=== PATIENT | female | born 1940 | race Caucasian/White ===

== ENCOUNTER 2020-04-25 10:38 | Inpatient (IN) | payer MEDICARE, OTHER, SELFPAY ==
[2020-04-25] VITALS (10 sets, daily range): BP systolic 104–129; BP diastolic 52–72; PULSE 74–97; RESP 16–24; TEMP 36.7–36.8; O2SAT 88–100; BMI 25.7
--- NOTE | 2020-04-25 10:51 | PC.NURSE ---
SORE NOTED TOP OF LEFT FOOT WEEPING NOTED LOWER LEFT EXTREMITY WITH REDNESS AND WARMTH TO TOUCH VERY TENDER TO TOUCH SKIN TAUNT TO TOUCH
--- NOTE | 2020-04-25 11:24 | XRR_ITS ---
PROCEDURE INFORMATION: Exam: XR Left Ankle Exam date and time: 04/25/2020 12:18 PM Age: 79 years old Clinical indication: Pain; Swelling, leg or foot; Ankle; Left; Additional info: Pain/infection TECHNIQUE: Imaging protocol: XR Left ankle. Views: 3 or more views. COMPARISON: No relevant prior studies available. FINDINGS: Bones/joints: There is diffuse demineralization. There is no acute fracture. Distal tibial intramedullary sclerosis may reflect infarct. Soft tissues: There is diffuse prominence of the soft tissues. XR/XR ankle LT min 3V* [id number] IMPRESSION: No acute abnormality.
--- NOTE | 2020-04-25 11:24 | XRR_ITS ---
PROCEDURE INFORMATION: Exam: XR Right Foot Complete Exam date and time: 04/25/2020 12:16 PM Age: 79 years old Clinical indication: Pain; Swelling, leg or foot; Bilateral; Additional info: Pain/infection TECHNIQUE: Imaging protocol: XR Right foot. Views: 3 or more views. COMPARISON: No relevant prior studies available. FINDINGS: Bones/joints: There is diffuse demineralization. There are hammertoe deformities of the 2nd through 5th rays. There is no fracture. Soft tissues: Normal. XR/XR foot RT min 3V* [id number] IMPRESSION: No fracture.
--- NOTE | 2020-04-25 11:24 | USCV_ITS ---
Charisma Holly Age: 79 Gender: F : 1940 Exam Date: 04/25/2020 12:08 Ordering Phys: Dagmar Ibarra DO Technologist: Marcelino Meeks [place] [facility] [place]ication: POOR PULSES Risk Factors: Unknown Previous Vascular Surgery: Unknown RIGHT LEFT BP: 130.0 / 67.00 BP: 130.0/ 65.00 0 0 Waveform Velocity (cm/s) Velocity (cm/s) Waveform Monophasic 174.9 Iliac Prox 178.1 Monophasic Monophasic 166.9 Iliac Mid 156.5 Monophasic Monophasic 181.9 Iliac Distal 154.7 Monophasic Monophasic 183.0 [employer]ER 126.3 Monophasic Monophasic 124.7 SFA Prox 140.3 Monophasic Monophasic 199.0 SFA Mid 152.9 Monophasic Monophasic 164.9 SFA Dist 138.5 Monophasic Monophasic 124.7 POP 174.5 Monophasic Monophasic 53.9 SLUNK SKINNER 127.7 Monophasic Monophasic 43.0 DPA 77.4 Monophasic VALERY 0.7 0.6 FINDINGS Abnormal resting ABIs bilaterally Abnormal arterial Doppler waveforms bilaterally CONCLUSIONS Abnormal resting ABIs and arterial Doppler waveforms, suggestive of moderately severe, 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 No similar previous studies are available for comparison Dr Kim Neil MD [facility] (Electronically Signed) Final Date: 26 April 2020 09:15 S
--- NOTE | 2020-04-25 11:24 | XRR_ITS ---
PROCEDURE INFORMATION: Exam: XR Left Foot Complete Exam date and time: 04/25/2020 12:18 PM Age: 79 years old Clinical indication: Pain; Swelling, leg or foot; Bilateral; Additional info: Pain/infection TECHNIQUE: Imaging protocol: XR Left foot. Views: 3 or more views. COMPARISON: No relevant prior studies available. FINDINGS: Bones/joints: There is diffuse demineralization. There is no definite fracture. There are degenerative changes about the 1st metatarsal phalangeal joint. Soft tissues: Normal. XR/XR foot LT min 3V* [id number] IMPRESSION: No definite fracture.
--- NOTE | 2020-04-25 11:24 | USCV_ITS ---
Charisma Holly Age: 79 Gender: F : 1940 Exam Date: 04/25/2020 12:00 Ordering Phys: Dagmar Ibarra DO Technologist: Marcelino Meeks [place]am Location[place] [facility] – [place] Indication: BIALT LEG EDEMA HISTORY: Lower extremity edema. PROCEDURES: The venous duplex Doppler examination of both lower extremities was performed in the standard fashion. The following venous structures were evaluated: common femoral vein, profunda vein, proximal portion of the greater saphenous vein, superficial femoral vein, and the popliteal vein. Bilaterally, the common femoral, superficial femoral, profunda femoral, popliteal, posterior tibial, greater saphenous veins, and the peroneal trunk were identified and interrogated in the standard fashion. These veins were found to be easily compressible with spontaneous blood flow. No evidence of insufficiency or thrombus noted. FINDINGS: Normal 2-D Doppler and augmentation and compressibility throughout the lower extremity venous structures. Additional imaging through the proximal calf veins also reveals no thrombus. Limited evaluation of the greater saphenous vein is patent with no thrombus.. CONCLUSIONS No evidence of DVT in the above-mentioned identifiable veins. Dr Kim Neil MD [facility] (Electronically Signed) Final Date: 26 April 2020 08:58 S
--- NOTE | 2020-04-25 11:32 | W.ED.EXTPRO ---
HPI - Extremity Problem General: Chief complaint: Extremity Problem,Nontraumatic Stated complaint: SORES ON LEFT FOOT Time Seen by Provider: 04/25/20 11:21 Source: patient Limitations: other (Patient is a poor historian) History of Present Illness: HPI Narrative: Charisma is an 79-year-old female who is believed to be brought in by EMS as no family is available with her. She is a very poor historian. She states she is here because her feet are causing her more pain. She appears to have chronic cellulitis in both feet. It appears as though her left lower extremity has quite a bit of oozing. She denies any injuries. She has any fevers or chills. Patient states her feet have been like this for quite some time she is here today solely because her pain is worse. All further history is taken from old charts. Associated symptoms: Deny chest pain or fever(s) Review of Systems Const: Denies: fever(s), chills, body aches, fatigue, malaise or diaphoresis Eyes: Denies: change in vision, blurry vision, blind spots, photophobia, eye discharge or eye redness ENMT: Denies: throat pain, odynophagia, hoarseness, swelling of lips/tongue, oral sores, ear or mastoid pain, ear discharge, change in hearing or nasal discharge Card: Denies: chest pain, palpitations, irregular heart rhythm, edema, lightheadedness, syncope, pre-syncope, dyspnea on exertion or orthopnea Resp: Denies: dyspnea, productive cough, non-productive cough, wheezing, hemoptysis or chest congestion GI: Denies: abdominal pain, nausea, vomiting, hematemesis, coffee ground emesis, heartburn, diarrhea, constipation, GI cramping, hematochezia or melena : Denies: flank pain, dysuria, urinary frequency, urinary urgency or hematuria Musc: Reports: extremity pain; Denies: neck pain, back pain, extremity swelling, joint pain, joint swelling, joint redness, joint warmth or joint stiffness Skin/Breast: Reports: other (As noted in HPI) Neuro: Denies: headache(s), numbness in extremities, weakness in extremities, sensory changes, lack of coordination, difficulty walking, dizziness, vertigo, confusion, Slurred speech present or seizure-like activity Bobby/Lymph: Denies: easy bruising, easy bleeding, petechiae, purpura or enlarged lymph nodes All/Imm: Denies: urticaria, throat swelling, tongue swelling, facial swelling or acute wheezing PFSH ED PFSH: Medical History (Updated 04/25/20 @ 15:34 by Dagmar Ibarra) Anemia CVA (cerebral vascular accident) 2013, right hemispheric Dementia Diabetes Hiatal hernia Hyperlipidemia Hypertension Peripheral vascular disease Thalassemia trait Surgical History (Updated 04/25/20 @ 13:59 by Keron Giron MD) History of back surgery Family History (Updated 04/25/20 @ 13:59 by Keron Giron MD) Other Diabetes Social History (Updated 04/25/20 @ 14:00 by Keron Giron MD) Smoking and tobacco status: never smoked Alcohol intake: never Substance/Drug Use: never Physical Exam Const: COMMON NORMALS: no acute distress, patient oriented x3, no limitations, healthy appearing and well nourished GENERAL APPEARANCE: cooperative, well kempt and well developed HENMT: COMMON NORMALS: normocephalic, atraumatic, external ears normal, EAC's normal and Normal external nose present HEAD & SCALP: normal to inspection, normocephalic and atraumatic FACE & SINUS: normal facial exam and face symmetric NOSE: Normal external nose present and Normal nares present EXTERNAL EAR: Yes external ears normal EXTERNAL AUDITORY CANAL: EAC's normal MOUTH: Normal oral and palatal mucosa present, lip normal and tongue normal Eye: COMMON NORMALS: Equal, round and reactive pupils present and conjunctivae normal GENERAL EYE: appearance normal, both eyes and all related structures ALIGNMENT: Yes alignment normal PERIORBITAL: periorbital findings normal EYELID: eyelids normal CONJUNCTIVA: Yes conjunctivae normal SCLERA: sclerae normal PUPIL: Yes Equal, round and reactive pupils present Neck/C-Spine: COMMON NORMALS: full ROM, no lymphadenopathy, supple, no meningeal signs and no JVD GENERAL: Yes normal visual inspection and Yes trachea midline Chest: COMMONS NORMALS: normal inspection of the chest and normal palpation of entire chest wall Resp: COMMON NORMALS: normal respiratory effort, No retractions and No use of accessory muscles EFFORT & INSPECTION: Yes able to speak in complete sentences and Yes symmetric chest movement AUSCULTATION: no crackles, no rales, no rhonchi and no wheezes Cardio: COMMON NORMALS: no JVD, regular rate, regular rhythm, S1 normal heart sound present and S2 normal heart sound present RATE: regular rate RHYTHM: regular rhythm HEART SOUNDS: S1 normal heart sound present, S2 normal heart sound present, no click, no gallops, no murmurs, no rubs and abnormal split S2 GI: COMMON NORMALS: Soft to palpation and No hepatosplenomegaly present PALPATION: Yes Soft to palpation, No Tenderness to palpation present (GI), No Guarding due to palpation present (GI), No Rigid due to palpation, Yes No hepatosplenomegaly present, No Hernia present, No Palpable mass present and No Pulsatile mass present : COMMON NORMALS: Yes no CVA tenderness BLADDER/KIDNEY EXAM: Yes no CVA tenderness EXTERNAL FEMALE EXAM: No Hernia present Back/Pelvis: COMMON NORMALS: no CVA tenderness, thoracic and lumbar spine normal to inspection, no thoracic nor lumbar tenderness and thoraco-lumbar ROM normal Extremity: COMMON NORMALS: normal to inspection, full ROM, capillary refill normal and no joint enlargement NARRATIVE EXTREMITY EXAM: Bilateral lower extremity calf tenderness Neuro: COMMON NORMALS: patient oriented x3, CN's II-XII intact bilaterally, moves all extremities, no focal motor deficits and no sensory deficits noted MENINGEAL SIGNS: Yes no meningeal signs SPEECH: speech normal Psych: APPEARANCE: Yes well kempt Skin: COMMON NORMALS: no jaundice, no petechiae and no mottling NARRATIVE SKIN EXAM: Bilateral feet with chronic cellulitis. Left foot worse than right with extension up to the ankle. Evidence of ulcers and weeping from the wounds present. Course Vital Signs: Vital signs: Vital Signs Temperature 98.1 F 04/25/20 15:28 Pulse Rate 92 04/25/20 17:31 Respiratory Rate 20 H 04/25/20 16:00 Blood Pressure 113/55 04/25/20 15:28 Pulse Oximetry 95 04/25/20 17:31 MDM - Extremity (Nontraumatic) MDM Narrative: Medical decision making narrative: The case was reviewed in its entirety with Dr. Giron, he agrees to come and admit the patient. Patient has anemia as well as elevated AST. She is guaiac negative here in the ER. Cause for isolated AST elevation is concerning but will need further with on the inpatient side. Your anemia can be worked up further as well. I initiated IV antibiotics for her cellulitis and she may need a vascular consult as her blood flow is monophasic with decreased ABIs. Lab Data: Attestation: I reviewed the patient's lab results. Labs: Lab Results 04/25/20 04/25/20 04/25/20 Range/Units 11:38 11:38 11:38 WBC 8.9 (4.0-10.0) 10^3/ uL RBC 3.74 L (4.1-5.3) 10^6/u L Hgb 8.2 L (11.5-15.3) g/dL Hct 26.9 L (37.0-47.0) % MCV 71.9 L (81-99) fL MCH 21.9 L (28.0-34.0) pg MCHC 30.5 (30.0-36.0) g/dL RDW 14.1 (12.1-15.1) % Plt Count 238 (130-400) 10^3/c mm MPV 10.3 (7.4-10.4) fL Neut % (Auto) 68.4 % Lymph % (Auto) 17.1 % [place] % (Auto) 12.3 % Eos % (Auto) 1.6 % Baso % (Auto) 0.4 % Neut # (Auto) 6.1 (1.8-7.7) 10^3/u L Lymph # (Auto) 1.5 (0.8-4.8) 10^3/u L [place] # (Auto) 1.1 H (0.2-0.9) 10^3/u L Eos # (Auto) 0.1 (0.0-0.8) 10^3/u L Baso # (Auto) 0.0 (0.0-0.1) 10^3/u L Nucleated RBC % (a uto) 0.2 % Nucleated RBCs # 0.0 /100WBC Sodium 140 (136-145) mmol/L Potassium 4.7 (3.5-5.1) mmol/L Chloride 104 (98-107) mmol/L Carbon Dioxide 24 (22-29) mmol/L Anion Gap 16.7 (5-19) BUN 25 H (8-23) mg/dL Creatinine 0.8 (0.5-0.9) mg/dL Glucose 212 H (65-115) mg/dL Calculated Osmolal ity 293 (285-295) mOsm/k g Lactic Acid 0.8 (0.5-2.2) mmol/L Calcium 9.5 (8.5-10.5) mg/dL Iron (37-145) ug/dL TIBC mcg/dl % Saturation (20-50) % Unsat Iron Binding (112-347) ug/dL Ferritin (15-150) ng/mL Total Bilirubin 0.6 (0.15-1.2) mg/dL AST 2575 H (0-32) U/L ALT 6 (0-33) U/L Alkaline Phosphata se 75 (35-105) IU/L Troponin T Baselin e (0-10) ng/L Troponin T 120 Min geo (0-10) ng/L Delta Troponin T (0-10) ABS# NT-Pro-B Natriuret Pep (0-450) pg/mL Total Protein 6.9 (6.6-8.7) g/dL Albumin 3.5 (3.5-5.2) g/dL Globulin 3.4 (1.3-4.6) g/dL Vitamin B12 (232-1245) pg/mL TSH (0.27-4.20) uIU/ mL Acetaminophen (10-30) ug/mL Ethyl Alcohol (0-10) mg/dL 04/25/20 04/25/20 04/25/20 Range/Units 11:38 11:38 11:38 WBC (4.0-10.0) 10^3/ uL RBC (4.1-5.3) 10^6/u L Hgb (11.5-15.3) g/dL Hct (37.0-47.0) % MCV (81-99) fL MCH (28.0-34.0) pg MCHC (30.0-36.0) g/dL RDW (12.1-15.1) % Plt Count (130-400) 10^3/c mm MPV (7.4-10.4) fL Neut % (Auto) % Lymph % (Auto) % [place] % (Auto) % Eos % (Auto) % Baso % (Auto) % Neut # (Auto) (1.8-7.7) 10^3/u L Lymph # (Auto) (0.8-4.8) 10^3/u L [place] # (Auto) (0.2-0.9) 10^3/u L Eos # (Auto) (0.0-0.8) 10^3/u L Baso # (Auto) (0.0-0.1) 10^3/u L Nucleated RBC % (a uto) % Nucleated RBCs # /100WBC Sodium (136-145) mmol/L Potassium (3.5-5.1) mmol/L Chloride (98-107) mmol/L Carbon Dioxide (22-29) mmol/L Anion Gap (5-19) BUN (8-23) mg/dL Creatinine (0.5-0.9) mg/dL Glucose (65-115) mg/dL Calculated Osmolal ity (285-295) mOsm/k g Lactic Acid (0.5-2.2) mmol/L Calcium (8.5-10.5) mg/dL Iron 30 L (37-145) ug/dL TIBC 227 mcg/dl % Saturation 13.2 L (20-50) % Unsat Iron Binding 197 (112-347) ug/dL Ferritin 308 H (15-150) ng/mL Total Bilirubin (0.15-1.2) mg/dL AST (0-32) U/L ALT (0-33) U/L Alkaline Phosphata se (35-105) IU/L Troponin T Baselin e 27 H (0-10) ng/L Troponin T 120 Min geo (0-10) ng/L Delta Troponin T (0-10) ABS# NT-Pro-B Natriuret Pep (0-450) pg/mL Total Protein (6.6-8.7) g/dL Albumin (3.5-5.2) g/dL Globulin (1.3-4.6) g/dL Vitamin B12 (232-1245) pg/mL TSH (0.27-4.20) uIU/ mL Acetaminophen < 5.0 L (10-30) ug/mL Ethyl Alcohol < 10 (0-10) mg/dL 04/25/20 04/25/20 Range/Units 12:02 13:55 WBC (4.0-10.0) 10^3/ uL RBC (4.1-5.3) 10^6/u L Hgb (11.5-15.3) g/dL Hct (37.0-47.0) % MCV (81-99) fL MCH (28.0-34.0) pg MCHC (30.0-36.0) g/dL RDW (12.1-15.1) % Plt Count (130-400) 10^3/c mm MPV (7.4-10.4) fL Neut % (Auto) % Lymph % (Auto) % [place] % (Auto) % Eos % (Auto) % Baso % (Auto) % Neut # (Auto) (1.8-7.7) 10^3/u L Lymph # (Auto) (0.8-4.8) 10^3/u L [place] # (Auto) (0.2-0.9) 10^3/u L Eos # (Auto) (0.0-0.8) 10^3/u L Baso # (Auto) (0.0-0.1) 10^3/u L Nucleated RBC % (a uto) % Nucleated RBCs # /100WBC Sodium (136-145) mmol/L Potassium (3.5-5.1) mmol/L Chloride (98-107) mmol/L Carbon Dioxide (22-29) mmol/L Anion Gap (5-19) BUN (8-23) mg/dL Creatinine (0.5-0.9) mg/dL Glucose (65-115) mg/dL Calculated Osmolal ity (285-295) mOsm/k g Lactic Acid (0.5-2.2) mmol/L Calcium (8.5-10.5) mg/dL Iron (37-145) ug/dL TIBC mcg/dl % Saturation (20-50) % Unsat Iron Binding (112-347) ug/dL Ferritin (15-150) ng/mL Total Bilirubin (0.15-1.2) mg/dL AST (0-32) U/L ALT (0-33) U/L Alkaline Phosphata se (35-105) IU/L Troponin T Baselin e (0-10) ng/L Troponin T 120 Min geo 24.71 H (0-10) ng/L Delta Troponin T -2.29 L (0-10) ABS# NT-Pro-B Natriuret Pep 1496 H (0-450) pg/mL Total Protein (6.6-8.7) g/dL Albumin (3.5-5.2) g/dL Globulin (1.3-4.6) g/dL Vitamin B12 375 (232-1245) pg/mL TSH 1.42 (0.27-4.20) uIU/ mL Acetaminophen (10-30) ug/mL Ethyl Alcohol (0-10) mg/dL Discharge Plan Discharge Patient Disposition: Admitted As Inpatient Admit Provider: Keron Giron Clinical Impression: Cellulitis Qualifiers: Site of cellulitis: extremity Site of cellulitis of extremity: lower extremity Laterality: unspecified laterality Qualified Code(s): L03.119 - Cellulitis of unspecified part of limb Anemia Qualifiers: Anemia type: unspecified type Qualified Code(s): D64.9 - Anemia, unspecified Condition: Stable Discharge Date/Time: 04/25/20 15:40 Coding Level of Care Code ED Mar[facility] Polisher Hand for Chg Fwd Exam Comprehensive
[2020-04-25 11:43] LABS: Basophils % 0.4 %; Eosinophils # 0.1 10^3/uL (0.0-0.8); Eosinophils % 1.6 %; Hematocrit 26.9 % (37.0-47.0); Hemoglobin 8.2 g/dL (11.5-15.3); Lymphocytes # 1.5 10^3/uL (0.8-4.8); Lymphocytes % 17.1 %; Mean Corpuscular HGB Conc 30.5 g/dL (30.0-36.0); Mean Corpuscular Hemoglobin 21.9 pg (28.0-34.0); Mean Corpuscular Volume 71.9 fL (81-99); Mean Platelet Volume 10.3 fL (7.4-10.4); Monocytes # 1.1 10^3/uL (0.2-0.9); Monocytes % 12.3 %; Neutrophils # 6.1 10^3/uL (1.8-7.7); Neutrophils % 68.4 %; Nucleated Red Blood Cells % 0.2 %; Platelet Count 238 10^3/cmm (130-400); Red Blood Count 3.74 10^6/uL (4.1-5.3); Red Cell Distribution Width 14.1 % (12.1-15.1); White Blood Count 8.9 10^3/uL (4.0-10.0)
[2020-04-25] MEDS: sodium chloride 0.9% 1,000 ML 100 ML IV (11:48)
[2020-04-25] MEDS: ondansetron 2 mg/ML SDV 2 mL 4 MG IVP (11:49)
[2020-04-25] MEDS: morphine 4 mg/mL SDV 1 mL IVP (11:49)
[2020-04-25] MEDS: piperacillin-tazobactam 3.375 GM in sodium chloride 0.9% (plus) 50 ML IV ×2 (11:53→17:39)
[2020-04-25 11:58] LABS: Alanine Aminotransferase 6 U/L (0-33); Albumin Level 3.5 g/dL (3.5-5.2); Alkaline Phosphatase 75 IU/L (35-105); Anion Gap 16.7 (5-19); Blood Urea Nitrogen 25 mg/dL (8-23); Calcium 9.5 mg/dL (8.5-10.5); Carbon Dioxide 24 mmol/L (22-29); Chloride 104 mmol/L (98-107); Creatinine Clr Calc Pharmacy 53.1565; Globulin 3.4 g/dL (1.3-4.6); Glucose 212 mg/dL (65-115); Osmolality Calculated 293 mOsm/kg (285-295); Potassium 4.7 mmol/L (3.5-5.1); Sodium 140 mmol/L (136-145); Total Bilirubin 0.6 mg/dL (0.15-1.2); Total Protein 6.9 g/dL (6.6-8.7)
[2020-04-25 11:59] LABS: Lactic Sepsis W/Reflex 0.8 mmol/L (0.5-2.2)
--- NOTE | 2020-04-25 12:02 | ECG_ITS ---
[facility] Test Date: 2020-04-25 Pat Name: Charisma Holly Department: Room: Gender: Female Bobbin Disker: : 1940 Requested By: Dagmar Hernandez Order Number: [id number] Lucero MD: Sara Braswell M.D. Measurements Intervals [place] Rate: 81 P: 75 TN: 132 QRS: 47 QRSD: 91 T: 100 QT: 396 QTc: 460 Interpretive Statements SINUS RHYTHM WITH OCCASIONAL SUPRAVENTRICULAR PREMATURE COMPLEXES NONSPECIFIC ST & T-WAVE ABNORMALITY Compared to ECG 06/24/2018 10:56:49 T-wave abnormality now present Sinus tachycardia no longer present ST (T wave) deviation no longer present Electronically Signed On 04-25-2020 18:26:49 CDT by Sara Braswell M.D. [email or web address]
[2020-04-25 12:12] LABS: Aspartate Amino Transferase 2575 U/L (0-32)
[2020-04-25 12:51] LABS: NT Pro B Type Natriuretic Pept 1496 pg/mL (0-450)
--- NOTE | 2020-04-25 12:52 | PC.NURSE ---
REPORT GIVEN TO JOAN Maria RN AT 1230 CARE TURNED OVER
[2020-04-25 12:57] LABS: Acetaminophen < 5.0 ug/mL (10-30); Alcohol Level < 10 mg/dL (0-10)
--- NOTE | 2020-04-25 13:16 | CTR_ITS ---
PROCEDURE INFORMATION: Exam: CT Head Without Contrast Exam date and time: 04/25/2020 1:33 PM Age: 79 years old Clinical indication: Altered mental status/memory loss; Confusion or disorientation; Additional info: AMS TECHNIQUE: Imaging protocol: Computed tomography of the head without contrast. Radiation optimization: All CT scans at this facility use at least one of these dose optimization techniques: automated exposure control; mA and/or kV adjustment per patient size (includes targeted exams where dose is matched to clinical indication); or iterative reconstruction. COMPARISON: No relevant prior studies available. RADIATION DOSE METRICS: Total DLP (mGy-cm): 1170.73 FINDINGS: Brain: One or more cerebral calcifications most consistent with previous infectious or traumatic insult. Bilateral chronic lacunar basal ganglia infarcts. Mild nonspecific bilateral basal ganglia and cerebellar calcifications. Mild to moderate cerebral atrophy and ischemic leukoencephalopathy. Chronic right frontal lobe infarct with encephalomalacia. Ventricles: Cavum septum pellucida and cavum vergae which are normal variants. Bones/joints: Unremarkable. No acute fracture. Sinuses: Visualized sinuses are unremarkable. No fluid levels. Mastoid air cells: Visualized mastoid air cells are well aerated. Vasculature: Severe calcified intracranial atherosclerotic vessel disease. Soft tissues: Unremarkable. CT/CT head wo con* [id number] IMPRESSION: No acute intracranial findings. Radiation Dose CTDIVOL = (mGy): DLP = 1170.73 (mGy-cm)
[2020-04-25 13:32] LABS: Troponin(5th) Baseline 27 ng/L (0-10)
--- NOTE | 2020-04-25 13:50 | P.HP_ITS ---
Providers/Chief Complaint Primary Care Provider: Frankie Garay MD Chief Complaint: SORES ON LEFT FOOT History of Present Illness Charisma Holly is a 79 year old female who presents to the emergency department with erythematous lower extremities left greater than right. No contacts are yet listed in her chart. From my understanding perhaps her [id number] called 911 to bring her in because she noticed erythema of her lower extremities. Duration is not known. Patient believes is been a week or so. However, she has significant underlying dementia that prevents a good history and physical. She does not report any fever. She does report her left leg hurts some when something touches her skin. She does report she is still ambulating. Review of Systems General: Reports: 10 or more systems reviewed and unremarkable except in HPI and below Const: Denies: fever(s), chills or body aches Eyes: Denies: change in vision ENMT: Denies: throat pain Card: Denies: chest pain Resp: Denies: dyspnea GI: Denies: abdominal pain or nausea : Denies: flank pain Musc: Denies: neck pain Skin/Breast: Reports: rash Neuro: Denies: headache(s) Psych: Denies: anxiety Endo: Denies: polyuria Bobby/Lymph: Denies: easy bruising All/Imm: Denies: urticaria Medications/Allergies Home Medications Medication Instructions Recorded Confirmed Last Taken Type atenolol 100 mg PO DAILY 04/25/20 04/25/20 Unknown History donepezil 5 mg PO DAILY 04/25/20 04/25/20 Unknown History metformin 500 mg PO DAILY 04/25/20 04/25/20 Unknown History pravastatin 40 mg PO DAILY 04/25/20 04/25/20 Unknown History Allergies Allergy/AdvReac Type Severity Reaction Status Date / Time No Known Allergies Allergy Verified 04/25/20 10:43 PFSH Acute PFSH: Medical History (Updated 04/25/20 @ 14:12 by Keron Giron MD) Anemia CVA (cerebral vascular accident) 2013, right hemispheric Dementia Diabetes Hiatal hernia Hyperlipidemia Hypertension Peripheral vascular disease Thalassemia trait Surgical History (Updated 04/25/20 @ 13:59 by Keron Giron MD) History of back surgery Family History (Updated 04/25/20 @ 13:59 by Keron Giron MD) Other Diabetes Social History (Updated 04/25/20 @ 14:00 by Keron Giron MD) Smoking and tobacco status: never smoked Alcohol intake: never Substance/Drug Use: never Vitals/I&O/Wt Last Vital Signs Temp 98.2 F 04/25/20 10:43 Pulse 82 04/25/20 12:53 Resp 16 04/25/20 12:53 BP 129/59 04/25/20 12:53 Pulse Ox 100 04/25/20 12:53 04/24/20 04/25/20 04/25/20 22:59 06:59 14:59 Intake Total 50 / 50 Balance 50 / 50 Weight last 48 hrs Weight 68.039 kg Physical Exam Narrative: EXAM NARRATIVE: General exam is an elderly white female, conversant but confused Neurologic: No obvious focal deficits. Confusion noted. However able to carry on a conversation. HEENT: Pupils equally round. Oropharynx clear. Mucous membranes slightly dry. Cardiovascular regular rate and rhythm without murmur, no S3 or S4 Lungs clear no wheezing or crackles Abdomen is soft, positive bowel sounds. No obvious organomegaly was deferred Extremities no cyanosis or clubbing. Difficult to feel pulses bilaterally. Left lower extremity has erythema, to her lower li with some peeling skin. Ulcer present dorsal surface of the foot. Approximately 2 cm diameter. No active drainage. Skin see findings above Data : 04/25/20 11:38 04/25/20 11:38 Other data: BNP elevated at 1496, troponin 27, AST 2575, rest of LFTs normal. Tylenol and alcohol level normal. EKG done but I do not have for review EKG demonstrates sinus rhythm, normal axis, no acute changes She was heme-negative in the emergency department. A&P Assessment and plan (1) Cellulitis: Vancomycin, Zosyn initiated Check blood culture Status: Acute (2) Peripheral vascular disease: ABIs apparently done in the ER. Await report. From my understanding approximately 0.6 on the left and 0.7 on the right Status: Acute (3) Anemia: Follow closely. Appears to be chronic. Check anemia panel. Heme- negative. Status: Acute Additional A&P Information Elevated AST. Etiology unknown. Repeat tomorrow. May be related to her thalassemia trait History of thalassemia trait Requiring 3 L of oxygen in the ER. Check chest x-ray Dementia History of type 2 diabetes Hyperlipidemia Multiple other medical problems as outlined in past medical history At this point full code, until can be clarified by family secondary to patient's underlying dementia Lovenox for DVT prophylaxis Attestations Medical Necessity Statement*: Will need greater than 2 midnight stay for treatment of cellulitis and peripheral vascular disease. Time Spent in Patient Care: Greater than 35 minutes Coding Level of Care Code Acute Information Technology Internship for [facility] Fwd Diagnoses Cellulitis L03.90 Peripheral vascular disease I73.9 Anemia D64.9
--- NOTE | 2020-04-25 14:05 | XRR_ITS ---
PROCEDURE INFORMATION: Exam: XR Chest, 1 View Exam date and time: 04/25/2020 2:18 PM Age: 79 years old Clinical indication: Other: Hypoxia TECHNIQUE: Imaging protocol: XR of the chest Views: 1 view. COMPARISON: No relevant prior studies available. FINDINGS: Lungs: Low lung volumes seen. No consolidation. Pleural space: Unremarkable. No pleural effusion. No pneumothorax. Heart/Mediastinum: Unremarkable. No cardiomegaly. Bones/joints: Unremarkable. XR/XR chest 1V portable [id number] IMPRESSION: No acute findings.
[2020-04-25 14:20] LABS: Troponin 5 2HR 24.71 ng/L (0-10)
[2020-04-25 14:27] LABS: Ferritin 308 ng/mL (15-150); Iron 30 ug/dL (37-145)
[2020-04-25 14:32] LABS: Troponin 5 2HR Delta -2.29 ABS# (0-10)
[2020-04-25 14:37] LABS: Thyroid Stimulating Hormone 1.42 uIU/mL (0.27-4.20); Vitamin B12 375 pg/mL (232-1245)
[2020-04-25 14:45] LABS: Percent Saturation 13.2 % (20-50); Total Iron Binding Capacity 227 mcg/dl; Unsaturated Iron Binding 197 ug/dL (112-347)
--- NOTE | 2020-04-25 15:03 | ECG_ITS ---
[facility] Test Date: 2020-05-04 Pat Name: Charisma Holly Department: Room: 263 Gender: Female Supervisor Taping: : 1940 Requested By: Dagmar Hernandez Order Number: [id number] Lucero MD: Jamel Contreras M.D. Measurements Intervals [place] Rate: 72 P: 66 PA: 150 QRS: 27 QRSD: 94 T: 28 QT: 415 QTc: 455 Interpretive Statements SINUS RHYTHM WITH SINUS ARRHYTHMIA NONSPECIFIC T-WAVE ABNORMALITY Compared to ECG 04/25/2020 17:26:21 T-wave abnormality now present ST (T wave) deviation no longer present Electronically Signed On 05-04-2020 17:46:57 CDT by Jamel Contreras M.D. [id number]
[2020-04-25] MEDS: enoxaparin 40 mg/0.4 mL Syringe SUBCUT (15:57)
[2020-04-25 17:27] LABS: Glucose Point of Care 140 mg/dL (70-110)
[2020-04-25 18:29] LABS: Troponin 5 6HR 26.25 ng/L (0-10)
[2020-04-25 18:35] LABS: Troponin 5 6HR Delta -0.75 ng/L (0-12)
--- NOTE | 2020-04-25 19:03 | ECG_ITS ---
[facility] Test Date: 2020-04-25 Pat Name: Charisma Holly Department: Room: 263 Gender: Female Lead Relay Tester: : 1940 Requested By: Dagmar Hernandez Order Number: [id number] Lucero MD: Sara Braswell M.D. Measurements Intervals [place] Rate: 94 P: 64 AL: 152 QRS: 37 QRSD: 84 T: 26 QT: 362 QTc: 455 Interpretive Statements SINUS RHYTHM MINIMAL ST DEPRESSION [0.025+ mV ST DEPRESSION] Compared to ECG 04/25/2020 12:47:10 ST (T wave) deviation now present T-wave abnormality no longer present Electronically Signed On 04-25-2020 18:34:04 CDT by Sara Braswell M.D. [id number]
[2020-04-25 20:46] LABS: Bilirubin Urine Neg (NEGATIVE); Blood Urine 2+ (Negative); Glucose Urine UA Norm (Normal); Ketones Urine Negative (Negative); Leukocyte Esterase Urine 2+ (Negative); Nitrate Urine Positive (Negative); Protein Urine Neg (Negative); Urine Color Yellow (Yellow); Urobilinogen Urine Neg (Negative); pH Urine 5 (5-7)
[2020-04-25 20:47] LABS: Add Urine Culture? Yes; Bacteria Urine 3+; Squamous Epithelial Cell Urine 0-4 (0-5); WBC Urine 40-55 /hpf (0-5)
[2020-04-25 21:05] LABS: Glucose Point of Care 219 mg/dL (70-110)
[2020-04-26] VITALS: BP 103/67; PULSE 107; RESP 20; TEMP 37.1; O2SAT 91
[2020-04-26] MEDS: acetaminophen 325 mg Tablet 650 MG PO ×2 (00:22→13:13)
[2020-04-26] MEDS: piperacillin-tazobactam 3.375 GM in sodium chloride 0.9% (plus) 50 ML IV ×3 (01:45→17:31)
--- NOTE | 2020-04-26 03:09 | PC.NURSE ---
Medications on bedside table. Patient gave nurse permission to lock medications up in the Pyxis along with her wallet.
[2020-04-26 04:00] VITALS: BP 99/63; PULSE 99; RESP 24; TEMP 36.3; O2SAT 91
[2020-04-26 05:13] LABS: Basophils % 0.4 %; Eosinophils # 0.1 10^3/uL (0.0-0.8); Eosinophils % 1.4 %; Hematocrit 26.5 % (37.0-47.0); Hemoglobin 7.9 g/dL (11.5-15.3); Lymphocytes # 1.7 10^3/uL (0.8-4.8); Lymphocytes % 17.5 %; Mean Corpuscular HGB Conc 29.8 g/dL (30.0-36.0); Mean Corpuscular Hemoglobin 22.3 pg (28.0-34.0); Mean Corpuscular Volume 74.6 fL (81-99); Mean Platelet Volume 10.9 fL (7.4-10.4); Monocytes # 1.1 10^3/uL (0.2-0.9); Monocytes % 11.3 %; Neutrophils # 6.8 10^3/uL (1.8-7.7); Neutrophils % 69.1 %; Nucleated Red Blood Cells % 0 %; Platelet Count 232 10^3/cmm (130-400); Red Blood Count 3.55 10^6/uL (4.1-5.3); Red Cell Distribution Width 14.6 % (12.1-15.1); White Blood Count 9.9 10^3/uL (4.0-10.0)
[2020-04-26 05:39] LABS: Alanine Aminotransferase 9 U/L (0-33); Albumin Level 3.2 g/dL (3.5-5.2); Alkaline Phosphatase 61 IU/L (35-105); Anion Gap 16.5 (5-19); Aspartate Amino Transferase 14 U/L (0-32); Blood Urea Nitrogen 23 mg/dL (8-23); Carbon Dioxide 23 mmol/L (22-29); Chloride 109 mmol/L (98-107); Creatinine Clr Calc Pharmacy 47.2502; Globulin 2.9 g/dL (1.3-4.6); Glucose 120 mg/dL (65-115); Osmolality Calculated 296 mOsm/kg (285-295); Potassium 4.5 mmol/L (3.5-5.1); Sodium 144 mmol/L (136-145); Total Bilirubin 0.7 mg/dL (0.15-1.2); Total Protein 6.1 g/dL (6.6-8.7)
[2020-04-26 06:51] LABS: Glucose Point of Care 112 mg/dL (70-110)
[2020-04-26 07:13] VITALS: BP 105/60; PULSE 100; RESP 20; TEMP 36.8; O2SAT 91
[2020-04-26] MEDS: donepezil 5 MG Tablet PO (07:30)
[2020-04-26] MEDS: atenolol 50 mg Tablet 100 MG PO (07:30)
[2020-04-26] MEDS: atorvastatin 40 mg Tablet 20 MG PO (07:30)
[2020-04-26 11:08] VITALS: BP 132/76; PULSE 76; RESP 16; TEMP 36.6; O2SAT 92
[2020-04-26 11:46] LABS: Glucose Point of Care 162 mg/dL (70-110)
--- NOTE | 2020-04-26 11:59 | PM.PN ---
Subjective Subjective: Interval history: Charisma reports she feels okay. Leg is a little less tender. Medications: Reviewed: Yes Vitals/I&O/Wt Last Vital Signs Temp 97.8 F 04/26/20 11:08 Pulse 76 04/26/20 11:08 Resp 16 04/26/20 11:08 BP 132/76 04/26/20 11:08 Pulse Ox 92 04/26/20 11:08 04/25/20 04/26/20 04/26/20 22:59 06:59 14:59 Intake Total 290 / 340 50 / 390 240 / 240 Output Total 250 / 250 Balance 290 / 340 -200 / 140 240 / 240 Weight last 48 hrs Weight 68.039 kg Physical Exam Narrative: EXAM NARRATIVE: General exam is an elderly white female, conversant but confused Cardiovascular regular rate and rhythm without murmur, no S3 or S4 Lungs clear no wheezing or crackles Abdomen is soft, positive bowel sounds. No obvious organomegaly Extremities no cyanosis or clubbing. Difficult to feel pulses bilaterally. Left lower extremity has erythema, to her lower li with some peeling skin. Ulcer present dorsal surface of the foot. Approximately 2 cm diameter. Overnight the erythema is improving. Data : 04/26/20 04:51 04/26/20 04:51 Micro: Microbiology 04/25/20 13:55 Blood Culture - Preliminary Blood SPECIMEN COLLECTED 04/25/20 11:38 Blood Culture - Preliminary Blood SPECIMEN COLLECTED A&P Assessment and plan (1) Cellulitis: Vancomycin, Zosyn initiated. Continue. Cellulitis improving. Blood culture negative to date Status: Acute (2) Peripheral vascular disease: ABIs 0.7 and 0.6. Consider outpatient evaluation. Status: Acute (3) Anemia: Follow closely. Appears to be chronic. Heme-negative. Iron deficient. Iron infusion today Status: Acute Additional A&P Information Elevated AST. Etiology unknown. Appears to be lab error as this is normal today UTI. Continue current IV antibiotics. Await culture. History of thalassemia trait Requiring 3 L of oxygen in the ER. Check chest x-ray Dementia History of type 2 diabetes, sliding scale insulin. Hyperlipidemia Multiple other medical problems as outlined in past medical history At this point full code, until can be clarified by family secondary to patient's underlying dementia Lovenox for DVT prophylaxis Attestations Medical Necessity Statement*: Needs continued hospital stay for IV antibiotics secondary to cellulitis Coding Level of Care Code Acute Manager Installation for [facility] Fwd Diagnoses Cellulitis L03.90 Peripheral vascular disease I73.9 Anemia D64.9
--- NOTE | 2020-04-26 12:19 | PC.CHAP ---
Pastoral Care Encounter/Spiritual Assessment Type of Contact [] Declined credit compliance officer visit [] Patient/Family/Request visit [] Outpatient visit [] Follow-up visit [] Physician referral [] Code/Alert [X] Routine visit [] Staff referral [] Actively dying [] Patient sleeping [] Family support [] [] Out of room [] Palliative care [] [x] Receiving care in room [] Pre-surgical visit [] Trauma [] Long length of stay [] ICU visit [] Other: Relational/Emotional Strength [x] Patient feels connected with others/family/visitors/staff [] Distress [] Loneliness/isolation [] Abandonment Spirituality of Patient [x] Person of Jyotsna [] Attends Baptism of their Jy[place]na [x] Believes in Prayer [] Reads Bible or Moravian materials [] There are Spiritual issues to be addressed Perlite Grinder Interventions [x] Prayer [x] Active listening [x] Non-anxious presence [x] Spiritual/emotional support [] Crisis/trauma care [x] Spiritual counseling [] Bereavement support [] Provided bereavement packet [] Provided Bible/devotional materials [] Provided toy/stuffed animal, coloring book to patient or family member [] Provided Communion [] Anointing/[place] [] Salvation [x] Completed spiritual assessment [] Other: Impact on Illness or Injury [] Angry [] Fearful [x] Anxious [] Often cries [] Exhaustion [] Unable to work [] Unable to attend hinduism [] Unable to walk/stand [] Unable to read [] Unable to drive [] Unable to eat/drink [] Unable to sleep [] Unable to be with family [] Patient intubated [] Other: Summary sores on left foot, heart Confused, has a good attitude, doesn't know what is wrong or what needs to done for healing Time spent with patient 10 mins
[2020-04-26] MEDS: iron sucrose 200 MG in sodium chloride 0.9% (100 ml) 100 ML 220 MG IV (13:10)
[2020-04-26] MEDS: enoxaparin 40 mg/0.4 mL Syringe SUBCUT (14:37)
[2020-04-26 15:34] VITALS: BP 92/57; PULSE 86; RESP 18; TEMP 36.6; O2SAT 90
[2020-04-26 16:46] LABS: Glucose Point of Care 114 mg/dL (70-110)
--- NOTE | 2020-04-26 18:11 | NUR.SHIFT ---
SHIFT SUMMARY PATIENT HAS DONE WELL MOST OF THE DAY. SHE BECAME ANXIOUS THIS EVENING, BUT CALMED QUICKLY. PATIENT HAS BEEN INCONTINENT TODAY, BUT HAS URINATED A GOOD AMOUNT. REDNESS IN BILATERAL LEGS HAS IMPROVED SOMEWHAT TODAY. CONTINUING IV ANTIBIOTICS. NO COMPLAINTS AT THIS TIME.
[2020-04-26 20:00] VITALS: BP 101/69; PULSE 82; RESP 20; TEMP 36.9; O2SAT 91
[2020-04-26 22:14] LABS: Glucose Point of Care 154 mg/dL (70-110)
[2020-04-27] VITALS: BP 114/71; PULSE 86; RESP 20; TEMP 36.9; O2SAT 91
[2020-04-27] MEDS: piperacillin-tazobactam 3.375 GM in sodium chloride 0.9% (plus) 50 ML IV ×2 (02:44→12:09)
[2020-04-27] MEDS: acetaminophen 325 mg Tablet 650 MG PO ×3 (02:52→21:04)
[2020-04-27 04:00] VITALS: BP 95/63; PULSE 89; RESP 20; TEMP 36.9; O2SAT 92
[2020-04-27 07:58] VITALS: BP 108/60; PULSE 86; RESP 18; TEMP 36.9; O2SAT 94
[2020-04-27] MEDS: atorvastatin 40 mg Tablet 20 MG PO (11:19)
[2020-04-27] MEDS: donepezil 5 MG Tablet PO (11:20)
[2020-04-27] MEDS: atenolol 50 mg Tablet 100 MG PO (11:20)
[2020-04-27] MEDS: aspirin 81 mg EC Tablet PO (11:20)
[2020-04-27 11:38] VITALS: BP 116/66; PULSE 90; RESP 18; TEMP 36.6; O2SAT 92
--- NOTE | 2020-04-27 11:56 | P.PN_ITS ---
Subjective Subjective: Interval history: hCarisma reports her foot seems better. Still has some tenderness. Medications: Reviewed: Yes Vitals/I&O/Wt Last Vital Signs Temp 97.8 F 04/27/20 11:38 Pulse 90 04/27/20 11:38 Resp 18 04/27/20 11:38 BP 116/66 04/27/20 11:38 Pulse Ox 92 04/27/20 11:38 04/26/20 04/27/20 04/27/20 22:59 06:59 14:59 Intake Total 150 / 680 241 / 921 240 / 240 Balance 150 / 680 241 / 921 240 / 240 Physical Exam Narrative: EXAM NARRATIVE: General exam no apparent distress Cardiovascular regular rate and rhythm without murmur, no S3 or S4 Lungs clear no wheezing or crackles Abdomen is soft, positive bowel sounds. No obvious organomegaly Extremities no cyanosis or clubbing. Difficult to feel pulses bilaterally. Left lower extremity has erythema, to her lower li with some peeling skin. Ulcer present dorsal surface of the foot. Approximately 2 cm diameter. Erythema is again improved. Foot is warm. Refill is less than 2 seconds. Data : 04/26/20 04:51 04/26/20 04:51 Micro: Microbiology 04/25/20 19:15 Urine Culture - Preliminary Urine,Clean Catch 04/25/20 13:55 Blood Culture - Preliminary Blood NEGATIVE TO DATE 04/25/20 11:38 Blood Culture - Preliminary Blood NEGATIVE TO DATE A&P Assessment and plan (1) Cellulitis: Continue vancomycin and Zosyn. She is improving significantly. Likely can be discharged tomorrow. Blood culture negative to date Status: Acute (2) Peripheral vascular disease: ABIs 0.7 and 0.6. Consider outpatient evaluation. This certainly could impair healing of her ulcer but she wants to try to avoid any surgical procedures. I have visited briefly with her contact in the chart regarding this. Status: Acute (3) Anemia: Follow closely. Appears to be chronic. Heme-negative. Iron deficient. Iron infusion was given on April 26. Awaiting laboratory for today. Status: Acute Additional A&P Information Elevated AST. Etiology unknown. Appears to be lab error as this is normal today UTI. Continue current IV antibiotics. Await culture. Preliminary small colony growth less than 5000 History of thalassemia trait Requiring 3 L of oxygen in the ER. Check chest x-ray. No obvious infiltrate. Now on room air. Dementia History of type 2 diabetes, sliding scale insulin. Hyperlipidemia Multiple other medical problems as outlined in past medical history At this point full code, until can be clarified by family secondary to patient's underlying dementia Lovenox for DVT prophylaxis Attestations Medical Necessity Statement*: Needs continued hospitalization for IV antibio tics related to cellulitis. Coding Level of Care Code Acute Button Tufting Machine Operator for [facility] Diagnoses Cellulitis L03.90 Peripheral vascular disease I73.9 Anemia D64.9
[2020-04-27 15:26] LABS: Basophils % 0.4 %; Eosinophils # 0.2 10^3/uL (0.0-0.8); Eosinophils % 2.2 %; Hematocrit 28.4 % (37.0-47.0); Hemoglobin 8.6 g/dL (11.5-15.3); Lymphocytes # 1.7 10^3/uL (0.8-4.8); Lymphocytes % 17.8 %; Mean Corpuscular HGB Conc 30.3 g/dL (30.0-36.0); Mean Corpuscular Hemoglobin 22.6 pg (28.0-34.0); Mean Corpuscular Volume 74.7 fL (81-99); Monocytes % 10.4 %; Neutrophils # 6.6 10^3/uL (1.8-7.7); Neutrophils % 68.5 %; Nucleated Red Blood Cells # 0.1 /100WBC; Nucleated Red Blood Cells % 0.7 %; Platelet Count 220 10^3/cmm (130-400); Red Cell Distribution Width 14.9 % (12.1-15.1); White Blood Count 9.6 10^3/uL (4.0-10.0)
[2020-04-27 15:33] VITALS: BP 112/58; PULSE 70; RESP 18; TEMP 36.6; O2SAT 93
[2020-04-27 15:44] LABS: Anion Gap 14.1 (5-19); Blood Urea Nitrogen 19 mg/dL (8-23); Calcium 9.2 mg/dL (8.5-10.5); Carbon Dioxide 25 mmol/L (22-29); Chloride 106 mmol/L (98-107); Creatinine Clr Calc Pharmacy 53.1565; Glucose 144 mg/dL (65-115); Osmolality Calculated 291 mOsm/kg (285-295); Potassium 4.1 mmol/L (3.5-5.1); Sodium 141 mmol/L (136-145)
[2020-04-27 17:07] LABS: Glucose Point of Care 231 mg/dL (70-110)
[2020-04-27] MEDS: enoxaparin 40 mg/0.4 mL Syringe SUBCUT (17:27)
[2020-04-27 20:16] VITALS: BP 130/66; PULSE 66; RESP 20; TEMP 36.7; O2SAT 93
[2020-04-27 21:33] LABS: Glucose Point of Care 92 mg/dL (70-110)
[2020-04-28] VITALS: BP 131/66; PULSE 84; RESP 20; TEMP 36.8; O2SAT 93
[2020-04-28] MEDS: piperacillin-tazobactam 3.375 GM in sodium chloride 0.9% (plus) 50 ML IV ×3 (00:43→17:32)
[2020-04-28 04:25] VITALS: BP 134/65; PULSE 77; RESP 20; TEMP 36.3; O2SAT 95
[2020-04-28 06:09] LABS: Glucose Point of Care 91 mg/dL (70-110)
[2020-04-28 07:23] VITALS: BP 157/71; PULSE 77; RESP 20; TEMP 36.7; O2SAT 94
[2020-04-28] MEDS: acetaminophen 325 mg Tablet 650 MG PO ×2 (09:06→17:31)
[2020-04-28] MEDS: donepezil 5 MG Tablet PO (09:13)
[2020-04-28] MEDS: atorvastatin 40 mg Tablet 20 MG PO (09:13)
[2020-04-28] MEDS: aspirin 81 mg EC Tablet PO (09:14)
[2020-04-28] MEDS: atenolol 50 mg Tablet 100 MG PO (09:14)
--- NOTE | 2020-04-28 10:19 | CTR_ITS ---
PROCEDURE INFORMATION: Exam: CTA Angiogram of the Abdominal Aorta and Bilateral Lower Extremities (Run-off) With IV Contrast Exam date and time: 04/28/2020 2:25 PM Age: 79 years old Clinical indication: Condition or disease; Peripheral vascular disease; Patient HX: Open wound/cellulitis/discoloration to bilateral feet and lower legs; Additional info: Severe peripheral vascular disease. TECHNIQUE: Imaging protocol: CT angiogram of the abdominal aorta, pelvis and bilateral lower extremities with IV iodinated contrast. 3D rendering: MIP and/or 3D reconstructed images were created by the technologist. Radiation optimization: All CT scans at this facility use at least one of these dose optimization techniques: automated exposure control; mA and/or kV adjustment per patient size (includes targeted exams where dose is matched to clinical indication); or iterative reconstruction. Contrast material: OMNIPAQUE 350; Contrast volume: 95 ml; Contrast route: INTRAVENOUS (IV); COMPARISON: CTA Chest-Pulmonary Emb [id number] 06/24/2018 5:39 PM RADIATION DOSE METRICS: Total DLP (mGy-cm): 1070.16 FINDINGS: Aorta: There is no evidence of an abdominal aortic aneurysm. Celiac trunk and mesenteric arteries: Calcified plaque causes moderate stenosis at the origin of the superior mesenteric artery. The celiac trunk is patent. The inferior mesenteric artery is patent. Renal arteries: There is moderate to severe stenosis the renal artery origins bilaterally secondary to calcified atherosclerotic plaque. Right iliac arteries: No occlusion or significant stenosis. Right femoral/popliteal arteries: There is severe stenosis of the distal right popliteal artery. 2 vessel runoff to the right ankle. Right infrapopliteal arteries: See Right femoral/popliteal arteries finding. Left iliac arteries: No occlusion or significant stenosis. Left femoral/popliteal arteries: Diffuse atherosclerotic vascular disease causing mild to moderate focal stenoses of the left SFA. Diffuse atherosclerotic vascular disease causing moderate focal stenoses of the left SFA. There is mild to moderate stenosis of the left popliteal artery. 2 vessel runoff to the left ankle. Left infrapopliteal arteries: See Left femoral/popliteal arteries finding. Lungs: Atelectasis is seen at both lung bases. Mediastinum: There is a moderate to large hiatal hernia. Liver: No mass. Gallbladder and bile ducts: Unremarkable. No calcified stones. No ductal dilation. Pancreas: Unremarkable. No mass. No ductal dilation. Spleen: Normal. No splenomegaly. Adrenals: Normal. No mass. Kidneys and ureters: Normal. No mass. Stomach and bowel: Several air-fluid levels are seen in the bowel, which are nonspecific. The ileus could be considered. The bowel gas pattern is nonobstructive. Appendix: No evidence of appendicitis. Bladder: Unremarkable. No mass. Reproductive: Unremarkable as visualized. Intraperitoneal space: Unremarkable. No free air. No significant fluid collection. Lymph nodes: No lymphadenopathy. Bones/joints: Spinal degenerative changes. Chronic severe compression deformity at T12, with significant retropulsion of the posterior vertebral body fragment and kyphotic angulation at this level, stable in appearance. Soft tissues: There is a small fat containing ventral hernia just left of midline visible on series 5, image 108. CT/CT angio abd aorta runof [id number] IMPRESSION: 1. Diffuse atherosclerotic vascular disease in both lower extremities, with 2 vessel runoff to the ankles bilaterally. 2. Moderate to severe stenosis of the renal arteries bilaterally. 3. Moderate stenosis at the SMA origin. Radiation Dose CTDIVOL = (mGy): DLP = 1070.16 (mGy-cm)
--- NOTE | 2020-04-28 10:22 | P.PN_ITS ---
Subjective Subjective: Interval history: Charisma reports her left foot is still hurting her quite a bit. She had an episode of nausea this morning.. No chest discomfort. Medications: Reviewed: Yes Vitals/I&O/Wt Last Vital Signs Temp 98.0 F 04/28/20 07:23 Pulse 77 04/28/20 07:23 Resp 20 H 04/28/20 07:23 BP 157/71 04/28/20 07:23 Pulse Ox 94 04/28/20 07:23 04/27/20 04/28/20 04/28/20 22:59 06:59 14:59 Intake Total 50 / 410 50 / 460 120 / 120 Balance 50 / 410 50 / 460 120 / 120 Physical Exam Narrative: EXAM NARRATIVE: General exam no apparent distress Cardiovascular regular rate and rhythm without murmur, no S3 or S4 Lungs clear no wheezing or crackles Abdomen is soft, positive bowel sounds. No obvious organomegaly Extremities no cyanosis or clubbing. Difficult to feel pulses bilaterally. Left lower extremity has erythema, to her lower li with some peeling skin. Er ythema is improved. Some rubor is present present. Ulcer present dorsal surface of the foot. Approximately 2 cm diameter. Foot is warm. Refill is less than 2 seconds. Data : 04/27/20 15:08 04/27/20 15:08 Micro: Microbiology 04/25/20 19:15 Urine Culture - Final Urine,Clean Catch A&P Assessment and plan (1) Cellulitis: Continue vancomycin and Zosyn. She continues to improve although the foot is still significantly painful. We will have to explore her peripheral vascular disease further. CTA aorta runoff ordered and interventional cardiology consulted. Blood culture negative to date Status: Acute (2) Peripheral vascular disease: ABIs 0.7 and 0.6. Secondary to persistent pain, interventional cardiology consultation obtained and CTA aorta runoff ordered. Status: Acute (3) Anemia: Follow closely. Appears to be chronic. Heme-negative. Iron deficient. Iron infusion was given on April 26. Awaiting laboratory for today. Status: Acute Additional A&P Information Elevated AST. Etiology unknown. Appears to be lab error as this is normal today UTI. Not present after final culture has been completed. Not significant growth. History of thalassemia trait Requiring 3 L of oxygen in the ER. Check chest x-ray. No obvious infiltrate. Now on room air. Dementia History of type 2 diabetes, sliding scale insulin. Hyperlipidemia Multiple other medical problems as outlined in past medical history At this point full code, until can be clarified by family secondary to patient's underlying dementia Lovenox for DVT prophylaxis Attestations Medical Necessity Statement*: Needs continued hospitalization for further exploration of peripheral vascular disease secondary to persistent pain left lower extremity Coding Level of Care Code Acute Wood Milling Machine Hand for [facility] Diagnoses Cellulitis L03.90 Peripheral vascular disease I73.9 Anemia D64.9
--- NOTE | 2020-04-28 10:41 | PC.SOCIAL ---
IMM Update Pg 2 of IMM given and explained to patient, who verbalized understanding. Initialed, dated, and timed and placed in chart. Copy provided to patient.
--- NOTE | 2020-04-28 11:34 | P.CONIM_ITS ---
Providers/Reason For Consult Consulting Physican/Specialty*: Cardiology Reason for Consult*: Cellulitis requiring IV antibiotics Severe peripheral vascular disease with critical limb ischemia Attending Physician: Keron Giron MD Primary Care Provider: Frankie Garay MD History of Present Illness History of Present Illness Charisma Holly is a 79 year old female past medical history significant for diabetes mellitus hypertension peripheral vascular disease was admitted with worsening of pain aches in both feet and cellulitis. She also has evidence of heel ulcers. According to the patient for the past few months she has been experiencing worsening of pain and aches in both legs, she underwent VALERY which was consistent with moderate to severe multisegmental disease CT angiogram with runoff was performed which was suggestive of moderate to severe disease in the right popliteal and SFA while moderate diffuse disease in the left SFA. Reasonable two-vessel runoff was noted. Patient is on IV antibiotic including vancomycin and Pippercillin/Tazo I been asked to assist in her care and possible revascularization for her worsening of peripheral vascular disease and critical limb ischemia. Review of Systems General: Reports: 10 or more systems reviewed and unremarkable except in HPI and below Const: Denies: fever(s), chills, body aches, fatigue, malaise or diaphoresis Eyes: Denies: change in vision, blurry vision, blind spots, photophobia, eye discharge or eye redness ENMT: Denies: throat pain, odynophagia, hoarseness, swelling of lips/tongue, oral sores, ear or mastoid pain, ear discharge, change in hearing or nasal discharge Card: Denies: chest pain, palpitations, irregular heart rhythm, edema, lightheadedness, syncope, pre-syncope, dyspnea on exertion or orthopnea Resp: Denies: dyspnea, productive cough, non-productive cough, wheezing, hemoptysis or chest congestion GI: Denies: abdominal pain, nausea, vomiting, hematemesis, coffee ground emesis, heartburn, diarrhea, constipation, GI cramping, hematochezia or melena : Denies: flank pain, dysuria, urinary frequency, urinary urgency or hematuria Musc: Reports: extremity pain; Denies: neck pain, back pain, extremity swelling, joint pain, joint swelling, joint redness, joint warmth or joint stiffness Skin/Breast: Reports: rash and other (As noted in HPI) Neuro: Denies: headache(s), numbness in extremities, weakness in extremities, sensory changes, lack of coordination, difficulty walking, dizziness, vertigo, confusion, Slurred speech present or seizure-like activity Psych: Denies: anxiety Endo: Denies: polyuria Bobby/Lymph: Denies: easy bruising, easy bleeding, petechiae, purpura or enlarged lymph nodes All/Imm: Denies: urticaria, throat swelling, tongue swelling, facial swelling or acute wheezing Meds/Allergies Home Medications and Allergies Home Medications Medication Instructions Recorded Confirmed Last Taken Type atenolol 100 mg PO DAILY 04/25/20 04/25/20 Unknown History donepezil 5 mg PO DAILY 04/25/20 04/25/20 Unknown History metformin 500 mg PO DAILY 04/25/20 04/25/20 Unknown History pravastatin 40 mg PO DAILY 04/25/20 04/25/20 Unknown History Allergies Allergy/AdvReac Type Severity Reaction Status Date / Time No Known Allergies Allergy Verified 04/25/20 10:43 Current Medications Current Medications Generic Name Dose Route Start Last Admin Trade Name Freq PRN Reason Stop Dose Admin Acetaminophen 650 mg 04/25/20 15:28 04/28/20 09:06 Tylenol PO 650 mg Q6H PRN Administration Mild/Mod Pain Or Temp >/= 101 Aspirin 81 mg 04/27/20 09:00 04/28/20 09:14 Aspirin Ec PO 81 mg DAILY TANYA Administration Atenolol 100 mg 04/26/20 09:00 04/28/20 09:14 Tenormin PO 100 mg DAILY TANYA Administration Atorvastatin Calcium 20 mg 04/26/20 09:00 04/28/20 09:13 Lipitor PO 20 mg DAILY TANYA Administration Donepezil HCl 5 mg 04/26/20 09:00 04/28/20 09:13 Aricept PO 5 mg DAILY TANYA Administration Enoxaparin Sodium 40 mg 04/25/20 15:28 04/27/20 17:27 Lovenox SUBCUT 40 mg Q24H TANYA Administration Vancomycin HCl 1,250 mg/ 250 mls @ 250 mls/hr 04/26/20 13:00 04/27/20 13:20 Sodium Chloride IV 250 mls/hr Q24H TANYA Administration Protocol Piperacillin Sod/Tazobactam 50 mls @ 12.5 mls/hr 04/25/20 18:00 04/28/20 09:14 Sod 3.375 gm/ Sodium Chloride IV 12.5 mls/hr Q8H TANYA Administration Insulin Aspart 0 unit 04/25/20 18:00 04/28/20 07:36 Novolog SUBCUT Not Given WM&BEDTIME TANYA Protocol PFSH Acute PFSH: Medical History Anemia CVA (cerebral vascular accident) 2013, right hemispheric Dementia Diabetes Hiatal hernia Hyperlipidemia Hypertension Peripheral vascular disease Thalassemia trait Surgical History History of back surgery Family History Other Diabetes Social History Smoking and tobacco status: never smoked Alcohol intake: never Substance/Drug Use: never Vitals/I&O/Wt Last Vital Signs Temp 98.0 F 04/28/20 07:23 Pulse 77 04/28/20 07:23 Resp 20 H 04/28/20 07:23 BP 157/71 04/28/20 07:23 Pulse Ox 94 04/28/20 07:23 04/27/20 04/28/20 04/28/20 22:59 06:59 14:59 Intake Total 50 / 410 50 / 460 120 / 120 Balance 50 / 410 50 / 460 120 / 120 Physical Exam Narrative: EXAM NARRATIVE: GENERAL: Patient is alert, awake and oriented x3. NECK: No jugular vein distension. HEENT: No cyanosis. No icterus. pallor. HEART: Regular S1 and S2. No murmur, rub or gallop. LUNGS: Clear to auscultate bilaterally. ABDOMEN: Soft, nontender and nondistended. Positive bowel sounds. No guarding, rebound or tenderness. CENTRAL NERVOUS SYSTEM: Grossly nonfocal. EXTREMITIES: Lower extremities without edema bilaterally. Cellulitis of both feet, ischemic appearing leg without hairs mottled appearance, appeared to be cold but not icy cold patient can move both feet and has sensation. Data Micro: Micro: Microbiology 04/25/20 19:15 Urine Culture - Fi nal Urine,Clean Catch Other Data: Other data: FINDINGS: Aorta: There is no evidence of an abdominal aortic aneurysm. Celiac trunk and mesenteric arteries: Calcified plaque causes moderate stenosis at the origin of the superior mesenteric artery. The celiac trunk is patent. The inferior mesenteric artery is patent. Renal arteries: There is moderate to severe stenosis the renal artery origins bilaterally secondary to calcified atherosclerotic plaque. Right iliac arteries: No occlusion or significant stenosis. Right femoral/popliteal arteries: There is severe stenosis of the distal right popliteal artery. 2 vessel runoff to the right ankle. Right infrapopliteal arteries: See Right femoral/popliteal arteries finding. Left iliac arteries: No occlusion or significant stenosis. Left femoral/popliteal arteries: Diffuse atherosclerotic vascular disease causing mild to moderate focal stenoses of the left SFA. Diffuse atherosclerotic vascular disease causing moderate focal stenoses of the left SFA. There is mild to moderate stenosis of the left popliteal artery. 2 vessel runoff to the left ankle. Left infrapopliteal arteries: See Left femoral/popliteal arteries finding. Lungs: Atelectasis is seen at both lung bases. Mediastinum: There is a moderate to large hiatal hernia. Liver: No mass. Gallbladder and bile ducts: Unremarkable. No calcified stones. No ductal dilation. Pancreas: Unremarkable. No mass. No ductal dilation. Spleen: Normal. No splenomegaly. Adrenals: Normal. No mass. Kidneys and ureters: Normal. No mass. Stomach and bowel: Several air-fluid levels are seen in the bowel, which are nonspecific. The ileus could be considered. The bowel gas pattern is nonobstructive. Appendix: No evidence of appendicitis. Bladder: Unremarkable. No mass. Reproductive: Unremarkable as visualized. Intraperitoneal space: Unremarkable. No free air. No significant fluid collection. Lymph nodes: No lymphadenopathy. Bones/joints: Spinal degenerative changes. Chronic severe compression deformity at T12, with significant retropulsion of the posterior vertebral body fragment and kyphotic angulation at this level, stable in appearance. Soft tissues: There is a small fat containing ventral hernia just left of midline visible on series 5, image 108. CT/CT angio abd aorta runof 44700 IMPRESSION: 1. Diffuse atherosclerotic vascular disease in both lower extremities, with 2 vessel runoff to the ankles bilaterally. 2. Moderate to severe stenosis of the renal arteries bilaterally. 3. Moderate stenosis at the SMA origin. Radiation Dose CTDIVOL = (mGy): DLP = 1070.16 (mGy-cm) A&P Assessment and plan (1) Critical lower limb ischemia: By physical examination VALERY and CT a runoff patient has severe peripheral vascular disease while appear to have developing critical limb ischemia. She has cellulitis, she is on IV antibiotic which may not be very effective due to reduced blood supply. We will therefore proceed with peripheral angiogram and revascularization of lower extremity vessels if indicated in order to prevent further ischemic event. I have detailed discussion with the patient regarding all risk benefit and alternative for the procedure including bleeding anemia and renal failure. She would like to proceed with it. Status: Acute (2) Anemia: Continue to monitor Status: Acute Qualifiers: Anemia type: unspecified type Qualified Code(s): D64.9 - Anemia, unspecified (3) Cellulitis: Continue IV antibiotics Status: Acute Qualifiers: Laterality: unspecified laterality Site of cellulitis: extremity Site of cellulitis of extremity: lower extremity Qualified Code(s): L03.119 - Cellulitis of unspecified part of limb Coding Level of Care Code New Pt Acute Phlebotomist Lab Assistant for [facility] Patient Type New History Detailed Exam Expanded Problem Focused Medical Decision Making Moderate Complexity Diagnoses Critical lower limb ischemia I99.8 Anemia D64.9 Anemia type: unspecified type Cellulitis L03.119 Laterality: unspecified laterality Site of cellulitis: extremity Site of cellulitis of extremity: lower extremity
[2020-04-28 11:37] VITALS: BP 131/78; PULSE 100; RESP 18; TEMP 36.7; O2SAT 93
[2020-04-28 11:56] LABS: Glucose Point of Care 166 mg/dL (70-110)
[2020-04-28 12:43] LABS: Vancomycin Trough 19.7 ug/mL (10-15)
[2020-04-28] MEDS: iohexol 350 mg/mL 100 mL Btl IV (14:26)
[2020-04-28] MEDS: enoxaparin 40 mg/0.4 mL Syringe SUBCUT (14:57)
[2020-04-28 15:18] VITALS: BP 110/71; PULSE 71; RESP 18; TEMP 36.4; O2SAT 92
[2020-04-28 17:07] LABS: Glucose Point of Care 147 mg/dL (70-110)
[2020-04-28 20:00] VITALS: BP 138/61; PULSE 76; RESP 20; TEMP 36.1; O2SAT 95
[2020-04-28 21:53] LABS: Glucose Point of Care 162 mg/dL (70-110)
[2020-04-29] VITALS (33 sets, daily range): BP systolic 87–153; BP diastolic 47–97; PULSE 58–78; RESP 14–26; TEMP 36.6–37.1; O2SAT 74–100
[2020-04-29] MEDS: sodium chloride 0.9% 1,000 ML 100 ML IV (00:08)
[2020-04-29] MEDS: piperacillin-tazobactam 3.375 GM in sodium chloride 0.9% (plus) 50 ML IV ×3 (02:29→17:28)
[2020-04-29 06:52] LABS: Glucose Point of Care 93 mg/dL (70-110)
[2020-04-29 08:16] LABS: Basophils # 0.1 10^3/uL (0.0-0.1); Basophils % 0.6 %; Eosinophils # 0.2 10^3/uL (0.0-0.8); Eosinophils % 1.7 %; Hemoglobin 8.4 g/dL (11.5-15.3); Lymphocytes # 1.5 10^3/uL (0.8-4.8); Mean Corpuscular Hemoglobin 22.1 pg (28.0-34.0); Mean Corpuscular Volume 73.7 fL (81-99); Mean Platelet Volume 10.5 fL (7.4-10.4); Monocytes # 0.8 10^3/uL (0.2-0.9); Monocytes % 8.7 %; Neutrophils # 6.2 10^3/uL (1.8-7.7); Neutrophils % 71.5 %; Nucleated Red Blood Cells # 0.2 /100WBC; Nucleated Red Blood Cells % 2.4 %; Platelet Count 228 10^3/cmm (130-400); Red Cell Distribution Width 15.1 % (12.1-15.1); White Blood Count 8.7 10^3/uL (4.0-10.0)
[2020-04-29] MEDS: atorvastatin 40 mg Tablet 20 MG PO (09:07)
[2020-04-29] MEDS: aspirin 81 mg EC Tablet PO (09:07)
[2020-04-29] MEDS: donepezil 5 MG Tablet PO (09:08)
[2020-04-29] MEDS: atenolol 50 mg Tablet 100 MG PO (09:08)
[2020-04-29 09:12] LABS: Blood Urea Nitrogen 17 mg/dL (8-23); Calcium 9.4 mg/dL (8.5-10.5); Carbon Dioxide 24 mmol/L (22-29); Chloride 106 mmol/L (98-107); Creatinine Clr Calc Pharmacy 47.2502; Glucose 115 mg/dL (65-115); Osmolality Calculated 291 mOsm/kg (285-295); Sodium 142 mmol/L (136-145)
[2020-04-29] MEDS: FUROsemide 10 mg/mL SDV 2mL 20 MG IVP (10:14)
[2020-04-29 11:12] LABS: Glucose Point of Care 122 mg/dL (70-110)
--- NOTE | 2020-04-29 13:30 | XACV_ITS ---
Ht: 163 cm Wt: 68 kg BSA: 1.77 m2 Any Known Allergies: No known allergies Gender: Female : 1940 Exam Type: Invasive Peripheral Vascular Procedure(s): Procedure Description: Peripheral Cath Diagnostic Procedure Procedure Description: Abdominal aortic angiography Procedure Description: Lower extremities' angiography Procedure Description: Peripheral vascular Intervention Procedure Description: PV Balloon Exam Priority: Routine Lower Extremity Interventional Findings Through right common femoral approach balloon angioplasty of the distal left tibioperoneal trunk was performed which reduced 80% eccentric stenosis to 20% good angiographic result with good one-vessel runoff was noted. Hobson 3.0 x 40 x 150 OTW balloon was used at high ELICIA of 14. . Conclusions Peripheral Procedure Description: Life style limiting claudication and non healing ulcer with cellulitis of left foot , [place] grade V :Sonya stage IV. Procedure #1 Abdominal aorta: Luminal irregularities#2 Right and left renal artery was not well-visualized due to suboptimal window selection. #3 Right common iliac artery has luminal irregularity #4 Left common iliac artery has luminal irregularity #5 Left internal artery has luminal irregularity#7 Right internal artery not visualized but appeared to be atretic#8 Left and right common femoral artery has luminal regular #9 Left and right profunda femoral artery has luminal irregularity#10 Right SFA has luminal irregularity#11 Left SFA has luminal irregularity#12 Right and left popliteal artery luminal irregularity #13 Left tibioperoneal artery has distal severe eccentric calcified stenosis, right tibioperoneal trunk has luminal irregularity. #14 Left peroneal and posterior tibial artery has chronic occlusion. Left anterior tibial artery has luminal irregularity with good one-vessel runoff #15 Rght anterior and posterior tibial artery appeared to be chronically occluded , long peroneal artery with moderate mid lesion was noted however with resonable flow it also gives collaterals to the anterior tibial artery in its distal segment. #16 right tibioperoneal trunk has chronic occlusion in its distal segment, anterior tibial vessel that reconstitute through collaterals with reasonable one-vessel runoff to the foot. Posterior tibial vessel and peroneal vessel is chronically . Access Site Site: Right Femoral artery Sheath Size: 6 Fr Hemost... Success: Unsuccessful Procedure Details Findings Procedure Consent Obtained. Pre-Procedure Time Out. Identified patient by full name and date of as verbalized by the patient/guarantor. Does the consent match the physician's order: Yes. Accurate & Complete Informed Consent: Yes. Inpatient/Outpatient History & Physical on Chart: Yes. If H&P is completed, is and addenduem needed: No; If yes, is the addendum complete: N/A. Visualize and Verify Site with Patient/Guarantor: N/A. Relevant Radiology Images available: Yes. Pre-op teaching completed and patient verbalized understanding. The risks, benefits, and alternatives of sedation and/or procedure were discussed by physician. The patient agrees to continue. Procedure started. Anesthesia arrived. Sedation will be provided by anesthesia. PERRLA. Strong, equal hand director of reimbursement bilaterally. Lungs clear x 5 lobes. IV Site on Arrival: 18 gauge in the right anticubital. IV Fluids: 0.9% NaCl at KVO. 0 mL infused prior to receiver/laborer. Pre Procedural Pulses: bilateral dorsalis pedis was Doppled. Pre Procedural Pulses: bilateral posterior tibial was Doppled. Pre Procedural Pulses: bilateral radial was 2+. Oxygen started at 2liters/min via nasal canula. bilateral groins was prepped with chloroprep then draped in the usual sterile fashion. right brachial was prepped with chloroprep then draped in the usual sterile fashion. Physician notified. Equipment: Peripheral. Cardiac Cath Pack. ACIST Manifold Kit Model BT 2000. Heparinized Saline (2 units/mL), 1000 mL bag. Physician arrived. Physician scrubbed in. Time out performed with cath team. Lidocaine 1% infiltrated to the right groin. Arterial access obtained with micropuncture set. A 5Fr UF catheter in over wire. Abdominal aortogram performed in HUNTER @ 20 mL/sec for a total of 40 mL. Left leg runoff performed at 20mL for 40mL. Catheter out. A 5Fr RIM catheter in over wire. Glidewire inserted. Catheter out. 6FR sheath exchanged for a 6FR Flexor sheath. Seeker inserted. Hand injection performed. Command wire inserted. Command wire out. Glidewire out. Runthrough wire inserted. Seeker out. Left leg runoff performed at 10mL for a total of 30mL. Inflation number : 1 A AB ARMADA 14 OTW [id number] was prepped and advanced across the Distal Anterior Tibial, Left , then inflated to 14 ELICIA for 1:01 seconds. Inflation number: 2 The AB ARMADA 14 OTW [id number] was reinflated across the Distal Anterior Tibial, Left, to 14 ELICIA for 0:16 seconds. Inflation number: 3 The AB ARMADA 14 OTW [id number] was reinflated across the Distal Anterior Tibial, Left, to 14 ELICIA for 0:35 seconds. Balloon out. Results checked. Wire out. 6FR flexor exchanged for 6 FR regular sheath. Left leg runoff performed at 10mL for a total of 20mL. Vital chart was stopped. Everything out. Sheath(s) sutured into position with 2-0 silk and sterile 4x4's and Op-site applied over the site. No oozing or signs and symptoms of hematoma noted. Arterial sheath flushed and connected to tranducer and pressure bag with heparinized saline. Post Procedure: Pulses reassessed and unchanged. PERRLA. Strong, equal hand director of reimbursement bilaterally. No VTE prophylaxis required. Contrast type used: Visipaque 320 mgI/mL, 500 mL bottle. Post-op diagnosis: PAD. Complications: None. Estimated blood loss: 5mL-10mL. Medication's Wasted: Nitro = 49.6 mg. Total IV fluids: 500 mL. Medication's Wasted: Lidocaine 1% = 8 mL. Procedure completed. Patient transferred by bed to ICU. Procedure Medications Start: 3:36 PM Stop: 3:36 PM Medication: Heparin Amount: 6000 units Route: I.V. Start: 4:00 PM Stop: 4:00 PM Medication: Nitrogylcerin Amount: 400 mcg Route: I.A. I, the attending physician, have reviewed and verified all procedure medications. Yes, all medications given per verbal order History/Risk Factors Hypertension: Yes Dyslipidemia: Yes Diabetic Therapy: Oral Peripheral Arterial Disease (PAD): Yes Myocardial Infarction (GA): No Obesity: No Renal Disease: No Tobacco Use: Never Prior Interventions PCI: No CABG: No Valve Surgery: No Report Signatures Finalized by:Luis Fernando Kohli MD on 05/08/2020 5:56:36 PM
--- NOTE | 2020-04-29 13:38 | P.PN_ITS ---
Subjective Subjective: Interval history: Charisma reports she is doing okay. She had some concerns about doing an angiogram, and ask appropriate questions but is now okay with proceeding. From my understanding she had some agitation earlier this morning Medications: Reviewed: Yes Vitals/I&O/Wt Last Vital Signs Temp 98.1 F 04/29/20 11:58 Pulse 70 04/29/20 11:58 Resp 16 04/29/20 11:58 BP 130/73 04/29/20 11:58 Pulse Ox 92 04/29/20 11:58 04/28/20 04/29/20 04/29/20 22:59 06:59 14:59 Intake Total 540 / 710 50 / 760 300 / 300 Output Total 400 / 1200 Balance 140 / -490 50 / -440 300 / 300 Physical Exam Narrative: EXAM NARRATIVE: General exam no apparent distress Cardiovascular regular rate and rhythm without murmur, no S3 or S4 Lungs clear Abdomen soft with positive bowel sounds Extremities no cyanosis or clubbing. Difficult to feel pulses bilaterally. Left lower extremity has erythema, to her lower li with some peeling skin. Erythema is improved. Some rubor is present present. Ulcer present dorsal surface of the foot. Approximately 2 cm diameter. Foot is warm. Refill is less than 2 seconds. Overall there is no significant change from yesterday. Data : 04/29/20 08:05 04/29/20 08:05 Micro: Microbiology 04/25/20 19:15 Urine Culture - Final Urine,Clean Catch A&P Assessment and plan (1) Cellulitis: Continue vancomycin and Zosyn. Pain in foot has improved slightly according to the patient. CTA with runoff demonstrated significant peripheral vascular disease as well and interventional cardiology is performing peripheral angiogram today. Blood culture negative to date Status: Acute (2) Peripheral vascular disease: ABIs 0.7 and 0.6. Secondary to persistent pain, interventional cardiology consultation obtained and CTA aorta runoff ordered. Peripheral angiogram planned today Status: Acute (3) Anemia: Follow closely. Appears to be chronic. Heme-negative. Iron deficient. Iron infusion was given on April 26. Hemoglobin has remained stable Status: Acute Additional A&P Information Elevated AST. Etiology unknown. Appears to be lab error as this is normal today UTI. Not present after final culture has been completed. Not significant growth. History of thalassemia trait Requiring 3 L of oxygen in the ER. Check chest x-ray. No obvious infiltrate. Now on room air. Dementia History of type 2 diabetes, sliding scale insulin. Hyperlipidemia Multiple other medical problems as outlined in past medical history At this point full code, until can be clarified by family secondary to patient's underlying dementia Lovenox for DVT prophylaxis Ultimate plan is to nursing facility for rehabilitation. She seems slightly fluid overloaded today on exam. IV fluids discontinued Lasix 20 mg IV x1. Attestations Medical Necessity Statement*: Needs continued hospitalization for evaluation of definitive therapies for peripheral vascular disease Coding Level of Care Code Acute Planning And Analysis Manager for [facility] Fwd Diagnoses Cellulitis L03.90 Peripheral vascular disease I73.9 Anemia D64.9
--- NOTE | 2020-04-29 14:11 | P.ANESASSM_ITS ---
Pre-Anesthetic Assessment Pre-Anesthetic Assessment: Height/Weight: Height 1.63 m Weight 68.039 kg Temp Pulse Resp BP Pulse Ox 98.1 F 70 16 130/73 92 04/29/20 11:58 04/29/20 11:58 04/29/20 11:58 04/29/20 11:58 04/29/20 11:58 Preop Diagnosis: Peripheral artery disease Proposed Procedure: Operation Date: 04/29/20 13:30 Proposed Procedures p Peripheral Diagnostic(Left) - Luis Fernando Kohli MD Familial anesthetic complications: NOne Was Beta Riddhi taken within 24 hours: Yes Last intake: NPO > 8 hrs Social: Social History: No alcohol and No tobacco Exam: Pre-Anes Outpt Exam: alert, oriented x 3, clear to auscultation bilaterally and regular rate & rhythm Airway: Cervical ROM: WNL MP: 2 CV/HEM: CV/HEM: Anemia and PVD Comments: troponin elevation GI: GI: Hiatus hernia Metabolic: Metabolic: DM and Hyperlipidemia Comments: thalassemia trait Neuropsych: Neuropsych: CVA and Dementia Anesthetic Plan: ASA status: 3 Anesthesia: MAC Risk of > 500 ml blood loss (7ml/kg in children): No Meds/Allergies Current Medications: Current Medications Generic Name Dose Route Start Last Admin Trade Name Freq PRN Reason Stop Dose Admin Acetaminophen 650 mg 04/25/20 15:28 04/28/20 17:31 Tylenol PO 650 mg Q6H PRN Administration Mild/Mod Pain Or Temp >/= 101 Aspirin 81 mg 04/27/20 09:00 04/29/20 09:07 Aspirin Ec PO 81 mg DAILY TANYA Administration Atenolol 100 mg 04/26/20 09:00 04/29/20 09:08 Tenormin PO 100 mg DAILY TANYA Administration Atorvastatin Calci um 20 mg 04/26/20 09:00 04/29/20 09:07 Lipitor PO 20 mg DAILY TANYA Administration Donepezil HCl 5 mg 04/26/20 09:00 04/29/20 09:08 Aricept PO 5 mg DAILY TANYA Administration Enoxaparin Sodium 40 mg 04/25/20 15:28 04/28/20 14:57 Lovenox SUBCUT 40 mg Q24H TANYA Administration Vancomycin HCl 1,2 50 mg/ 250 mls @ 250 mls /hr 04/26/20 13:00 04/29/20 13:27 Sodium Chloride IV Infused Q24H TANYA Infusion Protocol Piperacillin Sod/T azobactam 50 mls @ 12.5 mls /hr 04/25/20 18:00 04/29/20 12:06 Sod 3.375 gm/ So dium Chloride IV Infused Q8H TANYA Infusion Insulin Aspart 0 unit 04/25/20 18:00 04/29/20 13:25 Novolog SUBCUT Not Given WM&BEDTIME TANYA Protocol PFSH Anesthesia PFSH: Medical History Anemia CVA (cerebral vascular accident) 2013, right hemispheric Dementia Diabetes Hiatal hernia Hyperlipidemia Hypertension Peripheral vascular disease Thalassemia trait Surgical History History of back surgery Family History Other Diabetes Social History Smoking and tobacco status: never smoked Alcohol intake: never Substance/Drug Use: never Data Anesthesia CBC & Chem 7: 04/29/20 08:05 04/29/20 08:05 Other Labs: Laboratory Results - last 48 hr 04/27/20 04/27/20 04/27/20 15:08 15:08 17:01 WBC 9.6 RBC 3.80 L Hgb 8.6 L Hct 28.4 L MCV 74.7 L MCH 22.6 L MCHC 30.3 RDW 14.9 Plt Count 220 MPV 11.0 H Neut % (Auto) 68.5 Lymph % (Auto) 17.8 [place] % (Auto) 10.4 Eos % (Auto) 2.2 Baso % (Auto) 0.4 Neut # (Auto) 6.6 Lymph # (Auto) 1.7 [place] # (Auto) 1.0 H Eos # (Auto) 0.2 Baso # (Auto) 0.0 Nucleated RBC % (auto) 0.7 Nucleated RBCs # 0.1 Sodium 141 Potassium 4.1 Chloride 106 Carbon Dioxide 25 Anion Gap 14.1 BUN 19 Creatinine 0.8 Glucose 144 H POC Glucose 231 Calculated Osmolality 291 Calcium 9.2 Vancomycin Trough 04/27/20 04/28/20 04/28/20 20:53 05:52 10:37 WBC RBC Hgb Hct MCV MCH MCHC RDW Plt Count MPV Neut % (Auto) Lymph % (Auto) [place] % (Auto) Eos % (Auto) Baso % (Auto) Neut # (Auto) Lymph # (Auto) [place] # (Auto) Eos # (Auto) Baso # (Auto) Nucleated RBC % (auto) Nucleated RBCs # Sodium Potassium Chloride Carbon Dioxide Anion Gap BUN Creatinine Glucose POC Glucose 92 91 166 Calculated Osmolality Calcium Vancomycin Trough 04/28/20 04/28/20 04/28/20 12:07 16:49 21:45 WBC RBC Hgb Hct MCV MCH MCHC RDW Plt Count MPV Neut % (Auto) Lymph % (Auto) [place] % (Auto) Eos % (Auto) Baso % (Auto) Neut # (Auto) Lymph # (Auto) [place] # (Auto) Eos # (Auto) Baso # (Auto) Nucleated RBC % (auto) Nucleated RBCs # Sodium Potassium Chloride Carbon Dioxide Anion Gap BUN Creatinine Glucose POC Glucose 147 162 Calculated Osmolality Calcium Vancomycin Trough 19.7 H 04/29/20 04/29/20 04/29/20 06:45 08:05 08:05 WBC 8.7 RBC 3.80 L Hgb 8.4 L Hct 28.0 L MCV 73.7 L MCH 22.1 L MCHC 30.0 RDW 15.1 Plt Count 228 MPV 10.5 H Neut % (Auto) 71.5 Lymph % (Auto) 17.0 [place] % (Auto) 8.7 Eos % (Auto) 1.7 Baso % (Auto) 0.6 Neut # (Auto) 6.2 Lymph # (Auto) 1.5 [place] # (Auto) 0.8 Eos # (Auto) 0.2 Baso # (Auto) 0.1 Nucleated RBC % (auto) 2.4 Nucleated RBCs # 0.2 Sodium 142 Potassium 4.0 Chloride 106 Carbon Dioxide 24 Anion Gap 16.0 BUN 17 Creatinine 0.9 Glucose 115 POC Glucose 93 Calculated Osmolality 291 Calcium 9.4 Vancomycin Trough 04/29/20 11:05 WBC RBC Hgb Hct MCV MCH MCHC RDW Plt Count MPV Neut % (Auto) Lymph % (Auto) [place] % (Auto) Eos % (Auto) Baso % (Auto) Neut # (Auto) Lymph # (Auto) [place] # (Auto) Eos # (Auto) Baso # (Auto) Nucleated RBC % (auto) Nucleated RBCs # Sodium Potassium Chloride Carbon Dioxide Anion Gap BUN Creatinine Glucose POC Glucose 122 Calculated Osmolality Calcium Vancomycin Trough Cardiac Studies: No Data to Display
--- NOTE | 2020-04-29 14:34 | PC.NURSE ---
Catheter placed for procedure per physicians orders. Aseptic technique used. 16 [place] Islander angulo with 10cc of NS in balloon. 250mL of urine returned clear pale yellow in appearance/ Pt tolerated well. 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
--- NOTE | 2020-04-29 16:32 | P.PN_ITS ---
Subjective Subjective: Interval history: Patient underwent peripheral angiogram, she was found to have distal left tibioperoneal 80% calcified lesion treated with balloon angioplasty. Medications: Reviewed: Yes Vitals/I&O/Wt Last Vital Signs Temp 98.1 F 04/29/20 11:58 Pulse 70 04/29/20 11:58 Resp 16 04/29/20 11:58 BP 130/73 04/29/20 11:58 Pulse Ox 92 04/29/20 11:58 04/29/20 04/29/20 04/29/20 06:59 14:59 22:59 Intake Total 50 / 760 300 / 300 Balance 50 / -440 300 / 300 Physical Exam Narrative: EXAM NARRATIVE: GENERAL: Patient is alert, awake and oriented x3. NECK: No jugular vein distension. HEENT: No cyanosis. No icterus. pallor. HEART: Regular S1 and S2. No murmur, rub or gallop. LUNGS: Clear to auscultate bilaterally. ABDOMEN: Soft, nontender and nondistended. Positive bowel sounds. No guarding, rebound or tenderness. CENTRAL NERVOUS SYSTEM: Grossly nonfocal. EXTREMITIES: Lower extremities without edema bilaterally. Cellulitis of both feet, ischemic appearing leg without hairs mottled appearance, appeared to be cold but not icy cold patient can move both feet and has sensation. Urinary Catheter Management^: Taylor: Cath Placed During This Visit: yes Urinary Catheter Date of Insertion: 04/29/20 Urinary Catheter Time of Insertion: 14:33 Data : 04/29/20 08:05 04/29/20 08:05 A&P Assessment and plan (1) Critical lower limb ischemia: Peripheral angiogram revealed abdominal aorta with luminal irregularities both common iliac, external iliac, internal iliac, common femoral, SFA had luminal irregularity. Left and right popliteal had luminal irregularity however left tibioperoneal trunk in its distal segment had calcified 80% hazy stenosis patient has single vessel runoff to the foot with anterior tibial posterior tibial and peroneal as above chronically occluded throughout its course, posterior tibial reconstitute near the ankle through tibial. Since left leg is more symptomatic with cellulitis and patient is complaining more pain we proce eded with balloon angioplasty of the left distal tibioperoneal trunk was performed. Good angiographic result was achieved. Right leg has chronically occluded tibioperoneal trunk with try to reconstitute at the anterior and posterior tibial pulse no good runoff was visualized. We will start patient on Plavix for 1 month. As an outpatient we will follow her up in our clinic, due to extensive nature of the disease below right knee we will try to manage her medically. 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
[2020-04-29 17:27] LABS: Glucose Point of Care 117 mg/dL (70-110)
[2020-04-29] MEDS: ALPRAZolam 0.25 mg Tablet PO (20:21)
[2020-04-29] MEDS: temazepam 15 mg Capsule PO (21:29)
[2020-04-29] MEDS: acetaminophen 325 mg Tablet 650 MG PO (21:30)
[2020-04-29] MEDS: clopidogrel 300 mg Tablet PO (22:09)
--- NOTE | 2020-04-29 22:40 | PC.NURSE ---
decrease in heart rate patient monitor alarm that heart rate is 30bpm. nurse assessed patient by listening to apical pulse and palpating radial pulse. patient heart rate heard/felt at 60bpm. patient currently sleeping after PRN restoril given. will continue to monitor.
[2020-04-29 22:56] LABS: Partial Thromboplastin Time 30.6 SECONDS (23.9-36.7)
[2020-04-30] VITALS (51 sets, daily range): BP systolic 81–161; BP diastolic 47–92; PULSE 54–75; RESP 12–24; TEMP 36.4–36.8; O2SAT 90–100
[2020-04-30] MEDS: fentaNYL 50 mcg/mL INJ 2mL IVP ×2 (00:02→00:15)
[2020-04-30] MEDS: sodium chloride 0.9% 1,000 ML 50 ML IV (00:35)
--- NOTE | 2020-04-30 00:54 | PC.NURSE ---
Sheath removal right groin sheath removed at 0010. pressure held X15 minutes. small hematoma noted below insertion site. hematoma marked. gauze and clear pressure dressing applied. doppler pulses remain present. patient tolerated fair. informed patient that she will need to remain flat and not move right leg. 1:1 sitter at bedside. will continue to monitor.
[2020-04-30] MEDS: piperacillin-tazobactam 3.375 GM in sodium chloride 0.9% (plus) 50 ML IV ×3 (01:20→16:54)
[2020-04-30 05:38] LABS: Basophils % 0.4 %; Eosinophils # 0.1 10^3/uL (0.0-0.8); Hematocrit 25.5 % (37.0-47.0); Hemoglobin 7.6 g/dL (11.5-15.3); Lymphocytes # 1.2 10^3/uL (0.8-4.8); Lymphocytes % 17.4 %; Mean Corpuscular HGB Conc 29.8 g/dL (30.0-36.0); Mean Corpuscular Hemoglobin 22.3 pg (28.0-34.0); Mean Corpuscular Volume 74.8 fL (81-99); Mean Platelet Volume 11.5 fL (7.4-10.4); Monocytes # 0.7 10^3/uL (0.2-0.9); Monocytes % 10.1 %; Neutrophils # 4.9 10^3/uL (1.8-7.7); Neutrophils % 69.2 %; Nucleated Red Blood Cells # 0.4 /100WBC; Nucleated Red Blood Cells % 5.8 %; Platelet Count 201 10^3/cmm (130-400); Red Blood Count 3.41 10^6/uL (4.1-5.3); Red Cell Distribution Width 15.3 % (12.1-15.1); White Blood Count 7.1 10^3/uL (4.0-10.0)
[2020-04-30] MEDS: HYDROmorphone 1 mg/mL INJ 1 mL IVP (06:00)
[2020-04-30 06:09] LABS: Anion Gap 18.9 (5-19); Blood Urea Nitrogen 18 mg/dL (8-23); Calcium 8.4 mg/dL (8.5-10.5); Carbon Dioxide 23 mmol/L (22-29); Chloride 108 mmol/L (98-107); Creatinine Clr Calc Pharmacy 47.2502; Glucose 97 mg/dL (65-115); Osmolality Calculated 298 mOsm/kg (285-295); Potassium 3.9 mmol/L (3.5-5.1); Sodium 146 mmol/L (136-145)
[2020-04-30] MEDS: HYDROmorphone 1 mg/mL INJ 1 mL 2 MG IVP (06:09)
[2020-04-30] MEDS: atenolol 50 mg Tablet 100 MG PO (08:24)
[2020-04-30] MEDS: heparin 5,000 unit/mL INJ 1 mL 5000 UNIT SUBCUT ×2 (08:24→19:25)
[2020-04-30] MEDS: clopidogrel 75 mg Tablet PO (08:24)
[2020-04-30] MEDS: donepezil 5 MG Tablet PO (08:25)
[2020-04-30] MEDS: atorvastatin 40 mg Tablet 20 MG PO (08:25)
[2020-04-30] MEDS: FUROsemide 10 mg/mL SDV 2mL 20 MG IVP (08:27)
--- NOTE | 2020-04-30 09:57 | PC.NURSE ---
resting in bed at this time right groin site small bruising noted pulses noted feet palpable left weaker than right
[2020-04-30 11:56] LABS: Glucose Point of Care 119 mg/dL (70-110)
--- NOTE | 2020-04-30 12:39 | P.PN_ITS ---
Subjective Subjective: Interval history: Charisma is sleeping this morning but she is arousable. No specific complaints. Foot pain is less. Medications: Reviewed: Yes Vitals/I&O/Wt Last Vital Signs Temp 98.2 F 04/30/20 06:00 Pulse 56 L 04/30/20 12:00 Resp 16 04/30/20 12:00 BP 119/56 04/30/20 12:00 Pulse Ox 100 04/30/20 12:00 04/29/20 04/30/20 04/30/20 22:59 06:59 14:59 Intake Total 50 / 350 170 / 520 400 / 400 Output Total 700 / 700 125 / 825 525 / 525 Balance -650 / -350 45 / -305 -125 / -125 Physical Exam Narrative: EXAM NARRATIVE: General exam no apparent distress Cardiovascular regular rate and rhythm without murmur, no S3 or S4 Lungs clear Abdomen soft with positive bowel sounds Extremities no cyanosis or clubbing. Less erythema than yesterday in the left foot. Foot is warm. Cap refill less than 2 seconds. Angiogram site right groin without significant hematoma. Urinary Catheter Management^: Taylor: Cath Placed During This Visit: yes Reason for Continuing Indwelling Catheter: Accurate Measurement of Urinary Output in Critically Ill Patients Urinary Catheter Date of Insertion: 04/29/20 Urinary Catheter Time of Insertion: 14:33 Data : 04/30/20 04:03 04/30/20 04:03 A&P Assessment and plan (1) Cellulitis: Continue vancomycin and Zosyn. Pain in foot has improved. Blood culture negative to date Status: Acute (2) Peripheral vascular disease: ABIs 0.7 and 0.6. Secondary to persistent pain, interventional cardiology consultation obtained and CTA aorta runoff ordered. Peripheral angiogram performed and angioplasty of the left tibioperoneal occurred with good result. Status: Acute (3) Anemia: Follow closely. Appears to be chronic. Heme-negative. Iron deficient. Iron infusion was given on April 26. Hemoglobin has drifted down slightly Secondary to this, will continue Plavix started by cardiology but discontinue aspirin. Continue heparin for DVT prophylaxis Repeat hemoglobin around 1400 Status: Acute Additional A&P Information Elevated AST. Etiology unknown. Appears to be lab error as this is normal today UTI. Not present after final culture has been completed. Not significant growth. History of thalassemia trait Requiring 3 L of oxygen in the ER. Check chest x-ray. No obvious infiltrate. Now on room air. Dementia History of type 2 diabetes, sliding scale insulin. Hyperlipidemia Multiple other medical problems as outlined in past medical history At this point full code, until can be clarified by family secondary to patient's underlying dementia Heparin for DVT prophylaxis Ultimate plan is to nursing facility for rehabilitation. She seems slightly fluid overloaded today on exam. IV fluids discontinued Lasix 20 mg IV x1 again this morning. Probable transfer out of the ICU this afternoon. Attestations Medical Necessity Statement*: Needs continued hospital stay for close monitoring following peripheral angiogram, as well as IV antibiotics for cellulitis. Coding Level of Care Code Acute Deputy Probation Officer for [facility] Diagnoses Cellulitis L03.90 Peripheral vascular disease I73.9 Anemia D64.9
--- NOTE | 2020-04-30 13:39 | PC.NURSE ---
resting at this time responds to question
[2020-04-30] MEDS: HYDROcodone-acetaminophen 5-325 mg Tablet 1 TAB PO (15:36)
[2020-04-30 17:20] LABS: Glucose Point of Care 108 mg/dL (70-110)
[2020-04-30 17:21] LABS: Glucose Point of Care 141 mg/dL (70-110)
[2020-04-30 17:29] LABS: Hematocrit 24.7 % (37.0-47.0); Hemoglobin 7.5 g/dL (11.5-15.3)
--- NOTE | 2020-04-30 18:33 | PC.NURSE ---
transfer to floor alert and oriented no sitter glasses on and upper teeth in no bottom pulses checked feet when dropped off
[2020-04-30 20:19] LABS: Glucose Point of Care 128 mg/dL (70-110)
--- NOTE | 2020-04-30 22:07 | PC.NURSE ---
PT IS CONFUSED. PT STATES THAT WE KIDNAPPED PT AND PERFORMED SURGERY AGAINST THEIR WILL. PT IS SCREAMING AND CUSSING OUT AT THE NURSE STATION. PT C/O 10/10 PAIN IN FEET. APPRENTICE ELECTRICIAN GIVING PRN MORPHINE. WILL CONTINUE TO MONITOR.
[2020-04-30] MEDS: morphine 4 mg/mL SDV 1 mL 1 MG IVP (22:11)
--- NOTE | 2020-04-30 23:29 | PC.NURSE ---
PT STARTED SCREAMING AND BANGING TELE LEADS ON THE BED RAIL. PT WAS CUSSING AND SCRAEMING AT THIS NURSE. ADMINISTRATIVE OFFICE SPECIALIST TRIED TO CALM PT. PT STATED THAT BOTH NURSES WERE BEING MEAN. PT TRIED TO PUNCH CHARGE NURSE AND THIS NURSE. PT WAS PINCHING THIS NURSE. DOCTOR WAS CONTACTED FOR ADDITIONAL ORDERS. AWAITING REPLY. WILL CONTINUE TO MONITOR.
[2020-05-01] VITALS (35 sets, daily range): BP systolic 117–153; BP diastolic 53–99; PULSE 64–83; RESP 14–30; TEMP 36.6–36.8; O2SAT 90–96
[2020-05-01] MEDS: piperacillin-tazobactam 3.375 GM in sodium chloride 0.9% (plus) 50 ML IV ×3 (01:44→19:39)
--- NOTE | 2020-05-01 02:26 | PC.NURSE ---
PT PULLED OUT IV. 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 PT RIPPED MY NAME TAG OFF WELL TELE LEADS. WAS NOTIFIED.
[2020-05-01] MEDS: OLANZapine 10 mg VIAL IM (02:36)
--- NOTE | 2020-05-01 02:39 | PC.NURSE ---
DR ORDERED ZYPREXA 10MG IM. PT APPEARS TO BE CALMER. WILL CONTINUE TO MONITOR.
--- NOTE | 2020-05-01 04:01 | PC.NURSE ---
DRESSING TO RIGHT GROIN IS C/D/I AND PULSES IN THE DORSALIS PEDIS ARE +3 DOPPELED. THERE IS BRUISING AROUNG THE SIGHT. NO HEMATOMA PRESENT. WILL CONTINUE TO MONITOR.
[2020-05-01 04:55] LABS: Basophils % 0.2 %; Eosinophils % 0.1 %; Hematocrit 23.5 % (37.0-47.0); Lymphocytes # 1.2 10^3/uL (0.8-4.8); Lymphocytes % 12.2 %; Mean Corpuscular HGB Conc 29.8 g/dL (30.0-36.0); Mean Corpuscular Hemoglobin 22.1 pg (28.0-34.0); Mean Corpuscular Volume 74.1 fL (81-99); Mean Platelet Volume 11.3 fL (7.4-10.4); Monocytes # 0.7 10^3/uL (0.2-0.9); Neutrophils # 7.5 10^3/uL (1.8-7.7); Neutrophils % 78.7 %; Nucleated Red Blood Cells # 0.9 /100WBC; Nucleated Red Blood Cells % 9.3 %; Platelet Count 200 10^3/cmm (130-400); Red Blood Count 3.17 10^6/uL (4.1-5.3); Red Cell Distribution Width 15.2 % (12.1-15.1); White Blood Count 9.5 10^3/uL (4.0-10.0)
[2020-05-01 05:49] LABS: Anion Gap 18.7 (5-19); Blood Urea Nitrogen 25 mg/dL (8-23); Calcium 9.2 mg/dL (8.5-10.5); Carbon Dioxide 23 mmol/L (22-29); Chloride 108 mmol/L (98-107); Creatinine Clr Calc Pharmacy 42.5252; Glucose 122 mg/dL (65-115); Osmolality Calculated 300 mOsm/kg (285-295); Potassium 3.7 mmol/L (3.5-5.1); Sodium 146 mmol/L (136-145)
--- NOTE | 2020-05-01 06:36 | PC.NURSE ---
PT IS RESTING IN BED. PT DENIES PAIN AT THIS TIME. PT IS MORE CALM. REPORT WILL BE GIVEN TO THE ONCOMING NURSE. DRESSING TO THE RIGHT GROIN IS C/D/I.
[2020-05-01 07:40] LABS: Glucose Point of Care 132 mg/dL (70-110)
[2020-05-01] MEDS: atorvastatin 40 mg Tablet 20 MG PO (08:13)
[2020-05-01] MEDS: clopidogrel 75 mg Tablet PO (08:13)
[2020-05-01] MEDS: donepezil 5 MG Tablet PO (08:13)
[2020-05-01] MEDS: atenolol 50 mg Tablet 100 MG PO (08:14)
[2020-05-01] MEDS: heparin 5,000 unit/mL INJ 1 mL 5000 UNIT SUBCUT ×2 (08:14→19:40)
[2020-05-01] MEDS: pantoprazole DR 40 mg Tablet PO ×2 (09:18→17:35)
--- NOTE | 2020-05-01 10:26 | P.PN_ITS ---
Subjective Subjective: Interval history: Charisma reports she is doing okay. From my understanding she got a little agitated last night again and required 1 dose of Zyprexa. She is alert, conversive without agitation this morning when I visited her. She denies any pain in the foot this morning. Medications: Reviewed: Yes Vitals/I&O/Wt Last Vital Signs Temp 98.1 F 05/01/20 07:00 Pulse 65 05/01/20 10:00 Resp 14 05/01/20 08:00 BP 131/62 05/01/20 10:00 Pulse Ox 93 05/01/20 03:26 04/30/20 05/01/20 05/01/20 22:59 06:59 14:59 Intake Total 450 / 900 50 / 950 Output Total 500 / 1025 125 / 1150 Balance -50 / -125 -75 / -200 Physical Exam Narrative: EXAM NARRATIVE: General exam no apparent distress Cardiovascular regular rate and rhythm without murmur, no S3 or S4 Lungs clear Abdomen soft with positive bowel sounds Extremities no cyanosis or clubbing. Left and right lower extremity warm. Cap refill less than 2 seconds. Erythema improved left lower extremity. Skin is peeling. Angiogram site right groin with bruising, but soft and no significant concerns. Urinary Catheter Management^: Taylor: Cath Placed During This Visit: yes Reason for Continuing Indwelling Catheter: Accurate Measurement of Urinary Output in Critically Ill Patients Urinary Catheter Date of Insertion: 04/29/20 Urinary Catheter Time of Insertion: 14:33 Data : 05/01/20 04:28 05/01/20 04:28 Micro: Microbiology 04/25/20 13:55 Blood Culture - Final Blood NO GROWTH AFTER 5 DAYS 04/25/20 11:38 Blood Culture - Final Blood NO GROWTH AFTER 5 DAYS A&P Assessment and plan (1) Cellulitis: Continue vancomycin and Zosyn. Pain in foot has improved significantly with intervention by cardiology. Blood culture negative to date Status: Acute (2) Peripheral vascular disease: ABIs 0.7 and 0.6. Secondary to persistent pain, interventional cardiology consultation obtained and CTA aorta runoff ordered. Peripheral angiogram performed April 29 and angioplasty of the left tibioperoneal occurred with good result. Status: Acute (3) Anemia: Hemoglobin has drifted down, likely secondary to some blood loss from the procedure. Today we will transfuse her 1 unit, with Lasix following I will repeat her stool Hemoccult Aspirin has been discontinued Plavix has been continued secondary to her recent peripheral intervention by cardiology. Iron infusion was given on April 26. Continue heparin for DVT prophylaxis as no evidence at this point of active bleeding. Repeat hemoglobin 1 hour following transfusion Repeat CBC tomorrow Hopefully will be stable enough for discharge to custodial facility tomorrow. This is being arranged by discharge planning. Status: Acute Additional A&P Information Elevated AST. Etiology unknown. Appears to be lab error as this is normal today UTI. Not present after final culture has been completed. No significant growth. History of thalassemia trait Requiring 3 L of oxygen in the ER. Check chest x-ray. No obvious infiltrate. Now on room air. Dementia, with second significant owning requiring occasional as needed medication at night. History of type 2 diabetes, sliding scale insulin. Hyperlipidemia Multiple other medical problems as outlined in past medical history Full code Heparin for DVT prophylaxis Ultimate plan is to nursing facility for rehabilitation. Hopefully this can occur on Saturday Attestations Medical Necessity Statement*: Needs continued hospital stay, for close monitoring secondary to anemia as well as IV antibiotics secondary to cellulitis. Coding Level of Care Code Acute Ssis Ssrs Developer for [facility] Fwd Diagnoses Cellulitis L03.90 Peripheral vascular disease I73.9 Anemia D64.9
[2020-05-01] MEDS: sodium chloride 0.9% (100 ml) 100 ML 15 ML (11:17)
[2020-05-01 11:38] LABS: Glucose Point of Care 151 mg/dL (70-110)
[2020-05-01] MEDS: FUROsemide 10 mg/mL SDV 4mL 40 MG IVP (14:08)
[2020-05-01 14:59] LABS: Hematocrit 28.2 % (37.0-47.0); Hemoglobin 8.6 g/dL (11.5-15.3)
[2020-05-01 16:44] LABS: Glucose Point of Care 181 mg/dL (70-110)
[2020-05-01 17:30] LABS: Glucose Point of Care 192 mg/dL (70-110)
[2020-05-01 20:40] LABS: Glucose Point of Care 162 mg/dL (70-110)
--- NOTE | 2020-05-01 23:25 | PC.NURSE ---
LATE ENTRY - AT THE START OF THE SHIFT PT WAS CALM. THIS NURSE STARTED AN IV IN THE RIGHT AC. DR SALMERON GAVE A VERBAL ORDER TO GIVE THE LATE ZOSYN. PT HAS SINCE THEN PULLED OUT THAT IV. PT IS ANXIOUS. PT IS HOLLERING OUT AND BEING COMBATIVE WITH THE WAFER ABRADING MACHINE TENDER. PT REFUSED INSULIN. DR SALMERON NOTIFIED.
[2020-05-02] VITALS (14 sets, daily range): BP systolic 102–160; BP diastolic 44–87; PULSE 57–76; RESP 13–26; TEMP 36.4–36.8; O2SAT 90–97
--- NOTE | 2020-05-02 00:16 | PC.NURSE ---
DR STATED THAT IT WAS OKAY TO NOT RESTART IV AT THIS TIME. WILL CONTINUE TO MONITOR.
[2020-05-02 05:02] LABS: Basophils % 0.3 %; Eosinophils % 0.1 %; Hematocrit 28.3 % (37.0-47.0); Lymphocytes # 1.3 10^3/uL (0.8-4.8); Lymphocytes % 11.9 %; Mean Corpuscular HGB Conc 31.8 g/dL (30.0-36.0); Mean Corpuscular Volume 75.5 fL (81-99); Mean Platelet Volume 11.9 fL (7.4-10.4); Monocytes # 0.9 10^3/uL (0.2-0.9); Monocytes % 8.1 %; Neutrophils # 8.2 10^3/uL (1.8-7.7); Neutrophils % 77.9 %; Nucleated Red Blood Cells # 1.3 /100WBC; Nucleated Red Blood Cells % 12.8 %; Platelet Count 210 10^3/cmm (130-400); Positive C 1; Positive M 1; Red Blood Count 3.75 10^6/uL (4.1-5.3); Red Cell Distribution Width 18.1 % (12.1-15.1); White Blood Count 10.5 10^3/uL (4.0-10.0)
[2020-05-02 05:21] LABS: Anion Gap 18.4 (5-19); Blood Urea Nitrogen 26 mg/dL (8-23); Calcium 9.2 mg/dL (8.5-10.5); Carbon Dioxide 25 mmol/L (22-29); Chloride 106 mmol/L (98-107); Creatinine Clr Calc Pharmacy 47.2502; Glucose 143 mg/dL (65-115); Osmolality Calculated 301 mOsm/kg (285-295); Potassium 3.4 mmol/L (3.5-5.1); Sodium 146 mmol/L (136-145)
[2020-05-02 06:12] LABS: Slide Review Slide Review Perform
--- NOTE | 2020-05-02 06:28 | PC.NURSE ---
PT REFUSES V/S, TELE, IV, AND ANY CARE. PT DENIES PAIN AT THIS TIME. PT IS IN A UNPLEASANT MOOD. TRIED TO REDIRECT PT WITHOUT SUCCESS. WILL GIVE REPORT TO ON COMING NURSE.
[2020-05-02 07:07] LABS: Glucose Point of Care 160 mg/dL (70-110)
[2020-05-02] MEDS: heparin 5,000 unit/mL INJ 1 mL 5000 UNIT SUBCUT ×2 (07:36→21:07)
[2020-05-02] MEDS: clopidogrel 75 mg Tablet PO (08:15)
[2020-05-02] MEDS: atorvastatin 40 mg Tablet 20 MG PO (08:15)
[2020-05-02] MEDS: atenolol 50 mg Tablet 100 MG PO (08:16)
[2020-05-02] MEDS: pantoprazole DR 40 mg Tablet PO ×2 (08:16→17:04)
[2020-05-02] MEDS: donepezil 5 MG Tablet PO (08:16)
--- NOTE | 2020-05-02 09:33 | PC.SOCIAL ---
IMM Update Pg 2 of IMM update. Copy in chart updated and copy provided to patient.
[2020-05-02 11:35] LABS: Glucose Point of Care 164 mg/dL (70-110)
--- NOTE | 2020-05-02 12:07 | P.PN_ITS ---
Subjective Subjective: Interval history: no acute overnight events. Lost iv access today, pulle dout multiple lines. LE changes appear to be stable Medications: Reviewed: Yes Vitals/I&O/Wt Last Vital Signs Temp 97.9 F 05/02/20 11:00 Pulse 72 05/02/20 11:00 Resp 19 H 05/02/20 11:00 BP 123/63 05/02/20 11:00 Pulse Ox 93 05/02/20 11:00 05/01/20 05/02/20 05/02/20 22:59 06:59 14:59 Intake Total 240 / 760 50 / 810 Output Total 1450 / 1450 650 / 2100 Balance -1210 / -690 -600 / -1290 Physical Exam Narrative: EXAM NARRATIVE: GEN: Awake, alert, at baseline, isoriented CVS: S1S2 N RS: CTA B/L Abd: Soft, nt/nd , bs+ VICE PRESIDENT OF DEVELOPMENT: no focal neuro deficits Urinary Catheter Management^: Taylor: Cath Placed During This Visit: yes Reason for Continuing Indwelling Catheter: Accurate Measurement of Urinary Output in Critically Ill Patients Urinary Catheter Date of Insertion: 04/29/20 Urinary Catheter Time of Insertion: 14:33 Data : 05/02/20 04:48 05/02/20 04:48 Micro: Microbiology 05/01/20 13:40 Occult Blood (FIT) - Final Stool A&P Assessment and plan (1) Cellulitis: Lots iv access Change abx to augmentin and levofloxacin from iv zosyn and vancomycin Status: Acute (2) Peripheral vascular disease: ABIs 0.7 and 0.6. Secondary to persistent pain, interventional cardiology consultation obtained and CTA aorta runoff ordered. Peripheral angiogram performed April 29 and angioplasty of the left tibioperoneal occurred with good result. Status: Acute (3) Anemia: Hemoglobin has drifted down, likely secondary to some blood loss from the procedure. Today we will transfuse her 1 unit, with Lasix following Aspirin has been discontinued Plavix has been continued secondary to her recent peripheral intervention by cardiology. Iron infusion was given on April 26. Continue heparin for DVT prophylaxis as no evidence at this point of active bleeding. Repeat CBC tomorrow Status: Acute Additional A&P Information Elevated AST. Etiology unknown. Appears to be lab error as this is now normal UTI. Not present after final culture has been completed. No significant growth. History of thalassemia trait Requiring 3 L of oxygen in the ER. Check chest x-ray. No obvious infiltrate. Now on room air. Dementia, with second significant owning requiring occasional as needed medication at night. History of type 2 diabetes, sliding scale insulin. Hyperlipidemia Multiple other medical problems as outlined in past medical history Full code Heparin for DVT prophylaxis Ultimate plan is to nursing facility for rehabilitation, likely tomorrow Attestations Medical Necessity Statement*: changed to po abx today, upcoming discharge in the next 24 hrs if LE changes remain stable Coding Level of Care Code Acute Stenographer Print Shop for [employer] Fwd Diagnoses Cellulitis L03.90 Peripheral vascular disease I73.9 Anemia D64.9
--- NOTE | 2020-05-02 12:18 | P.PN_ITS ---
Subjective Subjective: Interval history: Denies any complaint or pain in the leg. Medications: Reviewed: Yes Vitals/I&O/Wt Last Vital Signs Temp 97.9 F 05/02/20 11:00 Pulse 72 05/02/20 11:00 Resp 19 H 05/02/20 11:00 BP 123/63 05/02/20 11:00 Pulse Ox 93 05/02/20 11:00 05/01/20 05/02/20 05/02/20 22:59 06:59 14:59 Intake Total 240 / 760 50 / 810 Output Total 1450 / 1450 650 / 2100 Balance -1210 / -690 -600 / -1290 Physical Exam Narrative: EXAM NARRATIVE: GENERAL: Patient is sleepy but arousable NECK: No jugular vein distension. HEENT: No cyanosis. No icterus. pallor. HEART: Regular S1 and S2. No murmur, rub or gallop. LUNGS: Clear to auscultate bilaterally. CENTRAL NERVOUS SYSTEM: Grossly nonfocal. EXTREMITIES: Lower extremities without edema bilaterally. Cellulitis of both feet improved, ischemic appearing leg without hairs and excoriation, appeared to be warm. Dopplerable anterior posterior tibial left foot Urinary Catheter Management^: Taylor: Cath Placed During This Visit: yes Reason for Continuing Indwelling Catheter: Accurate Measurement of Urinary Output in Critically Ill Patients Urinary Catheter Date of Insertion: 04/29/20 Urinary Catheter Time of Insertion: 14:33 Data : 05/02/20 04:48 05/02/20 04:48 Micro: Microbiology 05/01/20 13:40 Occult Blood (FIT) - Final Stool A&P Assessment and plan (1) Critical lower limb ischemia: Peripheral angiogram revealed abdominal aorta with luminal irregularities both common iliac, external iliac, internal iliac, common femoral, SFA had luminal irregularity. Left and right popliteal had luminal irregularity however left tibioperoneal trunk in its distal segment had calcified 80% hazy stenosis patient has single vessel runoff to the foot with anterior tibial posterior tibial and peroneal as above chronically occluded throughout its course, posterior tibial reconstitute near the ankle through tibial. Since left leg is more symptomatic with cellulitis and patient is complaining more pain we proc eeded with balloon angioplasty of the left distal tibioperoneal trunk was performed. Good angiographic result was achieved. Right leg has chronically occluded tibioperoneal trunk with try to reconstitute at the anterior and posterior tibial pulse no good runoff was visualized. We will start patient on Plavix for 1 month. As an outpatient we will follow her up in our clinic, due to extensive nature of the disease below right knee we will try to manage her medically. On today's visit dated 05/02/2020 patient is status post percutaneous angioplasty of left tibioperoneal trunk. Patient has good dopplerable anterior and posterior tibial pulse. Patient is awaiting care home placement Status: Acute (2) Anemia: Continue to monitor Status: Acute Qualifiers: Anemia type: unspecified type Qualified Code(s): D64.9 - Anemia, unspecified (3) Cellulitis: As per medicine. 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
[2020-05-02 16:20] LABS: Glucose Point of Care 180 mg/dL (70-110)
[2020-05-02] MEDS: amoxicillin-clav 875-125 mg Tablet 1 TAB PO (17:04)
[2020-05-02 20:30] LABS: Glucose Point of Care 173 mg/dL (70-110)
[2020-05-03] MEDS: levoFLOXacin 500 mg Tablet PO (05:44)
[2020-05-03 06:34] LABS: Glucose Point of Care 149 mg/dL (70-110)
[2020-05-03 07:43] VITALS: BP 156/98; PULSE 68; RESP 21; TEMP 36.6; O2SAT 95
[2020-05-03] MEDS: amoxicillin-clav 875-125 mg Tablet 1 TAB PO (08:47)
[2020-05-03] MEDS: pantoprazole DR 40 mg Tablet PO (08:47)
[2020-05-03] MEDS: atenolol 50 mg Tablet 100 MG PO (08:47)
[2020-05-03] MEDS: heparin 5,000 unit/mL INJ 1 mL 5000 UNIT SUBCUT (08:48)
[2020-05-03] MEDS: atorvastatin 40 mg Tablet 20 MG PO (08:48)
[2020-05-03] MEDS: clopidogrel 75 mg Tablet PO (08:48)
[2020-05-03] MEDS: donepezil 5 MG Tablet PO (08:48)
[2020-05-03] MEDS: acetaminophen 325 mg Tablet 650 MG PO (09:08)
[2020-05-03 11:00] VITALS: BP 146/68; PULSE 63; RESP 25; TEMP 36.6; O2SAT 96
[2020-05-03] MEDS: TRAMadol 50 mg Tablet PO (11:26)
[2020-05-03 11:35] LABS: Glucose Point of Care 106 mg/dL (70-110)
[2020-05-03 11:46] LABS: Hematocrit 27.7 % (37.0-47.0); Hemoglobin 8.5 g/dL (11.5-15.3); Mean Corpuscular HGB Conc 30.7 g/dL (30.0-36.0); Mean Corpuscular Hemoglobin 24.2 pg (28.0-34.0); Mean Corpuscular Volume 78.9 fL (81-99); Mean Platelet Volume 11.8 fL (7.4-10.4); Platelet Count 166 10^3/cmm (130-400); Red Blood Count 3.51 10^6/uL (4.1-5.3); White Blood Count 10.1 10^3/uL (4.0-10.0)
[2020-05-03 12:02] LABS: Alanine Aminotransferase 19 U/L (0-33); Albumin Level 3.3 g/dL (3.5-5.2); Alkaline Phosphatase 60 IU/L (35-105); Anion Gap 14.3 (5-19); Aspartate Amino Transferase 29 U/L (0-32); Blood Urea Nitrogen 23 mg/dL (8-23); Calcium 8.9 mg/dL (8.5-10.5); Carbon Dioxide 27 mmol/L (22-29); Chloride 106 mmol/L (98-107); Creatinine Clr Calc Pharmacy 53.1565; Globulin 2.4 g/dL (1.3-4.6); Glucose 103 mg/dL (65-115); Osmolality Calculated 295 mOsm/kg (285-295); Potassium 3.3 mmol/L (3.5-5.1); Sodium 144 mmol/L (136-145); Total Bilirubin 0.9 mg/dL (0.15-1.2); Total Protein 5.7 g/dL (6.6-8.7)
[2020-05-03 12:16] LABS: Absolute Segmented Neutrophil 8.1 10/cmm (1.6-7.1); Band Neutrophils Absolute 0.1 10^3/cmm (0.0-1.2); Segmented Neutrophils 80 %; Total Cells Counted 100 (0-100)
[2020-05-03 12:17] LABS: Absolute Eosinophils 0.1 10^3/cmm (0.0-0.7); Absolute Neutrophil 8.2 10^3/cmm (1.4-6.5); Corrected White Blood Count 8.8 10^3/cmm (4.8-10.8); Eosinophils 1 %; Lymphocytes 11 %; Monocytes Absolute 0.7 10^3/cmm (0.1-0.6); Platelet Estimate Normal (Normal)
--- NOTE | 2020-05-03 12:30 | PM.PN ---
Subjective Subjective: Interval history: Feeling much better. Denies any complaint. His legs look better left foot is warm with good dopplerable anterior posterior tibial pulse Medications: Reviewed: Yes Vitals/I&O/Wt Last Vital Signs Temp 97.8 F 05/03/20 11:00 Pulse 63 05/03/20 11:00 Resp 25 H 05/03/20 11:00 BP 146/68 05/03/20 11:00 Pulse Ox 96 05/03/20 11:00 05/02/20 05/03/20 05/03/20 22:59 06:59 14:59 Intake Total 240 / 480 120 / 600 120 / 120 Output Total 2 / 2 Balance 240 / 480 118 / 598 119 / 119 Physical Exam Narrative: EXAM NARRATIVE: GENERAL: Patient is sleepy but arousable NECK: No jugular vein distension. HEENT: No cyanosis. No icterus. pallor. HEART: Regular S1 and S2. No murmur, rub or gallop. LUNGS: Clear to auscultate bilaterally. CENTRAL NERVOUS SYSTEM: Grossly nonfocal. EXTREMITIES: Lower extremities without edema bilaterally. Cellulitis of both feet improved, ischemic appearing leg without hairs and excoriation, appeared to be warm. Dopplerable anterior posterior tibial left foot. Right groin bruise no swelling. No hematoma. Urinary Catheter Management^: Taylor: Cath Placed During This Visit: yes, but has since been removed by the nurse Reason for Continuing Indwelling Catheter: Decision to DC Catheter Urinary Catheter Date of Insertion: 04/29/20 Urinary Catheter Time of Insertion: 14:33 Date Urinary Catheter Removed: 05/02/20 Time Urinary Catheter Discontinued: 14:00 Data : 05/03/20 10:58 05/03/20 10:58 Micro: Microbiology 05/02/20 15:00 C.difficile Toxin B Gene (PCR) - Final Stool A&P Assessment and plan (1) Critical lower limb ischemia: Peripheral angiogram revealed abdominal aorta with luminal irregularities both common iliac, external iliac, internal iliac, common femoral, SFA had luminal irregularity. Left and right popliteal had luminal irregularity however left tibioperoneal trunk in its distal segment had calcified 80% hazy stenosis patient has single vessel runoff to the foot with anterior tibial posterior tibial and peroneal as above chronically occluded throughout its course, posterior tibial reconstitute near the ankle through tibial. Since left leg is more symptomatic with cellulitis and patient is complaining more pain we proceeded with balloon angioplasty of the left distal tibioperoneal trunk was performed. Good angiographic result was achieved. Right leg has chronically occluded tibioperoneal trunk with try to reconstitute at the anterior and posterior tibial pulse no good runoff was visualized. We will start patient on Plavix for 1 month. As an outpatient we will follow her up in our clinic, due to extensive nature of the disease below right knee we will try to manage her medically. On today's visit dated 05/02/2020 patient is status post percutaneous angioplasty of left tibioperoneal trunk. Patient has good dopplerable anterior and posterior tibial pulse. Patient is awaiting senior living placement On today's visit dated 05/0306/23/2020 patient continue fine from a vascular perspective. She has good dopplerable pulse. She is awaiting placement in the senior living. Status: Acute (2) Anemia: Stable. Continue medicine Status: Acute Qualifiers: Anemia type: unspecified type Qualified Code(s): D64.9 - Anemia, unspecified (3) Cellulitis: As per medicine. Continue antibiotics Status: Acute Qualifiers: Laterality: unspecified laterality Site of cellulitis: extremity Site of cellulitis of extremity: lower extremity Qualified Code(s): L03.119 - Cellulitis of unspecified part of limb Attestations Medical Necessity Statement*: Require continuation of hospitalization for above defined care Coding Level of Care Code Established Pt Acute Examination Proctor for g Fwd Patient Type Established History Expanded Problem Focused Exam Expanded Problem Focused Medical Decision Making Moderate Complexity Diagnoses Critical lower limb ischemia I99.8 Anemia D64.9 Anemia type: unspecified type Cellulitis L03.119 Laterality: unspecified laterality Site of cellulitis: extremity Site of cellulitis of extremity: lower extremity
--- NOTE | 2020-05-03 13:58 | PM.DCS ---
Discharge Providers Date of Admission: 04/25/20 14:21 Date of Discharge: May 03, 2020 Attending Provider at Admission: Keron Giron MD Attending Provider at Discharge: Kathy Chappell MD Primary Care Provider: Frankie Garay MD Diagnoses at Discharge Discharge Diagnosis (1) Critical lower limb ischemia: Status: Acute (2) Anemia: Status: Acute Qualifiers: Anemia type: unspecified type Qualified Code(s): D64.9 - Anemia, unspecified (3) Cellulitis: Status: Acute Qualifiers: Laterality: unspecified laterality Site of cellulitis: extremity Site of cellulitis of extremity: lower extremity Qualified Code(s): L03.119 - Cellulitis of unspecified part of limb Reason for Visit Reason for Visit: SORES ON LEFT FOOT Hospital Course Discharge Summary: Charisma Holly is a 79 year old female past medical history significant for underlying dementia, diabetes mellitus hypertension peripheral vascular disease was admitted with worsening of pain aches in both feet and cellulitis. She also has evidence of heel ulcers. 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 By physical examination VALERY and CT a runoff patient has severe peripheral vascular disease while appear to have developing critical limb ischemia. SHe underwent peripheral angiogram revealed abdominal aorta with luminal irregularities both common iliac, external iliac, internal iliac, common femoral, SFA had luminal irregularity. Left and right popliteal had luminal irregularity however left tibioperoneal trunk in its distal segment had calcified 80% hazy stenosis patient has single vessel runoff to the foot with anterior tibial posterior tibial and peroneal as above chronically occluded throughout its course, posterior tibial reconstitute near the ankle through tibial. Since left leg was more symptomatic with cellulitis and patient is complaining more pain she underwent balloon angioplasty of the left distal tibioperoneal trunk. Good angiographic result was achieved. Right leg has chronically occluded tibioperoneal trunk with try to reconstitute at the anterior and posterior tibial pulse no good runoff was visualized. She was started on Plavix for 1 month. As an outpatient she will follow her up in cardiology clinic, due to extensive nature of the disease below right knee we will try to manage her medically. She received empiric iv abx with Zosyn and vancomycin, transitioned to po augmentin and levofloxacin upon discharge for 7 days. Other notable events included slightly drifting down hemoglobin likely secondary to some blood loss from the procedure. She received one unit PRBC. This is now stable at Hb ~8.5. Fecal occult blood was negative. ASA was discontinued. She had few episodes of diarrhea yeseterday, c diff PCR was negative from stool. She has not had any further diarrhea since this morning. Physical Exam Narrative: EXAM NARRATIVE: GEN: Awake, alert, needs reorientation but otherwise grossly stable on exam CVS: S1S2 N RS: CTA B/L Abd: Soft, nt/nd , bs+ MATERIAL PLANNER: no focal neuro deficits Ext: improving cellulitis over RLE, chronic desquamation of skin+. Dopplerable pulses anterior and posterior tibial pulse. Urinary Catheter Management^: Taylor: Cath Placed During This Visit: yes, but has since been removed by the nurse Reason for Continuing Indwelling Catheter: Decision to DC Catheter Urinary Catheter Date of Insertion: 04/29/20 Urinary Catheter Time of Insertion: 14:33 Date Urinary Catheter Removed: 05/02/20 Time Urinary Catheter Discontinued: 14:00 Discharge Data Data Completed and Pending: Completed Studies During Hospitalization Category Date Time Status CT angio abd aort a runof 20306 Rout ine Cat Scan 04/28/20 10:[address] head wo con* 7 0450 Stat Cat Scan 04/25/20 13:16 Completed XR ankle LT min 3 V* [id number] Stat Exams 04/25/20 11:24 Completed XR chest 1V mere ble [id number] Routine Exams 04/25/20 14:05 Completed XR foot LT min 3V * [id number] Stat Exams 04/25/20 11:24 Completed XR foot RT min 3V * [id number] Stat Exams 04/25/20 11:24 [place] [id number] Stat Ultrasound 04/25/20 11:24 [place] [id number] Urgent Ultrasound 04/25/20 11:24 Completed Pending at discharge Category Date Time Status 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 Routin e Exams 04/29/20 13:30 Taken Labs from last 24 hours 05/03/20 05/03/20 05/03/20 11:27 10:58 10:58 WBC 10.1 H Corrected WBC 8.8 RBC 3.51 L Hgb 8.5 L Hct 27.7 L MCV 78.9 L MCH 24.2 L MCHC 30.7 RDW 19.0 H Plt Count 166 MPV 11.8 H Total Counted 100 Absolute Neutrophi ls 8.2 H Segmented Neutroph ils 80 Abs Segm Neuts (Ma n) 8.1 H Band Neutrophils 1.0 Abs Band Neuts (Ma n) 0.1 Lymphocytes (Manua l) 11 Monocytes (Manual) 7.0 Absolute Monocytes 0.7 H Eosinophils (Manua l) 1 Absolute Eosinophi ls 0.1 Nucleated RBCs 15.0 H Platelet Estimate Normal Sodium 144 Potassium 3.3 L Chloride 106 Carbon Dioxide 27 Anion Gap 14.3 BUN 23 Creatinine 0.7 Glucose 103 POC Glucose 106 Calculated Osmolal ity 295 Calcium 8.9 Total Bilirubin 0.9 AST 29 ALT 19 Alkaline Phosphata se 60 Total Protein 5.7 L Albumin 3.3 L Globulin 2.4 05/03/20 05/02/20 05/02/20 06:30 20:21 16:09 WBC Corrected WBC RBC Hgb Hct MCV MCH MCHC RDW Plt Count MPV Total Counted Absolute Neutrophi ls Segmented Neutroph ils Abs Segm Neuts (Ma n) Band Neutrophils Abs Band Neuts (Ma n) Lymphocytes (Manua l) Monocytes (Manual) Absolute Monocytes Eosinophils (Manua l) Absolute Eosinophi ls Nucleated RBCs Platelet Estimate Sodium Potassium Chloride Carbon Dioxide Anion Gap BUN Creatinine Glucose POC Glucose 149 173 180 Calculated Osmolal ity Calcium Total Bilirubin AST ALT Alkaline Phosphata se Total Protein Albumin Globulin Vitals: Last Vital Signs Temp 97.8 F 05/03/20 11:00 Pulse 63 05/03/20 11:00 Resp 25 H 05/03/20 11:00 BP 146/68 05/03/20 11:00 Pulse Ox 96 05/03/20 11:00 Discharge Plan Discharge Patient Disposition: Xfer SNF Condition: Stable Prescriptions: New tramadol 50 mg Tablet 50 mg PO Q12H PRN (Reason: Moderate Pain) 14 Days Qty: 28 RF: 0 magnesium hydroxide [Milk of Magnesia] 400 mg/5 mL Suspension 30 ml PO DAILY PRN (Reason: Constipation) 30 Days Qty: 5 RF: 0 pantoprazole 40 mg Tablet,Delayed Release (Dr/Ec) 40 mg PO BID 30 Days Qty: 60 RF: 0 levofloxacin 500 mg Tablet 500 mg PO DAILY@0600 7 Days RF: 0 acetaminophen 325 mg Tablet 650 mg PO Q6H PRN (Reason: Mild/Mod Pain Or Temp >/= 101) Qty: 0 RF: 0 clopidogrel 75 mg Tablet 75 mg PO DAILY 30 Days Qty: 30 RF: 0 amoxicillin-pot clavulanate 875-125 mg Tablet 1 tab PO BID 7 Days Qty: 14 RF: 0 Continued metformin 500 mg Tablet 500 mg PO DAILY RF: 0 donepezil 5 mg Tablet 5 mg PO DAILY RF: 0 pravastatin 40 mg Tablet 40 mg PO DAILY RF: 0 atenolol 100 mg Tablet 100 mg PO DAILY RF: 0 Discharge Orders: Discharge Order (Routine); Ordered 05/03/20 Ordered By: Kathy Chappell Referrals: [facility] [Outside] [facility] [Outside] Luis Fernando Kohli MD [Physician] - 2 weeks Frankie Garay MD [Primary Care Provider] - 7-10 days Discharge Diet: Cardiac Discharge Activity: As per PT/OT instructions Discharge Attestations Time Spent in Discharge Care*: greater than 30 min Quality Metrics Clinical Quality Measures During this hospital stay, did patient experience: None Coding Level of Care Code Acute Transporter Driver for g Fwd Diagnoses Critical lower limb ischemia I99.8 Anemia D64.9 Anemia type: unspecified type Cellulitis L03.119 Laterality: unspecified laterality Site of cellulitis: extremity Site of cellulitis of extremity: lower extremity
[2020-05-03] MEDS: potassium chloride oral liq 20 mEq/15 mL UDC 40 MEQ PO (14:21)
[2020-05-03 15:00] VITALS: BP 140/64; PULSE 71; RESP 18; TEMP 36.7; O2SAT 96
[2020-05-03 16:24] LABS: Glucose Point of Care 195 mg/dL (70-110)
[2020-05-03 16:37] VITALS: BP 140/63; PULSE 64; RESP 19; TEMP 36.6; O2SAT 95
== END 2020-05-03 16:35 | disposition skilled nursing facility (03) | DRG 253 ==
LOC: ER 12:10 → MEDSURG 14:48 → ICU 04-29 16:26 → CSU 04-30 18:32
PROVIDERS: Emergency Medicine; Internal Medicine Cardiovascular Disease; Admitting Provider Internal Medicine; Family Provider Family Medicine; PCP Family Medicine; Visit Provider Student in an Organized Health Care Education/Training Program
PROC: 047P3Z1 Dilation of Right Anterior Tibial Artery using Drug-Coated Balloon, Percutaneous Approach (ICD-10-PCS; principal; 2020-04-29 13:30)
PROC: 047P3Z1 Dilation of Right Anterior Tibial Artery using Drug-Coated Balloon, Percutaneous Approach (ICD-10-PCS; 2020-04-29 13:30)
DX: I70.202 Unspecified atherosclerosis of native arteries of extremities, left leg (principal); L03.116 Cellulitis of left lower limb; I69.351 Hemiplegia and hemiparesis following cerebral infarction affecting right dominant side; E11.51 Type 2 diabetes mellitus with diabetic peripheral angiopathy without gangrene; D64.9 Anemia, unspecified; D56.3 Thalassemia minor; I10 Essential (primary) hypertension; Z79.84 Long term (current) use of oral hypoglycemic drugs; Z79.02 Long term (current) use of antithrombotics/antiplatelets; F03.90 Unspecified dementia, unspecified severity, without behavioral disturbance, psychotic disturbance, mood disturbance, and anxiety; R19.7 Diarrhea, unspecified; E78.5 Hyperlipidemia, unspecified; K44.9 Diaphragmatic hernia without obstruction or gangrene
CPT/HCPCS: 12345; 36415; 36416; 36430; 36600; 37228; 51702; 70450; 71045; 71275; 73610; 73630; 75625; 75635; 75710; 75716; 80048; 80051; 80053; 80202; 80307; 81001; 82274; 82550; 82607; 82728; 82810; 82962; 83540; 83550; 83605; 83880; 83986; 84145; 84443; 84484; 85007; 85014; 85018; 85025; 85027; 85378; 85730; 86850; 86900; 86920; 87040; 87086; 87493; 87635; 92523; 92610; 93005; 93306; 93925; 93970; 94640; 96372; 96375; 97110; 97161; 97165; 97530; 97535; 99284; C1725; C1769; C1887; C1894; J1170; J1644; J1650; J1756; J1815; J1940; J1956; J2001; J2270; J2405; J2543; J3010; J3370; J3490; J3535; J7030; J7050; P9016; Q9967

== ENCOUNTER 2020-05-04 09:28 | Inpatient (IN) | payer MEDICARE, OTHER, SELFPAY ==
[2020-05-04] VITALS (13 sets, daily range): BP systolic 144–190; BP diastolic 65–88; PULSE 62–73; RESP 12–29; TEMP 36.4–37.2; O2SAT 91–98; BMI 23.5
--- NOTE | 2020-05-04 09:31 | ED_ITS ---
HPI - SOB/Dyspnea General: Chief Complaint: Shortness of Breath/Dyspnea Stated Complaint: SOB Time Seen by Provider: 05/04/20 09:31 History of Present Illness: HPI Narrative: 79-year-old female returns to the intermediate after an episode of severe hypoxia. It was corrected by applying oxygen she get her hemoglobin up to 92 on 6 L/min. Patient was recently admitted here for cellulitis. She is a full code. She denies any abdominal pain she does admit to the shortness of breath. She denies any specific chest pain. She not been coughing anything up. MD elicited complaint: shortness of breath and cough Onset (ago): minute(s) Context: recent illness (Recent hospitalization for cellulitis) Timing: constant Severity: severe Exacerbating factors: nothing Relieving factors: oxygen and rest Known history of: diabetes Associated symptoms: Reports chest congestion, cough and nausea; Deny abdominal pain, chest pain, fever(s) or orthopnea Treatment prior to arrival: oxygen Review of Systems Const: Denies: fever(s), chills, body aches, change in appetite, fatigue or malaise ENMT: Denies: throat pain, ear or mastoid pain, nasal discharge or nasal congestion Card: Denies: chest pain, edema, dyspnea on exertion or orthopnea Resp: Reports: chest congestion GI: Reports: nausea; Denies: abdominal pain : Denies: flank pain, difficulty voiding, dysuria, urinary frequency or urinary urgency Skin/Breast: Denies: rash or pruritus PFSH ED PFSH: Medical History Anemia CVA (cerebral vascular accident) 2013, right hemispheric Dementia Diabetes Hiatal hernia Hyperlipidemia Hypertension Peripheral vascular disease Pneumonia Thalassemia trait Surgical History History of angioplasty of peripheral vessel History of back surgery Family History Other Diabetes Social History Smoking and tobacco status: never smoked Alcohol intake: never Physical Exam Const: COMMON NORMALS: no acute distress GENERAL APPEARANCE: cooperative and comfortable Eye: COMMON NORMALS: Equal, round and reactive pupils present, EOMs intact bilaterally, conjunctivae normal and no scleral icterus CONJUNCTIVA: Yes conjunctivae normal PUPIL: Yes Equal, round and reactive pupils present Neck/C-Spine: COMMON NORMALS: full ROM, no lymphadenopathy, supple and no JVD Lymph: LYMPHATIC: no lymphadenopathy noted and no lymphedema noted Resp: AUSCULTATION: rhonchi right upper Cardio: COMMON NORMALS: no JVD, regular rate, regular rhythm and No murmurs present (Cardio) RATE: regular rate RHYTHM: regular rhythm GI: COMMON NORMALS: Soft to palpation and No hepatosplenomegaly present AUSCULTATION: Yes normoactive bowel sounds PALPATION: Yes Soft to palpation, No Tenderness to palpation present (GI), No Guarding due to palpation present (GI) and Yes No hepatosplenomegaly present Extremity: COMMON NORMALS: normal to inspection, capillary refill normal, no clubbing, cyanosis or edema, no calf tenderness and no pedal edema Skin: NARRATIVE SKIN EXAM: Patient has skin breakdown over the sacrum she also has scaling and dusky redness with zavala from previous cellulitis bilateral and lower extremities from eschared areas none that appear to be acutely infected or actively draining. Course Vital Signs: Vital signs: Vital Signs Temperature 98.3 F 05/04/20 09:29 Pulse Rate 66 05/04/20 12:27 Respiratory Rate 24 H 05/04/20 12:27 Blood Pressure 160/70 05/04/20 12:27 Pulse Oximetry 97 05/04/20 13:02 MDM - SOB/Dyspnea MDM Narrative: Medical decision making narrative: Discussed with Dr. Price will admit for right upper lobe pneumonia. Also need to address monitor her anemia. She was on levofloxacin.. We added IV vancomycin and Zosyn continued IV via levofloxacin. Dr. Price will write orders. Lab Data: Labs: Lab Results 05/04/20 05/04/20 05/04/20 Range/Units 09:52 09:52 09:52 WBC 10.9 H (4.0-10.0) 10^3/ uL RBC 3.89 L (4.1-5.3) 10^6/u L Hgb 9.3 L (11.5-15.3) g/dL Hct 30.0 L (37.0-47.0) % MCV 77.1 L (81-99) fL MCH 23.9 L (28.0-34.0) pg MCHC 31.0 (30.0-36.0) g/dL RDW 20.2 H (12.1-15.1) % Plt Count 180 (130-400) 10^3/c mm MPV 11.4 H (7.4-10.4) fL Neut % (Auto) 78.4 % Lymph % (Auto) 9.8 % Benson % (Auto) 8.9 % Eos % (Auto) 0.0 % Baso % (Auto) 0.2 % Neut # (Auto) 8.6 H (1.8-7.7) 10^3/u L Lymph # (Auto) 1.1 (0.8-4.8) 10^3/u L Benson # (Auto) 1.0 H (0.2-0.9) 10^3/u L Eos # (Auto) 0.0 (0.0-0.8) 10^3/u L Baso # (Auto) 0.0 (0.0-0.1) 10^3/u L Nucleated RBC % (a uto) 19.3 % Nucleated RBCs # 2.1 /100WBC D-Dimer (0-0.59) ug/mIFE U Specimen Type Sample Site ABG pH (7.35-7.45) ABG pCO2 (35-45) mmHg ABG pO2 (80.0-100.0) mmH g ABG HCO3 (22-26) mmol/L ABG O2 Saturation ABG Base Excess (-2.0-2.0) mmol/ L Deandre Test A-a O2 Gradient (5-10) mmHg Hematocrit (37-47) % Hgb O2 Saturation (95-100) % Carboxyhemoglobin (0.4-20.1) %THgb Methemoglobin (0.4-1.5) % Total Hemoglobin (12-16) g/dL Ionized Calcium (1.1-1.4) mmol/L O2 Delivery Device O2 Liters/Min % FiO2 % Pediatric Hospitalist ID Sodium 143 (136-145) mmol/L Potassium 3.7 (3.5-5.1) mmol/L Chloride 103 (98-107) mmol/L Carbon Dioxide 24 (22-29) mmol/L Anion Gap 19.7 H (5-19) BUN 21 (8-23) mg/dL Creatinine 0.7 (0.5-0.9) mg/dL Glucose 203 H (65-115) mg/dL Calculated Osmolal ity 298 H (285-295) mOsm/k g Lactate 2.0 (0.5-2.2) mmol/L Calcium 9.2 (8.5-10.5) mg/dL Total Bilirubin 1.6 H (0.15-1.2) mg/dL AST 42 H (0-32) U/L ALT 30 (0-33) U/L Alkaline Phosphata se 69 (35-105) IU/L Creatine Kinase 61 (26-192) U/L NT-Pro-B Natriuret Pep 32157 H (0-450) pg/mL Total Protein 6.8 (6.6-8.7) g/dL Albumin 3.4 L (3.5-5.2) g/dL Globulin 3.4 (1.3-4.6) g/dL Urine Color (Yellow) Urine Appearance (CLEAR) Urine pH (5-7) Ur Specific Gravit y (1.005-1.030) Urine Protein (Negative) Urine Glucose (UA) (Normal) Urine Ketones (Negative) Urine Blood (Negative) Urine Nitrate (Negative) Urine Bilirubin (NEGATIVE) Urine Urobilinogen (Negative) mg/dL Ur Leukocyte Tracey ase (Negative) Urine RBC (0-2) /hpf Urine WBC (0-5) /hpf Ur Squamous Epith Cells (0-5) Amorphous Sediment Urine Bacteria (NONE) Urine Mucus 05/04/20 05/04/20 05/04/20 Range/Units 09:52 09:56 11:11 WBC (4.0-10.0) 10^3/ uL RBC (4.1-5.3) 10^6/u L Hgb (11.5-15.3) g/dL Hct (37.0-47.0) % MCV (81-99) fL MCH (28.0-34.0) pg MCHC (30.0-36.0) g/dL RDW (12.1-15.1) % Plt Count (130-400) 10^3/c mm MPV (7.4-10.4) fL Neut % (Auto) % Lymph % (Auto) % Benson % (Auto) % Eos % (Auto) % Baso % (Auto) % Neut # (Auto) (1.8-7.7) 10^3/u L Lymph # (Auto) (0.8-4.8) 10^3/u L Benson # (Auto) (0.2-0.9) 10^3/u L Eos # (Auto) (0.0-0.8) 10^3/u L Baso # (Auto) (0.0-0.1) 10^3/u L Nucleated RBC % (a uto) % Nucleated RBCs # /100WBC D-Dimer 1.65 H (0-0.59) ug/mIFE U Specimen Type Arterial Sample Site Radial, right ABG pH 7.39 (7.35-7.45) ABG pCO2 42.6 (35-45) mmHg ABG pO2 83.4 (80.0-100.0) mmH g ABG HCO3 25.6 (22-26) mmol/L ABG O2 Saturation 96.0 ABG Base Excess 0.4 (-2.0-2.0) mmol/ L Deandre Test Pos A-a O2 Gradient 144.0 H (5-10) mmHg Hematocrit 29.6 L (37-47) % Hgb O2 Saturation 94.1 L (95-100) % Carboxyhemoglobin 1.3 (0.4-20.1) %THgb Methemoglobin 0.7 (0.4-1.5) % Total Hemoglobin 9.6 L (12-16) g/dL Ionized Calcium 1.2 (1.1-1.4) mmol/L O2 Delivery Device Nc O2 Liters/Min 5.0 % FiO2 40.0 % Pediatric Hospitalist ID ed Sodium 147.0 H (136-145) mmol/L Potassium 3.5 (3.5-5.1) mmol/L Chloride (98-107) mmol/L Carbon Dioxide (22-29) mmol/L Anion Gap (5-19) BUN (8-23) mg/dL Creatinine (0.5-0.9) mg/dL Glucose 192.0 H (65-115) mg/dL Calculated Osmolal ity (285-295) mOsm/k g Lactate (0.5-2.2) mmol/L Calcium (8.5-10.5) mg/dL Total Bilirubin (0.15-1.2) mg/dL AST (0-32) U/L ALT (0-33) U/L Alkaline Phosphata se (35-105) IU/L Creatine Kinase (26-192) U/L NT-Pro-B Natriuret Pep (0-450) pg/mL Total Protein (6.6-8.7) g/dL Albumin (3.5-5.2) g/dL Globulin (1.3-4.6) g/dL Urine Color Yellow (Yellow) Urine Appearance Clear (CLEAR) Urine pH 5.0 (5-7) Ur Specific Gravit y 1.025 (1.005-1.030) Urine Protein 1+ H (Negative) Urine Glucose (UA) Norm (Normal) Urine Ketones 1+ H (Negative) Urine Blood 2+ H (Negative) Urine Nitrate Negative (Negative) Urine Bilirubin Neg (NEGATIVE) Urine Urobilinogen Norm (Negative) mg/dL Ur Leukocyte Tracey ase Negative (Negative) Urine RBC 0-4 H (0-2) /hpf Urine WBC None (0-5) /hpf Ur Squamous Epith Cells 0-4 H (0-5) Amorphous Sediment Not Reportable Urine Bacteria 1+ H (NONE) Urine Mucus 2+ Discharge Plan Discharge Patient Disposition: Admitted As Inpatient Clinical Impression: Pneumonia, Anemia Condition: Stable Referrals: Frankie Garay MD [Primary Care Provider] - Coding Level of Care Code ED Contact Lens Inspector for g Fwd Exam Comprehensive
--- NOTE | 2020-05-04 09:45 | XRR_ITS ---
PROCEDURE INFORMATION: Exam: XR Chest, 1 View Exam date and time: 05/04/2020 10:09 AM Age: 79 years old Clinical indication: Cough and dyspnea. TECHNIQUE: Imaging protocol: XR of the chest Views: 1 view. COMPARISON: CR XR chest 1V portable [id number] 04/25/2020 2:25 PM FINDINGS: Lungs: Poor inspiration. Decreased lung volumes. Interval development of right perihilar airspace disease compatible with pneumonia. Pleural space: No pleural effusion or pneumothorax. Heart/Mediastinum: The cardiac silhouette is not enlarged. Vasculature: The thoracic aorta is tortuous and atherosclerotic. Bones/joints: Multiple old left rib fractures. XR/XR chest 1V portable [id number] IMPRESSION: Right perihilar pneumonia.
[2020-05-04 10:06] LABS: Basophils % 0.2 %; Hemoglobin 9.3 g/dL (11.5-15.3); Lymphocytes # 1.1 10^3/uL (0.8-4.8); Lymphocytes % 9.8 %; Mean Corpuscular Hemoglobin 23.9 pg (28.0-34.0); Mean Corpuscular Volume 77.1 fL (81-99); Mean Platelet Volume 11.4 fL (7.4-10.4); Monocytes % 8.9 %; Neutrophils # 8.6 10^3/uL (1.8-7.7); Neutrophils % 78.4 %; Nucleated Red Blood Cells # 2.1 /100WBC; Nucleated Red Blood Cells % 19.3 %; Platelet Count 180 10^3/cmm (130-400); Red Blood Count 3.89 10^6/uL (4.1-5.3); Red Cell Distribution Width 20.2 % (12.1-15.1); White Blood Count 10.9 10^3/uL (4.0-10.0)
[2020-05-04 10:07] LABS: ABG PCO2 42.6 mmHg (35-45); ABG PH Result 7.39 (7.35-7.45); Arterial Blood Gas Hematocrit 29.6 % (37-47); Base Excess ABG 0.4 mmol/L (-2.0-2.0); Blood Gas Allen Test Pos; Blood Gas Sample Site Radial, right; Blood Gas Sample Type Arterial; Carboxyhemoglobin 1.3 %THgb (0.4-20.1); HCO3 ABG 25.6 mmol/L (22-26); HGB O2 Sat 94.1 % (95-100); Ionized Calcium Level - ABG 1.2 mmol/L (1.1-1.4); Methemoglobin 0.7 % (0.4-1.5); Oxygen Device NC; PO2 ABG 83.4 mmHg (80.0-100.0); Potassium Level - ABG 3.5 mmol/L (3.5-5.0); Total Hemoglobin 9.6 g/dL (12-16)
[2020-05-04 10:31] LABS: Alanine Aminotransferase 30 U/L (0-33); Albumin Level 3.4 g/dL (3.5-5.2); Alkaline Phosphatase 69 IU/L (35-105); Anion Gap 19.7 (5-19); Aspartate Amino Transferase 42 U/L (0-32); Blood Urea Nitrogen 21 mg/dL (8-23); Calcium 9.2 mg/dL (8.5-10.5); Carbon Dioxide 24 mmol/L (22-29); Chloride 103 mmol/L (98-107); Creatine Phosphokinase 61 U/L (26-192); Globulin 3.4 g/dL (1.3-4.6); Glucose 203 mg/dL (65-115); NT Pro B Type Natriuretic Pept 12864 pg/mL (0-450); Osmolality Calculated 298 mOsm/kg (285-295); Potassium 3.7 mmol/L (3.5-5.1); Sodium 143 mmol/L (136-145); Total Bilirubin 1.6 mg/dL (0.15-1.2); Total Protein 6.8 g/dL (6.6-8.7)
[2020-05-04 10:50] LABS: Slide Review Slide Review Perform
[2020-05-04] MEDS: levofloxacin-dextrose 5 % 750 MG/150 ML PREMIX 100 MG IV (10:56)
[2020-05-04] MEDS: piperacillin-tazobactam 3.375 GM in sodium chloride 0.9% (plus) 50 ML IV ×2 (10:56→18:30)
--- NOTE | 2020-05-04 11:16 | PC.NURSE ---
pt tested for COVID 19 [place] virus. pt on droplet precautions
[2020-05-04 12:18] LABS: Protein Urine 1+ (Negative); Specific Gravity, Urine 1.025 (1.005-1.030); Urine Appearance Clear (CLEAR); Urine Color Yellow (Yellow)
[2020-05-04 12:19] LABS: Add Urine Culture? No; Add Urine Microscopic? YES; Bacteria Urine 1+; Bilirubin Urine Neg (NEGATIVE); Blood Urine 2+ (Negative); Glucose Urine UA Norm (Normal); Ketones Urine 1+ (Negative); Leukocyte Esterase Urine Negative (Negative); Mucus Urine 2+; Nitrate Urine Negative (Negative); RBC Urine 0-4 /hpf (0-2); Squamous Epithelial Cell Urine 0-4 (0-5); Urobilinogen Urine Norm (Negative)
[2020-05-04] MEDS: vancomycin 1,000 MG in sodium chloride 0.9% 250 ML 250 MG IV (12:24)
--- NOTE | 2020-05-04 12:59 | P.HP_ITS ---
Providers/Chief Complaint Admitting Physician: Yeimi Price DO Primary Care Provider: Frankie Garay MD Chief Complaint: SOB History of Present Illness Charisma Holly is a 79 year old female with a past medical history of Alzheimer's dementia, peripheral vascular disease and hypertension that presented to the emergency department due to concern for worsening dyspnea, cough and hypoxia. Patient was recently discharged from the hospital she was admitted on 04/25/2020 and discharged on . 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 Patient did well in the postoperative setting due to concern for cellulitis [facility] and Levaquin for an additional 7 days. She was noted to have hypoxia and tachypnea in the shelter facility and sent to the ED for further evaluation. Patient was noted to have fluid overload as well as concern for developing pneumonia at time of exam in the emergency department. Unable to obtain HPI from patient due to underlying dementia. Review of Systems General: Reports: ROS unobtainable due to mental status and Other (Unable to obtain review of systems due to patient's underlying dementia. She denies any chest pain or belly pain but does report nausea. This is the only information that can be obtained.) Medications/Allergies Home Medications Medication Instructions Recorded Confirmed Last Taken Type atenolol 100 mg PO DAILY 04/25/20 05/04/20 05/04/20 History donepezil 5 mg PO DAILY 04/25/20 05/04/20 05/03/20 History metformin 500 mg PO DAILY 04/25/20 05/04/20 05/04/20 History pravastatin 40 mg PO DAILY 04/25/20 05/04/20 05/03/20 History acetaminophen 650 mg PO Q6H PRN #0 tab 05/03/20 05/04/20 Unknown Rx amoxicillin-pot clavulanate 1 tab PO BID 7 Days #14 tab 05/03/20 05/04/20 05/04/20 Rx clopidogrel 75 mg PO DAILY 30 Days #30 tab 05/03/20 05/04/20 05/04/20 Rx levofloxacin 500 mg PO DAILY@0600 7 Days tab 05/03/20 05/04/20 05/04/20 Rx magnesium hydroxide [Milk of 30 ml PO DAILY PRN 30 Days #5 ml 05/03/20 05/04/20 Unknown Rx Magnesia] pantoprazole 40 mg PO BID 30 Days #60 tab 05/03/20 05/04/20 05/04/20 Rx tramadol 50 mg PO Q12H PRN 14 Days #28 tab 05/03/20 05/04/20 Unknown Rx tuberculin PPD [Aplisol] See Rx Instructions .ROUTE .COMPLEX 05/04/20 05/04/20 05/04/20 History Allergies Allergy/AdvReac Type Severity Reaction Status Date / Time No Known Allergies Allergy Verified 05/04/20 09:35 PFSH Acute PFSH: Medical History Anemia CVA (cerebral vascular accident) 2013, right hemispheric Dementia Diabetes Hiatal hernia Hyperlipidemia Hypertension Peripheral vascular disease Pneumonia Thalassemia trait Surgical History History of angioplasty of peripheral vessel History of back surgery Family History Other Diabetes Social History Smoking and tobacco status: never smoked Alcohol intake: never Supplemental PFSH Information: Information obtained from chart review, unable to obtain from patient due to underlying dementia Vitals/I&O/Wt Last Vital Signs Temp 98.3 F 05/04/20 09:29 Pulse 66 05/04/20 12:27 Resp 24 H 05/04/20 12:27 BP 160/70 05/04/20 12:27 Pulse Ox 98 05/04/20 12:27 05/03/20 05/04/20 05/04/20 22:59 06:59 14:59 Intake Total 200 / 200 Balance 200 / 200 Weight last 48 hrs Weight 62.142 kg Physical Exam Const: COMMON NORMALS: alert GENERAL APPEARANCE: cooperative ORIENTATION/CONSCIOUSNESS: Yes awake and Yes oriented to person; not oriented to place and not oriented to time HENMT: COMMON NORMALS: normocephalic and atraumatic HEAD & SCALP: normocephalic and atraumatic Eye: COMMON NORMALS: Equal, round and reactive pupils present PUPIL: Yes Equal, round and reactive pupils present Neck/C-Spine: COMMON NORMALS: supple GENERAL: Yes normal visual inspection Resp: OTHER: Mild accessory muscle use, tachypnea, oxygen by nasal cannula in place, expiratory wheezing worse on the right with crackles bilaterally Cardio: COMMON NORMALS: regular rate and regular rhythm RATE: regular rate RHYTHM: regular rhythm OTHER: Systolic murmur present GI: COMMON NORMALS: Soft to palpation and non-tender INSPECTION: No abdominal distension AUSCULTATION: Yes normoactive bowel sounds PALPATION: Yes Soft to palpation : COMMON NORMALS: Yes no CVA tenderness BLADDER/KIDNEY EXAM: Yes no CVA tenderness Back/Pelvis: COMMON NORMALS: no CVA tenderness Extremity: NARRATIVE EXTREMITY EXAM: No calf tenderness, patient does have bilateral dry skin with erythema worse on the left, no peripheral edema Neuro: COMMON NORMALS: CN's II-XII intact bilaterally, moves all extremities and no focal motor deficits SENSORIUM/ORIENTATION: Yes alert, Yes oriented to person, No oriented to place and No oriented to time Psych: COMMON NORMALS: cooperative OTHER: Confused with underlying dementia Skin: COMMON NORMALS: no rashes or lesions noted GENERAL SKIN EXAM: no rashes or lesions noted Data : 05/04/20 09:52 05/04/20 09:52 Micro: Microbiology 05/04/20 09:52 Blood Culture - Preliminary Blood SPECIMEN COLLECTED 05/04/20 09:55 Blood Culture - Preliminary Blood SPECIMEN COLLECTED CXR: I personally reviewed and interpreted this imaging study as follows: Radiologist's impression: FINDINGS: Lungs: Poor inspiration. Decreased lung volumes. Interval development of right perihilar airspace disease compatible with pneumonia. Pleural space: No pleural effusion or pneumothorax. Heart/Mediastinum: The cardiac silhouette is not enlarged. Vasculature: The thoracic aorta is tortuous and atherosclerotic. Bones/joints: Multiple old left rib fractures. XR/XR chest 1V portable [id number] IMPRESSION: Right perihilar pneumonia. A&P Assessment and plan (1) Pneumonia: Patient with new consolidation in the right lung, recently hospitalized therefore will start on broad-spectrum antibiotics with vancomycin and Zosyn. Blood culture and sputum culture ordered and pending. Aspiration precautions, consider repeat speech therapy evaluation if indicated Due to recent hospitalization and hypoxia patient has been tested for COVID-19, will remain on droplet and contact precautions until return of testing Due to sudden onset dyspnea will check d-dimer and consider CTA of the chest. Patient also appears to be fluid overloaded therefore will give IV Lasix x1 and further evaluate echocardiogram Status: Acute (2) Peripheral vascular disease: Peripheral vascular disease with recent peripheral angiogram Continue on Plavix and statin Status: Acute (3) Cellulitis: Lower extremities appear to be improving, discharged with Levaquin and Augmentin, broad-spectrum antibiotics as noted above. Status: Acute Qualifiers: Laterality: unspecified laterality Site of cellulitis: extremity Site of cellulitis of extremity: lower extremity Qualified Code(s): L03.119 - Cellulitis of unspecified part of limb (4) Anemia: Anemia, microcytic No evidence of any active bleeding, hemoglobin remained stable from prior admission Status: Acute Qualifiers: Anemia type: unspecified type Qualified Code(s): D64.9 - Anemia, unspecified (5) Congestive heart failure: Unspecified Appears to be acute with acute fluid overload following recent hospitalization IV Lasix x1 with strict intake and output intervals daily weights Echocardiogram ordered and pending Status: Acute Additional A&P Information Diabetes mellitus type 2: Placed on low-dose sliding scale insulin, holding metformin Dementia: Baseline mentation at this time, based on chart review Disposition planning: Return to shelter facility DVT prophylaxis: Lovenox Diet: N.p.o. for further testing CODE STATUS: Full code on chart, will discuss further with family for clarification Attestations Medical Necessity Statement*: Patient requires hospitalization due to hypoxia believed to be secondary to developing right-sided pneumonia and congestive heart failure exacerbation. Expected stay greater than 2 midnights. 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
[2020-05-04 13:14] LABS: D Dimer 1.65 ug/mIFEU (0-0.59)
--- NOTE | 2020-05-04 13:17 | CTR_ITS ---
PROCEDURE INFORMATION: Exam: CT Angiography Chest With Contrast Exam date and time: 05/04/2020 1:30 PM Age: 79 years old Clinical indication: Abnormal findings; Abnormal diagnostic tests; Elevated d-dimer; Shortness of breath; Additional info: Dyspnea, hypoxia, recent hospitalization, elevated d-dimer TECHNIQUE: Imaging protocol: Computed tomographic angiography of the chest with intravenous contrast. 3D rendering: MIP and/or 3D reconstructed images were created by the technologist. Radiation optimization: All CT scans at this facility use at least one of these dose optimization techniques: automated exposure control; mA and/or kV adjustment per patient size (includes targeted exams where dose is matched to clinical indication); or iterative reconstruction. Contrast material: OMNI 350; Contrast volume: 95 ml; Contrast route: INTRAVENOUS (IV); COMPARISON: CTA Chest-Pulmonary Emb [id number] 06/24/2018 5:39 PM RADIATION DOSE METRICS: Total DLP (mGy-cm): 580.62 FINDINGS: Pulmonary arteries: The main right and left pulmonary arteries are mildly enlarged. There is minimal nonocclusive thrombus in a medial segmental right middle lobe pulmonary artery visible on axial series 2, image 227. There is minimal subsegmental occlusive thrombus in the right upper lobe visible on axial series 2 image 114 through 125. There is minimal nonocclusive thrombus in the posterior and lateral basal segmental arteries in the right lower lobe. Aorta: There is severe aortic atherosclerotic disease. Lungs: There is central and upper lung predominant ill-defined bilateral ground-glass opacity. There is multifocal irregular consolidation in the lower lobes bilaterally. There is a benign calcified granuloma in the right upper lobe. Pleural space: There is no pleural effusion or pneumothorax. Heart: No sign of right ventricular strain. RV/LV ratio is less than 1. There is moderate enlargement of the left atrium and marked calcification of the mitral valve. There is no pericardial effusion. Mediastinal space: There is a moderate size sliding-type hiatal hernia. Lymph nodes: There is no mediastinal or hilar lymphadenopathy. There are calcified lymph nodes in the right hilum. Bones/joints: Severe chronic T12 compression fracture. Bones are otherwise unremarkable. Soft tissues: The extrathoracic soft tissues are unremarkable. CT/CT angio chest PE protcl [id number] IMPRESSION: 1. Multifocal minimal nonocclusive pulmonary embolism in the right lung. Chronicity is uncertain. 2. Bilateral pulmonary opacities suggest infection. Radiation Dose CTDIVOL = (mGy): DLP = 580.62 (mGy-cm)
[2020-05-04] MEDS: enoxaparin 40 mg/0.4 mL Syringe SUBCUT (18:30)
[2020-05-04] MEDS: pantoprazole DR 40 mg Tablet PO (18:30)
[2020-05-04] MEDS: FUROsemide 10 mg/mL SDV 4mL 40 MG IVP (18:31)
[2020-05-04 18:43] LABS: Glucose Point of Care 232 mg/dL (70-110)
[2020-05-04 19:04] LABS: Lactic Sepsis W/Reflex 3.4 mmol/L (0.5-2.2)
[2020-05-04 19:27] LABS: Procalcitonin 0.21 ng/mL (0-0.5)
[2020-05-04 19:32] LABS: Thyroid Stimulating Hormone 1.41 uIU/mL (0.27-4.20)
[2020-05-04 20:22] LABS: Glucose Point of Care 193 mg/dL (70-110)
[2020-05-04 20:32] LABS: Reflex Lactate Order REFLEX LACTIC ORDERD
[2020-05-04 21:28] LABS: Lactic Acid level (Lactate) 1.7 mmol/L (0.5-2.2)
[2020-05-04] MEDS: iohexol 350 mg/mL 100 mL Btl IV (22:17)
[2020-05-04] MEDS: enoxaparin 30 mg/0.3 mL Syringe 20 MG SUBCUT (23:51)
[2020-05-05] VITALS (11 sets, daily range): BP systolic 118–139; BP diastolic 63–77; PULSE 57–72; RESP 17–22; TEMP 36.7–36.9; O2SAT 94–99
--- NOTE | 2020-05-05 00:02 | PM.EVENT ---
Event Note Event Note: I was called by the [facility] regarding CT results Acute PE without right heart strain I went in the room to update the patient, she understood what pulmonary embolism is and treatment options, she was awake oriented to place and person No active respiratory Saturating well on 3 to nasal cannula One-to-one supervision Plan Lovenox 60 mg every 12, echo pending, high BNP, will get troponin and lower extremity Doppler
[2020-05-05] MEDS: piperacillin-tazobactam 3.375 GM in sodium chloride 0.9% (plus) 50 ML IV (01:55)
[2020-05-05 04:22] LABS: Basophils % 0.1 %; Hematocrit 30.3 % (37.0-47.0); Hemoglobin 9.5 g/dL (11.5-15.3); Lymphocytes # 0.6 10^3/uL (0.8-4.8); Lymphocytes % 6.6 %; Mean Corpuscular HGB Conc 31.4 g/dL (30.0-36.0); Mean Corpuscular Hemoglobin 23.8 pg (28.0-34.0); Mean Corpuscular Volume 75.8 fL (81-99); Mean Platelet Volume 12.4 fL (7.4-10.4); Monocytes # 0.5 10^3/uL (0.2-0.9); Monocytes % 5.4 %; Neutrophils # 7.8 10^3/uL (1.8-7.7); Neutrophils % 86.3 %; Nucleated Red Blood Cells # 0.8 /100WBC; Nucleated Red Blood Cells % 9.1 %; Platelet Count 158 10^3/cmm (130-400); Red Cell Distribution Width 20.7 % (12.1-15.1)
[2020-05-05 04:50] LABS: Albumin Level 3.3 g/dL (3.5-5.2); Alkaline Phosphatase 60 IU/L (35-105); Blood Urea Nitrogen 26 mg/dL (8-23); Calcium 9.1 mg/dL (8.5-10.5); Carbon Dioxide 25 mmol/L (22-29); Chloride 101 mmol/L (98-107); Globulin 2.7 g/dL (1.3-4.6); Glucose 175 mg/dL (65-115); Osmolality Calculated 297 mOsm/kg (285-295); Sodium 143 mmol/L (136-145); Total Bilirubin 1.3 mg/dL (0.15-1.2)
[2020-05-05 05:28] LABS: Alanine Aminotransferase 29 U/L (0-33); Anion Gap 21.1 (5-19); Aspartate Amino Transferase 39 U/L (0-32); Potassium 4.1 mmol/L (3.5-5.1)
[2020-05-05] MEDS: vancomycin 1,000 MG in sodium chloride 0.9% 250 ML 250 MG IV (06:24)
[2020-05-05 07:08] LABS: Glucose Point of Care 194 mg/dL (70-110)
[2020-05-05] MEDS: donepezil 5 MG Tablet PO (09:01)
[2020-05-05] MEDS: atorvastatin 40 mg Tablet 20 MG PO (09:01)
[2020-05-05] MEDS: clopidogrel 75 mg Tablet PO (09:01)
[2020-05-05] MEDS: pantoprazole DR 40 mg Tablet PO ×2 (09:01→17:23)
[2020-05-05] MEDS: atenolol 50 mg Tablet 100 MG PO (09:01)
[2020-05-05 10:46] LABS: Glucose Point of Care 169 mg/dL (70-110)
--- NOTE | 2020-05-05 11:15 | P.PN_ITS ---
Vitals/I&O/Wt Last Vital Signs Temp 98.2 F 05/05/20 07:46 Pulse 63 05/05/20 07:46 Resp 20 H 05/05/20 07:46 BP 139/77 05/05/20 07:46 Pulse Ox 99 05/05/20 07:46 05/04/20 05/05/20 05/05/20 22:59 06:59 14:59 Intake Total 100 / 550 250 / 250 Output Total 1999 900 / 2900 250 / 250 Balance -2000 / -1550 -800 / -2350 0 / 0 Weight last 48 hrs Weight 63.503 kg Weight 62.142 kg Physical Exam Const: COMMON NORMALS: alert GENERAL APPEARANCE: cooperative ORIENTATION/CONSCIOUSNESS: Yes awake and Yes oriented to person; not oriented to place and not oriented to time HENMT: COMMON NORMALS: normocephalic and atraumatic HEAD & SCALP: normocephalic and atraumatic Eye: COMMON NORMALS: Equal, round and reactive pupils present PUPIL: Yes Equal, round and reactive pupils present Neck/C-Spine: COMMON NORMALS: supple GENERAL: Yes normal visual inspection Resp: OTHER: Mild accessory muscle use, tachypnea, oxygen by nasal cannula in place, expiratory wheezing worse on the right with crackles bilaterally Cardio: COMMON NORMALS: regular rate and regular rhythm RATE: regular rate RHYTHM: regular rhythm OTHER: Systolic murmur present GI: COMMON NORMALS: Soft to palpation and non-tender INSPECTION: No abdominal distension AUSCULTATION: Yes normoactive bowel sounds PALPATION: Yes Soft to palpation : COMMON NORMALS: Yes no CVA tenderness BLADDER/KIDNEY EXAM: Yes no CVA tenderness Back/Pelvis: COMMON NORMALS: no CVA tenderness Extremity: NARRATIVE EXTREMITY EXAM: No calf tenderness, patient does have bi lateral dry skin with erythema worse on the left, no peripheral edema Neuro: COMMON NORMALS: CN's II-XII intact bilaterally, moves all extremities and no focal motor deficits SENSORIUM/ORIENTATION: Yes alert, Yes oriented to person, No oriented to place and No oriented to time Psych: COMMON NORMALS: cooperative OTHER: Confused with underlying dementia Skin: COMMON NORMALS: no rashes or lesions noted GENERAL SKIN EXAM: no rash es or lesions noted Urinary Catheter Management^: Taylor: Cath Placed During This Visit: yes Reason for Continuing Indwelling Catheter: Other Urinary Catheter Date of Insertion: 05/04/20 Urinary Catheter Time of Insertion: 13:40 Data : 05/05/20 04:15 05/05/20 04:15 Micro: Microbiology 05/04/20 09:55 Blood Culture - Preliminary Blood NEGATIVE TO DATE 05/04/20 09:52 Blood Culture - Preliminary Blood NEGATIVE TO DATE A&P Assessment and plan (1) Pneumonia: Patient with bilateral lateral changes on CT of the chest with concern for pneumonia, however patient remains afebrile and believe that her hypoxia is related to pulmonary emboli. Will transition to oral antibiotics and monitor response to therapy closely. Also procalcitonin negative Oxygen therapy per per protocol, decreased from 3 L down to 1-1/2 today by nasal cannula we will continue to monitor closely and continue to wean to room air as tolerated COVID-19 testing ordered and pending Status: Acute (2) Peripheral vascular disease: Peripheral vascular disease with recent peripheral angiogram Continue on Plavix and statin Status: Acute (3) Cellulitis: Lower extremities appear to be improving, discharged with Levaquin and Augmentin, increased dose of Levaquin and will restart augmentin Status: Acute Qualifiers: Laterality: unspecified laterality Site of cellulitis: extremity Site of cellulitis of extremity: lower extremity Qualified Code(s): L03.119 - Cellulitis of unspecified part of limb (4) Anemia: Anemia, microcytic No evidence of any active bleeding, hemoglobin remained stable from prior admi ssion History of thalassemia trait Status: Acute (5) Congestive heart failure: Unspecified Appeared fluid overloaded at time of exam in the emergency department, this is improved. Given IV Lasix x1 on admission Echocardiogram ordered and pending Status: Acute Additional A&P Information Pulmonary emboli: Continue on treatment dose Lovenox, will likely transition to Eliquis at time of discharge, continue to wean oxygen as tolerated. Wean from 3 L to 1-1/2 by nasal cannula today. Diabetes mellitus type 2: Placed on low-dose sliding scale insulin, holding metformin due to CTA Dementia: Baseline mentation at this time, based on chart review Disposition planning: Return to residential facility DVT prophylaxis: Lovenox treatment dose Diet: Mechanical soft, carbohydrate consistent CODE STATUS: Full code on chart, will discuss further with family for clarification Attestations Medical Necessity Statement*: Patient requires further hospitalization due to pneumonia with concern for pulmonary emboli. Coding Level of Care Code Acute Events Traffic Controller for g Fwd Diagnoses Pneumonia J18.9 Peripheral vascular disease I73.9 Cellulitis L03.119 Laterality: unspecified laterality Site of cellulitis: extremity Site of cellulitis of extremity: lower extremity Anemia D64.9 Congestive heart failure I50.9
--- NOTE | 2020-05-05 11:20 | USCV_ITS ---
Charisma Holly Age: 79 Gender: F : 1940 Exam Date: 05/05/2020 15:12 Ordering Phys: Yeimi Price DO Technologist: Deirdre Faith Exam Location: [facility] [place] Indication: PE CHF BP: / HR: 60 Rhythm: Atrial fibrillation Technical Quality: Adequate MEASUREMENTS (Male / Female) Normal Values 2D ECHO LV Diastolic Diameter PLAX 2.7 cm 4.2 - 5.9 / 3.9 - 5.3 cm LV Systolic Diameter PLAX 2.2 cm LV Chamber Size 2.9 cm IVS Diastolic Thickness 1.4 cm 0.6 - 1.0 / 0.6 - 0.9 cm IVS Systolic Thickness 1.6 cm LVPW Diastolic Thickness 1.3 cm 0.6 - 1.0 / 0.6 - 0.9 cm LVPW Systolic Thickness 1.6 cm RV Chamber Size 3.8 cm LVOT Diameter 2.0 cm LV Ejection Fraction 2D Teich 41.5 % LV Ejection Fraction MOD 2C 34.3 % LV Ejection Fraction 2C AL 31.1 % LA Diameter 5.0 cm LA Width 4.2 cm LA Height 3.9 cm RA Width 4.6 cm RA Height 4.4 cm Aorta at Sinotubular Diameter 3.4 cm M-MODE LV Diastolic Diameter MM 6.0 cm 4.2 - 5.9 / 3.9 - 5.3 cm LV Systolic Diameter MM 3.3 cm LV Ejection Fraction MM Teich 75.8 % IVS Diastolic Thickness MM 1.2 cm 0.6 - 1.0 / 0.6 - 0.9 cm IVS Systolic Thickness MM 1.5 cm LVPW Diastolic Thickness MM 1.7 cm 0.6 - 1.0 / 0.6 - 0.9 cm LVPW Systolic Thickness MM 1.8 cm RV Diastolic Diameter MM 1.8 cm Aortic Annulus Diameter 3.8 cm LA Ao Ratio MM 1.4 MV E Point Septal Separation 0.5 cm DOPPLER AV Peak Velocity 141.0 cm/s LVOT Peak Velocity 104.0 cm/s AV Area Cont Eq vti 2.3 cm squared AV Area Cont Eq pk 2.4 cm squared MV Area PHT 2.5 cm squared MV E' Velocity 9.0 cm/s Mitral E to MV E' Ratio 17.7 Mitral E to LV E' Lateral Ratio 18.5 Mitral E to LV E' Septal Ratio 16.9 TR Peak Velocity 437.6 cm/s TR Peak Gradient 76.6 mmHg TR Mean Velocity 338.6 cm/s TR Mean Gradient 50.3 mmHg TR Velocity Time Integral 155.2 cm TV Peak E Velocity 63.0 cm/s PV Peak Velocity 71.0 cm/s RV Acceleration Time 0.1 s RV Ejection Time 0.4 s RV AcT/ET 0.4 FINDINGS Left Ventricle Normal left ventricular cavity size. Mild left ventricular hypertrophy. Normal left ventricular systolic function. No regional wall motion abnormalities. Grade I/IV diastolic dysfunction (abnormal relaxation filling pattern), normal to mildly elevated filling pressures. Left ventricular ejection fraction is estimated at 65 %. Right Ventricle Normal right ventricular size and systolic function. Right Atrium Mildly increased right atrial size. Left Atrium Moderately increased left atrial size. Mitral Valve Structurally normal mitral valve. Moderate mitral valve regurgitation. Severe mitral annular calcification. Aortic Valve Structurally normal trileaflet aortic valve. Mild aortic valve calcification. Aortic valve sclerosis without stenosis or regurgitation. Tricuspid Valve Structurally normal tricuspid valve. Moderate tricuspid valve regurgitation. Pulmonic Valve Pulmonic valve not well visualized. Pericardium Normal pericardium without effusion. Aorta Normal ascending aorta dimension. CONCLUSIONS Normal left ventricular cavity size. Mild left ventricular hypertrophy. Normal left ventricular systolic function. No regional wall motion abnormalities. Grade I/IV diastolic dysfunction (abnormal relaxation filling pattern), normal to mildly elevated filling pressures. Left ventricular ejection fraction is estimated at 65 %. Mildly increased right atrial size. Moderately increased left atrial size. Structurally normal mitral valve. Moderate mitral valve regurgitation. Severe mitral annular calcification. Previous echo dictated 09/13/2014 is similar. There has been no change. Dr. Jamel Contreras MD (Electronically Signed) Final Date: 05 May 2020 16:29 S
[2020-05-05] MEDS: enoxaparin 60 mg/0.6 mL Syringe SUBCUT ×2 (11:40→22:04)
[2020-05-05] MEDS: levoFLOXacin 750 mg Tablet PO (11:50)
[2020-05-05 12:44] LABS: Coronavirus Lab Test PTC Negative
[2020-05-05 13:26] LABS: Iron 67 ug/dL (37-145); Total Iron Binding Capacity 209 mcg/dl; Unsaturated Iron Binding 142 ug/dL (112-347)
[2020-05-05 16:51] LABS: Glucose Point of Care 199 mg/dL (70-110)
[2020-05-05] MEDS: amoxicillin-clav 875-125 mg Tablet 1 TAB PO (17:23)
[2020-05-05 21:03] LABS: Glucose Point of Care 187 mg/dL (70-110)
[2020-05-05] MEDS: acetaminophen 325 mg Tablet 650 MG PO (22:07)
[2020-05-06] VITALS (11 sets, daily range): BP systolic 122–151; BP diastolic 54–72; PULSE 53–58; RESP 18–24; TEMP 36.3–36.9; O2SAT 88–100
[2020-05-06] MEDS: TRAMadol 50 mg Tablet PO ×2 (00:49→11:05)
[2020-05-06 05:41] LABS: Basophils % 0.1 %; Hematocrit 30.4 % (37.0-47.0); Hemoglobin 9.2 g/dL (11.5-15.3); Lymphocytes # 0.8 10^3/uL (0.8-4.8); Lymphocytes % 7.4 %; Mean Corpuscular HGB Conc 30.3 g/dL (30.0-36.0); Mean Corpuscular Hemoglobin 23.8 pg (28.0-34.0); Mean Corpuscular Volume 78.8 fL (81-99); Monocytes # 0.9 10^3/uL (0.2-0.9); Monocytes % 7.7 %; Neutrophils # 9.4 10^3/uL (1.8-7.7); Neutrophils % 83.8 %; Nucleated Red Blood Cells # 0.9 /100WBC; Nucleated Red Blood Cells % 7.9 %; Platelet Count 172 10^3/cmm (130-400); Red Blood Count 3.86 10^6/uL (4.1-5.3); Red Cell Distribution Width 21.3 % (12.1-15.1); White Blood Count 11.2 10^3/uL (4.0-10.0)
[2020-05-06 06:04] LABS: Anion Gap 16.1 (5-19); Blood Urea Nitrogen 25 mg/dL (8-23); Calcium 8.9 mg/dL (8.5-10.5); Carbon Dioxide 30 mmol/L (22-29); Chloride 101 mmol/L (98-107); Glucose 164 mg/dL (65-115); Osmolality Calculated 298 mOsm/kg (285-295); Potassium 3.1 mmol/L (3.5-5.1); Sodium 144 mmol/L (136-145)
[2020-05-06] MEDS: levoFLOXacin 750 mg Tablet PO (06:15)
[2020-05-06 07:07] LABS: Glucose Point of Care 187 mg/dL (70-110)
--- NOTE | 2020-05-06 07:57 | PC.RESP ---
scanner not functioning, entered manually.
[2020-05-06] MEDS: amoxicillin-clav 875-125 mg Tablet 1 TAB PO ×2 (08:46→17:24)
[2020-05-06] MEDS: atenolol 50 mg Tablet 100 MG PO (08:47)
[2020-05-06] MEDS: atorvastatin 40 mg Tablet 20 MG PO (08:47)
[2020-05-06] MEDS: donepezil 5 MG Tablet PO (08:47)
[2020-05-06] MEDS: pantoprazole DR 40 mg Tablet PO ×2 (08:47→17:24)
[2020-05-06] MEDS: clopidogrel 75 mg Tablet PO (08:48)
[2020-05-06 10:51] LABS: Glucose Point of Care 144 mg/dL (70-110)
[2020-05-06] MEDS: enoxaparin 60 mg/0.6 mL Syringe SUBCUT (11:04)
[2020-05-06] MEDS: acetaminophen 325 mg Tablet 650 MG PO (14:09)
--- NOTE | 2020-05-06 14:59 | PM.DCS ---
Discharge Providers Date of Admission: 05/04/20 12:59 Date of Discharge: May 06, 2020 Attending Provider at Admission: Yeimi Price DO Attending Provider at Discharge: Kathy Chappell MD Primary Care Provider: Frankie Garay MD Diagnoses at Discharge Discharge Diagnosis (1) Pneumonia: Status: Acute Qualifiers: Pneumonia type: due to unspecified organism Laterality: bilateral Lung location: unspecified part of lung Qualified Code(s): J18.9 - Pneumonia, unspecified organism (2) Peripheral vascular disease: Status: Acute (3) Cellulitis: Status: Acute Qualifiers: Laterality: unspecified laterality Site of cellulitis: extremity Site of cellulitis of extremity: lower extremity Qualified Code(s): L03.119 - Cellulitis of unspecified part of limb (4) Anemia: Status: Acute Qualifiers: Anemia type: unspecified type Qualified Code(s): D64.9 - Anemia, unspecified (5) Congestive heart failure: Status: Acute Qualifiers: Heart failure type: diastolic Heart failure chronicity: acute on chronic Qualified Code(s): I50.33 - Acute on chronic diastolic (congestive) heart failure Reason for Visit Reason for Visit: SOB Hospital Course Discharge Summary: 79-year-old female, long-term [facility] resident that presented for sudden onset of shortness of breath and tachypnea. Noted to be in the mid 80s on room air at time of EMS arrival at the [facility] and brought to the ER for further evaluation and treatment. Had recently been discharged for concern for lower extremity cellulitis with severe peripheral vascular disease requiring intervention. Was discharged on Levaquin and Augmentin. COVID 19 testing ordered and negative. Patient initially on 6 L, now titrated to 1.5 L nasal cannula, CTA shows pulmonary emboli and started on treatment dose Lovenox, which is being transitioned to eliquis upon discharge. Also had component of fluid overload at admission for which she recoeved lasix x1 with improvement. Echocardiogram showed Grade I/IV diastolic dysfunction.Left ventricular ejection fraction is estimated at 65 %. At time of discharge she is requiring 1.5lpm supplemetal 02, which needs to be titrated to keep saturation >92%. She is also discharged on Lasix to be taken over the next 5 days and may be titrated based on urine output. 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: no focal neuro deficits Urinary Catheter Management^: Taylor: Cath Placed During This Visit: yes Reason for Continuing Indwelling Catheter: Acute Urinary Retention or Obstruction Urinary Catheter Date of Insertion: 05/04/20 Urinary Catheter Time of Insertion: 13:40 Discharge Data Data Completed and Pending: Completed Studies During Hospitalization Category Date Time Status CT angio chest PE protcl [id number] Urge nt Cat Scan 05/04/20 13:17 Completed XR chest 1V mere ble [id number] Stat Exams 05/04/20 09:45 Completed CV echo complete* [id number] Routine Ultrasound 05/05/20 11:20 Completed Pending at discharge Category Date Time Status Basic Metabolic P buddy AM LABS Lab 05/07/20 04:00 Ordered Blood Culture Sta t Lab 05/04/20 09:52 Results Complete Blood Co unt w/Auto AM LABS Lab 05/07/20 04:00 Ordered Sputum Culture an d Gram Stain [facility] ne Lab 05/05/20 10:55 Ordered Labs from last 24 hours 05/06/20 05/06/20 05/06/20 10:44 06:56 04:15 WBC RBC Hgb Hct MCV MCH MCHC RDW Plt Count MPV Neut % (Auto) Lymph % (Auto) [place] % (Auto) Eos % (Auto) Baso % (Auto) Neut # (Auto) Lymph # (Auto) [place] # (Auto) Eos # (Auto) Baso # (Auto) Nucleated RBC % (a uto) Nucleated RBCs # Sodium 144 Potassium 3.1 L Chloride 101 Carbon Dioxide 30 H Anion Gap 16.1 BUN 25 H Creatinine 0.7 Glucose 164 H POC Glucose 144 187 Calculated Osmolal ity 298 H Calcium 8.9 05/06/20 05/05/20 05/05/20 04:15 20:55 16:40 WBC 11.2 H RBC 3.86 L Hgb 9.2 L Hct 30.4 L MCV 78.8 L MCH 23.8 L MCHC 30.3 RDW 21.3 H Plt Count 172 MPV 12.0 H Neut % (Auto) 83.8 Lymph % (Auto) 7.4 [place] % (Auto) 7.7 Eos % (Auto) 0.0 Baso % (Auto) 0.1 Neut # (Auto) 9.4 H Lymph # (Auto) 0.8 [place] # (Auto) 0.9 Eos # (Auto) 0.0 Baso # (Auto) 0.0 Nucleated RBC % (a uto) 7.9 Nucleated RBCs # 0.9 Sodium Potassium Chloride Carbon Dioxide Anion Gap BUN Creatinine Glucose POC Glucose 187 199 Calculated Osmolal ity Calcium Vitals: Last Vital Signs Temp 98.4 F 05/06/20 11:26 Pulse 58 L 05/06/20 11:27 Resp 20 H 05/06/20 11:26 BP 124/69 05/06/20 11:26 Pulse Ox 99 05/06/20 11:26 Discharge Plan Discharge Patient Disposition: Xfer SNF Condition: Stable Prescriptions: New Eliquis 2.5 mg tablet 2.5 mg PO BID Qty: 30 RF: 1 Continued Aplisol 5 tub. unit /0.1 mL Solution See Rx Instructions .ROUTE .COMPLEX RF: 0 metformin 500 mg Tablet 500 mg PO DAILY RF: 0 donepezil 5 mg Tablet 5 mg PO DAILY RF: 0 pravastatin 40 mg Tablet 40 mg PO DAILY RF: 0 atenolol 100 mg Tablet 100 mg PO DAILY RF: 0 acetaminophen 325 mg Tablet 650 mg PO Q6H PRN (Reason: Mild/Mod Pain Or Temp >/= 101) Qty: 0 RF: 0 clopidogrel 75 mg Tablet 75 mg PO DAILY 30 Days Qty: 30 RF: 0 tramadol 50 mg Tablet 50 mg PO Q12H PRN (Reason: Moderate Pain) 14 Days Qty: 28 RF: 0 magnesium hydroxide [Milk of Magnesia] 400 mg/5 mL Suspension 30 ml PO DAILY PRN (Reason: Constipation) 30 Days Qty: 5 RF: 0 pantoprazole 40 mg Tablet,Delayed Release (Dr/Ec) 40 mg PO BID 30 Days Qty: 60 RF: 0 levofloxacin 500 mg Tablet 500 mg PO DAILY@0600 7 Days RF: 0 amoxicillin-pot clavulanate 875-125 mg Tablet 1 tab PO BID 7 Days Qty: 14 RF: 0 Discharge Orders: Discharge Order (Routine); Ordered 05/06/20 Ordered By: Kathy Chappell Referrals: [facility] [Outside] Frankie Garay MD [Primary Care Provider] - Discharge Diet: Usual diet Discharge Activity: Resume usual activity Activity Restrictions/Additional Instructions: monitor patient weight. Currently dose of eliquis is at 2.5mg BID as age >80 and weight 60kg. This may need to be readjusted if patient's weight changes Discharge Attestations Time Spent in Discharge Care*: less than 30 min Quality Metrics Clinical Quality Measures During this hospital stay, did patient experience: VTE Contraindication to Overlap Therapy: Overlap therapy prescribed VTE Discharge Education: Education about anticoagulant therapy/Care Notes given Deep Vein Thrombosis/Pulmonary Embolism Present on Admission: Yes Coding Level of Care Code Acute Soil Checker for [facility] Fwd Diagnoses Pneumonia J18.9 Pneumonia type: due to unspecified organism Laterality: bilateral Lung location: unspecified part of lung Peripheral vascular disease I73.9 Cellulitis L03.119 Laterality: unspecified laterality Site of cellulitis: extremity Site of cellulitis of extremity: lower extremity Anemia D64.9 Anemia type: unspecified type Congestive heart failure I50.33 Heart failure type: diastolic Heart failure chronicity: acute on chronic
[2020-05-06 15:51] LABS: Glucose Point of Care 140 mg/dL (70-110)
== END 2020-05-06 18:00 | disposition skilled nursing facility (03) | DRG 193 ==
LOC: ER 13:30 → MEDSURG 15:00
PROVIDERS: Family Medicine; Admitting Provider Family Medicine; Family Provider Family Medicine; PCP Family Medicine; Visit Provider Student in an Organized Health Care Education/Training Program
DX: J18.9 Pneumonia, unspecified organism (principal); I50.33 Acute on chronic diastolic (congestive) heart failure; L03.119 Cellulitis of unspecified part of limb; I69.351 Hemiplegia and hemiparesis following cerebral infarction affecting right dominant side; Z79.84 Long term (current) use of oral hypoglycemic drugs; Z79.02 Long term (current) use of antithrombotics/antiplatelets; D50.9 Iron deficiency anemia, unspecified; G30.9 Alzheimer's disease, unspecified; F02.80 Dementia in other diseases classified elsewhere, unspecified severity, without behavioral disturbance, psychotic disturbance, mood disturbance, and anxiety; E11.51 Type 2 diabetes mellitus with diabetic peripheral angiopathy without gangrene; E11.22 Type 2 diabetes mellitus with diabetic chronic kidney disease; E78.5 Hyperlipidemia, unspecified
CPT/HCPCS: 12345; 36415; 36416; 36600; 51702; 71045; 71275; 80048; 80051; 80053; 81001; 82550; 82810; 82962; 83540; 83550; 83605; 83880; 83986; 84145; 84443; 85025; 85378; 87040; 87635; 92523; 92610; 93306; 94640; 96372; 96375; 97161; 97165; 97530; 97535; 99284; J1650; J1815; J1940; J1956; J2543; J3370; J3535; J7050; Q9967

== ENCOUNTER 2020-06-21 02:33 | Inpatient (IN) | payer MEDICARE, OTHER, SELFPAY ==
[2020-06-21] VITALS (22 sets, daily range): BP systolic 90–180; BP diastolic 42–76; PULSE 60–86; RESP 16–24; TEMP 36.5–37.1; O2SAT 89–100; BMI 25.7
--- NOTE | 2020-06-21 02:34 | XR_ITS ---
WS: [id number] EXAM: AP CHEST: PORTABLE UPRIGHT DATE OF EXAM: 06/21/2020, 0301 hours COMPARISON: Chest x-rays from 05/04/2020 and 04/25/2020 HISTORY: Patient is 80 years old with cough. Increasing weakness.. FINDINGS: The cardiac silhouette is stable. Considered within normal limits The mediastinal contours are sim ilar. I suspect vascular engorgement versus adenopathy within both hilar regions.. The pulmonary va scularity is congested. No definite pulmonary edema chronic lung changes seen. Slight fibrosis of th e present. Infiltrate within the right lung on the prior imaging has regressed somewhat. There is josef e minimal infiltrate in the left lung base. Mitral valve annular calcifications. There is no effusio n or pneumothorax. Overall bone density is decreased. Old left rib trauma demonstrated. XR/XR chest 1V portable [id number] IMPRESSION: Chronic lung changes. Suspected vascular congestion versus adenopathy within th e hilar regions. Regressed infiltrate within the lungs. Some minimal infiltrate /atelectasis or scarring left lung base. Old left rib deformity changes again noted.
--- NOTE | 2020-06-21 02:35 | ECG_ITS ---
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 Measurements Intervals [place] Rate: 74 P: 81 TN: 144 QRS: 47 QRSD: 82 T: 29 QT: 378 QTc: 420 Interpretive Statements SINUS RHYTHM NONSPECIFIC ST & T-WAVE ABNORMALITY Compared to ECG 05/04/2020 09:50:51 Sinus arrhythmia no longer present T-wave abnormality still present Electronically Signed On 06-21-2020 13:30:38 CDT by Benja Reina M.D. [id number]
--- NOTE | 2020-06-21 02:36 | ED_ITS ---
HPI - SOB/Dyspnea General: Chief Complaint: General Medical Stated Complaint: WEAKNESS Time Seen by Provider: 06/21/20 02:35 Source: patient and EMS Mode of arrival: EMS Limitations: no limitations History of Present Illness: HPI Narrative: 80-year-old female with history dementia. Family called EMS tonight she has been having increased weakness has had swelling in her extremities. EMS arrived her pulse ox was in the 80s and they put her on 2 L. Patient denies any shortness of breath currently. She denies any fever. Patient is able to tell me her name but is confused otherwise likely due to her dementia. Associated symptoms: Deny abdominal pain, chest pain, fever(s), nausea or vomiting Review of Systems Const: Denies: fever(s), chills, body aches or change in appetite Eyes: Denies: blurry vision or eye discomfort ENMT: Denies: throat pain or dental pain Card: Denies: chest pain Resp: Reports: dyspnea GI: Denies: abdominal pain, nausea, vomiting or diarrhea : Denies: dysuria Musc: Denies: neck pain or back pain Skin/Breast: Denies: rash Neuro: Denies: headache(s) Psych: Denies: depression Bobby/Lymph: Denies: easy bruising All/Imm: Denies: urticaria PFSH ED PFSH: Medical History (Updated 06/21/20 @ 04:19 by Lynn Lee MD) Anemia CVA (cerebral vascular accident) 2013, right hemispheric Dementia Diabetes Hiatal hernia Hyperlipidemia Hypertension Peripheral vascular disease Pneumonia Thalassemia trait Surgical History History of angioplasty of peripheral vessel History of back surgery Family History Other Diabetes Social History Smoking and tobacco status: never smoked Alcohol intake: never Physical Exam Const: COMMON NORMALS: no acute distress, healthy appearing and alert; negative for patient oriented x3 ORIENTATION/CONSCIOUSNESS: Yes oriented to person; not oriented to place and not oriented to time HENMT: COMMON NORMALS: normocephalic and atraumatic HEAD & SCALP: normocephalic and atraumatic Eye: COMMON NORMALS: Equal, round and reactive pupils present and EOMs intact bilaterally PUPIL: Yes Equal, round and reactive pupils present Neck/C-Spine: COMMON NORMALS: full ROM and supple Chest: COMMONS NORMALS: normal inspection of the chest and normal palpation of entire chest wall Resp: COMMON NORMALS: normal respiratory effort, No retractions, No use of accessory muscles and clear to auscultation bilaterally AUSCULTATION: clear to auscultation bilaterally Cardio: COMMON NORMALS: regular rate, regular rhythm and No murmurs present (Cardio) RATE: regular rate RHYTHM: regular rhythm GI: COMMON NORMALS: Normal to inspection, nondistended, normoactive bowel sounds present, Soft to palpation, non-tender and no masses PALPATION: Yes Soft to palpation Extremity: COMMON NORMALS: full ROM NARRATIVE EXTREMITY EXAM: 2+ lower extremity edema Neuro: COMMON NORMALS: moves all extremities and no focal motor deficits; negative for patient oriented x3 SENSORIUM/ORIENTATION: Yes alert, Yes oriented to person, No oriented to place and No oriented to time Psych: COMMON NORMALS: mental status grossly normal, Normal thought process present and cooperative THOUGHT PROCESS: Normal thought process present Skin: COMMON NORMALS: no rashes or lesions noted and no wounds GENERAL SKIN EXAM: no rashes or lesions noted Course Vital Signs: Vital signs: Vital Signs Temperature 98.4 F 06/21/20 05:42 Pulse Rate 79 06/21/20 05:42 Respiratory Rate 16 06/21/20 05:42 Blood Pressure 125/62 06/21/20 05:42 Pulse Oximetry 94 06/21/20 05:42 MDM - SOB/Dyspnea MDM Narrative: Medical decision making narrative: Charisma presents with generalized weakness along with CHF exacerbation. Patient is requiring 2 L of oxygen. Patient is otherwise well-appearing here. Spoke to hospitalist and will admit for observation for diuresis. Patient has no signs of pulmonary embolism. Patient is no signs of pneumonia. Lab Data: Labs: Lab Results 06/21/20 06/21/20 06/21/20 Range/Units 02:52 02:52 02:52 WBC 10.5 H (4.0-10.0) 10^3/ uL RBC 3.23 L (4.1-5.3) 10^6/u L Hgb 7.4 L (11.5-15.3) g/dL Hct 24.6 L (37.0-47.0) % MCV 76.2 L (81-99) fL MCH 22.9 L (28.0-34.0) pg MCHC 30.1 (30.0-36.0) g/dL RDW 17.3 H (12.1-15.1) % Plt Count 159 (130-400) 10^3/c mm MPV 11.0 H (7.4-10.4) fL Neut % (Auto) 74.0 % Lymph % (Auto) 15.4 % [place] % (Auto) 9.9 % Eos % (Auto) 0.2 % Baso % (Auto) 0.2 % Neut # (Auto) 7.74 H (1.8-7.7) 10^3/u L Lymph # (Auto) 1.6 (0.8-4.8) 10^3/u L [place] # (Auto) 1.0 H (0.2-0.9) 10^3/u L Eos # (Auto) 0.0 (0.0-0.8) 10^3/u L Baso # (Auto) 0.0 (0.0-0.1) 10^3/u L Nucleated RBC % (a uto) 0.3 % Nucleated RBCs # 0.0 /100WBC PT 18.40 H (12.1-14.9) SECO NDS INR 1.48 H (0.8-1.2) Sodium 139 (136-145) mmol/L Potassium 4.2 (3.5-5.1) mmol/L Chloride 105 (98-107) mmol/L Carbon Dioxide 26 (22-29) mmol/L Anion Gap 12.2 (5-19) BUN 16 (8-23) mg/dL Creatinine 0.8 (0.5-0.9) mg/dL GFR Calculation Not Reportable Glucose 180 H (65-115) mg/dL Calculated Osmolal ity 289 (285-295) mOsm/k g Calcium 9.0 (8.5-10.5) mg/dL Total Bilirubin 1.1 (0.15-1.2) mg/dL AST 18 (0-32) U/L ALT 6 (0-33) U/L Alkaline Phosphata se 52 (35-105) IU/L NT-Pro-B Natriuret Pep 5273 H (0-450) pg/mL Total Protein 6.3 L (6.6-8.7) g/dL Albumin 3.5 (3.5-5.2) g/dL Globulin 2.8 (1.3-4.6) g/dL Urine Color (Yellow) Urine Appearance (CLEAR) Urine pH (5-7) Ur Specific Gravit y (1.005-1.030) Urine Protein (Negative) Urine Glucose (UA) (Normal) Urine Ketones (Negative) Urine Blood (Negative) Urine Nitrate (Negative) Urine Bilirubin (NEGATIVE) Urine Urobilinogen (Negative) mg/dL Ur Leukocyte Tracey ase (Negative) Urine RBC (0-2) /hpf Urine WBC (0-5) /hpf Ur Squamous Epith Cells (0-5) Amorphous Sediment Urine Bacteria (NONE) Urine Yeast 06/21/20 Range/Units 03:02 WBC (4.0-10.0) 10^3/ uL RBC (4.1-5.3) 10^6/u L Hgb (11.5-15.3) g/dL Hct (37.0-47.0) % MCV (81-99) fL MCH (28.0-34.0) pg MCHC (30.0-36.0) g/dL RDW (12.1-15.1) % Plt Count (130-400) 10^3/c mm MPV (7.4-10.4) fL Neut % (Auto) % Lymph % (Auto) % [place] % (Auto) % Eos % (Auto) % Baso % (Auto) % Neut # (Auto) (1.8-7.7) 10^3/u L Lymph # (Auto) (0.8-4.8) 10^3/u L [place] # (Auto) (0.2-0.9) 10^3/u L Eos # (Auto) (0.0-0.8) 10^3/u L Baso # (Auto) (0.0-0.1) 10^3/u L Nucleated RBC % (a uto) % Nucleated RBCs # /100WBC PT (12.1-14.9) SECO NDS INR (0.8-1.2) Sodium (136-145) mmol/L Potassium (3.5-5.1) mmol/L Chloride (98-107) mmol/L Carbon Dioxide (22-29) mmol/L Anion Gap (5-19) BUN (8-23) mg/dL Creatinine (0.5-0.9) mg/dL GFR Calculation Glucose (65-115) mg/dL Calculated Osmolal ity (285-295) mOsm/k g Calcium (8.5-10.5) mg/dL Total Bilirubin (0.15-1.2) mg/dL AST (0-32) U/L ALT (0-33) U/L Alkaline Phosphata se (35-105) IU/L NT-Pro-B Natriuret Pep (0-450) pg/mL Total Protein (6.6-8.7) g/dL Albumin (3.5-5.2) g/dL Globulin (1.3-4.6) g/dL Urine Color Yellow (Yellow) Urine Appearance Cloudy (CLEAR) Urine pH 5 (5-7) Ur Specific Gravit y 1.020 (1.005-1.030) Urine Protein Neg (Negative) Urine Glucose (UA) Norm (Normal) Urine Ketones Negative (Negative) Urine Blood Neg (Negative) Urine Nitrate Negative (Negative) Urine Bilirubin Neg (NEGATIVE) Urine Urobilinogen Norm (Negative) mg/dL Ur Leukocyte Tracey ase Negative (Negative) Urine RBC 0-4 H (0-2) /hpf Urine WBC 0-4 H (0-5) /hpf Ur Squamous Epith Cells 0-4 H (0-5) Amorphous Sediment Not Reportable Urine Bacteria 4+ H (NONE) Urine Yeast 2+ H Imaging Data^: CXR: Attestation: I personally reviewed and interpreted this imaging study as follows: My impression: no acute abnormality EKG Data^: EKG 1: Attestation: I personally reviewed and interpreted this EKG as follows: EKG Interpretation Date: 06/21/20 EKG interpretation time: 02:46 Interpretation: nsr hr [address] or t wave abnormalities qrs 82 qtc 405 Discharge Plan Discharge Patient Disposition: Admitted As Inpatient Admit Provider: Luis Fernando Matos Clinical Impression: Weakness Congestive heart failure Qualifiers: Heart failure type: unspecified Heart failure chronicity: acute on chronic Qualified Code(s): I50.9 - Heart failure, unspecified Condition: Stable Referrals: Frankie Garay MD [Primary Care Provider] - Discharge Date/Time: 06/21/20 05:19 Coding Level of Care Code ED Warehouse Handler for [facility] Fwd Exam Comprehensive
[2020-06-21 03:08] LABS: Basophils % 0.2 %; Eosinophils % 0.2 %; Hematocrit 24.6 % (37.0-47.0); Hemoglobin 7.4 g/dL (11.5-15.3); Lymphocytes # 1.6 10^3/uL (0.8-4.8); Lymphocytes % 15.4 %; Mean Corpuscular HGB Conc 30.1 g/dL (30.0-36.0); Mean Corpuscular Hemoglobin 22.9 pg (28.0-34.0); Mean Corpuscular Volume 76.2 fL (81-99); Monocytes % 9.9 %; Neutrophils # 7.74 10^3/uL (1.8-7.7); Nucleated Red Blood Cells % 0.3 %; Platelet Count 159 10^3/cmm (130-400); Red Blood Count 3.23 10^6/uL (4.1-5.3); Red Cell Distribution Width 17.3 % (12.1-15.1); White Blood Count 10.5 10^3/uL (4.0-10.0)
[2020-06-21 03:59] LABS: Alanine Aminotransferase 6 U/L (0-33); Albumin Level 3.5 g/dL (3.5-5.2); Alkaline Phosphatase 52 IU/L (35-105); Anion Gap 12.2 (5-19); Aspartate Amino Transferase 18 U/L (0-32); Blood Urea Nitrogen 16 mg/dL (8-23); Carbon Dioxide 26 mmol/L (22-29); Chloride 105 mmol/L (98-107); Creatinine Clr Calc Pharmacy 52.2706; Globulin 2.8 g/dL (1.3-4.6); Glucose 180 mg/dL (65-115); NT Pro B Type Natriuretic Pept 5273 pg/mL (0-450); Osmolality Calculated 289 mOsm/kg (285-295); Potassium 4.2 mmol/L (3.5-5.1); Sodium 139 mmol/L (136-145); Total Bilirubin 1.1 mg/dL (0.15-1.2); Total Protein 6.3 g/dL (6.6-8.7)
[2020-06-21 04:08] LABS: Add Urine Microscopic? YES; Bilirubin Urine Neg (NEGATIVE); Blood Urine Neg (Negative); Glucose Urine UA Norm (Normal); Ketones Urine Negative (Negative); Leukocyte Esterase Urine Negative (Negative); Nitrate Urine Negative (Negative); Protein Urine Neg (Negative); Urine Appearance Cloudy (CLEAR); Urine Color Yellow (Yellow); Urobilinogen Urine Norm (Negative); pH Urine 5 (5-7)
[2020-06-21 04:09] LABS: Add Urine Culture? Yes; Bacteria Urine 4+; RBC Urine 0-4 /hpf (0-2); Squamous Epithelial Cell Urine 0-4 (0-5); WBC Urine 0-4 /hpf (0-5)
[2020-06-21] MEDS: FUROsemide 10 mg/mL SDV 4mL 40 MG IVP (04:35)
[2020-06-21 04:44] LABS: INR 1.48 (0.8-1.2)
--- NOTE | 2020-06-21 05:01 | CTR_ITS ---
PROCEDURE INFORMATION: Exam: CT Chest Without Contrast Exam date and time: 06/21/2020 5:06 AM Age: 80 years old Clinical indication: Dyspnea; Additional info: Right sided pneumonia TECHNIQUE: Imaging protocol: Computed tomography of the chest without contrast. Radiation optimization: All CT scans at this facility use at least one of these dose optimization techniques: automated exposure control; mA and/or kV adjustment per patient size (includes targeted exams where dose is matched to clinical indication); or iterative reconstruction. COMPARISON: CT angio chest PE protcl [id number] 05/04/2020 10:07 PM RADIATION DOSE METRICS: Total DLP (mGy-cm): 519.84 FINDINGS: Lungs: Previously noted pulmonary infiltrates have decreased. Residual ground-glass perihilar opacities can represent residual infectious/inflammatory change or edema. Mild thickening of interstitium relating to edema or congestion suggested. Calcified pulmonary granulomatous change. Pleural space: Unremarkable. No pneumothorax. No pleural effusion. Heart: Mitral annular calcifications. Coronary calcifications are noted. Mediastinal space: Moderate-sized hiatal hernia. Aorta: Aortic calcifications are noted. No findings of aneurysm or mediastinal hemorrhage. Lymph nodes: Calcified granulomatous changes are noted in mediastinal and hilar lymph nodes. Bones/joints: Healing fractures of anterior right ribs are new in the interval. Marked compression of T12 again noted with suspicion for marked spinal canal narrowing. Soft tissues: Unremarkable. Other findings: Motion degradation. CT/CT chest [facility] [id number] IMPRESSION: Decrease in previously noted pulmonary infiltrates. Perihilar ground-glass opacities may represent residual infectious/inflammatory change or edema and mild interstitial thickening relating to edema or congestion suggested. Radiation Dose CTDIVOL = (mGy): DLP = 519.84 (mGy-cm)
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
[2020-06-21 06:57] LABS: Glucose Point of Care 204 mg/dL (70-110)
[2020-06-21] MEDS: acetaminophen 325 mg Tablet 650 MG PO ×2 (07:35→17:14)
[2020-06-21] MEDS: doxycycline 100 mg Tablet PO (08:57)
[2020-06-21] MEDS: bumetanide 1 mg Tablet PO (08:58)
[2020-06-21] MEDS: atenolol 50 mg Tablet 100 MG PO (08:58)
[2020-06-21] MEDS: atorvastatin 40 mg Tablet 20 MG PO (08:59)
[2020-06-21 09:00] LABS: Hematocrit 23.9 % (37.0-47.0); Hemoglobin 7.3 g/dL (11.5-15.3)
[2020-06-21] MEDS: donepezil 5 MG Tablet PO (09:00)
[2020-06-21 10:56] LABS: Glucose Point of Care 102 mg/dL (70-110)
[2020-06-21] MEDS: sodium chloride 0.9% (100 ml) 100 ML 50 ML (11:15)
--- NOTE | 2020-06-21 12:39 | PM.PN ---
Subjective Subjective: Interval history: History and physical reviewed. Patient cannot really give any additional information secondary to confusion. Medications: Reviewed: Yes Vitals/I&O/Wt Last Vital Signs Temp 97.9 F 06/21/20 11:07 Pulse 60 06/21/20 11:07 Resp 20 H 06/21/20 11:47 BP 90/44 06/21/20 11:07 Pulse Ox 99 06/21/20 11:00 06/20/20 06/21/20 06/21/20 22:59 06:59 14:59 Intake Total 120 / 120 Balance 120 / 120 Weight last 48 hrs Weight 68.039 kg Physical Exam Narrative: EXAM NARRATIVE: General exam is a confused white female in no apparent distress Cardiovascular regular rate and rhythm, no murmur Lungs clear Abdomen is soft with positive bowel sounds Extremities no cyanosis or clubbing. Left lower extremity with some skin breakdown, dorsal surface of the foot. Right with some weeping fluid, erythema. Data : 06/21/20 08:50 06/21/20 02:52 Micro: Microbiology 06/21/20 02:53 Blood Culture - Preliminary Blood SPECIMEN COLLECTED 06/21/20 02:52 Blood Culture - Preliminary Blood SPECIMEN COLLECTED A&P Assessment and plan (1) Cellulitis of right leg: Discontinue doxycycline Change IV antibiotic to vancomycin Status: Acute (2) Weakness: Physical therapy consultation. May need skilled placement again. Status: Acute (3) Congestive heart failure: Continue Bumex started by dive superintendent Status: Acute Qualifiers: Heart failure type: unspecified Heart failure chronicity: acute on chronic Qualified Code(s): I50.9 - Heart failure, unspecified (4) Thalassemia trait: Status: Acute (5) Acute on chronic anemia: Transfuse 1 unit packed red blood cells, Lasix following transfusion. Check stool Hemoccult If no active bleeding will consider continuing Eliquis for her fairly recent history of pulmonary embolism. Continue close follow-up with hemoglobin Status: Acute Additional A&P Information Lower extremity wounds. Continue wound care, Hydrofera Blue. Keep all weight off ulcerations. Peripheral vascular disease Type 2 diabetes. Sliding scale insulin Hyperlipidemia. Continue statin Hypertension. Reduce dose of atenolol as blood pressure is somewhat low as well as heart rate. Dementia Currently full code but will need to visit with family regarding this SCDs contraindicated secondary to vascular lesions. Holding anticoagulation currently secondary to severe anemia. Likely needs skilled placement Changed to regular admission. Attestations Medical Necessity Statement*: Needs continued hospital stay for IV antibiotics secondary to cellulitis. Coding Level of Care Code Acute Field Consultant for Chris Serra Diagnoses Cellulitis of right leg L03.115 Weakness R53.1 Congestive heart failure I50.9 Heart failure type: unspecified Heart failure chronicity: acute on chronic Thalassemia trait D56.3 Acute on chronic anemia D64.9
[2020-06-21] MEDS: FUROsemide 10 mg/mL SDV 2mL 20 MG IVP (16:18)
[2020-06-21 16:20] LABS: Glucose Point of Care 107 mg/dL (70-110)
[2020-06-21] MEDS: vancomycin 1,000 MG in sodium chloride 0.9% 250 ML 250 MG IV (16:21)
--- NOTE | 2020-06-21 18:41 | PC.NURSE ---
End of shift report. Patient received 1 unit of PRBC's today and tolerated well. Patient is alert to self. Patients lower legs were wrapped with Telfa and Kerlix. Patient's bilateral feet have Hydrofera Blue to stasis ulcers on top of her feet and wrapped with Kerlix. Patient's family Denise Chari who goes by Alejandra to the patient called and checked on patient today. Patient has noted redness to her bottom which Aloe [place] was applied.
[2020-06-21 22:58] LABS: Glucose Point of Care 170 mg/dL (70-110)
[2020-06-22] VITALS: BP 102/70; PULSE 60; RESP 24; TEMP 36.6; O2SAT 98
[2020-06-22 05:02] LABS: Basophils % 0.2 %; Eosinophils % 0.3 %; Hematocrit 26.1 % (37.0-47.0); Hemoglobin 8.4 g/dL (11.5-15.3); Lymphocytes # 1.3 10^3/uL (0.8-4.8); Lymphocytes % 13.3 %; Mean Corpuscular HGB Conc 32.2 g/dL (30.0-36.0); Mean Corpuscular Hemoglobin 25.2 pg (28.0-34.0); Mean Corpuscular Volume 78.4 fL (81-99); Mean Platelet Volume 12.2 fL (7.4-10.4); Monocytes % 9.8 %; Neutrophils # 7.41 10^3/uL (1.8-7.7); Neutrophils % 76.1 %; Nucleated Red Blood Cells % 0.2 %; Platelet Count 169 10^3/cmm (130-400); Red Blood Count 3.33 10^6/uL (4.1-5.3); Red Cell Distribution Width 18.3 % (12.1-15.1); White Blood Count 9.7 10^3/uL (4.0-10.0)
[2020-06-22 05:20] LABS: Anion Gap 13.4 (5-19); Blood Urea Nitrogen 18 mg/dL (8-23); Calcium 8.3 mg/dL (8.5-10.5); Carbon Dioxide 30 mmol/L (22-29); Chloride 101 mmol/L (98-107); Creatinine Clr Calc Pharmacy 52.2706; Glucose 86 mg/dL (65-115); Osmolality Calculated 288 mOsm/kg (285-295); Potassium 3.4 mmol/L (3.5-5.1); Sodium 141 mmol/L (136-145)
[2020-06-22 06:41] LABS: Glucose Point of Care 95 mg/dL (70-110)
[2020-06-22 07:19] VITALS: BP 125/58; PULSE 62; RESP 18; TEMP 36.4; O2SAT 95
[2020-06-22] MEDS: donepezil 5 MG Tablet PO (08:12)
[2020-06-22] MEDS: atorvastatin 40 mg Tablet 20 MG PO (08:12)
[2020-06-22] MEDS: bumetanide 1 mg Tablet PO (08:12)
[2020-06-22] MEDS: atenolol 50 mg Tablet PO (08:13)
[2020-06-22] MEDS: potassium chloride ER 10 mEq Tablet 40 MEQ PO (09:27)
[2020-06-22] MEDS: vancomycin 1,000 MG in sodium chloride 0.9% 250 ML 250 MG IV (09:54)
[2020-06-22] MEDS: acetaminophen 325 mg Tablet 650 MG PO (09:55)
[2020-06-22 10:53] VITALS: BP 106/61; PULSE 63; RESP 22; TEMP 36.6; O2SAT 98
--- NOTE | 2020-06-22 10:55 | PC.NURSE ---
Yung rounding Per Dr. Giron, patient will need SNF placement. SS is aware and is currently working on this. No needs from nursing noted at this time.
[2020-06-22 11:06] LABS: Glucose Point of Care 204 mg/dL (70-110)
--- NOTE | 2020-06-22 12:21 | P.PN_ITS ---
Subjective Subjective: Interval history: Charisma reports her legs hurt. Medications: Reviewed: Yes Vitals/I&O/Wt Last Vital Signs Temp 97.8 F 06/22/20 10:53 Pulse 63 06/22/20 10:53 Resp 22 H 06/22/20 10:53 BP 106/61 06/22/20 10:53 Pulse Ox 98 06/22/20 10:53 06/21/20 06/22/20 06/22/20 22:59 06:59 14:59 Intake Total 370 / 900 610 / 610 Balance 370 / 900 610 / 610 Weight last 48 hrs Weight 68.039 kg Physical Exam Narrative: EXAM NARRATIVE: General exam is a confused white female in no apparent distress Cardiovascular regular rate and rhythm, no murmur Lungs clear Abdomen is soft with positive bowel sounds Extremities no cyanosis or clubbing. Left lower extremity with some skin breakdown, dorsal surface of the foot. Right with some weeping fluid, erythema. Data : 06/22/20 04:20 06/22/20 04:20 Micro: Microbiology 06/21/20 03:02 Urine Culture - Preliminary Urine,Clean Catch Gram Negative Rods 06/21/20 02:53 Blood Culture - Preliminary Blood NEGATIVE TO DATE 06/21/20 02:52 Blood Culture - Preliminary Blood NEGATIVE TO DATE A&P Assessment and plan (1) Cellulitis of right leg: Continue IV vancomycin Status: Acute (2) Weakness: Physical therapy evaluating. May need skilled placement. Status: Acute (3) Congestive heart failure: Continue Bumex. She appears to becoming euvolemic. Status: Acute Qualifiers: Heart failure type: unspecified Heart failure chronicity: acute on chronic Qualified Code(s): I50.9 - Heart failure, unspecified (4) Thalassemia trait: Status: Acute (5) Acute on chronic anemia: She was transfused 1 unit of blood, June 22 with improvement in hemoglobin as expected. Stool Hemoccult is pending If no active bleeding will consider continuing Eliquis for her fairly recent history of pulmonary embolism. Continue close follow-up with hemoglobin Status: Acute Additional A&P Information Possible UTI. Add Rocephin. Lower extremity wounds. Continue wound care, Hydrofera Blue. Keep all weight off ulcerations. Mild hypokalemia, supplement Peripheral vascular disease Type 2 diabetes. Sliding scale insulin Hyperlipidemia. Continue statin Hypertension. Reduce dose of atenolol as blood pressure is somewhat low as well as heart rate. Dementia Full code SCDs contraindicated secondary to vascular lesions. Holding anticoagulation currently secondary to severe anemia. Likely needs skilled placement Attestations Medical Necessity Statement*: Needs continued hospitalization for IV antibiotics secondary to cellulitis. Coding Level of Care Code Acute Drafter Refrigeration for g Fwd Diagnoses Cellulitis of right leg L03.115 Weakness R53.1 Congestive heart failure I50.9 Heart failure type: unspecified Heart failure chronicity: acute on chronic Thalassemia trait D56.3 Acute on chronic anemia D64.9
[2020-06-22] MEDS: cefTRIAXone 1,000 MG in sodium chloride 0.9% (plus) 50 ML 100 MG IV (13:13)
--- NOTE | 2020-06-22 13:50 | PC.CHAP ---
Pastoral Care Encounter/Spiritual Assessment Type of Contact [] Declined tandem operator visit [] Patient/Family/Request visit [] Outpatient visit [] Follow-up visit [] Physician referral [] Code/Alert [X] Routine visit [] Staff referral [] Actively dying [] Patient sleeping [] Family support [] [] Out of room [] Palliative care [] [] Receiving care in room [] Pre-surgical visit [] Trauma [] Long length of stay [] ICU visit [] Other: Relational/Emotional Strength [] Patient feels connected with others/family/visitors/staff [] Distress [] Loneliness/isolation [] Abandonment Spirituality of Patient [] Person of Jyotsna [] Attends Rastafarian of their Jyotsna [] Believes in Prayer [] Reads Bible or Tenriism materials [] There are Spiritual issues to be addressed Mental Health Practitioner Interventions [] Prayer [] Active listening [] Non-anxious presence [] Spiritual/emotional support [] Crisis/trauma care [] Spiritual counseling [] Bereavement support [] Provided bereavement packet [] Provided Bible/devotional materials [] Provided toy/stuffed animal, coloring book to patient or family member [] Provided Communion [] Anointing/Bouse [] Salvation [] Completed spiritual assessment [] Other: Impact on Illness or Injury [] Angry [] Fearful [] Anxious [] Often cries [] Exhaustion [] Unable to work [] Unable to attend taoist [] Unable to walk/stand [] Unable to read [] Unable to drive [] Unable to eat/drink [] Unable to sleep [] Unable to be with family [] Patient intubated [] Other: Summary Time spent with patient
--- NOTE | 2020-06-22 13:50 | PC.CHAP ---
Pastoral Care Encounter/Spiritual Assessment Type of Contact [] Declined bologna lacer visit [] Patient/Family/Request visit [] Outpatient visit [] Follow-up visit [] Physician referral [] Code/Alert [X] Routine visit [] Staff referral [] Actively dying [] Patient sleeping [] Family support [] [] Out of room [] Palliative care [] [] Receiving care in room [] Pre-surgical visit [] Trauma [] Long length of stay [] ICU visit [] Other: Relational/Emotional Strength [] Patient feels connected with others/family/visitors/staff [] Distress [] Loneliness/isolation [] Abandonment Spirituality of Patient [] Person of Jyotsna [] Attends Anglican of their Jyotsna [] Believes in Prayer [] Reads Bible or Moravian materials [] There are Spiritual issues to be addressed Soda Flaker Interventions [] Prayer [] Active listening [] Non-anxious presence [] Spiritual/emotional support [] Crisis/trauma care [] Spiritual counseling [] Bereavement support [] Provided bereavement packet [] Provided Bible/devotional materials [] Provided toy/stuffed animal, coloring book to patient or family member [] Provided Communion [] Anointing/[place] [] Salvation [] Completed spiritual assessment [] Other: Impact on Illness or Injury [] Angry [] Fearful [] Anxious [] Often cries [] Exhaustion [] Unable to work [] Unable to attend baptist [] Unable to walk/stand [] Unable to read [] Unable to drive [] Unable to eat/drink [] Unable to sleep [] Unable to be with family [] Patient intubated [] Other: Summary Time spent with patient
[2020-06-22 15:00] VITALS: BP 110/62; PULSE 52; RESP 17; TEMP 36.4; O2SAT 92
[2020-06-22 16:48] LABS: Glucose Point of Care 80 mg/dL (70-110)
[2020-06-22 19:00] VITALS: BP 110/60; PULSE 63; RESP 18; TEMP 36.6; O2SAT 98
[2020-06-22 20:24] VITALS: RESP 63; O2SAT 95
[2020-06-22 21:57] LABS: Glucose Point of Care 155 mg/dL (70-110)
[2020-06-23] VITALS (11 sets, daily range): BP systolic 112–154; BP diastolic 54–70; PULSE 62–80; RESP 16–22; TEMP 36.3–37.2; O2SAT 84–98
[2020-06-23] MEDS: vancomycin 1,000 MG in sodium chloride 0.9% 250 ML 250 MG IV (05:02)
[2020-06-23 05:41] LABS: Basophils % 0.2 %; Eosinophils # 0.1 10^3/uL (0.0-0.8); Eosinophils % 0.8 %; Hematocrit 27.8 % (37.0-47.0); Hemoglobin 8.6 g/dL (11.5-15.3); Lymphocytes # 1.9 10^3/uL (0.8-4.8); Mean Corpuscular HGB Conc 30.9 g/dL (30.0-36.0); Mean Corpuscular Hemoglobin 24.4 pg (28.0-34.0); Mean Corpuscular Volume 78.8 fL (81-99); Mean Platelet Volume 11.8 fL (7.4-10.4); Monocytes # 1.1 10^3/uL (0.2-0.9); Monocytes % 11.6 %; Neutrophils # 6.21 10^3/uL (1.8-7.7); Nucleated Red Blood Cells % 0.2 %; Platelet Count 187 10^3/cmm (130-400); Red Blood Count 3.53 10^6/uL (4.1-5.3); Red Cell Distribution Width 18.9 % (12.1-15.1); White Blood Count 9.3 10^3/uL (4.0-10.0)
[2020-06-23 06:18] LABS: Anion Gap 11.5 (5-19); Blood Urea Nitrogen 17 mg/dL (8-23); Calcium 8.4 mg/dL (8.5-10.5); Carbon Dioxide 31 mmol/L (22-29); Chloride 105 mmol/L (98-107); Creatinine Clr Calc Pharmacy 52.2706; Glucose 93 mg/dL (65-115); Osmolality Calculated 294 mOsm/kg (285-295); Potassium 3.5 mmol/L (3.5-5.1); Sodium 144 mmol/L (136-145)
[2020-06-23 06:22] LABS: Vancomycin Random 14.7 ug/mL (20.0-40.0)
[2020-06-23 07:24] LABS: Glucose Point of Care 95 mg/dL (70-110)
[2020-06-23] MEDS: bumetanide 1 mg Tablet PO ×2 (09:07→22:03)
[2020-06-23] MEDS: donepezil 5 MG Tablet PO (09:07)
[2020-06-23] MEDS: atorvastatin 40 mg Tablet 20 MG PO (09:07)
[2020-06-23] MEDS: atenolol 50 mg Tablet PO (09:07)
[2020-06-23] MEDS: ipratropium-albuterol 3 mL Neb INHALATION (09:20)
[2020-06-23 11:33] LABS: Glucose Point of Care 158 mg/dL (70-110)
[2020-06-23] MEDS: cefTRIAXone 1,000 MG in sodium chloride 0.9% (plus) 50 ML 12.5 MG IV (13:53)
--- NOTE | 2020-06-23 14:01 | PM.PN ---
Subjective Subjective: Interval history: Charisma awakens easily and has no specific complaints. States her legs hurt a little bit today. Medications: Reviewed: Yes Vitals/I&O/Wt Last Vital Signs Temp 98.3 F 06/23/20 11:22 Pulse 72 06/23/20 11:22 Resp 16 06/23/20 11:22 BP 154/70 06/23/20 11:22 Pulse Ox 96 06/23/20 11:22 06/22/20 06/23/20 06/23/20 22:59 06:59 14:59 Intake Total 480 / 1380 240 / 1620 240 / 240 Balance 480 / 1380 240 / 1620 240 / 240 Physical Exam Narrative: EXAM NARRATIVE: General exam no distress today and conversant. Cardiovascular regular rate and rhythm, no murmur Lungs a few sparse crackles right lung. Abdomen is soft with positive bowel sounds Extremities no cyanosis or clubbing. Left lower extremity with some skin breakdown, dorsal surface of the foot. Right with some weeping fluid, erythema. Data : 06/23/20 04:55 06/23/20 04:55 Micro: Microbiology 06/21/20 03:02 Urine Culture - Preliminary Urine,Clean Catch Escherichia coli esbl Gram Negative Rods A&P Assessment and plan (1) Cellulitis of right leg: Improved. As I am putting her on Bactrim for her potential UTI will discontinue vancomycin at this time as this should also be effective treatment for her cellulitis. Status: Acute (2) Weakness: Physical therapy evaluating. May need skilled placement. Status: Acute (3) Congestive heart failure: Continue Bumex. Still slightly fluid overloaded. Increase to twice daily. Hopefully we can wean oxygen once this has taken its effect. Status: Acute Qualifiers: Heart failure type: unspecified Heart failure chronicity: acute on chronic Qualified Code(s): I50.9 - Heart failure, unspecified (4) Thalassemia trait: Status: Acute (5) Acute on chronic anemia: She was transfused 1 unit of blood, June 22 with improvement in hemoglobin as expected. Stool Hemoccult is still pending. If no active bleeding will consider continuing Eliquis for her fairly recent history of pulmonary embolism. Continue close follow-up with hemoglobin Status: Acute Additional A&P Information UTI. ESBL noted. It is hard to tell how symptomatic this was, and there are 2 types of organisms which may suggest contamination and lower colony count. As she is sensitive to Bactrim we will give her 5 days of treatment with this. Ceftriaxone discontinued Lower extremity wounds. Continue wound care, Hydrofera Blue. Keep all weight off ulcerations. Mild hypokalemia, supplement Peripheral vascular disease Type 2 diabetes. Sliding scale insulin Hyperlipidemia. Continue statin Hypertension. Reduce dose of atenolol as blood pressure is somewhat low as well as heart rate on admission Dementia Full code SCDs contraindicated secondary to vascular lesions. Holding anticoagulation currently secondary to severe anemia. Likely needs skilled placement Attestations Medical Necessity Statement*: Needs continued hospitalization for further adjustment of medications for congestive heart failure pending placement. Coding Level of Care Code Acute Business Process Consultant for Chris Serra Diagnoses Cellulitis of right leg L03.115 Weakness R53.1 Congestive heart failure I50.9 Heart failure type: unspecified Heart failure chronicity: acute on chronic Thalassemia trait D56.3 Acute on chronic anemia D64.9
[2020-06-23 16:24] LABS: Glucose Point of Care 127 mg/dL (70-110)
--- NOTE | 2020-06-23 17:10 | PC.NURSE ---
DR. TORO NOTIFIED THAT PATIENT REMOVED HER OWN PIID AND HE ORDERED TO NOT REPLACE THE PIID.
[2020-06-23] MEDS: sulfamethoxazole-trimeth DS 160-800 mg Tablet 1 TAB PO (17:36)
[2020-06-23 22:29] LABS: Vancomycin Trough 18.9 ug/mL (10-15)
[2020-06-23 22:32] LABS: Glucose Point of Care 127 mg/dL (70-110)
[2020-06-24] VITALS (8 sets, daily range): BP systolic 107–136; BP diastolic 50–70; PULSE 64–97; RESP 16–21; TEMP 36.4–36.8; O2SAT 96–100
[2020-06-24 04:28] LABS: Basophils % 0.1 %; Eosinophils # 0.1 10^3/uL (0.0-0.8); Eosinophils % 0.7 %; Hematocrit 26.7 % (37.0-47.0); Hemoglobin 8.4 g/dL (11.5-15.3); Lymphocytes # 1.7 10^3/uL (0.8-4.8); Lymphocytes % 19.8 %; Mean Corpuscular HGB Conc 31.5 g/dL (30.0-36.0); Mean Corpuscular Volume 79.5 fL (81-99); Monocytes % 11.9 %; Neutrophils # 5.79 10^3/uL (1.8-7.7); Nucleated Red Blood Cells % 0.2 %; Platelet Count 200 10^3/cmm (130-400); Red Blood Count 3.36 10^6/uL (4.1-5.3); White Blood Count 8.6 10^3/uL (4.0-10.0)
[2020-06-24 04:54] LABS: Anion Gap 9.2 (5-19); Blood Urea Nitrogen 11 mg/dL (8-23); Calcium 8.2 mg/dL (8.5-10.5); Carbon Dioxide 38 mmol/L (22-29); Chloride 99 mmol/L (98-107); Creatinine Clr Calc Pharmacy 52.2706; Glucose 119 mg/dL (65-115); Osmolality Calculated 293 mOsm/kg (285-295); Potassium 3.2 mmol/L (3.5-5.1); Sodium 143 mmol/L (136-145)
[2020-06-24 06:46] LABS: Glucose Point of Care 120 mg/dL (70-110)
[2020-06-24] MEDS: apixaban 5 mg Tablet 2.5 MG PO ×2 (09:21→17:29)
[2020-06-24] MEDS: atenolol 50 mg Tablet PO (09:23)
[2020-06-24] MEDS: atorvastatin 40 mg Tablet 20 MG PO (09:24)
[2020-06-24] MEDS: donepezil 5 MG Tablet PO (09:26)
[2020-06-24] MEDS: bumetanide 1 mg Tablet PO ×2 (09:26→22:07)
[2020-06-24] MEDS: sulfamethoxazole-trimeth DS 160-800 mg Tablet 1 TAB PO ×2 (09:27→17:30)
[2020-06-24] MEDS: potassium chloride ER 10 mEq Tablet 40 MEQ PO (09:27)
--- NOTE | 2020-06-24 10:26 | DCPLANNER ---
Pg 2 of IM updated and reviewed with pt. No questions. Copy provided.
[2020-06-24 11:36] LABS: Glucose Point of Care 214 mg/dL (70-110)
--- NOTE | 2020-06-24 15:26 | PM.PN ---
Subjective Subjective: Interval history: Charisma reports she is doing okay. No new complaints. Medications: Reviewed: Yes Vitals/I&O/Wt Last Vital Signs Temp 97.8 F 06/24/20 11:00 Pulse 67 06/24/20 11:00 Resp 18 06/24/20 11:00 BP 107/50 06/24/20 11:00 Pulse Ox 99 06/24/20 11:00 06/24/20 06/24/20 06/24/20 06:59 14:59 22:59 Intake Total 60 / 480 60 / 60 Balance 60 / 480 60 / 60 Physical Exam Narrative: EXAM NARRATIVE: General exam no distress today and conversant. Cardiovascular regular rate and rhythm, no murmur Lungs a few sparse crackles right lung. Abdomen is soft with positive bowel sounds Extremities no cyanosis or clubbing. Left lower extremity with some skin breakdown, dorsal surface of the foot. Right with some weeping fluid, erythema. Overall this is improved. Data : 06/24/20 04:08 06/24/20 04:08 Micro: Microbiology 06/21/20 03:02 Urine Culture - Final Urine,Clean Catch Escherichia coli esbl Klebsiella pneumoniae 06/23/20 14:50 Occult Blood (FIT) - Final Stool Routine Collection A&P Assessment and plan (1) Cellulitis of right leg: Improved. Vancomycin has been discontinued She has been transitioned to Bactrim Status: Acute (2) Weakness: Physical therapy evaluating. May need skilled placement. Status: Acute (3) Congestive heart failure: Continue Bumex twice daily. She is diuresing nicely. Likely will be ready for discharge tomorrow. Status: Acute Qualifiers: Heart failure type: unspecified Heart failure chronicity: acute on chronic Qualified Code(s): I50.9 - Heart failure, unspecified (4) Thalassemia trait: Status: Acute (5) Acute on chronic anemia: She was transfused 1 unit of blood, June 22 with improvement in hemoglobin as expected. Stool Hemoccult is negative. Restart anticoagulant low-dose secondary to history of pulmonary embolism Will need continued follow-up with hemoglobin as an outpatient. Check CBC tomorrow. Status: Acute Additional A&P Information UTI. ESBL noted. It is hard to tell how symptomatic this was, and there are 2 types of organisms which may suggest contamination and lower colony count. As she is sensitive to Bactrim we will give her 5 days of treatment with this. Ceftriaxone discontinued Lower extremity wounds. Continue wound care, Hydrofera Blue. Keep all weight off ulcerations. Hypokalemia, supplement Peripheral vascular disease Type 2 diabetes. Sliding scale insulin Hyperlipidemia. Continue statin Hypertension. Reduce dose of atenolol as blood pressure is somewhat low as well as heart rate on admission Dementia Full code SCDs contraindicated secondary to vascular lesions. Holding anticoagulation currently secondary to severe anemia. Family reports [facility] not be possible. Plan for discharge home tomorrow. Home health with possible. Attestations Medical Necessity Statement*: Needs continued hospitalization for further diuresis secondary to CHF Coding Level of Care Code Acute Operations Logistics Analyst for g Fwd Diagnoses Cellulitis of right leg L03.115 Weakness R53.1 Congestive heart failure I50.9 Heart failure type: unspecified Heart failure chronicity: acute on chronic Thalassemia trait D56.3 Acute on chronic anemia D64.9
[2020-06-24 16:14] LABS: Glucose Point of Care 189 mg/dL (70-110)
[2020-06-24 21:17] LABS: Glucose Point of Care 142 mg/dL (70-110)
[2020-06-25] VITALS (9 sets, daily range): BP systolic 128–138; BP diastolic 60–74; PULSE 68–89; RESP 16–22; TEMP 36.3–36.9; O2SAT 85–97
[2020-06-25 04:28] LABS: Basophils % 0.3 %; Eosinophils # 0.1 10^3/uL (0.0-0.8); Eosinophils % 1.2 %; Hematocrit 28.7 % (37.0-47.0); Hemoglobin 8.8 g/dL (11.5-15.3); Lymphocytes # 2.2 10^3/uL (0.8-4.8); Lymphocytes % 29.5 %; Mean Corpuscular HGB Conc 30.7 g/dL (30.0-36.0); Mean Corpuscular Hemoglobin 24.2 pg (28.0-34.0); Mean Corpuscular Volume 79.1 fL (81-99); Mean Platelet Volume 11.5 fL (7.4-10.4); Monocytes # 0.8 10^3/uL (0.2-0.9); Monocytes % 11.5 %; Neutrophils # 4.13 10^3/uL (1.8-7.7); Neutrophils % 56.8 %; Nucleated Red Blood Cells % 0.3 %; Platelet Count 203 10^3/cmm (130-400); Red Blood Count 3.63 10^6/uL (4.1-5.3); Red Cell Distribution Width 19.4 % (12.1-15.1); White Blood Count 7.3 10^3/uL (4.0-10.0)
[2020-06-25 04:55] LABS: Blood Urea Nitrogen 13 mg/dL (8-23); Calcium 9.1 mg/dL (8.5-10.5); Chloride 96 mmol/L (98-107); Creatinine Clr Calc Pharmacy 52.2706; Glucose 107 mg/dL (65-115); Osmolality Calculated 293 mOsm/kg (285-295); Sodium 143 mmol/L (136-145)
[2020-06-25 05:18] LABS: Carbon Dioxide 41 mmol/L (22-29)
[2020-06-25 06:34] LABS: Glucose Point of Care 102 mg/dL (70-110)
[2020-06-25] MEDS: bumetanide 1 mg Tablet PO (08:43)
[2020-06-25] MEDS: atenolol 50 mg Tablet PO (08:43)
[2020-06-25] MEDS: donepezil 5 MG Tablet PO (08:43)
[2020-06-25] MEDS: atorvastatin 40 mg Tablet 20 MG PO (08:43)
[2020-06-25] MEDS: apixaban 5 mg Tablet 2.5 MG PO (08:43)
[2020-06-25] MEDS: sulfamethoxazole-trimeth DS 160-800 mg Tablet 1 TAB PO (08:44)
[2020-06-25 10:52] LABS: Glucose Point of Care 197 mg/dL (70-110)
--- NOTE | 2020-06-25 11:17 | PM.DCS ---
Discharge Providers Date of Admission: 06/21/20 12:37 Date of Discharge: June 25, 2020 Attending Provider at Admission: Luis Fernando Matos MD Attending Provider at Discharge: Keron Giron MD Primary Care Provider: Frankie Garay MD Diagnoses at Discharge Discharge Diagnosis (1) Cellulitis of right leg: Status: Acute Problem details: Improved/resolved (2) Weakness: Status: Acute (3) Congestive heart failure: Status: Acute Problem details: Compensated Qualifiers: Heart failure type: unspecified Heart failure chronicity: acute on chronic Qualified Code(s): I50.9 - Heart failure, unspecified (4) Thalassemia trait: Status: Acute (5) Acute on chronic anemia: Status: Acute Reason for Visit Reason for Visit: WEAKNESS Hospital Course Hospital Course: Cahrisma is an 80-year-old white female who presented to the hospital with swollen weeping legs. It was evident from her clinical exam that she had acute diastolic heart failure as well as cellulitis of her right lower extremity. She was also noted to be anemic. She was placed on Bumex, and IV antibiotics. She did not have any urinary symptoms upon presentation. Throughout her hospital course she did well and continued to improve. Significant anemia was noted during her hospital stay requiring transfusion of 1 unit packed red blood cell. Apixaban was stopped during work-up of this. Stool Hemoccult was negative so apixaban restarted at end of hospital stay. Urine culture was also obtained on admission although patient was relatively asymptomatic. This demonstrated ESBL, sensitive to trimethoprim. Secondary to this when her IV antibiotic was no longer needed for her cellulitis, she was transitioned to Bactrim for 5 days. There was attempts to try to place her at skilled care but this was not feasible secondary to multiple issues as documented in discharge planning services documents. She will be discharged with home health. Home oxygen evaluation prior to discharge. Physical Exam Narrative: EXAM NARRATIVE: General exam no apparent distress Cardiovascular regular rate and rhythm Lungs clear Abdomen is soft nontender Extremities without edema, much improved cellulitis right lower extremity Discharge Data Data Completed and Pending: Completed Studies During Hospitalization Category Date Time Status CT chest wo con 7 1250 Stat Cat Scan 06/21/20 05:01 Completed XR chest 1V mere ble [id number] Urgent Exams 06/21/20 02:34 Completed Pending at discharge Category Date Time Status Blood Culture Sta t Lab 06/21/20 02:53 Results Labs from last 24 hours 06/25/20 06/25/20 06/25/20 10:47 06:30 04:04 WBC RBC Hgb Hct MCV MCH MCHC RDW Plt Count MPV Neut % (Auto) Lymph % (Auto) [place] % (Auto) Eos % (Auto) Baso % (Auto) Neut # (Auto) Lymph # (Auto) [place] # (Auto) Eos # (Auto) Baso # (Auto) Nucleated RBC % (a uto) Nucleated RBCs # Sodium 143 Potassium 4.0 Chloride 96 L Carbon Dioxide 41 H Anion Gap 10.0 BUN 13 Creatinine 0.8 GFR Calculation Not Reportable Glucose 107 POC Glucose 197 102 Calculated Osmolal ity 293 Calcium 9.1 Crossmatch 06/25/20 06/24/20 06/24/20 04:04 21:14 16:06 WBC 7.3 RBC 3.63 L Hgb 8.8 L Hct 28.7 L MCV 79.1 L MCH 24.2 L MCHC 30.7 RDW 19.4 H Plt Count 203 MPV 11.5 H Neut % (Auto) 56.8 Lymph % (Auto) 29.5 [place] % (Auto) 11.5 Eos % (Auto) 1.2 Baso % (Auto) 0.3 Neut # (Auto) 4.13 Lymph # (Auto) 2.2 [place] # (Auto) 0.8 Eos # (Auto) 0.1 Baso # (Auto) 0.0 Nucleated RBC % (a uto) 0.3 Nucleated RBCs # 0.0 Sodium Potassium Chloride Carbon Dioxide Anion Gap BUN Creatinine GFR Calculation Glucose POC Glucose 142 189 Calculated Osmolal ity Calcium Crossmatch 06/24/20 06/21/20 11:32 08:50 WBC RBC Hgb Hct MCV MCH MCHC RDW Plt Count MPV Neut % (Auto) Lymph % (Auto) [place] % (Auto) Eos % (Auto) Baso % (Auto) Neut # (Auto) Lymph # (Auto) [place] # (Auto) Eos # (Auto) Baso # (Auto) Nucleated RBC % (a uto) Nucleated RBCs # Sodium Potassium Chloride Carbon Dioxide Anion Gap BUN Creatinine GFR Calculation Glucose POC Glucose 214 Calculated Osmolal ity Calcium Crossmatch See Detail Vitals: Last Vital Signs Temp 98.4 F 06/25/20 07:32 Pulse 89 06/25/20 08:16 Resp 16 06/25/20 08:16 BP 132/70 06/25/20 07:32 Pulse Ox 94 06/25/20 08:16 Discharge Plan Discharge Patient Disposition: Home Health Service Condition: Stable Prescriptions: New atenolol 50 mg Tablet 50 mg PO DAILY Qty: 30 RF: 0 bumetanide 1 mg Tablet 1 mg PO Q12H Qty: 60 RF: 0 sulfamethoxazole-trimethoprim 800-160 mg Tablet 1 tab PO BID Qty: 6 RF: 0 Continued Eliquis 2.5 mg tablet 2.5 mg PO BID Qty: 30 RF: 1 metformin 500 mg Tablet 500 mg PO DAILY RF: 0 donepezil 5 mg Tablet 5 mg PO DAILY RF: 0 pravastatin 40 mg Tablet 40 mg PO DAILY RF: 0 acetaminophen 325 mg Tablet 650 mg PO Q6H PRN (Reason: Mild/Mod Pain Or Temp >/= 101) Qty: 0 RF: 0 Discontinued furosemide [Lasix] 40 mg tablet 40 mg PO DAILY Qty: 5 RF: 0 atenolol 100 mg Tablet 100 mg PO DAILY RF: 0 Discharge Orders: Discharge Order (Routine); Ordered 06/25/20 Ordered By: Keron Giron Referrals: [facility] [Outside] [facility]) [Outside] Frankie Garay MD [Primary Care Provider] - 4-7 days Discharge Diet: Usual diet Discharge Activity: Increase activity as tolerated Activity Restrictions/Additional Instructions: Take all medicine as prescribed Keep follow-up. Home health on discharge. BMP, CBC on follow-up Discharge Attestations Time Spent in Discharge Care*: greater than 30 min Quality Metrics Clinical Quality Measures During this hospital stay, did patient experience: None Coding Level of Care Code Acute Delivery Tech for Chg Fwd Diagnoses Cellulitis of right leg L03.115 Weakness R53.1 Congestive heart failure I50.9 Heart failure type: unspecified Heart failure chronicity: acute on chronic Thalassemia trait D56.3 Acute on chronic anemia D64.9
== END 2020-06-25 17:00 | disposition home health service (06) | DRG 602 ==
LOC: ER 04:19 → MEDSURG 05:10
PROVIDERS: Emergency Medicine; Admitting Provider Internal Medicine; PCP Family Medicine; Visit Provider Internal Medicine
DX: L03.115 Cellulitis of right lower limb (principal); I50.31 Acute diastolic (congestive) heart failure; N39.0 Urinary tract infection, site not specified; D56.3 Thalassemia minor; E11.51 Type 2 diabetes mellitus with diabetic peripheral angiopathy without gangrene; I11.0 Hypertensive heart disease with heart failure; D50.9 Iron deficiency anemia, unspecified; Z86.711 Personal history of pulmonary embolism; Z79.01 Long term (current) use of anticoagulants; F03.90 Unspecified dementia, unspecified severity, without behavioral disturbance, psychotic disturbance, mood disturbance, and anxiety; Z99.81 Dependence on supplemental oxygen; R09.02 Hypoxemia; Z87.01 Personal history of pneumonia (recurrent); K44.9 Diaphragmatic hernia without obstruction or gangrene; E78.5 Hyperlipidemia, unspecified; Z98.62 Peripheral vascular angioplasty status; E87.6 Hypokalemia; B96.20 Unspecified Escherichia coli [E. coli] as the cause of diseases classified elsewhere; Z79.84 Long term (current) use of oral hypoglycemic drugs
CPT/HCPCS: 12345; 36415; 36416; 36430; 71045; 71250; 80048; 80053; 80202; 81001; 82274; 82962; 83880; 85014; 85018; 85025; 85610; 86850; 86900; 86920; 87040; 87077; 87086; 87186; 93005; 94640; 96372; 97110; 97162; 97530; 99283; G0378; J0696; J1815; J1940; J3370; J7050; P9016

== ENCOUNTER 2020-07-25 14:49 | Emergency (ER) | payer MEDICARE, OTHER, SELFPAY ==
[2020-07-25 14:51] VITALS: BP 143/66; PULSE 71; RESP 19; TEMP 36.7; O2SAT 100; BMI 33.6
--- NOTE | 2020-07-25 15:05 | XRR_ITS ---
PROCEDURE INFORMATION: Exam: XR Chest, 1 View Exam date and time: 07/25/2020 3:20 PM Age: 80 years old Clinical indication: Cough and dyspnea; Additional info: Dyspnea/cough TECHNIQUE: Imaging protocol: XR of the chest Views: 1 view. COMPARISON: CT chest [facility] [id number] 06/21/2020 5:21 AM FINDINGS: Lungs: Unremarkable. No consolidation. Pleural space: Unremarkable. No pleural effusion. No pneumothorax. Heart/Mediastinum: Unremarkable. No cardiomegaly. Bones/joints: There is a thoracolumbar spine scoliosis. XR/XR chest 1V portable [id number] IMPRESSION: There are no acute concerning abnormalities.
--- NOTE | 2020-07-25 15:36 | ED_ITS ---
HPI - Wound/Laceration General: Chief Complaint: Wound/Laceration Stated Complaint: LEFT SORE WITH INFECTION Time Seen by Provider: 07/25/20 14:59 History of Present Illness: HPI narrative: 80-year-old female comes into the emergency room from home. Home health was worried about her she had previously been at the [place] [facility] she has some wounds on her leg which are being cared for through wound care. She had previously been at the [place] [facility] now she is home again with her daughter's main caregiver. She is confused and disoriented which is her general baseline. Onset (ago): hour(s) Extremity Location: Bilateral: lower leg and foot Place: home Associated symptoms: Denies chills, fever(s), foreign body sensation, inability to move, nausea, numbness, pain, syncope or vomiting Treatments prior to arrival: bandage Review of Systems Const: Denies: fever(s) or chills ENMT: Denies: throat pain, ear or mastoid pain, nasal discharge or nasal congestion Card: Denies: syncope Resp: Denies: dyspnea, productive cough or non-productive cough GI: Denies: nausea or vomiting : Denies: flank pain, difficulty voiding, dysuria, urinary frequency or urinary urgency Skin/Breast: Denies: rash or pruritus PFSH ED PFSH: Medical History Anemia CVA (cerebral vascular accident) 2013, right hemispheric Dementia Diabetes Hiatal hernia Hyperlipidemia Hypertension Peripheral vascular disease Pneumonia Thalassemia trait Surgical History History of angioplasty of peripheral vessel History of back surgery Family History Other Diabetes Social History Smoking and tobacco status: never smoked Alcohol intake: never Housing: Senior Living Physical Exam Const: COMMON NORMALS: no acute distress GENERAL APPEARANCE: cooperative and comfortable ORIENTATION/CONSCIOUSNESS: Yes awake HENMT: COMMON NORMALS: normocephalic, atraumatic and hearing grossly normal bilaterally HEAD & SCALP: normocephalic and atraumatic Eye: COMMON NORMALS: Equal, round and reactive pupils present, EOMs intact bilaterally, conjunctivae normal and no scleral icterus CONJUNCTIVA: Yes conjunctivae normal PUPIL: Yes Equal, round and reactive pupils present Neck/C-Spine: COMMON NORMALS: full ROM, no lymphadenopathy, supple and no JVD Lymph: LYMPHATIC: no lymphadenopathy noted and no lymphedema noted Resp: COMMON NORMALS: normal respiratory effort, No retractions, No use of accessory muscles and clear to auscultation bilaterally AUSCULTATION: clear to auscultation bilaterally Cardio: COMMON NORMALS: no JVD, regular rate, regular rhythm and No murmurs present (Cardio) RATE: regular rate RHYTHM: regular rhythm GI: COMMON NORMALS: Soft to palpation and No hepatosplenomegaly present AUSCULTATION: Yes normoactive bowel sounds PALPATION: Yes Soft to palpation, No Tenderness to palpation present (GI), No Guarding due to palpation present (GI) and Yes No hepatosplenomegaly present Extremity: NARRATIVE EXTREMITY EXAM: Venous stasis changes lower extremities from the mid calf legs with foam distally there is a few areas on bandages from wound care that are full covering areas that are full-thickness. There is no active drainage there is no evidence of any insect infestation there is no significant erythema no evidence of abscess. Course Vital Signs: Vital signs: Vital Signs Temperature 98.5 F 07/25/20 17:09 Pulse Rate 75 07/25/20 17:09 Respiratory Rate 20 H 07/25/20 17:09 Blood Pressure 98/66 07/25/20 17:09 Pulse Oximetry 95 07/25/20 17:09 MDM - Wound/Laceration MDM Narrative: Medical decision making narrative: Wounds actually look very good at this point. They are clean at their bases there is no evidence of any insect infestation. I recommend that she continue to follow-up with the wound clinic. I do believe she would be better off at the [place] [facility] however given the recent pandemic and current conditions we will not be able to place her from the emergency room to a [place] [facility]. There is no diagnosis that requires admission at this point. Her hemoglobin is low however it is relatively stable she should have that followed up with a repeat hemoglobin later this week follow-up with her primary care doctor she has worsening or changes symptoms she can return to the emergency room. Lab Data: Labs: Lab Results 07/25/20 07/25/20 07/25/20 Range/Units 15:22 15:22 16:06 WBC 9.2 (4.0-10.0) 10^3/ uL RBC 3.29 L (4.1-5.3) 10^6/u L Hgb 7.9 L (11.5-15.3) g/dL Hct 26.5 L (37.0-47.0) % MCV 80.5 L (81-99) fL MCH 24.0 L (28.0-34.0) pg MCHC 29.8 L (30.0-36.0) g/dL RDW 19.0 H (12.1-15.1) % Plt Count 211 (130-400) 10^3/c mm MPV 11.1 H (7.4-10.4) fL Neut % (Auto) 57.4 % Lymph % (Auto) 23.9 % [place] % (Auto) 14.4 % Eos % (Auto) 3.5 % Baso % (Auto) 0.3 % Neut # (Auto) 5.27 (1.8-7.7) 10^3/u L Lymph # (Auto) 2.2 (0.8-4.8) 10^3/u L [place] # (Auto) 1.3 H (0.2-0.9) 10^3/u L Eos # (Auto) 0.3 (0.0-0.8) 10^3/u L Baso # (Auto) 0.0 (0.0-0.1) 10^3/u L Nucleated RBC % (a uto) 0.5 % Nucleated RBCs # 0.1 /100WBC Sodium 137 (136-145) mmol/L Potassium 4.3 (3.5-5.1) mmol/L Chloride 104 (98-107) mmol/L Carbon Dioxide 24 (22-29) mmol/L Anion Gap 13.3 (5-19) BUN 14 (8-23) mg/dL Creatinine 0.7 (0.5-0.9) mg/dL GFR Calculation Not Reportable Glucose 184 H (65-115) mg/dL Calculated Osmolal ity 289 (285-295) mOsm/k g Calcium 9.4 (8.5-10.5) mg/dL Total Bilirubin 0.6 (0.15-1.2) mg/dL AST 16 (0-32) U/L ALT 8 (0-33) U/L Alkaline Phosphata se 71 (35-105) IU/L Total Protein 7.1 (6.6-8.7) g/dL Albumin 3.5 (3.5-5.2) g/dL Globulin 3.6 (1.3-4.6) g/dL Urine Color Straw (Yellow) Urine Appearance Sl hazy (CLEAR) Urine pH 6 (5-7) Ur Specific Gravit y 1.000 L (1.005-1.030) Urine Protein Neg (Negative) Urine Glucose (UA) Norm (Normal) Urine Ketones Negative (Negative) Urine Blood Neg (Negative) Urine Nitrate Negative (Negative) Urine Bilirubin Neg (Negative) Urine Urobilinogen Norm (Negative) mg/dL Ur Leukocyte Tracey ase Negative (Negative) Urine RBC None (0-2) /hpf Urine WBC 0-4 H (0-5) /hpf Ur Squamous Epith Cells 0-4 H (0-5) /hpf Amorphous Sediment Not Reportable Urine Bacteria 4+ H (NONE) /hpf Urine Yeast 3+ H /hpf Discharge Plan Discharge Patient Disposition: Home Clinical Impression: Venous stasis ulcer of right lower leg with edema of right lower leg, Venous stasis ulcer of left lower leg with edema of left lower leg Condition: Stable Prescriptions: No Action Eliquis 2.5 mg tablet 2.5 mg PO BID Qty: 30 RF: 1 metformin 500 mg Tablet 500 mg PO DAILY RF: 0 donepezil 5 mg Tablet 5 mg PO DAILY RF: 0 pravastatin 40 mg Tablet 40 mg PO DAILY RF: 0 acetaminophen 325 mg Tablet 650 mg PO Q6H PRN (Reason: Mild/Mod Pain Or Temp >/= 101) Qty: 0 RF: 0 bumetanide 1 mg Tablet 1 mg PO Q12H Qty: 60 RF: 0 atenolol 50 mg Tablet 50 mg PO DAILY Qty: 30 RF: 0 Discharge Orders: Discharge Order (Routine); Ordered 07/25/20 Ordered By: Nnamdi Gan Referrals: Frankie Garay MD [Primary Care Provider] - Discharge Diet: Usual diet Discharge Activity: Resume usual activity Activity Restrictions/Additional Instructions: Continue to follow with the wound care clinic. Discharge Date/Time: 07/25/20 18:33 Coding Level of Care Code ED Scrap Drop Crane Operator for Chg Fwd Exam Comprehensive
[2020-07-25 15:40] LABS: Basophils % 0.3 %; Eosinophils # 0.3 10^3/uL (0.0-0.8); Eosinophils % 3.5 %; Hematocrit 26.5 % (37.0-47.0); Hemoglobin 7.9 g/dL (11.5-15.3); Lymphocytes # 2.2 10^3/uL (0.8-4.8); Lymphocytes % 23.9 %; Mean Corpuscular HGB Conc 29.8 g/dL (30.0-36.0); Mean Corpuscular Volume 80.5 fL (81-99); Mean Platelet Volume 11.1 fL (7.4-10.4); Monocytes # 1.3 10^3/uL (0.2-0.9); Monocytes % 14.4 %; Neutrophils # 5.27 10^3/uL (1.8-7.7); Neutrophils % 57.4 %; Nucleated Red Blood Cells # 0.1 /100WBC; Nucleated Red Blood Cells % 0.5 %; Platelet Count 211 10^3/cmm (130-400); Red Blood Count 3.29 10^6/uL (4.1-5.3); White Blood Count 9.2 10^3/uL (4.0-10.0)
[2020-07-25 16:05] LABS: Alanine Aminotransferase 8 U/L (0-33); Albumin Level 3.5 g/dL (3.5-5.2); Alkaline Phosphatase 71 IU/L (35-105); Anion Gap 13.3 (5-19); Aspartate Amino Transferase 16 U/L (0-32); Blood Urea Nitrogen 14 mg/dL (8-23); Calcium 9.4 mg/dL (8.5-10.5); Carbon Dioxide 24 mmol/L (22-29); Chloride 104 mmol/L (98-107); Globulin 3.6 g/dL (1.3-4.6); Glucose 184 mg/dL (65-115); Osmolality Calculated 289 mOsm/kg (285-295); Potassium 4.3 mmol/L (3.5-5.1); Sodium 137 mmol/L (136-145); Total Bilirubin 0.6 mg/dL (0.15-1.2); Total Protein 7.1 g/dL (6.6-8.7)
[2020-07-25 16:28] LABS: Bilirubin Urine Neg (Negative); Blood Urine Neg (Negative); Glucose Urine UA Norm (Normal); Ketones Urine Negative (Negative); Nitrate Urine Negative (Negative); Protein Urine Neg (Negative); Urine Appearance SL Hazy (CLEAR); Urine Color Straw (Yellow); Urobilinogen Urine Norm (Negative); pH Urine 6 (5-7)
[2020-07-25 16:29] LABS: Add Urine Microscopic? YES; Leukocyte Esterase Urine Negative (Negative); Squamous Epithelial Cell Urine 0-4 /hpf (0-5); WBC Urine 0-4 /hpf (0-5)
[2020-07-25 16:30] LABS: Add Urine Culture? No; Bacteria Urine 4+ /hpf
[2020-07-25 17:09] VITALS: BP 98/66; PULSE 75; RESP 20; TEMP 36.9; O2SAT 95
--- NOTE | 2020-07-25 18:28 | PC.NURSE ---
legs rewrapped with abd and kerlilx patient tolerated well
== END 2020-07-25 18:33 | disposition home or self-care (01) ==
PROVIDERS: Emergency Provider Family Medicine; PCP Family Medicine
DX: I83.018 Varicose veins of right lower extremity with ulcer other part of lower leg (principal); I83.028 Varicose veins of left lower extremity with ulcer other part of lower leg; L97.819 Non-pressure chronic ulcer of other part of right lower leg with unspecified severity; L97.829 Non-pressure chronic ulcer of other part of left lower leg with unspecified severity; Z79.01 Long term (current) use of anticoagulants; Z86.73 Personal history of transient ischemic attack (TIA), and cerebral infarction without residual deficits; F03.90 Unspecified dementia, unspecified severity, without behavioral disturbance, psychotic disturbance, mood disturbance, and anxiety; E11.9 Type 2 diabetes mellitus without complications; E78.5 Hyperlipidemia, unspecified; I10 Essential (primary) hypertension
CPT/HCPCS: 12345; 36415; 71045; 80053; 81001; 85025; 87040; 99282; 99283

== ENCOUNTER 2020-08-09 15:08 | Emergency (ER) | payer MEDICARE, OTHER, SELFPAY ==
[2020-08-09 15:15] VITALS: BP 122/69; PULSE 69; RESP 16; TEMP 36.9; O2SAT 95; BMI 26.5
[2020-08-09 17:20] VITALS: RESP 18
[2020-08-09 17:45] VITALS: RESP 18
--- NOTE | 2020-08-09 17:55 | ED_ITS ---
HPI - Extremity Problem General: Chief complaint: Extremity Problem,Nontraumatic Stated complaint: CHRONIC FEET PAIN/WOUNDS Time Seen by Provider: 08/09/20 17:18 History of Present Illness: HPI Narrative: Patient was seen here by home health care nurse because her feet hurt when she changes the dressings. Patient complained about pain just been going on for quite a long time Tylenol is not helping as it used to. Denies any signs or symptoms of infection MD Complaint: extremity pain Onset (ago): month(s) Pain Consistency: constant Location: left, right and lower extremity Quality: aching Radiation: none Relieving factors: immobilization Exacerbating factors: range of motion and weight bearing Associated symptoms: Reports no associated symptoms; Deny chest pain, fever(s) or rash Review of Systems Const: Denies: fever(s), chills or body aches Eyes: Denies: change in vision or blurry vision ENMT: Denies: throat pain or nasal congestion Card: Denies: chest pain or dyspnea on exertion Resp: Denies: dyspnea, productive cough or non-productive cough GI: Denies: abdominal pain, nausea or vomiting Musc: Reports: extremity pain (Patient complains about chronic pain in her feet desiring medication to help with discomfort has history of CHF and gets her feet wrapped) Skin/Breast: Denies: rash Neuro: Denies: headache(s) Psych: Denies: anxiety or depression Bobby/Lymph: Denies: easy bruising [facility] ED PFSH: Medical History (Updated 08/09/20 @ 17:30 by EDWIN Rivera) Anemia CVA (cerebral vascular accident) 2013, right hemispheric Dementia Diabetes Hiatal hernia Hyperlipidemia Hypertension Peripheral vascular disease Pneumonia Thalassemia trait Surgical History (System 08/01/20 @ 15:32 by Robyn Henley) History of angioplasty of peripheral vessel History of back surgery Family History (System 08/01/20 @ 15:32 by Robyn Henley) Other Diabetes Social History (System 08/01/20 @ 15:32 by Robyn Henley) Smoking and tobacco status: never smoked Alcohol intake: never Housing: [facility] Physical Exam Const: COMMON NORMALS: no acute distress, average body habitus and patient oriented x3 HENMT: COMMON NORMALS: normocephalic HEAD & SCALP: normal to inspection and normocephalic FACE & SINUS: normal facial exam Eye: COMMON NORMALS: conjunctivae normal GENERAL EYE: appearance normal, both eyes and all related structures CONJUNCTIVA: Yes conjunctivae normal Neck/C-Spine: COMMON NORMALS: no JVD Chest: COMMONS NORMALS: normal inspection of the chest Resp: COMMON NORMALS: normal respiratory effort and clear to auscultation bilaterally AUSCULTATION: clear to auscultation bilaterally Cardio: COMMON NORMALS: no JVD, regular rate and regular rhythm RATE: regular rate RHYTHM: regular rhythm GI: COMMON NORMALS: Normal to inspection, nondistended, normoactive bowel sounds present Extremity: NARRATIVE EXTREMITY EXAM: Patient has dressings in place has obvious edema to her lower extremitys no signs of infection no redness erythema noted does have edema up to mid li and has stockings in place dressings appear intact without much drainage patient has good range of motion of her lower extremities Neuro: COMMON NORMALS: patient oriented x3 Course Vital Signs: Vital signs: Vital Signs Temperature 98.4 F 08/09/20 15:15 Pulse Rate 69 08/09/20 15:15 Respiratory Rate 18 08/09/20 17:45 Blood Pressure 122/69 08/09/20 15:15 Pulse Oximetry 95 08/09/20 15:15 Discharge Plan Discharge Patient Disposition: Home Clinical Impression: Edema Qualifiers: Edema type: localized Qualified Code(s): R60.0 - Localized edema Condition: Stable Prescriptions: New tramadol 50 mg tablet 25 mg PO QID PRN (Reason: pain) Qty: 14 RF: 0 No Action Eliquis 2.5 mg tablet 2.5 mg PO BID Qty: 30 RF: 1 metformin 500 mg Tablet 500 mg PO DAILY RF: 0 donepezil 5 mg Tablet 5 mg PO DAILY RF: 0 pravastatin 40 mg Tablet 40 mg PO DAILY RF: 0 acetaminophen 325 mg Tablet 650 mg PO Q6H PRN (Reason: Mild/Mod Pain Or Temp >/= 101) Qty: 0 RF: 0 bumetanide 1 mg Tablet 1 mg PO Q12H Qty: 60 RF: 0 atenolol 50 mg Tablet 50 mg PO DAILY Qty: 30 RF: 0 Discharge Orders: Discharge Order (Routine); Ordered 08/09/20 Ordered By: Agusto Barroso Referrals: Frankie Garay MD [Primary Care Provider] - Discharge Diet: Usual diet Discharge Activity: Increase activity as tolerated Patient Instructions: Leg Edema (ED) Activity Restrictions/Additional Instructions: Follow-up with medical provider as directed. Take medications as prescribed. Return to the ER or your medical provider if condition worsens. Please read and understand discharge instructions. If any questions ask please. Follow-up Dr. Garay and discuss pain treatment for your chronic swollen lower extremities continue with home health care and continue wrapping and dressing the wound 0 for signs of infection try to elevate lower extremities much as possible Discharge Date/Time: 08/09/20 17:46 Coding Level of Care Code ED Gas Station Service Attendant for Olyg Fwd Exam Comprehensive
--- NOTE | 2020-08-10 11:19 | DCPLANNER ---
accounts receivable manager was asked to speak with patients family about her visit to the ED. accounts receivable manager called patients granddaughter and left a voicemail for the granddaughter to return senior case manager phone call. Patients grand daughter returned senior case manager phone call. After speaking with granddaughter case supervisor offered to make a referral to Wound Care for patient. accounts receivable manager called Wound Care, spoke with Jess, a follow up appointment was scheduled for August at 1:00 with Olinda. accounts receivable manager called patients granddaughter and gave her the appointment information. accounts receivable manager explained that there were no nursing homes that were taking patients at this time due to COVID. Patients granddaughter stated that she understood. accounts receivable manager asked if there was anything else that case supervisor could help patients daughter with, and she stated not at this time.
== END 2020-08-09 17:46 | disposition home or self-care (01) ==
PROVIDERS: Emergency Provider Nurse Practitioner Family; PCP Family Medicine
DX: R60.0 Localized edema (principal); Z79.01 Long term (current) use of anticoagulants; Z79.84 Long term (current) use of oral hypoglycemic drugs; Z86.73 Personal history of transient ischemic attack (TIA), and cerebral infarction without residual deficits; F03.90 Unspecified dementia, unspecified severity, without behavioral disturbance, psychotic disturbance, mood disturbance, and anxiety; E11.9 Type 2 diabetes mellitus without complications; E78.5 Hyperlipidemia, unspecified; I10 Essential (primary) hypertension; I73.9 Peripheral vascular disease, unspecified
CPT/HCPCS: 12345; 99281

== ENCOUNTER 2020-08-13 14:12 | Emergency (ER) | payer MEDICARE, OTHER, SELFPAY ==
[2020-08-13 14:13] VITALS: BP 119/72; PULSE 68; RESP 16; TEMP 36.8; O2SAT 94; BMI 24.7
--- NOTE | 2020-08-13 14:38 | W.ED.SKABFB ---
HPI - Skin/Abscess/Foreign Bdy General: Chief complaint: Skin/Abscess/Foreign Body Stated complaint: LEG WOUNDS Time Seen by Provider: 08/13/20 14:18 History of Present Illness: HPI narrative: 80-year-old female presents emergency room with complaints of problems with her legs. She took some dressings off and there is some denuding of eczematous skin is not reddened or inflamed she denies any fever she denies any significant pain. As her she had been to the wound clinic she was unable to confirm. She is currently at home she gets some help from family members. complaint: rash Onset (ago): day(s) Tetanus up to date: unsure Location: LLE, RLE, L foot and R foot Severity: mild Relieving factors: none Exacerbating factors: none Context: recent antibiotic (right hip painCurrently on antibiotic) Associated symptoms: Deny arthralgias, chills, cough, fever(s), itching, myalgias, nausea, rigidity, short of breath or vomiting Treatments prior to arrival: bandages Review of Systems Const: Denies: fever(s) or chills ENMT: Denies: throat pain, ear or mastoid pain, nasal discharge or nasal congestion Card: Denies: chest pain, edema, dyspnea on exertion or orthopnea Resp: Denies: dyspnea, productive cough or non-productive cough GI: Denies: nausea or vomiting : Denies: flank pain, difficulty voiding, dysuria, urinary frequency or urinary urgency Skin/Breast: Denies: rash or pruritus PFS ED PFSH: Medical History Anemia CVA (cerebral vascular accident) 2013, right hemispheric Dementia Diabetes Hiatal hernia Hyperlipidemia Hypertension Peripheral vascular disease Pneumonia Thalassemia trait Surgical History History of angioplasty of peripheral vessel History of back surgery Family History Other Diabetes Social History Smoking and tobacco status: never smoked Alcohol intake: never Housing: [facility] Physical Exam Const: COMMON NORMALS: no acute distress GENERAL APPEARANCE: cooperative and comfortable HENMT: COMMON NORMALS: normocephalic, atraumatic and hearing grossly normal bilaterally HEAD & SCALP: normocephalic and atraumatic Eye: COMMON NORMALS: Equal, round and reactive pupils present, EOMs intact bilaterally, conjunctivae normal and no scleral icterus CONJUNCTIVA: Yes conjunctivae normal PUPIL: Yes Equal, round and reactive pupils present Neck/C-Spine: COMMON NORMALS: full ROM, no lymphadenopathy, supple and no JVD Lymph: LYMPHATIC: no lymphadenopathy noted and no lymphedema noted Resp: COMMON NORMALS: normal respiratory effort, No retractions, No use of accessory muscles and clear to auscultation bilaterally AUSCULTATION: clear to auscultation bilaterally Cardio: COMMON NORMALS: no JVD, regular rate, regular rhythm and No murmurs present (Cardio) RATE: regular rate RHYTHM: regular rhythm GI: COMMON NORMALS: Soft to palpation and No hepatosplenomegaly present AUSCULTATION: Yes normoactive bowel sounds PALPATION: Yes Soft to palpation, No Tenderness to palpation present (GI), No Guarding due to palpation present (GI) and Yes No hepatosplenomegaly present RECTAL EXAM: visual inspection normal and heme negative stool OTHER: Light redness over the coccyx but no ulceration at this time. Extremity: NARRATIVE EXTREMITY EXAM: Bilateral lower extremities eczematous skin has come off there is some slight exudate it is pink appearing it is not hot to the touch. There is no purulent drainage it is minimally tender. Slight lower extremity edema. Skin: COMMON NORMALS: no rashes or lesions noted GENERAL SKIN EXAM: no rashes or lesions noted Course Vital Signs: Vital signs: Vital Signs Temperature 98.2 F 08/13/20 14:13 Pulse Rate 68 08/13/20 14:13 Respiratory Rate 16 08/13/20 14:13 Blood Pressure 119/72 08/13/20 14:13 Pulse Oximetry 94 08/13/20 14:13 MDM - Skin/Abscess/Foreign Bdy MDM Narrative: Medical decision making narrative: Wound care instructions given change dressings once daily apply the mupirocin her hemoglobin is drifting down she has had problems that in the past she has a thalassemia trait as well she will need to have this rechecked in the next 2 days they can do that through home health. Especially given the fact she is on Eliquis needs to be monitored closely stool on rectal exam was dark but was Hemoccult negative if has any bright red blood return to the emergency room. Lab Data: Labs: Lab Results 08/13/20 08/13/20 Range/Units 14:42 14:42 WBC 9.4 (4.0-10.0) 10^3/ uL RBC 3.06 L (4.1-5.3) 10^6/u L Hgb 7.3 L (11.5-15.3) g/dL Hct 24.0 L (37.0-47.0) % MCV 78.4 L (81-99) fL MCH 23.9 L (28.0-34.0) pg MCHC 30.4 (30.0-36.0) g/dL RDW 17.2 H (12.1-15.1) % Plt Count 224 (130-400) 10^3/c mm MPV 10.0 (7.4-10.4) fL Neut % (Auto) 65.0 % Lymph % (Auto) 18.0 % Tompkins % (Auto) 14.1 % Eos % (Auto) 2.0 % Baso % (Auto) 0.3 % Neut # (Auto) 6.11 (1.8-7.7) 10^3/u L Lymph # (Auto) 1.7 (0.8-4.8) 10^3/u L Tompkins # (Auto) 1.3 H (0.2-0.9) 10^3/u L Eos # (Auto) 0.2 (0.0-0.8) 10^3/u L Baso # (Auto) 0.0 (0.0-0.1) 10^3/u L Nucleated RBC % (a uto) 0.3 % Nucleated RBCs # 0.0 /100WBC Sodium 139 (136-145) mmol/L Potassium 4.9 (3.5-5.1) mmol/L Chloride 105 (98-107) mmol/L Carbon Dioxide 26 (22-29) mmol/L Anion Gap 12.9 (5-19) BUN 25 H (8-23) mg/dL Creatinine 0.8 (0.5-0.9) mg/dL GFR Calculation Not Reportable Glucose 150 H (65-115) mg/dL Calculated Osmolal ity 295 (285-295) mOsm/k g Calcium 9.6 (8.5-10.5) mg/dL Total Bilirubin 0.4 (0.15-1.2) mg/dL AST 15 (0-32) U/L ALT 10 (0-33) U/L Alkaline Phosphata se 72 (35-105) IU/L Total Protein 6.9 (6.6-8.7) g/dL Albumin 3.5 (3.5-5.2) g/dL Globulin 3.4 (1.3-4.6) g/dL Discharge Plan Discharge Patient Disposition: Home Clinical Impression: Chronic venous stasis dermatitis, Weakness, Acute on chronic anemia Condition: Stable Prescriptions: New mupirocin 2 % ointment 1 applic TOPICAL DAILY Qty: 22 RF: 2 No Action Eliquis 2.5 mg tablet 2.5 mg PO BID Qty: 30 RF: 1 tramadol 50 mg tablet 25 mg PO QID PRN (Reason: pain) Qty: 14 RF: 0 metformin 500 mg Tablet 500 mg PO DAILY RF: 0 donepezil 5 mg Tablet 5 mg PO DAILY RF: 0 pravastatin 40 mg Tablet 40 mg PO DAILY RF: 0 acetaminophen 325 mg Tablet 650 mg PO Q6H PRN (Reason: Mild/Mod Pain Or Temp >/= 101) Qty: 0 RF: 0 bumetanide 1 mg Tablet 1 mg PO Q12H Qty: 60 RF: 0 atenolol 50 mg Tablet 50 mg PO DAILY Qty: 30 RF: 0 Discharge Orders: Discharge Order (Routine); Ordered 08/13/20 Ordered By: Nnamdi Gan Referrals: Frankie Garay MD [Primary Care Provider] - Discharge Diet: Usual diet Discharge Activity: Limit activity as instructed Activity Restrictions/Additional Instructions: Apply topical medicine and change dressings once daily. Recheck hemoglobin in the next 2 days. If you notice jag blood with bowel movements return to the emergency room. 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
[2020-08-13 14:47] LABS: Basophils % 0.3 %; Eosinophils # 0.2 10^3/uL (0.0-0.8); Hemoglobin 7.3 g/dL (11.5-15.3); Lymphocytes # 1.7 10^3/uL (0.8-4.8); Mean Corpuscular HGB Conc 30.4 g/dL (30.0-36.0); Mean Corpuscular Hemoglobin 23.9 pg (28.0-34.0); Mean Corpuscular Volume 78.4 fL (81-99); Monocytes # 1.3 10^3/uL (0.2-0.9); Monocytes % 14.1 %; Neutrophils # 6.11 10^3/uL (1.8-7.7); Nucleated Red Blood Cells % 0.3 %; Platelet Count 224 10^3/cmm (130-400); Red Blood Count 3.06 10^6/uL (4.1-5.3); Red Cell Distribution Width 17.2 % (12.1-15.1); White Blood Count 9.4 10^3/uL (4.0-10.0)
[2020-08-13 15:05] LABS: Alanine Aminotransferase 10 U/L (0-33); Albumin Level 3.5 g/dL (3.5-5.2); Alkaline Phosphatase 72 IU/L (35-105); Anion Gap 12.9 (5-19); Aspartate Amino Transferase 15 U/L (0-32); Blood Urea Nitrogen 25 mg/dL (8-23); Calcium 9.6 mg/dL (8.5-10.5); Carbon Dioxide 26 mmol/L (22-29); Chloride 105 mmol/L (98-107); Globulin 3.4 g/dL (1.3-4.6); Glucose 150 mg/dL (65-115); Osmolality Calculated 295 mOsm/kg (285-295); Potassium 4.9 mmol/L (3.5-5.1); Sodium 139 mmol/L (136-145); Total Bilirubin 0.4 mg/dL (0.15-1.2); Total Protein 6.9 g/dL (6.6-8.7)
--- NOTE | 2020-08-13 15:25 | PC.NURSE ---
Pt placed on continuous patient monitor. Pt c/o pain in her legs, Dr. Gan notified.
[2020-08-13] MEDS: acetaminophen 500 mg Tablet 1000 MG PO (15:33)
--- NOTE | 2020-08-13 16:55 | PC.NURSE ---
Mupirocin applied BLE, non-adherent pads applied and secured with kerlix gauze and tape. Hospital socks placed on patient, pt assisted to wheelchair and to waiting room at discharge.
[2020-08-13 16:56] VITALS: BP 118/67; PULSE 72; RESP 18; O2SAT 98
[2020-08-13] MEDS: mupirocin oint 22 gm 1 APPLIC TOPICAL (16:56)
--- NOTE | 2020-08-31 13:55 | DCPLANNER ---
Patient had a follow up appointment scheduled for 08.11.20 with Wound Care - appointment was rescheduled to a later date.
== END 2020-08-13 16:57 | disposition home or self-care (01) ==
PROVIDERS: Emergency Provider Family Medicine; PCP Family Medicine
DX: I87.2 Venous insufficiency (chronic) (peripheral) (principal); R53.1 Weakness; D64.89 Other specified anemias; Z79.01 Long term (current) use of anticoagulants; Z86.73 Personal history of transient ischemic attack (TIA), and cerebral infarction without residual deficits; F03.90 Unspecified dementia, unspecified severity, without behavioral disturbance, psychotic disturbance, mood disturbance, and anxiety; E11.9 Type 2 diabetes mellitus without complications; E78.5 Hyperlipidemia, unspecified; I10 Essential (primary) hypertension
CPT/HCPCS: 12345; 80053; 85025; 99282; 99283

== ENCOUNTER 2020-08-15 15:45 | Outpatient (CLI) | payer MEDICARE, OTHER, SELFPAY ==
[2020-08-15 16:26] LABS: Hematocrit 24.3 % (37.0-47.0); Hemoglobin 7.4 g/dL (11.5-15.3)
== END 2020-08-15 15:46 | disposition home or self-care (01) ==
LOC: LAB 15:48
PROVIDERS: PCP Family Medicine; Visit Provider Family Medicine
DX: E11.51 Type 2 diabetes mellitus with diabetic peripheral angiopathy without gangrene (principal)
CPT/HCPCS: 85014; 85018

== ENCOUNTER 2020-08-16 11:36 | Inpatient (IN) | payer MEDICARE, SELFPAY ==
[2020-08-16 11:39] VITALS: BMI 29.5
--- NOTE | 2020-08-16 11:45 | CT_ITS ---
WS: [id number] CT HEAD NONCONTRAST HISTORY: fall, hit head TECHNIQUE: Contiguous axial imaging performed through the brain in 2.5 mm imaging. Bone and soft tiss ue windows. Sagittal and coronal reformats reviewed. All CT scans at [facility] use at ast one of these dose optimization techniques: automated exposure control; mA and/or kV adjustment pe r patient size (includes targeted exams where dose is matched to clinical indication); or iterative r econstruction. DLP: 2064.8 mGy.cm COMPARISON: 04/25/2020 No acute intracranial hemorrhage, midline shift or mass effect. Moderate atrophy and chronic ischemic disease. Prior infarct in the RIGHT frontal lobe. Ventricles: Ventricles and extra-axial spaces are dilated on the basis of atrophy. Scattered calcifi cations in the cerebellum and basal ganglia. Paranasal sinuses: As visualized are clear. Mastoid air cells: Well pneumatized. Calvarium and scalp: Skull is intact with no soft tissue edema or swelling. CT/CT head wo con* [id number] IMPRESSION: 1. No acute intracranial hemorrhage or edema. 2. Atrophy and marked chronic microvascular ischemic disease and prior infarct s. No interval change or progression since 04/25/2020.
--- NOTE | 2020-08-16 11:45 | XRR_ITS ---
PROCEDURE INFORMATION: Exam: XR Right Tibia and Fibula Exam date and time: 08/16/2020 1:14 PM Age: 80 years old Clinical indication: Pain and injury or trauma; Fall; Blunt trauma; Lower leg; Right; Additional info: Fall, pain TECHNIQUE: Imaging protocol: XR Right tibia and fibula. Views: 2 views. COMPARISON: MRI Knee w/o RIGHT* [id number] 02/08/2016 5:34 PM FINDINGS: Bones/joints: Negative for acute bony abnormality Soft tissues: There is soft tissue effusion in the medial and lateral aspect of the ankle. There is superficial soft tissue of laceration involving the lateral aspect of the lower leg XR/XR tibia fibula RT 2V [id number] IMPRESSION: 1. Negative for acute bony abnormality. 2. Soft tissue edema medial and lateral ankle 3. Superficial soft tissue laceration lateral leg
--- NOTE | 2020-08-16 11:46 | ECG_ITS ---
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 Measurements Intervals [place] Rate: 80 P: 57 MA: 147 QRS: 26 QRSD: 86 T: 22 QT: 365 QTc: 422 Interpretive Statements SINUS RHYTHM Compared to ECG 06/21/2020 02:46:47 T-wave abnormality no longer present Electronically Signed On 08-16-2020 13:18:05 CDT by Benja Reina M.D. [id number]
[2020-08-16 11:50] VITALS: BP 146/63; PULSE 79; RESP 16; TEMP 37.1; O2SAT 100
--- NOTE | 2020-08-16 11:50 | W.ED.FALL ---
Documented by User: Chelsey Pichardo MD 08/21/20 07:00 HPI - Fall General: Chief Complaint: Fall Stated Complaint: FALL CUT LEG, HIT HEAD Time Seen by Provider: 08/16/20 11:36 History of Present Illness: HPI Narrative: This patient is an 80-year-old female who lives at home with her son and his girlfriend. She comes in today after falling and hitting her head. She also has a small cut on her right lower extremity. She complains of severe pain in that leg. She said she was trying to get up out of a chair to take her breakfast dishes into the kitchen when she lost her balance and fell. She hit her head on a nightstand. She does not know if she lost consciousness or not. She does not know how long she laid on the floor. She has nonhealing wounds on her lower legs and was seen here a few days ago for that. She was referred to the wound care clinic and was post to see them today for the first time. EMS said that they noted maggots in the wounds but I have not yet undressed the wounds to examine them. complaint: fall Onset (ago): unknown (Within the last few hours) Fall from: standing Fall witnessed: no Place fall occurred: home Loss of consciousness: Unsure Prolonged down time: unclear Symptoms prior to fall: none Context: other (Lost balance) Location of injury: head Location of injury - extremities: Right: lower leg Review of Systems General: Reports: ROS unobtainable due to mental status (Patient is confused and answers most questions with I do not know) [facility] PFSH: Medical History (Updated 08/20/20 @ 00:00 by ) Anemia Critical lower limb ischemia CVA (cerebral vascular accident) 2013, right hemispheric Dementia Diabetes Hiatal hernia Hyperlipidemia Hypertension Peripheral vascular disease Pneumonia Pneumonia Thalassemia trait Surgical History History of angioplasty of peripheral vessel History of back surgery Family History Other Diabetes Social History Smoking and tobacco status: never smoked Alcohol intake: never Housing: Skilled Nursing Physical Exam Const: COMMON NORMALS: no acute distress, patient oriented x3, no limitations and alert GENERAL APPEARANCE: cooperative and comfortable HENMT: HEAD & SCALP: normal to inspection FACE & SINUS: normal facial exam Eye: GENERAL EYE: appearance normal, both eyes and all related structures Neck/C-Spine: COMMON NORMALS: supple, no meningeal signs and no JVD Chest: COMMONS NORMALS: normal inspection of the chest Resp: COMMON NORMALS: normal respiratory effort, No use of accessory muscles and clear to auscultation bilaterally AUSCULTATION: clear to auscultation bilaterally Cardio: COMMON NORMALS: no JVD, regular rate, regular rhythm and No murmurs present (Cardio) RATE: regular rate RHYTHM: regular rhythm GI: COMMON NORMALS: Normal to inspection, nondistended, normoactive bowel sounds present, Soft to palpation and non-tender INSPECTION: Yes normal to inspection AUSCULTATION: Yes normoactive bowel sounds PALPATION: Yes Soft to palpation Back/Pelvis: COMMON NORMALS: thoracic and lumbar spine normal to inspection Extremity: NARRATIVE EXTREMITY EXAM: Bilateral lower legs with red, weeping, circumferential sores. There is also a small laceration on the lateral right lower leg. Neuro: COMMON NORMALS: patient oriented x3, moves all extremities, no focal motor deficits and no sensory deficits noted SENSORIUM/ORIENTATION: Yes alert MENINGEAL SIGNS: Yes no meningeal signs Psych: COMMON NORMALS: mental status grossly normal, cooperative and normal affect Skin: COMMON NORMALS: no rashes or lesions noted and turgor normal GENERAL SKIN EXAM: no rashes or lesions noted and turgor normal Course ED course: This patient is cared for at home by family. She has been on treatment for the wounds on her legs and was post have a wound care visit today. She was not able to get there due to her fall and excessive weakness. Her granddaughter came in and provided history. 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 Other than the laceration on her leg there is no other injury from her fall today. Not sure if these are actively infected legs or not but she will be admitted to the hospital due to her weakness and will have a surgery consult for wound debridement if required. Vital Signs: Vital signs: Vital Signs Temperature 97.4 F L 08/19/20 17:47 Pulse Rate 102 H 08/19/20 17:47 Respiratory Rate 15 08/19/20 17:47 Blood Pressure 132/65 08/19/20 17:47 Pulse Oximetry 97 08/19/20 17:47 MDM - Fall Lab Data: Labs: Lab Results 08/16/20 08/16/20 08/16/20 Range/Units 12:05 12:05 12:05 WBC 9.2 (4.0-10.0) 10^3/ uL RBC 3.18 L (4.1-5.3) 10^6/u L Hgb 7.5 L (11.5-15.3) g/dL Hct 24.8 L (37.0-47.0) % MCV 78.0 L (81-99) fL MCH 23.6 L (28.0-34.0) pg MCHC 30.2 (30.0-36.0) g/dL RDW 16.8 H (12.1-15.1) % Plt Count 236 (130-400) 10^3/c mm MPV 11.2 H (7.4-10.4) fL Neut % (Auto) 61.3 % Lymph % (Auto) 19.2 % Ripley % (Auto) 16.1 % Eos % (Auto) 2.4 % Baso % (Auto) 0.5 % Neut # (Auto) 5.60 (1.8-7.7) 10^3/u L Lymph # (Auto) 1.8 (0.8-4.8) 10^3/u L Ripley # (Auto) 1.5 H (0.2-0.9) 10^3/u L Eos # (Auto) 0.2 (0.0-0.8) 10^3/u L Baso # (Auto) 0.1 (0.0-0.1) 10^3/u L Nucleated RBC % (a uto) 0.4 % Nucleated RBCs # 0.0 /100WBC D-Dimer (0-0.59) ug/mIFE U Sodium 138 (136-145) mmol/L Potassium 4.5 (3.5-5.1) mmol/L Chloride 101 (98-107) mmol/L Carbon Dioxide 26 (22-29) mmol/L Anion Gap 15.5 (5-19) BUN 18 (8-23) mg/dL Creatinine 0.8 (0.5-0.9) mg/dL GFR Calculation Not Reportable Glucose 194 H (65-115) mg/dL Calculated Osmolal ity 293 (285-295) mOsm/k g Calcium 9.7 (8.5-10.5) mg/dL Phosphorus (2.5-4.5) mg/dL Magnesium (1.7-2.3) mg/dL Iron 31 L (37-145) ug/dL TIBC 197 mcg/dl % Saturation 15.7 L (20-50) % Unsat Iron Binding 166 (112-347) ug/dL Total Bilirubin 0.5 (0.15-1.2) mg/dL AST 18 (0-32) U/L ALT 11 (0-33) U/L Alkaline Phosphata se 73 (35-105) IU/L C-Reactive Protein 48.4 H (0.0-4.9) mg/L NT-Pro-B Natriuret Pep 2085 H (0-450) pg/mL Total Protein 7.0 (6.6-8.7) g/dL Albumin 3.3 L (3.5-5.2) g/dL Globulin 3.7 (1.3-4.6) g/dL Vitamin B12 (232-1245) pg/mL Folate (4.8-37.3) ng/mL Procalcitonin 0.06 (0-0.5) ng/mL TSH (0.27-4.20) uIU/ mL 08/16/20 08/16/20 08/16/20 Range/Units 12:05 12:05 12:05 WBC (4.0-10.0) 10^3/ uL RBC (4.1-5.3) 10^6/u L Hgb (11.5-15.3) g/dL Hct (37.0-47.0) % MCV (81-99) fL MCH (28.0-34.0) pg MCHC (30.0-36.0) g/dL RDW (12.1-15.1) % Plt Count (130-400) 10^3/c mm MPV (7.4-10.4) fL Neut % (Auto) % Lymph % (Auto) % Ripley % (Auto) % Eos % (Auto) % Baso % (Auto) % Neut # (Auto) (1.8-7.7) 10^3/u L Lymph # (Auto) (0.8-4.8) 10^3/u L Ripley # (Auto) (0.2-0.9) 10^3/u L Eos # (Auto) (0.0-0.8) 10^3/u L Baso # (Auto) (0.0-0.1) 10^3/u L Nucleated RBC % (a uto) % Nucleated RBCs # /100WBC D-Dimer 1.12 H (0-0.59) ug/mIFE U Sodium (136-145) mmol/L Potassium (3.5-5.1) mmol/L Chloride (98-107) mmol/L Carbon Dioxide (22-29) mmol/L Anion Gap (5-19) BUN (8-23) mg/dL Creatinine (0.5-0.9) mg/dL GFR Calculation Glucose (65-115) mg/dL Calculated Osmolal ity (285-295) mOsm/k g Calcium (8.5-10.5) mg/dL Phosphorus 2.8 (2.5-4.5) mg/dL Magnesium 1.9 (1.7-2.3) mg/dL Iron (37-145) ug/dL TIBC mcg/dl % Saturation (20-50) % Unsat Iron Binding (112-347) ug/dL Total Bilirubin (0.15-1.2) mg/dL AST (0-32) U/L ALT (0-33) U/L Alkaline Phosphata se (35-105) IU/L C-Reactive Protein (0.0-4.9) mg/L NT-Pro-B Natriuret Pep (0-450) pg/mL Total Protein (6.6-8.7) g/dL Albumin (3.5-5.2) g/dL Globulin (1.3-4.6) g/dL Vitamin B12 (232-1245) pg/mL Folate (4.8-37.3) ng/mL Procalcitonin (0-0.5) ng/mL TSH 1.97 (0.27-4.20) uIU/ mL 08/16/20 08/16/20 Range/Units 12:05 12:05 WBC (4.0-10.0) 10^3/ uL RBC (4.1-5.3) 10^6/u L Hgb (11.5-15.3) g/dL Hct (37.0-47.0) % MCV (81-99) fL MCH (28.0-34.0) pg MCHC (30.0-36.0) g/dL RDW (12.1-15.1) % Plt Count (130-400) 10^3/c mm MPV (7.4-10.4) fL Neut % (Auto) % Lymph % (Auto) % Ripley % (Auto) % Eos % (Auto) % Baso % (Auto) % Neut # (Auto) (1.8-7.7) 10^3/u L Lymph # (Auto) (0.8-4.8) 10^3/u L Ripley # (Auto) (0.2-0.9) 10^3/u L Eos # (Auto) (0.0-0.8) 10^3/u L Baso # (Auto) (0.0-0.1) 10^3/u L Nucleated RBC % (a uto) % Nucleated RBCs # /100WBC D-Dimer (0-0.59) ug/mIFE U Sodium (136-145) mmol/L Potassium (3.5-5.1) mmol/L Chloride (98-107) mmol/L Carbon Dioxide (22-29) mmol/L Anion Gap (5-19) BUN (8-23) mg/dL Creatinine (0.5-0.9) mg/dL GFR Calculation Glucose (65-115) mg/dL Calculated Osmolal ity (285-295) mOsm/k g Calcium (8.5-10.5) mg/dL Phosphorus (2.5-4.5) mg/dL Magnesium (1.7-2.3) mg/dL Iron (37-145) ug/dL TIBC mcg/dl % Saturation (20-50) % Unsat Iron Binding (112-347) ug/dL Total Bilirubin (0.15-1.2) mg/dL AST (0-32) U/L ALT (0-33) U/L Alkaline Phosphata se (35-105) IU/L C-Reactive Protein (0.0-4.9) mg/L NT-Pro-B Natriuret Pep (0-450) pg/mL Total Protein (6.6-8.7) g/dL Albumin (3.5-5.2) g/dL Globulin (1.3-4.6) g/dL Vitamin B12 224 L (232-1245) pg/mL Folate 11.9 (4.8-37.3) ng/mL Procalcitonin (0-0.5) ng/mL TSH (0.27-4.20) uIU/ mL Discharge Plan Discharge Patient Disposition: Admitted As Inpatient Admit Provider: Karlo Daigle Clinical Impression: Chronic venous stasis dermatitis, Weakness, Acute on chronic anemia Condition: Stable Referrals: Luis Fernando Kohli MD [Physician] - 2 weeks Frankie Garay MD [Primary Care Provider] - 7-10 days [facility], [Staff Physician] - 2 weeks Discharge Diet: Cardiac and Diabetic Discharge Activity: Resume usual activity and Increase activity as tolerated Patient Instructions: Peripheral Vascular Disorders (DC), Chronic Wound Care (DC) Additional Instructions: Cover the dry skin areas with some triple antibiotic ointment just for moisturization purposes and to keep any small superficial wounds covered. We will avoid any application to her soles for now as she does spend time up ambulating. Discharge Date/Time: 08/16/20 16:15 Coding Level of Care Code ED Milling General Superintendent for Chg Fwd Exam Comprehensive Documented by User: KEVIN Leavitt 08/18/20 22:23 HPI - Fall General: Chief Complaint: Fall Stated Complaint: FALL CUT LEG, HIT HEAD Time Seen by Provider: 08/16/20 11:36 [facility] PFSH: Medical History (Updated 08/20/20 @ 00:00 by ) Anemia Critical lower limb ischemia CVA (cerebral vascular accident) 2013, right hemispheric Dementia Diabetes Hiatal hernia Hyperlipidemia Hypertension Peripheral vascular disease Pneumonia Pneumonia Thalassemia trait Surgical History History of angioplasty of peripheral vessel History of back surgery Family History Other Diabetes Social History Smoking and tobacco status: never smoked Alcohol intake: never Housing: Skilled Nursing Procedures Laceration Laceration 1: Site: lower extremity Side (If applicable): right Size (cm): 4.5 Description: flap, irregular, contaminated and other (contused) Depth: simple, single layer Local Anesthetic: lidocaine 1% and with epi Amount of anesthesia used (mL): 7 Pre-repair: wound explored, irrigated extensively, deep structures intact and extensive debridement Skin layer closed with: nylon Size (cm): 4-0 Number of sutures: 4 Course Vital Signs: Vital signs: Vital Signs Temperature 97.4 F L 08/19/20 17:47 Pulse Rate 102 H 08/19/20 17:47 Respiratory Rate 15 08/19/20 17:47 Blood Pressure 132/65 08/19/20 17:47 Pulse Oximetry 97 08/19/20 17:47 MDM - Fall Lab Data: Labs: Lab Results 08/16/20 08/16/20 08/16/20 Range/Units 12:05 12:05 12:05 WBC 9.2 (4.0-10.0) 10^3/ uL RBC 3.18 L (4.1-5.3) 10^6/u L Hgb 7.5 L (11.5-15.3) g/dL Hct 24.8 L (37.0-47.0) % MCV 78.0 L (81-99) fL MCH 23.6 L (28.0-34.0) pg MCHC 30.2 (30.0-36.0) g/dL RDW 16.8 H (12.1-15.1) % Plt Count 236 (130-400) 10^3/c mm MPV 11.2 H (7.4-10.4) fL Neut % (Auto) 61.3 % Lymph % (Auto) 19.2 % Ripley % (Auto) 16.1 % Eos % (Auto) 2.4 % Baso % (Auto) 0.5 % Neut # (Auto) 5.60 (1.8-7.7) 10^3/u L Lymph # (Auto) 1.8 (0.8-4.8) 10^3/u L Ripley # (Auto) 1.5 H (0.2-0.9) 10^3/u L Eos # (Auto) 0.2 (0.0-0.8) 10^3/u L Baso # (Auto) 0.1 (0.0-0.1) 10^3/u L Nucleated RBC % (a uto) 0.4 % Nucleated RBCs # 0.0 /100WBC D-Dimer (0-0.59) ug/mIFE U Sodium 138 (136-145) mmol/L Potassium 4.5 (3.5-5.1) mmol/L Chloride 101 (98-107) mmol/L Carbon Dioxide 26 (22-29) mmol/L Anion Gap 15.5 (5-19) BUN 18 (8-23) mg/dL Creatinine 0.8 (0.5-0.9) mg/dL GFR Calculation Not Reportable Glucose 194 H (65-115) mg/dL Calculated Osmolal ity 293 (285-295) mOsm/k g Calcium 9.7 (8.5-10.5) mg/dL Phosphorus (2.5-4.5) mg/dL Magnesium (1.7-2.3) mg/dL Iron 31 L (37-145) ug/dL TIBC 197 mcg/dl % Saturation 15.7 L (20-50) % Unsat Iron Binding 166 (112-347) ug/dL Total Bilirubin 0.5 (0.15-1.2) mg/dL AST 18 (0-32) U/L ALT 11 (0-33) U/L Alkaline Phosphata se 73 (35-105) IU/L C-Reactive Protein 48.4 H (0.0-4.9) mg/L NT-Pro-B Natriuret Pep 2085 H (0-450) pg/mL Total Protein 7.0 (6.6-8.7) g/dL Albumin 3.3 L (3.5-5.2) g/dL Globulin 3.7 (1.3-4.6) g/dL Vitamin B12 (232-1245) pg/mL Folate (4.8-37.3) ng/mL Procalcitonin 0.06 (0-0.5) ng/mL TSH (0.27-4.20) uIU/ mL 08/16/20 08/16/20 08/16/20 Range/Units 12:05 12:05 12:05 WBC (4.0-10.0) 10^3/ uL RBC (4.1-5.3) 10^6/u L Hgb (11.5-15.3) g/dL Hct (37.0-47.0) % MCV (81-99) fL MCH (28.0-34.0) pg MCHC (30.0-36.0) g/dL RDW (12.1-15.1) % Plt Count (130-400) 10^3/c mm MPV (7.4-10.4) fL Neut % (Auto) % Lymph % (Auto) % Ripley % (Auto) % Eos % (Auto) % Baso % (Auto) % Neut # (Auto) (1.8-7.7) 10^3/u L Lymph # (Auto) (0.8-4.8) 10^3/u L Ripley # (Auto) (0.2-0.9) 10^3/u L Eos # (Auto) (0.0-0.8) 10^3/u L Baso # (Auto) (0.0-0.1) 10^3/u L Nucleated RBC % (a uto) % Nucleated RBCs # /100WBC D-Dimer 1.12 H (0-0.59) ug/mIFE U Sodium (136-145) mmol/L Potassium (3.5-5.1) mmol/L Chloride (98-107) mmol/L Carbon Dioxide (22-29) mmol/L Anion Gap (5-19) BUN (8-23) mg/dL Creatinine (0.5-0.9) mg/dL GFR Calculation Glucose (65-115) mg/dL Calculated Osmolal ity (285-295) mOsm/k g Calcium (8.5-10.5) mg/dL Phosphorus 2.8 (2.5-4.5) mg/dL Magnesium 1.9 (1.7-2.3) mg/dL Iron (37-145) ug/dL TIBC mcg/dl % Saturation (20-50) % Unsat Iron Binding (112-347) ug/dL Total Bilirubin (0.15-1.2) mg/dL AST (0-32) U/L ALT (0-33) U/L Alkaline Phosphata se (35-105) IU/L C-Reactive Protein (0.0-4.9) mg/L NT-Pro-B Natriuret Pep (0-450) pg/mL Total Protein (6.6-8.7) g/dL Albumin (3.5-5.2) g/dL Globulin (1.3-4.6) g/dL Vitamin B12 (232-1245) pg/mL Folate (4.8-37.3) ng/mL Procalcitonin (0-0.5) ng/mL TSH 1.97 (0.27-4.20) uIU/ mL 08/16/20 08/16/20 Range/Units 12:05 12:05 WBC (4.0-10.0) 10^3/ uL RBC (4.1-5.3) 10^6/u L Hgb (11.5-15.3) g/dL Hct (37.0-47.0) % MCV (81-99) fL MCH (28.0-34.0) pg MCHC (30.0-36.0) g/dL RDW (12.1-15.1) % Plt Count (130-400) 10^3/c mm MPV (7.4-10.4) fL Neut % (Auto) % Lymph % (Auto) % Ripley % (Auto) % Eos % (Auto) % Baso % (Auto) % Neut # (Auto) (1.8-7.7) 10^3/u L Lymph # (Auto) (0.8-4.8) 10^3/u L Ripley # (Auto) (0.2-0.9) 10^3/u L Eos # (Auto) (0.0-0.8) 10^3/u L Baso # (Auto) (0.0-0.1) 10^3/u L Nucleated RBC % (a uto) % Nucleated RBCs # /100WBC D-Dimer (0-0.59) ug/mIFE U Sodium (136-145) mmol/L Potassium (3.5-5.1) mmol/L Chloride (98-107) mmol/L Carbon Dioxide (22-29) mmol/L Anion Gap (5-19) BUN (8-23) mg/dL Creatinine (0.5-0.9) mg/dL GFR Calculation Glucose (65-115) mg/dL Calculated Osmolal ity (285-295) mOsm/k g Calcium (8.5-10.5) mg/dL Phosphorus (2.5-4.5) mg/dL Magnesium (1.7-2.3) mg/dL Iron (37-145) ug/dL TIBC mcg/dl % Saturation (20-50) % Unsat Iron Binding (112-347) ug/dL Total Bilirubin (0.15-1.2) mg/dL AST (0-32) U/L ALT (0-33) U/L Alkaline Phosphata se (35-105) IU/L C-Reactive Protein (0.0-4.9) mg/L NT-Pro-B Natriuret Pep (0-450) pg/mL Total Protein (6.6-8.7) g/dL Albumin (3.5-5.2) g/dL Globulin (1.3-4.6) g/dL Vitamin B12 224 L (232-1245) pg/mL Folate 11.9 (4.8-37.3) ng/mL Procalcitonin (0-0.5) ng/mL TSH (0.27-4.20) uIU/ mL Discharge Plan Discharge Patient Disposition: Admitted As Inpatient Admit Provider: Karlo Daigle Clinical Impression: Chronic venous stasis dermatitis, Weakness, Acute on chronic anemia Condition: Stable Referrals: Luis Fernando Kohli MD [Physician] - 2 weeks Frankie Garay MD [Primary Care Provider] - 7-10 days [facility], [Staff Physician] - 2 weeks Discharge Diet: Cardiac and Diabetic Discharge Activity: Resume usual activity and Increase activity as tolerated Patient Instructions: Peripheral Vascular Disorders (DC), Chronic Wound Care (DC) Additional Instructions: Cover the dry skin areas with some triple antibiotic ointment just for moisturization purposes and to keep any small superficial wounds covered. We will avoid any application to her soles for now as she does spend time up ambulating. Discharge Date/Time: 08/16/20 16:15 Coding Level of Care Code ED M[facility] General Superintendent for Chris Serra Exam Comprehensive
[2020-08-16 12:26] LABS: Basophils # 0.1 10^3/uL (0.0-0.1); Basophils % 0.5 %; Eosinophils # 0.2 10^3/uL (0.0-0.8); Eosinophils % 2.4 %; Hematocrit 24.8 % (37.0-47.0); Hemoglobin 7.5 g/dL (11.5-15.3); Lymphocytes # 1.8 10^3/uL (0.8-4.8); Lymphocytes % 19.2 %; Mean Corpuscular HGB Conc 30.2 g/dL (30.0-36.0); Mean Corpuscular Hemoglobin 23.6 pg (28.0-34.0); Mean Platelet Volume 11.2 fL (7.4-10.4); Monocytes # 1.5 10^3/uL (0.2-0.9); Monocytes % 16.1 %; Neutrophils % 61.3 %; Nucleated Red Blood Cells % 0.4 %; Platelet Count 236 10^3/cmm (130-400); Red Blood Count 3.18 10^6/uL (4.1-5.3); Red Cell Distribution Width 16.8 % (12.1-15.1); White Blood Count 9.2 10^3/uL (4.0-10.0)
[2020-08-16 12:37] LABS: Alanine Aminotransferase 11 U/L (0-33); Albumin Level 3.3 g/dL (3.5-5.2); Alkaline Phosphatase 73 IU/L (35-105); Anion Gap 15.5 (5-19); Aspartate Amino Transferase 18 U/L (0-32); Blood Urea Nitrogen 18 mg/dL (8-23); Calcium 9.7 mg/dL (8.5-10.5); Carbon Dioxide 26 mmol/L (22-29); Chloride 101 mmol/L (98-107); Creatinine Clr Calc Pharmacy 53.7545; Globulin 3.7 g/dL (1.3-4.6); Glucose 194 mg/dL (65-115); Osmolality Calculated 293 mOsm/kg (285-295); Potassium 4.5 mmol/L (3.5-5.1); Sodium 138 mmol/L (136-145); Total Bilirubin 0.5 mg/dL (0.15-1.2)
[2020-08-16 12:56] LABS: C Reactive Protein 48.4 mg/L (0.0-4.9)
[2020-08-16 13:03] VITALS: BP 174/65; PULSE 80; RESP 16; O2SAT 100
[2020-08-16] MEDS: TRAMadol 50 mg Tablet PO (13:56)
[2020-08-16 15:10] VITALS: PULSE 80; RESP 16; O2SAT 98
--- NOTE | 2020-08-16 16:06 | PC.NURSE ---
pt report called to Adilia DOWLING in SBAR format.
[2020-08-16 16:30] VITALS: BP 164/72; PULSE 85; RESP 18; TEMP 36.6; O2SAT 99
--- NOTE | 2020-08-16 17:14 | P.HP_ITS ---
Providers/Chief Complaint Admitting Physician: Karlo Daigle MD Primary Care Provider: Frankie Garay MD Chief Complaint: FALL CUT LEG, HIT HEAD History of Present Illness Charisma Holly is a 80 year old female carries diagnosis of thalassemia trait, type 2 diabetes, hypertension, microcytic anemia, grade 1 diastolic dysfunction EF 65%, pulmonary embolism, she is on modified dose of Eliquis, carries history of dementia, severe peripheral vascular disease status post intervention with balloon angioplasty of the distal left tibial peroneal trunk in April 2020, chronic hypoxia requiring 1.5 L of oxygen coming in today for generalized weakness. Most of the history taken through patient's daughter via phone. Apparently patient was in an accident in April earlier this year and was discharged home. At that time patient was also investigated by Adult Protective Services as patient was found to have maggots on her wounds. Patient was brought into the ER today by the daughter because of worsening leg wounds as per the daughter. She states for last 1 month the wounds have become more weeping and has required multiple dressing changes with home health nurse f inding maggots at least twice in last 1 week with most recently yesterday. She denies of having any purulent discharge, fever, pain, bloody discharge. She is also complaining of patient apparently having some hallucinations on and off for last 1 month with most recently a week ago when she thought she did not have any legs. Patient's daughter denied of patient having any nausea, vomiting, diarrhea, dysuria, changes in appetite, headache, dizziness, exposure to COVID-19. On examination patient is sitting comfortably in bed having her food. She denies of having any nausea, vomiting patient is AO x3. She states at baseline she is able to walk around at home slowly with a walker. She states her legs are hurting. She denies of having any dysuria and does complain of occasional diarrhea when she drinks coffee. Lab work in the ER showed white count of 9.2, hemoglobin of 7.5, platelet count of 236, d-dimer of 1.12, sodium of 138, creatinine of 0.8, AST/ALT of 18/11, CRP of 48.4, albumin of 3.3 with foot x-ray neck negative for any bony involvement with soft tissue edema at medial and lateral ankle of the right side. Review of Systems General: Reports: 10 or more systems reviewed and unremarkable except in HPI and below Const: Denies: fever(s), chills, body aches, change in appetite, change in weight, malaise, night sweats, diaphoresis, change in sleep pattern, daytime sleepiness or snoring Eyes: Denies: change in vision, blurry vision, photophobia, eye discomfort or eye discharge ENMT: Denies: throat pain, enlarged tonsils, hoarseness, mouth pain, oral sores, dry mouth, tinnitus, nasal congestion or post nasal drip Card: Denies: chest pain, palpitations, irregular heart rhythm, edema, swelling of feet/ankles, lightheadedness, syncope, pre-syncope, dyspnea on exertion, orthopnea, leg pain with exertion or acrocyanosis Resp: Denies: dyspnea, productive cough, non-productive cough, wheezing, st ridor, pain on inspiration, change in phlegm color, hemoptysis or chest congestion GI: Denies: abdominal pain, nausea, vomiting, hematemesis, coffee ground emesis, dysphagia, heartburn, diarrhea, constipation, bloating, GI cramping, change in bowel habits, pain on defecation, hematochezia or melena : Denies: flank pain, dysuria, urinary frequency, urinary urgency, urinary hesitancy, nocturia or hematuria Musc: Denies: neck pain, back pain, extremity pain, joint pain, joint swelling, joint redness, joint stiffness or limited range of motion Neuro: Denies: headache(s), numbness in extremities, weakness in extremities, sensory changes, lack of coordination, difficulty walking, frequent falls, dizziness, vertigo, confusion, Slurred speech present, difficulty communicating thoughts or seizure-like activity Psych: Denies: anxiety, depression, mood swings, panic attacks, hopelessness or irritability Endo: Denies: polyuria, polydipsia, tired all the time, cold intolerance, excessive sweating, flushing or heat intolerance Bobby/Lymph: Denies: easy bruising or easy bleeding All/Imm: Denies: tongue swelling, facial swelling or acute wheezing Medications/Allergies Home Medications Medication Instructions Recorded Confirmed Last Taken Type donepezil 5 mg PO DAILY 04/25/20 08/16/20 05/03/20 History metformin 500 mg PO DAILY 04/25/20 08/16/20 05/04/20 History pravastatin 40 mg PO DAILY 04/25/20 08/16/20 05/03/20 History acetaminophen 650 mg PO Q6H PRN #0 tab 05/03/20 08/16/20 Unknown Rx Eliquis 2.5 mg PO BID #30 tab 05/06/20 08/16/20 Unknown Rx atenolol 50 mg PO DAILY #30 tab 06/25/20 08/16/20 Unknown Rx bumetanide 1 mg PO Q12H #60 tab 06/25/20 08/16/20 Unknown Rx tramadol 25 mg PO QID PRN #14 tab 08/09/20 08/16/20 Unknown Rx mupirocin 1 applic TOPICAL DAILY #22 gm 08/13/20 08/16/20 Unknown Rx cephalexin 500 mg PO TID 08/16/20 08/16/20 Unknown History citalopram [Celexa] 10 mg PO DAILY 08/16/20 08/16/20 Unknown History ferrous sulfate 324 mg PO BID 08/16/20 08/16/20 Unknown History pantoprazole 40 mg PO BID 08/16/20 08/16/20 Unknown History Allergies Allergy/AdvReac Type Severity Reaction Status Date / Time NKDA Allergy Unknown Uncoded 08/01/20 15:32 PFSH Acute PFSH: Medical History Anemia CVA (cerebral vascular accident) 2013, right hemispheric Dementia Diabetes Hiatal hernia Hyperlipidemia Hypertension Peripheral vascular disease Pneumonia Thalassemia trait Surgical History History of angioplasty of peripheral vessel History of back surgery Family History Other Diabetes Social History Smoking and tobacco status: never smoked Alcohol intake: never Housing: Intermediate Vitals/I&O/Wt Last Vital Signs Temp 97.8 F 08/16/20 16:30 Pulse 85 08/16/20 16:30 Resp 18 08/16/20 16:30 BP 164/72 08/16/20 16:30 Pulse Ox 99 08/16/20 16:30 Weight last 48 hrs Weight 75.75 kg Physical Exam Narrative: EXAM NARRATIVE: General: No acute distress, AO x3, pleasant, frail HEENT: PERRLA, pupils bilaterally equal and reactive Chest: Normal vesicular breath sounds, no added sounds, equal good air entry bilaterally CVS: S1-S2 regular, no murmurs, no tachycardia, no gallops, no rubs Abdomen: Soft, nontender, no organomegaly, bowel sounds present Neuro: No focal deficits, no facial deformity, AO x3, power 5/5 in all limbs Extremities: Bilateral venous dermatitis present in her legs going up to midcalf with few areas of raw skin without any signs of cellulitis including erythema or localized areas of temperature without any foul-smelling discharge Data : 08/16/20 12:05 08/16/20 12:05 A&P Assessment and plan (1) Chronic venous stasis dermatitis: Status: Acute (2) Peripheral vascular disease: Status: Acute (3) Congestive heart failure: Status: Acute Qualifiers: Heart failure type: unspecified Heart failure chronicity: acute on chronic Qualified Code(s): I50.9 - Heart failure, unspecified (4) Acute on chronic anemia: Status: Acute (5) Pulmonary embolism: Status: Acute (6) Diabetes: Status: Acute (7) Hyperlipidemia: Status: Acute (8) Hypertension: Status: Acute Additional A&P Information 80-year-old female with past medical history of chronic venous status dermatitis, peripheral vascular disease post ST presented to the ER today with worsening wounds which have been nonhealing for almost a month with occasional presence of maggots as per the family and home health nurse. Chronic venous static dermatitis: Doubt any signs of cellulitis at present. For now start patient on vancomycin and imipenem. Patient has history of ESBL E. coli and Klebsiella in the past. Which was susceptible to imipenem. Blood culture, MRSA swab, urinalysis, urine culture, procalcitonin, urinalysis. Will de-escalate antibiotics as per the culture results or if patient remains afebrile for next 48 hours can discontinue the antibiotics. We will consult surgery for wound care. X-ray in the ER negative for any bony involvement. Peripheral vascular disease: Last angioplasty done in April. Continue with statin and Eliquis. We will repeat VALERY. Congestive heart failure: Last echocardiogram done in May 2020 shows an EF of 60-65% with grade 1 diastolic dysfunction with mildly to moderately increased size and LA and RA, moderate MR, mild AV aortic sclerosis, moderate TR At home patient is on Bumex 1 mg p.o. every 12 hourly. As per the family urine output has been decreasing. Check proBNP. Start patient on IV Lasix 80 mg twice daily. Strict input output charting. Daily weights. Anemia: Check iron panel, vitamin B12, folate levels. Hemoglobin seems to be stable around 7.7. This seems to her baseline with hemoglobin fluctuating between 7.5-9 in last 1 year Lab stool for occult blood done in June negative. We will recheck. History of pulmonary embolism: Continue with home dose of Eliquis 2.5 mg twice daily. Hypertension: Goal blood pressure less than 140/90 emergency. We will continue to monitor. Continue home dose of atenolol. Type diabetes mellitus: Start patient on insulin sliding scale. Carb consistent diet. Continue other chronic medications like Celexa, donepezil. Goals of care: Discussed in detail with patient's daughter who is also DPOAE. For now she states patient would want to be full code but would not want to live on life support for long. Discharge planning: Patient daughter states at present because wounds are weeping more it is difficult for her to take care of her at home because she requires more frequent bandage changes. She has agreed for possible placement to SNF if required for short-term. She states most likely she will be okay with patient going to [facility]. PT/OT evaluation. Care coordination consult for discharge planning. Full code. Eliquis will also help with DVT prophylaxis. 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
[2020-08-16 17:22] LABS: D Dimer 1.12 ug/mIFEU (0-0.59)
[2020-08-16 17:37] LABS: NT Pro B Type Natriuretic Pept 2085 pg/mL (0-450)
[2020-08-16 17:38] LABS: Thyroid Stimulating Hormone 1.97 uIU/mL (0.27-4.20)
[2020-08-16 18:14] LABS: Magnesium 1.9 mg/dL (1.7-2.3); Phosphorus 2.8 mg/dL (2.5-4.5)
[2020-08-16 18:16] LABS: Procalcitonin 0.06 ng/mL (0-0.5)
[2020-08-16] MEDS: ferrous sulfate EC 325 mg Tablet PO (18:25)
[2020-08-16] MEDS: apixaban 5 mg Tablet 2.5 MG PO (18:26)
[2020-08-16 18:27] LABS: Iron 31 ug/dL (37-145); Percent Saturation 15.7 % (20-50); Total Iron Binding Capacity 197 mcg/dl; Unsaturated Iron Binding 166 ug/dL (112-347)
[2020-08-16] MEDS: famotidine 20 mg/2 mL INJ IVP (18:28)
[2020-08-16 18:29] LABS: Glucose Point of Care 198 mg/dL (70-110)
[2020-08-16 18:30] LABS: Folate Level 11.9 ng/mL (4.8-37.3)
[2020-08-16 18:31] LABS: Vitamin B12 224 pg/mL (232-1245)
[2020-08-16] MEDS: FUROsemide 10 mg/mL SDV 10mL 80 MG IVP (18:34)
[2020-08-16] MEDS: vancomycin 1,000 MG in sodium chloride 0.9% 250 ML 250 MG IV (18:45)
[2020-08-16 19:52] VITALS: BP 127/84; PULSE 87; RESP 18; TEMP 36.7; O2SAT 94
[2020-08-16] MEDS: TRAMadol 50 mg Tablet 25 MG PO (19:52)
[2020-08-16 21:53] LABS: Glucose Point of Care 99 mg/dL (70-110)
[2020-08-17] VITALS (7 sets, daily range): BP systolic 105–118; BP diastolic 52–66; PULSE 68–110; RESP 18–22; TEMP 36.7–37.1; O2SAT 90–100
[2020-08-17 04:20] LABS: Glucose Point of Care 156 mg/dL (70-110)
[2020-08-17] MEDS: FUROsemide 10 mg/mL SDV 10mL 80 MG IVP (04:58)
[2020-08-17] MEDS: famotidine 20 mg/2 mL INJ IVP (04:58)
[2020-08-17 05:31] LABS: Basophils % 0.2 %; Eosinophils # 0.1 10^3/uL (0.0-0.8); Eosinophils % 1.1 %; Hematocrit 23.6 % (37.0-47.0); Hemoglobin 7.2 g/dL (11.5-15.3); Lymphocytes # 1.6 10^3/uL (0.8-4.8); Lymphocytes % 12.1 %; Mean Corpuscular HGB Conc 30.5 g/dL (30.0-36.0); Mean Corpuscular Hemoglobin 23.4 pg (28.0-34.0); Mean Corpuscular Volume 76.6 fL (81-99); Mean Platelet Volume 11.6 fL (7.4-10.4); Monocytes # 1.7 10^3/uL (0.2-0.9); Monocytes % 13.2 %; Neutrophils # 9.36 10^3/uL (1.8-7.7); Neutrophils % 72.9 %; Nucleated Red Blood Cells % 0 %; Platelet Count 251 10^3/cmm (130-400); Red Blood Count 3.08 10^6/uL (4.1-5.3); Red Cell Distribution Width 16.5 % (12.1-15.1); White Blood Count 12.8 10^3/uL (4.0-10.0)
[2020-08-17 05:46] LABS: INR 1.25 (0.8-1.2)
[2020-08-17 06:05] LABS: Alanine Aminotransferase 9 U/L (0-33); Albumin Level 3.4 g/dL (3.5-5.2); Alkaline Phosphatase 74 IU/L (35-105); Aspartate Amino Transferase 21 U/L (0-32); Blood Urea Nitrogen 15 mg/dL (8-23); Calcium 8.9 mg/dL (8.5-10.5); Carbon Dioxide 28 mmol/L (22-29); Chloride 99 mmol/L (98-107); Creatinine Clr Calc Pharmacy 53.7545; Globulin 3.4 g/dL (1.3-4.6); Glucose 173 mg/dL (65-115); Osmolality Calculated 291 mOsm/kg (285-295); Sodium 138 mmol/L (136-145); Total Bilirubin 0.7 mg/dL (0.15-1.2); Total Protein 6.8 g/dL (6.6-8.7)
[2020-08-17 06:24] LABS: Magnesium 1.6 mg/dL (1.7-2.3); Phosphorus 3.2 mg/dL (2.5-4.5)
[2020-08-17 06:30] LABS: Estmated Average Glucose 131; Hemoglobin A1C 6.2 % (4.0-6.0)
[2020-08-17] MEDS: haloperidol inj 5 mg/mL INJ 1 mL IM (06:54)
--- NOTE | 2020-08-17 08:51 | PM.CONSULT ---
Providers/Reason For Consult Consulting Physican/Specialty*: General Surgery Gerry Enrique MD Reason for Consult*: Bilateral lower extremity venous stasis dermatitis. Attending Physician: Karlo Daigle MD Primary Care Provider: Frankie Garay MD History of Present Illness History of Present Illness Charisma Holly is a 80 year old female with a history of some bilateral lower extremity venous stasis dermatitis complicated by some peripheral vascular disease. She apparently has had some increasing weeping of some very superficial wounds on her lower extremities recently. I have been asked to provide wound care recommendations for her while she is awaiting placement. Review of Systems General: Reports: 10 or more systems reviewed and unremarkable except in HPI and below Const: Denies: fever(s) Skin/Breast: Reports: skin pain (With some occasional serous drainage from wounds on the lower legs bilaterally) Meds/Allergies Home Medications and Allergies Home Medications Medication Instructions Recorded Confirmed Last Taken Type donepezil 5 mg PO DAILY 04/25/20 08/16/20 05/03/20 History metformin 500 mg PO DAILY 04/25/20 08/16/20 05/04/20 History pravastatin 40 mg PO DAILY 04/25/20 08/16/20 05/03/20 History acetaminophen 650 mg PO Q6H PRN #0 tab 05/03/20 08/16/20 Unknown Rx Eliquis 2.5 mg PO BID #30 tab 05/06/20 08/16/20 Unknown Rx atenolol 50 mg PO DAILY #30 tab 06/25/20 08/16/20 Unknown Rx bumetanide 1 mg PO Q12H #60 tab 06/25/20 08/16/20 Unknown Rx tramadol 25 mg PO QID PRN #14 tab 08/09/20 08/16/20 Unknown Rx mupirocin 1 applic TOPICAL DAILY #22 gm 08/13/20 08/16/20 Unknown Rx cephalexin 500 mg PO TID 08/16/20 08/16/20 Unknown History citalopram [Celexa] 10 mg PO DAILY 08/16/20 08/16/20 Unknown History ferrous sulfate 324 mg PO BID 08/16/20 08/16/20 Unknown History pantoprazole 40 mg PO BID 08/16/20 08/16/20 Unknown History Allergies Allergy/AdvReac Type Severity Reaction Status Date / Time NKDA Allergy Unknown Uncoded 08/01/20 15:32 Current Medications Current Medications Generic Name Dose Route Start Last Admin Trade Name Freq PRN Reason Stop Dose Admin Apixaban 2.5 mg 08/16/20 18:00 08/16/20 18:26 Eliquis PO 2.5 mg BID TANYA Administration Famotidine 20 mg 08/16/20 17:15 08/17/20 04:58 Pepcid Inj IVP 20 mg Q12H TANYA Administration Ferrous Sulfate 325 mg 08/16/20 18:00 08/16/20 18:25 Ferrous Sulfate PO 325 mg BID TANYA Administration Furosemide 80 mg 08/16/20 17:15 08/17/20 04:58 Lasix IVP 80 mg Q12H TANYA Administration Vancomycin HCl 1,000 mg/ 250 mls @ 250 mls/hr 08/16/20 18:00 08/16/20 18:45 Sodium Chloride IV 250 mls/hr Q18H TANYA Administration Protocol Imipenem/Cilastatin Sodium 500 100 mls @ 200 mls/hr 08/16/20 17:15 08/17/20 02:08 mg/ Sodium Chloride IV 200 mls/hr Q6H TANYA Administration Protocol Insulin Aspart 0 unit 08/16/20 18:00 08/16/20 22:01 Novolog SUBCUT Not Given WM&BEDTIME TANYA Protocol Tramadol HCl 25 mg 08/16/20 17:09 08/16/20 19:52 Ultram PO 25 mg QID PRN Administration pain PFSH Acute PFSH: Medical History (Updated 08/17/20 @ 00:01 by ) Anemia CVA (cerebral vascular accident) 2013, right hemispheric Dementia Diabetes Hiatal hernia Hyperlipidemia Hypertension Peripheral vascular disease Pneumonia Thalassemia trait Surgical History History of angioplasty of peripheral vessel History of back surgery Family History Other Diabetes Social History Smoking and tobacco status: never smoked Alcohol intake: never Housing: Half-Way Vitals/I&O/Wt Last Vital Signs Temp 98.1 F 08/17/20 04:00 Pulse 68 08/17/20 08:00 Resp 22 H 08/17/20 08:00 BP 112/57 08/17/20 04:00 Pulse Ox 96 08/17/20 08:00 08/16/20 08/17/20 08/17/20 22:59 06:59 14:59 Intake Total 340 / 440 100 / 440 Balance 340 / 440 100 / 440 Weight last 48 hrs Weight 167 lb Physical Exam Narrative: EXAM NARRATIVE: The patient was encountered in her hospital room. She is in no distress. She has some Kerlix wrapped around her right ankle but her lower extremities otherwise undressed. She has dry and somewhat flaky skin involving the distal lower extremities bilaterally from mid lower leg inferiorly. She does have some pigmentation typical of chronic venous stasis bilaterally. She does not have any obvious open wounds that are weeping. Even upon partially removing the Curlex wrap on the right ankle she may does have a few cracks in the skin but no significant drainage on the dressing. Data Micro: Micro: Microbiology 08/16/20 18:08 Blood Culture - Pr eliminary Blood SPECIMEN [facility] 08/16/20 18:08 Blood Culture - Pr eliminary Blood SPECIMEN [facility] A&P Assessment and plan (1) Chronic venous stasis dermatitis: It would appear that the patient's primary issue is venous stasis dermatitis/dry skin. Right now she does not have any obvious significant open wounds that need any specific treatment, but her skin is in need some moisturization. I have instructed nursing to cover the dry skin areas with some triple antibiotic ointment just for moisturization purposes and to keep any small superficial wounds covered. We will avoid any application to her soles for now as she does spend time up ambulating. Status: Acute (2) Peripheral vascular disease: Status: Acute Consult Attestations Medical Necessity Statement: See admitting service's notation. Coding Level of Care Code Acute Manager Material for Chris Serra Diagnoses Chronic venous stasis dermatitis I87.2 Peripheral vascular disease I73.9
[2020-08-17] MEDS: apixaban 5 mg Tablet 2.5 MG PO ×2 (08:55→18:01)
[2020-08-17] MEDS: donepezil 5 MG Tablet PO (08:55)
[2020-08-17] MEDS: ferrous sulfate EC 325 mg Tablet PO ×2 (08:55→18:00)
[2020-08-17] MEDS: atorvastatin 40 mg Tablet 20 MG PO (08:56)
[2020-08-17] MEDS: ascorbic acid 500 mg Tablet PO (08:56)
[2020-08-17] MEDS: zinc gluconate 50 mg Tablet PO (08:56)
[2020-08-17] MEDS: atenolol 50 mg Tablet PO (08:57)
[2020-08-17 10:43] LABS: Glucose Point of Care 193 mg/dL (70-110)
--- NOTE | 2020-08-17 12:21 | P.PN_ITS ---
Subjective Subjective: Interval history: Patient continues to remain stable. Hemodynamically stable, afebrile. Overnight patient required 1 dose of Haldol for confusion. During confusion patient was picking on her dressing and trying to remove her. On my examination patient sitting in chair having her lunch. She is recognizing who I am and is alert and oriented at present. Vitals/I&O/Wt Last Vital Signs Temp 98.1 F 08/17/20 11:57 Pulse 110 H 08/17/20 11:57 Resp 18 08/17/20 11:57 BP 110/52 08/17/20 11:57 Pulse Ox 91 08/17/20 11:57 08/16/20 08/17/20 08/17/20 22:59 06:59 14:59 Intake Total 340 / 340 100 / 440 240 / 240 Balance 340 / 340 100 / 440 240 / 240 Weight last 48 hrs Weight 75.75 kg Physical Exam Narrative: EXAM NARRATIVE: General: No acute distress, AO x2-3, pleasant, frail HEENT: PERRLA, pupils bilaterally equal and reactive Chest: Normal vesicular breath sounds, no added sounds, equal good air entry bilaterally CVS: S1-S2 regular, no murmurs, no tachycardia, no gallops, no rubs Abdomen: Soft, nontender, no organomegaly, bowel sounds present Neuro: No focal deficits, no facial deformity, AO x3, power 5/5 in all limbs Extremities: Bilateral venous dermatitis present in her legs going up to midcalf with few areas of raw skin without any signs of cellulitis including erythema or localized areas of temperature without any foul-smelling discharge Data : 08/17/20 04:27 08/17/20 04:27 Micro: Microbiology 08/16/20 18:08 Blood Culture - Preliminary Blood SPECIMEN COLLECTED 08/16/20 18:08 Blood Culture - Preliminary Blood SPECIMEN COLLECTED A&P Assessment and plan (1) Chronic venous stasis dermatitis: Status: Acute (2) Peripheral vascular disease: Status: Acute (3) Congestive heart failure: Status: Acute Qualifiers: Heart failure chronicity: acute on chronic Heart failure type: unspecified Qualified Code(s): I50.9 - Heart failure, unspecified (4) Acute on chronic anemia: Status: Acute (5) Pulmonary embolism: Status: Acute (6) Diabetes: Status: Acute (7) Hyperlipidemia: Status: Acute (8) Hypertension: Status: Acute Additional A&P Information 80-year-old female with past medical history of chronic venous status dermatitis, peripheral vascular disease post ST presented to the ER today with worsening wounds which have been nonhealing for almost a month with occasional presence of maggots as per the family and home health nurse. Chronic venous static dermatitis: Doubt any signs of cellulitis at present. For now start patient on vancomycin and imipenem. Patient has history of ESBL E. coli and Klebsiella in the past. Which was susceptible to imipenem. Blood culture, MRSA swab, urinalysis, urine culture, procalcitonin, still pending. Will de-escalate antibiotics as per the culture results or if patient remains afebrile for next 48 hours can discontinue the antibiotics. Wound care consult appreciated. Will address accordingly. X-ray in the ER negative for any bony involvement. Peripheral vascular disease: Last angioplasty done in April. Continue with statin and Eliquis. We will repeat VALERY. Congestive heart failure: Last echocardiogram done in May 2020 shows an EF of 60-65% with grade 1 diastolic dysfunction with mildly to moderately increased size and LA and RA, moderate MR, mild AV aortic sclerosis, moderate TR proBNP elevated. No urine output charted in the system. Patient is looking euvolemic. For now continue with IV Lasix 80 mg twice daily. Strict input output charting. Daily weights. Anemia: Iron panel consistent with iron deficiency anemia, low vitamin B12 levels. Start on iron supplementation, will replete vitamin B12 with IM once. Hemoglobin has remained stable. This seems to her baseline with hemoglobin fluctuating between 7.5-9 in last 1 year Lab stool for occult blood done in June negative. Stool for occult blood results awaited. History of pulmonary embolism: Continue with home dose of Eliquis 2.5 mg twice daily. Hypertension: Goal blood pressure less than 140/90 emergency. We will continue to monitor. Continue home dose of atenolol. Type diabetes mellitus: Start patient on insulin sliding scale. Carb consistent diet. Continue other chronic medications like Celexa, donepezil. Goals of care: Discussed in detail with patient's daughter who is also DPOAE. For now she states patient would want to be full code but would not want to live on life support for long. Discharge planning: Patient daughter states at present because wounds are weeping more it is difficult for her to take care of her at home because she requires more frequent bandage changes. She has agreed for possible placement to SNF if required for short-term. She states most likely she will be okay with patient going to [facility]. PT/OT evaluation. Care coordination consult for discharge planning. Full code. Angie will also help with DVT prophylaxis. Famotidine for PUD prophylaxis Attestations Medical Necessity Statement*: Peripheral vascular disease, chronic venous stasis, possible cellulitis, anemia, awaiting safe discharge Time Spent in Patient Care: Greater than 35 minutes (>than 50% of time spent in counselling and/or direct pt care on unit) . Coding Level of Care Code Acute Steaming Machine Operator for g Fwd Diagnoses Chronic venous stasis dermatitis I87.2 Peripheral vascular disease I73.9 Congestive heart failure I50.9 Heart failure chronicity: acute on chronic Heart failure type: unspecified Acute on chronic anemia D64.9 Pulmonary embolism I26.99 Diabetes E11.9 Hyperlipidemia E78.5 Hypertension I10
--- NOTE | 2020-08-17 12:26 | USCV_ITS ---
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 Could not bare to have cuff on injury. The Rt 1st toe did not demo flow. CONCLUSIONS Could not do VALERY on the right side because of the injury. No Doppler flow signals were noted in the first digit on the right side. Abnormal resting VALERY and TBI on the left side suggestive of moderately to severe peripheral arterial disease, possibly involving the distal vessels Dr Kim Neil MD [facility] (Electronically Signed) Final Date: 19 August 2020 19:43 S
--- NOTE | 2020-08-17 13:55 | PC.OT ---
OT evaluation completed and per OTR pt is at her prior level of function for ADL tasks. Co sign: Anai Lloyd, MOTR/L
[2020-08-17] MEDS: cyanocobalamin 1,000 mcg/mL SDV 1000 MCG IM (14:13)
[2020-08-17 16:40] LABS: Glucose Point of Care 198 mg/dL (70-110)
[2020-08-17] MEDS: famotidine 20 mg Tablet PO (18:00)
[2020-08-17 21:35] LABS: Glucose Point of Care 190 mg/dL (70-110)
[2020-08-17] MEDS: TRAMadol 50 mg Tablet 25 MG PO (22:45)
[2020-08-18] VITALS (7 sets, daily range): BP systolic 79–120; BP diastolic 45–69; PULSE 56–113; RESP 16–19; TEMP 36.4–37.2; O2SAT 90–100
--- NOTE | 2020-08-18 00:43 | PC.NURSE ---
IV medications not given. Day-shift nurse reported that doctor is aware of no IV access and would be changing medications to PO.
[2020-08-18 05:51] LABS: Vancomycin Trough 8.2 ug/mL (10-15)
[2020-08-18 06:41] LABS: Glucose Point of Care 160 mg/dL (70-110)
[2020-08-18] MEDS: atenolol 50 mg Tablet PO (08:26)
[2020-08-18] MEDS: apixaban 5 mg Tablet 2.5 MG PO ×2 (08:28→17:39)
[2020-08-18] MEDS: ascorbic acid 500 mg Tablet PO (08:31)
[2020-08-18] MEDS: atorvastatin 40 mg Tablet 20 MG PO (08:32)
[2020-08-18] MEDS: donepezil 5 MG Tablet PO (08:33)
[2020-08-18] MEDS: ferrous sulfate EC 325 mg Tablet PO ×2 (08:35→17:38)
[2020-08-18] MEDS: zinc gluconate 50 mg Tablet PO (08:36)
[2020-08-18] MEDS: famotidine 20 mg Tablet PO ×2 (08:37→17:38)
[2020-08-18] MEDS: FUROsemide 10 mg/mL SDV 4mL 40 MG IVP ×2 (10:47→22:12)
[2020-08-18 10:56] LABS: Bilirubin Urine Neg (Negative); Blood Urine Neg (Negative); Glucose Urine UA Norm (Normal); Ketones Urine 1+ (Negative); Leukocyte Esterase Urine Negative (Negative); Nitrate Urine Negative (Negative); Protein Urine Neg (Negative); Urine Appearance SL Hazy (CLEAR); Urine Color Yellow (Yellow); Urobilinogen Urine 1 mg/dL (Negative); pH Urine 5 (5-7)
[2020-08-18 10:57] LABS: Basophils % 0.1 %; Eosinophils % 0.4 %; Hemoglobin 7.7 g/dL (11.5-15.3); Lymphocytes # 1.4 10^3/uL (0.8-4.8); Lymphocytes % 13.8 %; Mean Corpuscular HGB Conc 30.8 g/dL (30.0-36.0); Mean Corpuscular Hemoglobin 23.3 pg (28.0-34.0); Mean Corpuscular Volume 75.5 fL (81-99); Mean Platelet Volume 11.1 fL (7.4-10.4); Monocytes # 0.9 10^3/uL (0.2-0.9); Monocytes % 9.1 %; Neutrophils # 7.48 10^3/uL (1.8-7.7); Neutrophils % 76.1 %; Nucleated Red Blood Cells % 0.3 %; Platelet Count 256 10^3/cmm (130-400); Red Blood Count 3.31 10^6/uL (4.1-5.3); Red Cell Distribution Width 16.3 % (12.1-15.1); White Blood Count 9.8 10^3/uL (4.0-10.0)
[2020-08-18 10:58] LABS: Potassium, Radom Urine 59 mmol/L; Urine Random Chloride 21 mmol/L; Urine Random Sodium 25 mmol/L; WBC Urine 0-4 /hpf (0-5)
[2020-08-18 10:59] LABS: Add Urine Culture? No; Bacteria Urine 1+ /hpf; Squamous Epithelial Cell Urine 15-25 /hpf (0-5)
[2020-08-18 11:05] LABS: Anion Gap 16.1 (5-19); Blood Urea Nitrogen 28 mg/dL (8-23); Calcium 9.5 mg/dL (8.5-10.5); Carbon Dioxide 29 mmol/L (22-29); Chloride 98 mmol/L (98-107); Glucose 198 mg/dL (65-115); Osmolality Calculated 299 mOsm/kg (285-295); Potassium 4.1 mmol/L (3.5-5.1); Sodium 139 mmol/L (136-145)
[2020-08-18 11:30] LABS: Glucose Point of Care 190 mg/dL (70-110)
[2020-08-18] MEDS: fluconazole 100 mg Tablet PO (11:51)
[2020-08-18] MEDS: acetaminophen 325 mg Tablet 650 MG PO (11:52)
--- NOTE | 2020-08-18 13:13 | P.PN_ITS ---
Subjective Subjective: Interval history: No acute events overnight. Patient has remained a lot more calm. Denies having any nausea, vomiting, headache. Looks very dehydrated on examination. Discussed in detail for patient to make sure that she maintains her hydration. She is having her breakfast during my examination. Is at her baseline with mentation. Overnight patient has not received any antibiotics as she lost her IV and new IV access could not be placed in last 18 hours. Still awaiting samples for urine analysis and stool studies. Vitals/I&O/Wt Last Vital Signs Temp 97.7 F 08/18/20 12:00 Pulse 113 H 08/18/20 12:00 Resp 18 08/18/20 12:00 BP 95/56 08/18/20 12:00 Pulse Ox 100 08/18/20 12:00 08/17/20 08/18/20 08/18/20 22:59 06:59 14:59 Intake Total 240 / 840 280 / 280 Output Total 150 / 150 50 / 50 Balance 240 / 840 -150 / 690 230 / 230 Weight last 48 hrs Weight 57.47 kg Physical Exam Narrative: EXAM NARRATIVE: General: No acute distress, AO x2-3, pleasant, frail HEENT: PERRLA, pupils bilaterally equal and reactive Chest: Normal vesicular breath sounds, no added sounds, equal good air entry bilaterally CVS: S1-S2 regular, no murmurs, no tachycardia, no gallops, no rubs Abdomen: Soft, nontender, no organomegaly, bowel sounds present Neuro: No focal deficits, no facial deformity, AO x3, power 5/5 in all limbs Extremities: Bilateral venous dermatitis present in her legs going up to midcalf with few areas of raw skin without any signs of cellulitis including erythema or localized areas of temperature without any foul-smelling discharge Data : 08/18/20 10:30 08/18/20 10:30 Micro: Microbiology 08/16/20 18:08 Blood Culture - Preliminary Blood NEGATIVE TO DATE 08/16/20 18:08 Blood Culture - Preliminary Blood NEGATIVE TO DATE A&P Assessment and plan (1) Chronic venous stasis dermatitis: Status: Acute (2) Peripheral vascular disease: Status: Acute (3) Congestive heart failure: Status: Acute Qualifiers: Heart failure type: unspecified Heart failure chronicity: acute on c hronic Qualified Code(s): I50.9 - Heart failure, unspecified (4) Acute on chronic anemia: Status: Acute (5) Pulmonary embolism: Status: Acute (6) Diabetes: Status: Acute (7) Hyperlipidemia: Status: Acute (8) Hypertension: Status: Acute Additional A&P Information 80-year-old female with past medical history of chronic venous status dermatitis, peripheral vascular disease post ST presented to the ER today with worsening wounds which have been nonhealing for almost a month with occasional presence of maggots as per the family and home health nurse. Chronic venous static dermatitis: Doubt any signs of cellulitis at present. For now start patient on vancomycin and imipenem. Patient has history of ESBL E. coli and Klebsiella in the past. Which was susceptible to imipenem. Blood culture, MRSA swab, urinalysis, urine culture,. Procalcitonin negative. Chances of cellulitis are low at this time. We will stop antibiotics. Wound care consult appreciated. Will address accordingly. X-ray in the ER negative for any bony involvement. Peripheral vascular disease: Last angioplasty done in April. Continue with statin and Eliquis. VALERY results still not available in the system. Atrial fibrillation: Telemetry. Rate controlled at present. Continue with home dose of atenolol. Continue with Eliquis for anticoagulation. Congestive heart failure: Last echocardiogram done in May 2020 shows an EF of 60-65% with grade 1 diastolic dysfunction with mildly to moderately increased size and LA and RA, moderate MR, mild AV aortic sclerosis, moderate TR proBNP elevated. No urine output charted in the system. Patient is looking euvolemic. Patient looking mildly dehydrated. Decrease Lasix to 40 IV mg twice daily. Will convert to oral tablets from tomorrow. Strict input output charting. Daily weights. Anemia: Iron panel consistent with iron deficiency anemia, low vitamin B12 levels. Vitamin B12 repleted. Continue with oral iron supplementation. Hemoglobin has remained stable. This seems to her baseline with hemoglobin fluctuating between 7.5-9 in last 1 year Lab stool for occult blood done in June negative. Stool for occult blood results awaited. History of pulmonary embolism: Continue with home dose of Eliquis 2.5 mg twice daily. Hypertension: Goal blood pressure less than 140/90 emergency. We will continue to monitor. Continue home dose of atenolol. Type diabetes mellitus: Start patient on insulin sliding scale. Carb consistent diet. Continue other chronic medications like Celexa, donepezil. Goals of care: Discussed in detail with patient's daughter who is also DPOAE. For now she states patient would want to be full code but would not want to live on life support for long. Discharge planning: Patient daughter states at present because wounds are weeping more it is difficult for her to take care of her at home because she requires more frequent bandage changes. She has agreed for possible placement to SNF if required for short-term. She states most likely she will be okay with patient going to [facility]. PT evaluation appreciated. Care coordination working on discharge to SNF. Full code. Angie will also help with DVT prophylaxis. Famotidine for PUD prophylaxis Lab holiday tomorrow. Attestations Medical Necessity Statement*: Needs further hospitalization for peripheral vascular disease, chronic venous status dermatitis while safe discharge to SNF arranged. Time Spent in Patient Care: Greater than 35 minutes Coding Level of Care Code Acute Carry Out Clerk for [facility] Fwd Diagnoses Chronic venous stasis dermatitis I87.2 Peripheral vascular disease I73.9 Congestive heart failure I50.9 Heart failure type: unspecified Heart failure chronicity: acute on chronic Acute on chronic anemia D64.9 Pulmonary embolism I26.99 Diabetes E11.9 Hyperlipidemia E78.5 Hypertension I10
[2020-08-18] MEDS: TRAMadol 50 mg Tablet 25 MG PO (13:58)
[2020-08-18 17:32] LABS: Glucose Point of Care 86 mg/dL (70-110)
[2020-08-18 22:29] LABS: Glucose Point of Care 184 mg/dL (70-110)
[2020-08-19] MEDS: neomycin-poly-bacitracin oint 28 gm 1 APPLIC TOPICAL ×2 (00:07→13:48)
[2020-08-19 00:33] VITALS: BP 108/64; PULSE 89; RESP 18; TEMP 36.5; O2SAT 98
[2020-08-19] MEDS: TRAMadol 50 mg Tablet 25 MG PO (03:03)
[2020-08-19 04:00] VITALS: BP 102/58; PULSE 108; RESP 16; TEMP 36.4; O2SAT 97
[2020-08-19 06:31] LABS: Glucose Point of Care 110 mg/dL (70-110)
[2020-08-19 07:32] VITALS: BP 92/48; PULSE 107; RESP 16; TEMP 36.5; O2SAT 91
[2020-08-19] MEDS: ferrous sulfate EC 325 mg Tablet PO ×2 (08:48→17:29)
[2020-08-19] MEDS: ascorbic acid 500 mg Tablet PO (08:48)
[2020-08-19] MEDS: famotidine 20 mg Tablet PO ×2 (08:48→17:31)
[2020-08-19] MEDS: atorvastatin 40 mg Tablet 20 MG PO (08:48)
[2020-08-19] MEDS: zinc gluconate 50 mg Tablet PO (08:48)
[2020-08-19] MEDS: atenolol 50 mg Tablet PO (08:48)
[2020-08-19] MEDS: donepezil 5 MG Tablet PO (08:48)
[2020-08-19] MEDS: apixaban 5 mg Tablet 2.5 MG PO ×2 (08:48→17:30)
[2020-08-19] MEDS: fluconazole 100 mg Tablet PO (08:48)
--- NOTE | 2020-08-19 09:44 | PM.DCS ---
Discharge Providers Date of Admission: 08/16/20 17:32 Date of Discharge: August 19, 2020 Attending Provider at Admission: Karlo Daigle MD Attending Provider at Discharge: Karlo Daigle MD Consults: Surgery: Dr. Enrique Primary Care Provider: Frankie Garay MD Diagnoses at Discharge Discharge Diagnosis (1) Chronic venous stasis dermatitis: Status: Acute (2) Peripheral vascular disease: Status: Acute (3) Congestive heart failure: Status: Acute Problem details: Compensated Qualifiers: Heart failure chronicity: acute on chronic Heart failure type: unspecified Qualified Code(s): I50.9 - Heart failure, unspecified (4) Acute on chronic anemia: Status: Acute (5) Pulmonary embolism: Status: Acute (6) Diabetes: Status: Acute (7) Hyperlipidemia: Status: Acute (8) Hypertension: Status: Acute (9) Chronic diastolic heart failure: Status: Acute Reason for Visit Reason for Visit: FALL CUT LEG, HIT HEAD Hospital Course Discharge Summary: Charisma Holly is a 80 year old female carries diagnosis of thalassemia trait, type 2 diabetes, hypertension, microcytic anemia, grade 1 diastolic dysfunction EF 65%, pulmonary embolism, she is on modified dose of Eliquis, carries history of dementia, severe peripheral vascular disease status post intervention with balloon angioplasty of the distal left tibial peroneal trunk in April 2020, chronic hypoxia requiring 1.5 L of oxygen coming in today for generalized weakness. Most of the history taken through patient's daughter via phone. Apparently patient was [facility] [place] [facility] [place] earlier this year and was discharged home. At that time patient was also investigated by Adult Protective Services as patient was found to have maggots on her wounds. Patient was brought into the ER today by the daughter because of worsening leg wounds as per the daughter. She states for last 1 month the wounds have become more weeping and has required multiple dressing changes with home health nurse finding maggots at least twice in last 1 week with most recently yesterday. She denies of having any purulent discharge, fever, pain, bloody discharge. She is also complaining of patient apparently having some hallucinations on and off for last 1 month with most recently a week ago when she thought she did not have any legs. Patient's daughter denied of patient having any nausea, vomiting, diarrhea, dysuria, changes in appetite, headache, dizziness, exposure to COVID-19. On examination patient is sitting comfortably in bed having her food. She denies of having any nausea, vomiting patient is AO x3. She states at baseline she is able to walk around at home slowly with a walker. She states her legs are hurting. She denies of having any dysuria and does complain of occasional diarrhea when she drinks coffee. Lab work in the ER showed white count of 9.2, hemoglobin of 7.5, platelet count of 236, d-dimer of 1.12, sodium of 138, creatinine of 0.8, AST/ALT of 18/11, CRP of 48.4, albumin of 3.3 with foot x-ray neck negative for any bony involvement with soft tissue edema at medial and lateral ankle of the right side. She was admitted to the hospital for evaluation and treatment of chronic venous stasis, possible cellulitis. She was started on broad-spectrum antibiotics and surgery was consulted for wound care. As patient remained afebrile and asymptomatic for next 48 hours antibiotics were stopped and she was monitored for 24 more hours post procedure. Patient was also found to have anemia but her hemoglobin was at baseline. Blood work were consistent with iron deficiency anemia and low vitamin B12 which are both repleted. Stool for occult blood was negative in June. Currently patient has not had any melena. There was some concern of congestive heart failure. Her home dose of Bumex was changed to IV Lasix. Last echocardiogram done in May 2020 shows an EF of 60-65% with grade 1 diastolic dysfunction with mildly to moderately increased size and LA and RA, moderate MR, mild AV aortic sclerosis, moderate TR. She responded well to the treatment and now her diuretics have been changed to Lasix 60 mg twice daily. Urine studies were done and were consistent with 3+ yeast for which she has been started on 5-day course of fluconazole. During hospitalization patient remained at her baseline mentation of being confused but calm. She worked appropriately with physical therapy and requires for further rehabitation to get back to her baseline. For safe discharge planning possible discharge to SNF of discussed with patient's daughter who is also the DPOA and she agreed. Patient has been accepted at [facility] and is being discharged accordingly. Rapid Covid antigen has been sent prior to discharge. Physical Exam Narrative: EXAM NARRATIVE: General: No acute distress, AO x2-3, pleasant, frail HEENT: PERRLA, pupils bilaterally equal and reactive Chest: Normal vesicular breath sounds, no added sounds, equal good air entry bilaterally CVS: S1-S2 regular, no murmurs, no tachycardia, no gallops, no rubs Abdomen: Soft, nontender, no organomegaly, bowel sounds present Neuro: No focal deficits, no facial deformity, AO x3, power 5/5 in all limbs Extremities: Bilateral venous dermatitis present in her legs going up to midcalf with few areas of raw skin without any signs of cellulitis including erythema or localized areas of temperature without any foul-smelling discharge Discharge Data Data Completed and Pending: Completed Studies During Hospitalization Category Date Time Status CT head wo con* 7 0450 Stat Cat Scan 08/16/20 11:45 Completed XR tibia fibula R T 2V [id number] Stat Exams 08/16/20 11:45 Completed Pending at discharge Category Date Time Status Blood Culture Sta t Lab 08/16/20 18:08 Results Clostridioides Di fficile PCR Routin e Lab 08/16/20 17:33 Ordered Enteric Bacterial Panel by PCR Rout ine Lab 08/16/20 17:33 Ordered Enteric Parasite Panel by PCR Routi ne Lab 08/16/20 17:33 Ordered Immunochemical Fe pavan OCB Routine Lab 08/16/20 17:33 Ordered Lactoferrin Routi ne Lab 08/16/20 17:33 Ordered SARS Covid-2 Anti gen Routine Lab 08/19/20 09:43 Ordered Urine Culture Sta t Lab 08/18/20 10:00 Received CV ankle brachial index [id number] Routi ne Ultrasound 08/17/20 12:26 Taken Labs from last 24 hours 08/19/20 08/18/20 08/18/20 06:28 22:11 17:10 WBC RBC Hgb Hct MCV MCH MCHC RDW Plt Count MPV Neut % (Auto) Lymph % (Auto) Foard % (Auto) Eos % (Auto) Baso % (Auto) Neut # (Auto) Lymph # (Auto) Foard # (Auto) Eos # (Auto) Baso # (Auto) Nucleated RBC % (a uto) Nucleated RBCs # Sodium Potassium Chloride Carbon Dioxide Anion Gap BUN Creatinine GFR Calculation Glucose POC Glucose 110 184 86 Calculated Osmolal ity Calcium Urine Color Urine Appearance Urine pH Ur Specific Gravit y Urine Protein Urine Glucose (UA) Urine Ketones Urine Blood Urine Nitrate Urine Bilirubin Urine Urobilinogen Ur Leukocyte Tracey ase Urine RBC Urine WBC Ur Squamous Epith Cells Amorphous Sediment Urine Bacteria Urine Yeast Ur Random Sodium Ur Random Potassiu m Ur Random Chloride 08/18/20 08/18/20 08/18/20 11:18 10:30 10:30 WBC 9.8 RBC 3.31 L Hgb 7.7 L Hct 25.0 L MCV 75.5 L MCH 23.3 L MCHC 30.8 RDW 16.3 H Plt Count 256 MPV 11.1 H Neut % (Auto) 76.1 Lymph % (Auto) 13.8 Foard % (Auto) 9.1 Eos % (Auto) 0.4 Baso % (Auto) 0.1 Neut # (Auto) 7.48 Lymph # (Auto) 1.4 Foard # (Auto) 0.9 Eos # (Auto) 0.0 Baso # (Auto) 0.0 Nucleated RBC % (a uto) 0.3 Nucleated RBCs # 0.0 Sodium 139 Potassium 4.1 Chloride 98 Carbon Dioxide 29 Anion Gap 16.1 BUN 28 H Creatinine 0.9 GFR Calculation Not Reportable Glucose 198 H POC Glucose 190 Calculated Osmolal ity 299 H Calcium 9.5 Urine Color Urine Appearance Urine pH Ur Specific Gravit y Urine Protein Urine Glucose (UA) Urine Ketones Urine Blood Urine Nitrate Urine Bilirubin Urine Urobilinogen Ur Leukocyte Tracey ase Urine RBC Urine WBC Ur Squamous Epith Cells Amorphous Sediment Urine Bacteria Urine Yeast Ur Random Sodium Ur Random Potassiu m Ur Random Chloride 08/18/20 08/18/20 10:00 10:00 WBC RBC Hgb Hct MCV MCH MCHC RDW Plt Count MPV Neut % (Auto) Lymph % (Auto) Foard % (Auto) Eos % (Auto) Baso % (Auto) Neut # (Auto) Lymph # (Auto) Foard # (Auto) Eos # (Auto) Baso # (Auto) Nucleated RBC % (a uto) Nucleated RBCs # Sodium Potassium Chloride Carbon Dioxide Anion Gap BUN Creatinine GFR Calculation Glucose POC Glucose Calculated Osmolal ity Calcium Urine Color Yellow Urine Appearance Sl hazy Urine pH 5 Ur Specific Gravit y 1.020 Urine Protein Neg Urine Glucose (UA) Norm Urine Ketones 1+ H Urine Blood Neg Urine Nitrate Negative Urine Bilirubin Neg Urine Urobilinogen 1 H Ur Leukocyte Tracey ase Negative Urine RBC None Urine WBC 0-4 H Ur Squamous Epith Cells 15-25 H Amorphous Sediment Not Reportable Urine Bacteria 1+ H Urine Yeast 3+ H Ur Random Sodium 25 Ur Random Potassiu m 59 Ur Random Chloride 21 Vitals: Last Vital Signs Temp 97.7 F 08/19/20 07:32 Pulse 107 H 08/19/20 07:32 Resp 16 08/19/20 07:32 BP 92/48 08/19/20 07:32 Pulse Ox 91 08/19/20 07:32 Discharge Plan Discharge Patient Disposition: Xfer [facility] Condition: Stable Prescriptions: New fluconazole 100 mg Tablet 100 mg PO DAILY Qty: 3 RF: 0 Triple Antibiotic 3.5mg-400 unit- 5,000 unit/gram Ointment 1 applic topical BID Qty: 10 RF: 0 Vitamin C 500 mg Tablet 500 mg PO DAILY Qty: 30 RF: 0 Lasix 40 mg tablet 60 mg PO BID Qty: 30 RF: 0 Continued Eliquis 2.5 mg tablet 2.5 mg PO BID Qty: 30 RF: 1 tramadol 50 mg tablet 25 mg PO QID PRN (Reason: pain) Qty: 14 RF: 0 mupirocin 2 % ointment 1 applic TOPICAL DAILY Qty: 22 RF: 2 Celexa 10 mg Tablet 10 mg PO DAILY RF: 0 pantoprazole 40 mg Tablet,Delayed Release (Dr/Ec) 40 mg PO BID RF: 0 ferrous sulfate 324 mg (65 mg iron) Tablet,Delayed Release (Dr/Ec) 324 mg PO BID RF: 0 metformin 500 mg Tablet 500 mg PO DAILY RF: 0 donepezil 5 mg Tablet 5 mg PO DAILY RF: 0 pravastatin 40 mg Tablet 40 mg PO DAILY RF: 0 acetaminophen 325 mg Tablet 650 mg PO Q6H PRN (Reason: Mild/Mod Pain Or Temp >/= 101) Qty: 0 RF: 0 atenolol 50 mg Tablet 50 mg PO DAILY Qty: 30 RF: 0 Discontinued cephalexin 500 mg Tablet 500 mg PO TID RF: 0 bumetanide 1 mg Tablet 1 mg PO Q12H Qty: 60 RF: 0 Discharge Orders: Discharge Order (Routine); Ordered 08/19/20 Ordered By: Karlo Daigle Referrals: Luis Fernando Kohli MD [Physician] - 2 weeks Frankie Garay MD [Primary Care Provider] - 7-10 days [facility], [Staff Physician] - 2 weeks Discharge Diet: Cardiac and Diabetic Discharge Activity: Resume usual activity and Increase activity as tolerated Patient Instructions: Peripheral Vascular Disorders (DC), Chronic Wound Care (DC) Activity Restrictions/Additional Instructions: Cover the dry skin areas with some triple antibiotic ointment just for moisturization purposes and to keep any small superficial wounds covered. We will avoid any application to her soles for now as she does spend time up ambulating. Discharge Attestations Time Spent in Discharge Care*: greater than 30 min Specific Discharge Activities: Specific discharge activities: educating and/or supporting family/caregiver, discussing with pcp/other providers, discussing with case liner/social workers/dc planners, documenting/other paperwork and evaluating patient/reviewing data Status at Discharge: Cognitive status at discharge: moderately impaired cognition, Behavioral status at discharge: cooperative, Functional status at discharge: uses cane/walker Overall status at discharge: patient is back to baseline Quality Metrics Clinical Quality Measures During this hospital stay, did patient experience: None Coding Level of Care Code Acute 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
[2020-08-19 10:48] LABS: SARS Covid-2 Antigen Negative (Negative)
[2020-08-19 10:57] LABS: Glucose Point of Care 166 mg/dL (70-110)
[2020-08-19 11:40] VITALS: BP 128/69; PULSE 110; RESP 16; TEMP 36.4; O2SAT 98
[2020-08-19] MEDS: FUROsemide 10 mg/mL SDV 4mL 40 MG IVP (14:00)
[2020-08-19 15:11] VITALS: BP 132/65; PULSE 102; RESP 15; TEMP 36.3; O2SAT 97
[2020-08-19 17:05] LABS: Glucose Point of Care 165 mg/dL (70-110)
[2020-08-19 17:47] VITALS: BP 132/65; PULSE 102; RESP 15; TEMP 36.3; O2SAT 97
== END 2020-08-19 17:52 | disposition skilled nursing facility (03) | DRG 299 ==
LOC: ER 16:07 → MEDSURG 16:12
PROVIDERS: Emergency Medicine; Admitting Provider Student in an Organized Health Care Education/Training Program; PCP Family Medicine; Visit Provider Student in an Organized Health Care Education/Training Program
DX: E11.51 Type 2 diabetes mellitus with diabetic peripheral angiopathy without gangrene (principal); I26.99 Other pulmonary embolism without acute cor pulmonale; I50.33 Acute on chronic diastolic (congestive) heart failure; E11.620 Type 2 diabetes mellitus with diabetic dermatitis; I11.0 Hypertensive heart disease with heart failure; E78.5 Hyperlipidemia, unspecified; D50.9 Iron deficiency anemia, unspecified; Z79.01 Long term (current) use of anticoagulants; Z79.84 Long term (current) use of oral hypoglycemic drugs; F03.90 Unspecified dementia, unspecified severity, without behavioral disturbance, psychotic disturbance, mood disturbance, and anxiety; R09.02 Hypoxemia; Z86.73 Personal history of transient ischemic attack (TIA), and cerebral infarction without residual deficits; I87.2 Venous insufficiency (chronic) (peripheral); L85.3 Xerosis cutis
CPT/HCPCS: 12002; 12345; 36415; 36416; 51702; 70450; 73590; 80048; 80053; 80202; 81001; 82436; 82607; 82746; 82962; 83036; 83540; 83550; 83735; 83880; 84100; 84133; 84145; 84300; 84443; 85014; 85018; 85025; 85378; 85610; 86140; 87040; 87086; 87106; 87426; 87641; 93005; 93922; 94664; 96372; 96375; 97162; 97530; 99282; 99283; G0378; J0743; J1630; J1815; J1940; J3370; J3420; J3490; J7050

== ENCOUNTER 2020-11-09 10:41 | Outpatient (CLI) | payer MEDICARE, OTHER, SELFPAY ==
--- NOTE | 2020-11-09 10:56 | USCV_ITS ---
Charisma Holly Age: 80 Gender: F : 1940 Exam Date: 11/09/2020 11:01 Ordering Phys: Olinda Cardona Technologist: Marcelino Meeks [place] [facility] [place]: HISTORY: NON HEALING ULCER PROCEDURES: Bilateral duplex Venous Insufficiency study of the Deep and Superficial systems was carried out according to normal protocol with the patient in supine positon for deep system and dependent position for the superficial system. FINDINGS: There is no evidence of bilateral deep vein thrombosis. No evidence of superficial thrombosis in the bilateral saphenous system. No evidence of reflux was noted in the bilateral deep venous system. No venous reflux noted in the bilateral greater saphenous vein. Bilateral small saphenous veins not visulized due to edema within the extremity. Multiple echolucent areas were noted in the below-knee subcutaneous tissue. CONCLUSIONS No evidence of DVT in the above-mentioned identifiable veins, bilaterally. No significant venous reflux were noted on either side Features of fluid retention/edema bilaterally, especially in the below- knee area The small saphenous veins where not visualized well on either side Dr Kim Neil MD [facility] (Electronically Signed) Final Date: 11 November 2020 13:58 S
== END 2020-11-09 10:42 | disposition home or self-care (01) ==
LOC: RAD 10:44
PROVIDERS: PCP Internal Medicine; Visit Provider Nurse Practitioner Family
DX: L97.929 Non-pressure chronic ulcer of unspecified part of left lower leg with unspecified severity (principal); L97.919 Non-pressure chronic ulcer of unspecified part of right lower leg with unspecified severity
CPT/HCPCS: 93970

== ENCOUNTER 2020-11-14 08:29 | Outpatient (CLI) | payer MEDICARE, OTHER, SELFPAY | END 2020-11-14 08:30 | disposition home or self-care (01) | LOC: WOUND 08:30 | PROVIDERS: PCP Internal Medicine; Visit Provider Nurse Practitioner Family | DX: E11.622 Type 2 diabetes mellitus with other skin ulcer (principal); L97.812 Non-pressure chronic ulcer of other part of right lower leg with fat layer exposed | CPT/HCPCS: 11042; G0463 ==

== ENCOUNTER 2020-11-23 12:49 | Outpatient (CLI) | payer MEDICARE, OTHER, SELFPAY ==
--- NOTE | 2020-11-23 12:59 | USCV_ITS ---
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 Present deviation of 165 on the right side PVR waveforms showing relatively low amplitude and delayed peaking waveforms on the right side and normal amplitude waveforms to the loss of dicrotic notch on the left side CONCLUSIONS Features of moderate peripheral artery disease on the left side Features of mild peripheral artery disease on the right side, based on the TBI. However the PVR waveforms may suggest moderately severe disease in the infrapopliteal region. Clinical correlation is recommended Consider CTA, if clinically indicated Dr Kim Neil MD [facility] (Electronically Signed) Final Date: 24 November 2020 16:54 S
== END 2020-11-23 12:50 | disposition home or self-care (01) ==
LOC: US 12:50
PROVIDERS: PCP Internal Medicine; Visit Provider Nurse Practitioner Family
DX: L97.929 Non-pressure chronic ulcer of unspecified part of left lower leg with unspecified severity (principal); L97.919 Non-pressure chronic ulcer of unspecified part of right lower leg with unspecified severity
CPT/HCPCS: 93923

== ENCOUNTER 2021-02-22 00:37 | Emergency (ER) | payer MEDICARE, OTHER, SELFPAY ==
[2021-02-22] VITALS (8 sets, daily range): BP systolic 122–159; BP diastolic 55–62; PULSE 83–95; RESP 18–26; TEMP 36.7; O2SAT 91–100; BMI 23.0
--- NOTE | 2021-02-22 00:45 | XR_ITS ---
WS: [id number] Left shoulder, 2 views portable, 02/22/2021 Clinical Data: left shoulder injury Comparison: None. Findings: There is an oblique fracture of the proximal left humerus. The humeral head is intact. The AC joint, left clavicle, left scapula and left ribs are nonremarkable. There is mitral valve calcification and calcification of the aortic arch and descending thoracic aor ta. XR/XR shoulder LT min 2V* [id number] Impression: Oblique fracture of proximal left humerus.
--- NOTE | 2021-02-22 00:49 | XR_ITS ---
WS: [id number] Chest with left rib detail, 02/22/2021 Clinical Data: fall; lateral rib pain Comparison: Portable chest, 07/25/2020. Findings: The lungs show no nodules or masses. The heart is normal. No pneumonia or pneumothorax is seen. There is a patchy opacity in the left costophrenic angle. This could represent a small effusion and/o r atelectasis. The aortic arch and descending aorta show calcification. There is a mitral valve calci fication. There is a left anterior lateral sixth rib fracture. No subcutaneous emphysema is present. There is an oblique fracture of the proximal left humerus. XR/XR ribs LT mn 3V w [id number] Impression: 1. Undisplaced fracture of left anterior lateral sixth rib. 2. Oblique fracture of left humerus. 3. Atherosclerosis with mitral valve calcification. 4. Minimal left pleural effusion and/or atelectasis.
--- NOTE | 2021-02-22 00:50 | ED_ITS ---
HPI - Fall General: Chief Complaint: Fall Stated Complaint: FALL PAIN Time Seen by Provider: 02/22/21 00:39 Source: patient and EMS Mode of arrival: EMS Limitations: no limitations History of Present Illness: HPI Narrative: Patient is a nice 80-year-old female who [facility] for [facility] following a [facility]. Patient tells me she was trying to get out of bed when she accidentally rolled off the bed and landed on her left shoulder. She tells me she did strike her head but there was no LOC. She does not complain of a headache. She is on Eliquis. EMS reported right knee pain however patient denies this to me. She does not complain of neck or back pain. She is alert and oriented and converses well. MD complaint: fall Onset (ago): hour(s) Fall from: out of bed Fall witnessed: no Place fall occurred: [facility] Loss of consciousness: None Prolonged down time: no Symptoms prior to fall: none Context: tripped/slipped Location of injury: head Location of injury - extremities: Left: shoulder Associated symptoms-after fall: Reports no associated symptoms; Denies abdominal pain, chest pain, confusion, headache(s), lightheadedness or neck pain Review of Systems Const: Denies: fever(s) Eyes: Denies: change in vision or blurry vision Card: Denies: chest pain, palpitations, irregular heart rhythm, edema, lightheadedness, syncope or pre-syncope Resp: Reports: dyspnea (chronic; on 2L O2; at baseline per patient); Denies: wheezing, stridor or hemoptysis GI: Denies: abdominal pain Musc: Reports: joint pain (L shoulder); Denies: neck pain, back pain, extremity pain or extremity swelling Neuro: Denies: headache(s), sensory changes, frequent falls, dizziness or confusion PFSH ED PFSH: Medical History Anemia Critical lower limb ischemia CVA (cerebral vascular accident) 2013, right hemispheric Dementia Diabetes Hiatal hernia Hyperlipidemia Hypertension Peripheral vascular disease Pneumonia Pneumonia Thalassemia trait Surgical History History of angioplasty of peripheral vessel History of back surgery Family History Other Diabetes Social History Smoking and tobacco status: never smoked Alcohol intake: never Housing: Care Home Physical Exam Const: COMMON NORMALS: no acute distress, patient oriented x3, no limitations and alert GENERAL APPEARANCE: cooperative and frail appearing ORIENTATION/CONSCIOUSNESS: Yes awake, Yes oriented to person, Yes oriented to place and Yes oriented to time HENMT: COMMON NORMALS: normocephalic and atraumatic HEAD & SCALP: normal to inspection, normocephalic and atraumatic Eye: GENERAL EYE: appearance normal, both eyes and all related structures Neck/C-Spine: COMMON NORMALS: full ROM CERVICAL SPINE: Yes cervical ROM normal, No pain with cervical ROM, No Cervical spine tenderness and No Paracervi pavan muscle tenderness Chest: COMMONS NORMALS: normal inspection of the chest OTHER: TTP L lateral ribs Resp: COMMON NORMALS: clear to auscultation bilaterally EFFORT & INSPECTION: Yes able to speak in complete sentences, No grunting, No stridor, Yes retractions supraclavicular and Yes uses accessory muscles AUSCULTATION: clear to auscultation bilaterally OTHER: spoke with [facility] who assured me that breathing patterns are normal for patient; she is on her normal 2L O2 and satting well Cardio: COMMON NORMALS: regular rate and regular rhythm RATE: regular rate RHYTHM: regular rhythm GI: COMMON NORMALS: Normal to inspection, nondistended, normoactive bowel sounds present, Soft to palpation, non-tender, No hepatosplenomegaly present and no masses PALPATION: Yes Soft to palpation and Yes No hepatosplenomegaly present Extremity: GENERAL: Yes normal exam except as noted OTHER: chronic dressed wounds to bilateral LEs; deformity noted to L shoulder consistent with fracture- ROM not performed secondary to pain-NV Intact Neuro: RACHELE COMA SCALE: document GCS findings [place]le coma scale eye opening: Spontaneous [place] coma scale verbal response: Orientated [place] coma scale motor response: Obey commands [place] coma scale total score: 15 COMMON NORMALS: patient oriented x3 SENSORIUM/ORIENTATION: Yes alert, Yes oriented to person, Yes oriented to place and Yes oriented to time Skin: COMMON NORMALS: no rashes or lesions noted GENERAL SKIN EXAM: no rashes or lesions noted TRAUMA: no lacerations or abrasions Course ED course: Could not get patient in a shoulder immobilizer secondary to body habitus. Will place her in a sling. Vital Signs: Vital signs: Vital Signs Temperature 98.0 F 02/22/21 00:38 Pulse Rate 88 02/22/21 04:33 Respiratory Rate 18 02/22/21 04:33 Blood Pressure 139/62 02/22/21 04:33 Pulse Oximetry 93 02/22/21 04:33 MDM - Fall MDM Narrative: Medical decision making narrative: Head CT negative. I don't visualize any acute rib fxs. She has a proximal humeral fracture. She was placed in a sling and will need followup with orthopedics. Will give her a script for pain medication. Imaging Data^: CT Head: Radiologist's impression: [facility] [address] [address] Scan Report Signed Patient: Charisma Holly #: [id number] : 9Acct#:[id number] Age/Sex: 80 / FADM Date: 02/22/21 Loc: ERRoom/Bed: Attending Dr: Ordering Provider/Ordering MD: Carrie Gomez Date of Service: 02/22/21 Procedure(s): CT head wo con* [id number] Accession Number(s): [id number] Report Number: [id number] PROCEDURE INFORMATION: Exam: CT Head Without Contrast Exam date and time: 02/22/2021 1:01 AM Age: 80 years old Clinical indication: Injury or trauma; Blunt trauma (contusions or hematomas); Patient HX: [facility]. On anticoagulants. ; Additional info: Fall; On blood thinners TECHNIQUE: Imaging protocol: Computed tomography of the head without contrast. Radiation optimization: All CT scans at this facility use at least one of these dose optimization techniques: automated exposure control; mA and/or kV adjustment per patient size (includes targeted exams where dose is matched to clinical indication); or iterative reconstruction. COMPARISON: CT head wo con* [id number] 08/16/2020 12:36 PM RADIATION DOSE METRICS: Total DLP (mGy-cm): 923.03 FINDINGS: Brain: No acute intracranial hemorrhage or mass effect. There is decreased attenuation in the periventricular white matter, likely from microvascular disease. Old predominantly white matter infarct again seen in the high right frontal/parietal region, not changed. No definite acute infarct by CT. Cerebral ventricles: Ventricle size is normal for age. Bones/joints: No definite acute skull fracture. Paranasal sinuses: Included paranasal sinuses are essentially clear. Mastoid air cells: No significant acute finding. Vasculature: Vascular calcifications in the internal carotid arteries. CT/CT head wo con* [id number] IMPRESSION: 1. No acute intracranial hemorrhage or mass effect. 2. Changes of microvascular disease, and old right-sided infarct. 3. Other findings discussed above. Radiation Dose CTDIVOL = (mGy): DLP = 923.03 (mGy-cm) Dictated By:Philip Osman MD Signed By:Philip Osman MDSigned Date/Time:02/22/21202 DD/ 1 CXR: My impression: several old/healed L rib fxs; no acute rib fxs noted; no pneumothorax; NAD XR L shoulder: My impression: mildly displaced oblique proximal humeral shaft fx Discharge Plan Discharge Patient Disposition: Home Clinical Impression: Accidental fall from bed Qualifiers: Encounter type: initial encounter Qualified Code(s): W06.XXXA - Fall from bed, initial encounter Closed left humeral fracture Qualifiers: Encounter type: initial encounter Humerus Location: proximal Fracture morphology: other fracture Fracture alignment: displaced Qualified Code(s): S42.292A - Other displaced fracture of upper end of left humerus, initial encounter for closed fracture Condition: Stable Prescriptions: New hydrocodone-acetaminophen 5-325 mg tablet 1 tab PO Q4H PRN (Reason: pain) Qty: 20 RF: 0 No Action Lasix 40 mg tablet 40 mg PO BID RF: 0 citalopram [Celexa] 40 mg tablet 40 mg PO DAILY Qty: 90 RF: 3 metformin 500 mg tablet 1,000 mg PO BID RF: 0 escitalopram oxalate [Lexapro] 20 mg tablet 20 mg PO DAILY Qty: 90 RF: 3 Eliquis 2.5 mg tablet 2.5 mg PO BID Qty: 30 RF: 1 tramadol 50 mg tablet 25 mg PO QID PRN (Reason: pain) Qty: 14 RF: 0 pantoprazole 40 mg Tablet,Delayed Release (Dr/Ec) 40 mg PO BID RF: 0 ferrous sulfate 324 mg (65 mg iron) Tablet,Delayed Release (Dr/Ec) 324 mg PO BID RF: 0 Vitamin C 500 mg Tablet 500 mg PO DAILY Qty: 30 RF: 0 donepezil 5 mg Tablet 5 mg PO DAILY RF: 0 pravastatin 40 mg Tablet 40 mg PO DAILY RF: 0 acetaminophen 325 mg Tablet 650 mg PO Q6H PRN (Reason: Mild/Mod Pain Or Temp >/= 101) Qty: 0 RF: 0 atenolol 50 mg Tablet 50 mg PO DAILY Qty: 30 RF: 0 Discharge Orders: Discharge ED (Routine); Ordered 02/22/21 Ordered By: Carrie Gomez Referrals: Umesh Becerra MD [Primary Care Provider] - Patient Instructions: Fractures - Humerus, Opioid Safety Activity Restrictions/Additional Instructions: [facility] is committed to fighting the nationwide opiate epidemic. We are providing ALL patients with information regarding opiate safety. If you received opiate pain medication during your stay or if you received a prescription for opiate pain medication-please review this handout. If not, you may disregard. Thank you. Patient will need follow-up with orthopedics. Case management should contact the [facility]iary in the next few days to give you patient's appointment date and time. I have provided patient with pain medication. She may take this instead of her usual tramadol if needed for severe pain. She needs to remain in the sling at all times apart from showering and bathing. Coding Level of Care Code ED Games Manager for Chris Serra Exam Comprehensive
[2021-02-22] MEDS: ondansetron 2 mg/ML SDV 2 mL 4 MG IVP (00:54)
[2021-02-22] MEDS: morphine 4 mg/mL SDV 1 mL IVP (00:58)
--- NOTE | 2021-02-22 09:15 | DCPLANNER ---
Addendum entered by Johanna Maier 03/07/21 11:03: Patient had been admitted to hospital, spoke with Iris and was told that according to the hospital notes, they are aware that patient has a fracture and will treat accordingly upon discharge. Original Note: trade manager had message to schedule a follow up appointment for patient with ortho. trade manager called the ortho clinic, spoke with Iris, gave clinic patients information. trade manager was told that patients information would be printed and reviewed. Clinic will call patient with appointment information.
--- NOTE | 2021-04-08 08:45 | P.PCN_ITS ---
Procedure Note: Date of procedure: 02/23/21 Pre-procedure diagnosis: Complete heart block Procedure: Temporary pacemaker placement 80 year old female who was noted to be in complete heart block with heart rate into 30s unresponsive intubated and externally paced. No labs work was done at that time. Patient was started on dopamine and given atropine in the ER. While transferring to Procurement Consultant table we noted to have resumption of sinus rhythm external pacemaker was turned off heart rate was around 70s to 80s. Since patient has intermittent complete heart block I proceeded with temporary pacemaker through right common femoral vein approach During this emergent condition under stabilized condition since patient was full code and with the consent of the family over the phone we proceeded with right femoral vein approach for temporary pacemaker which was placed in the right ventricle. Good capture was confirmed patient was placed with backup rate of 70 bpm. Sensitivity and output was around 2. Backup rate was 70. Coding Level of Care Code Acute Diagnostic Radiologic Technologist for Chris Serra
== END 2021-02-22 04:35 | disposition home or self-care (01) ==
PROVIDERS: Emergency Provider Physician Assistant; PCP Internal Medicine
DX: S42.292A Other displaced fracture of upper end of left humerus, initial encounter for closed fracture (principal); Z79.84 Long term (current) use of oral hypoglycemic drugs; Z79.01 Long term (current) use of anticoagulants; Z86.73 Personal history of transient ischemic attack (TIA), and cerebral infarction without residual deficits; F03.90 Unspecified dementia, unspecified severity, without behavioral disturbance, psychotic disturbance, mood disturbance, and anxiety; E11.9 Type 2 diabetes mellitus without complications; E78.5 Hyperlipidemia, unspecified; I10 Essential (primary) hypertension; W06.XXXA Fall from bed, initial encounter
CPT/HCPCS: 70450; 71101; 73030; 96374; 96375; 99283; J2270; J2405

== ENCOUNTER 2021-02-23 12:58 | Inpatient (IN) | payer MEDICARE, OTHER, SELFPAY ==
[2021-02-23] VITALS (67 sets, daily range): BP systolic 70–138; BP diastolic 36–66; PULSE 32–94; RESP 14–26; TEMP 33.9–36.5; O2SAT 65–100; BMI 24.7
[2021-02-23] MEDS: atropine 0.1 mg/mL Syr 10 mL 1 MG IVP ×2 (13:15→13:23)
[2021-02-23] MEDS: succinylcholine 20 mg/mL SDV 10mL 100 MG IVP (13:28)
--- NOTE | 2021-02-23 13:29 | XR_ITS ---
WS: [id number] Portable AP upright chest, 02/23/2021 Clinical Data: tube placement Comparison: Portable chest, 02/22/2021 Findings: The endotracheal tube enters the right mainstem bronchus and needs to be retreated 6 cm. He art and lungs show no change from yesterday. There is a fracture of the left humeral neck. Monitor le ads are on the chest wall. XR/XR chest 1V portable [id number] Impression: Endotracheal tube needs to be retreated 6 cm.
--- NOTE | 2021-02-23 13:30 | ECG_ITS ---
[facility] Test Date: 2021-02-23 Pat Name: Charisma Holly Department: Room: Gender: Female Technology Applications Teacher: : 1940 Requested By: Nnamdi Noland Order Number: [id number] Lucero MD: Kim Neil M.D. Measurements Intervals [place] Rate: 56 P: 94 NM: 123 QRS: 100 QRSD: 101 T: -3 QT: 453 QTc: 439 Interpretive Statements SINUS BRADYCARDIA BORDERLINE RIGHT AXIS DEVIATION [QRS AXIS > 90] INCOMPLETE RIGHT BUNDLE BRANCH BLOCK [90+ ms QRS DURATION, TERMINAL R IN V1/V2, 40+ ms S IN I/aVL/V4/V5/V6] MINIMAL ST DEPRESSION [0.025+ mV ST DEPRESSION] ABNORMAL QRS-T ANGLE [QRS-T AXIS DIFFERENCE > 60] INTERPRETATION BASED ON A DEFAULT AGE OF 40 YEARS Compared to ECG 08/16/2020 11:55:43 Incomplete right bundle-branch block now present ST (T wave) deviation now present Sinus rhythm no longer present Electronically Signed On 02-23-2021 21:45:47 CDT by Kim Neil M.D. [id number]
[2021-02-23] MEDS: DOPamine drip 400 MG/250 ML PREMIX 11.9 MG IV (13:32)
--- NOTE | 2021-02-23 13:45 | W.ED.GENADLT ---
HPI - General Adult General: Chief complaint: General Medical Stated complaint: UNRESPONSIVE/ FALL YESTERDAY Time Seen by Provider: 02/23/21 12:59 History of Present Illness: HPI narrative: 80-year-old female presents via EMS from [facility]. Was seen yesterday has a left humeral fracture. Today found down nonresponsive and bradycardic on arrival here she appears to be in complete heart block. She can mumble a few words at best. She is hypotensive hypoxic and in critical condition. See notes below no further history was obtained from the patient because of her condition. Onset (ago): minute(s) Relieving factors: none Exacerbating factors: none Associated symptoms: Deny chest pain, confusion, cough, diaphoresis, decreased appetite, dyspnea, fevers/chills, headache(s), malaise, nausea, rash, palpitations, seizures, short of breath, syncope, vomiting or weakness Treatments prior to arrival: none Review of Systems Const: Denies: malaise or diaphoresis ENMT: Denies: throat pain, ear or mastoid pain, nasal discharge or nasal congestion Card: Denies: chest pain, palpitations or syncope Resp: Denies: dyspnea GI: Denies: nausea or vomiting : Denies: flank pain, difficulty voiding, dysuria, urinary frequency or urinary urgency Skin/Breast: Denies: rash or pruritus Neuro: Denies: headache(s) or confusion PFSH ED PFSH: Medical History Anemia Critical lower limb ischemia CVA (cerebral vascular accident) 2013, right hemispheric Dementia Diabetes Hiatal hernia Hyperlipidemia Hypertension Peripheral vascular disease Pneumonia Pneumonia Thalassemia trait Surgical History History of angioplasty of peripheral vessel History of back surgery Family History Other Diabetes Social History Smoking and tobacco status: never smoked Alcohol intake: never Housing: [facility] Physical Exam Const: COMMON NORMALS: no acute distress GENERAL APPEARANCE: cooperative and comfortable HENMT: COMMON NORMALS: normocephalic and atraumatic HEAD & SCALP: normocephalic and atraumatic Eye: COMMON NORMALS: Equal, round and reactive pupils present, conjunctivae normal and no scleral icterus CONJUNCTIVA: Yes conjunctivae normal PUPIL: Yes Equal, round and reactive pupils present Neck/C-Spine: COMMON NORMALS: supple Lymph: LYMPHATIC: no lymphadenopathy noted and no lymphedema noted Resp: EFFORT & INSPECTION: Yes decreased respiratory effort AUSCULTATION: rhonchi Cardio: COMMON NORMALS: No murmurs present (Cardio) RATE: bradycardic RHYTHM: abnormal rhythm (Third-degree heart block) GI: COMMON NORMALS: Soft to palpation and No hepatosplenomegaly present AUSCULTATION: Yes normoactive bowel sounds PALPATION: Yes Soft to palpation, No Tenderness to palpation present (GI), No Guarding due to palpation present (GI) and Yes No hepatosplenomegaly present Extremity: NARRATIVE EXTREMITY EXAM: Deformity of the left proximal humerus consistent with history of proximal humerus fracture Skin: COMMON NORMALS: no rashes or lesions noted GENERAL SKIN EXAM: no rashes or lesions noted Procedures Intubation Time out performed: Yes sedative: Etomidate Mg Given: 20 paralytic: Succinylcholine Mg Given: 90 Laryngoscope: Valentina ET Tube Size: 8 ET Tube Uncuffed: No Tube Secured Depth (cm): 24 Tube Secured Location: teeth Tube Placement Confirmation: visualized tube passing through cords, equal breath sounds bilaterally, no breath sounds over epigastrium and confirmation by capnometry Patient Tolerated Procedure: well Intubation Complications: none Additional Comments: Chest x-ray to confirm shows right mainstem bronchus intubation. The ET tube was withdrawn to 19 cm and chest x-ray is repeated shows tip of the ET tube above the tosin Course Vital Signs: Vital signs: Vital Signs Temperature 97.7 F 02/23/21 13:02 Pulse Rate 80 02/23/21 14:37 Respiratory Rate 14 02/23/21 14:44 Blood Pressure 91/48 02/23/21 14:37 Pulse Oximetry 98 02/23/21 14:37 MDM - General Adult MDM Narrative: Medical decision making narrative: On arrival patient was in critical condition ABG shows pH 7 to. She was in cardiogenic shock from her bradycardia she was given atropine x2 during which is cutaneous pacing was established with capture at 84 mA and a rate of 80. Pressure improved she was also given IV dopamine and titrated up to 12 pressure improved to [address] Will was contacted to place a transcutaneous pacer. Just prior to establishing transcutaneous pacing patient was intubated by RSI and tolerated well. After patient left the department ABGs came back showing a significant hyperkalemia. RT tech was asked to transmit this to Dr. Will she did also confirmed with Dr. Will he was aware. He told me he had treated with calcium gluconate glucose and insulin. Care assumed by Dr. Will and Dr. Sepulveda from the Reptile Farmer. Lab Data: Labs: Lab Results 02/23/21 Range/Units 13:40 Specimen Type Arterial Sample Site Radial, left ABG pH 7.20 L (7.35-7.45) ABG pCO2 42.5 (35-45) mmHg ABG pO2 369.0 H (80.0-100.0) mmH g ABG HCO3 16.4 L (22-26) mmol/L ABG O2 Saturation 99.9 ABG Base Excess -10.8 L (-2.0-2.0) mmol/ L Deandre Test Pos A-a O2 Gradient 37.4 H (5-10) mmHg Hematocrit 22.5 L (37-47) % Hgb O2 Saturation 98.2 (95-100) % Carboxyhemoglobin 0.5 (0.4-20.1) %THgb Methemoglobin 1.3 (0.4-1.5) % Total Hemoglobin 7.3 L (12-16) g/dL Sodium 145.0 H (131-143) mmol/L Potassium 6.7 H (3.5-5.0) mmol/L Glucose 237.0 H (70-115) mg/dL Ionized Calcium 1.1 (1.1-1.4) mmol/L O2 Delivery Device Vent Mechanical Rate 14.0 FiO2 100.0 % Tidal Volume 0.40 PEEP 5.0 cmH20 Heating And Cooling Systems Engineer ID [id number] Critical Care Time Critical Care Time: Critical Care Time: Yes Total Critical Care Time: 40 Attestation: This case had a high probability of a clinically significant, sudden, or life threatening deterioration of this patient's condition which required my full and direct attention, intervention and personal management. Discharge Plan Discharge Patient Disposition: Admitted As Inpatient Clinical Impression: Complete heart block, Diabetes, Hypertension, Congestive heart failure, Closed left humeral fracture, Hyperkalemia Coding Level of Care Code ED Web Press Operator Helper Offset for Olyg Ponce Exam Comprehensive
[2021-02-23 13:56] LABS: ABG PCO2 42.5 mmHg (35-45); Alveolar-Arterial Oxygen Gradi 37.4 mmHg (5-10); Arterial Blood Gas Hematocrit 22.5 % (37-47); Base Excess ABG -10.8 mmol/L (-2.0-2.0); Blood Gas Allen Test Pos; Blood Gas Operator Identificat GD; Blood Gas Sample Site Radial, left; Blood Gas Sample Type Arterial; Carboxyhemoglobin 0.5 %THgb (0.4-20.1); HCO3 ABG 16.4 mmol/L (22-26); HGB O2 Sat 98.2 % (95-100); Ionized Calcium Level - ABG 1.1 mmol/L (1.1-1.4); Methemoglobin 1.3 % (0.4-1.5); Oxygen Device VENT; Oxygen Saturation ABG 99.9; Potassium Level - ABG 6.7 mmol/L (3.5-5.0); Total Hemoglobin 7.3 g/dL (12-16)
[2021-02-23] MEDS: vecuronium 10 mg SDV IVP (14:00)
--- NOTE | 2021-02-23 14:35 | PC.NURSE ---
Pt was intubated at 1328 with a 8.0 ET 24 at the lip. pt was placed on pacer pads and pacing was started at 1329.
--- NOTE | 2021-02-23 14:37 | P.CONIM_ITS ---
Providers/Reason For Consult Consulting Physican/Specialty*: Cardiology Reason for Consult*: Complete heart block, shock Primary Care Provider: Umesh Becerra MD History of Present Illness History of Present Illness I was called by the ER physician regarding Charisma Holly is a 80 year old female who was noted to be in complete heart block with heart rate into 30s unresponsive intubated and externally paced. No labs work was done at that time. Patient was started on dopamine and given atropine in the ER. While transferring to Waxing Machine Operator Helper table we noted to have resumption of sinus rhythm external pacemaker was turned off heart rate was around 70s to 80s. Since patient has intermittent complete heart block I proceeded with temporary pacemaker through right common femoral vein approach. Baseline rate of the pacemaker was set at 70 bpm with output and MA of 5 and asynchronous mode. ABG in the Waxing Machine Operator Helper showed potassium of 6.7 and pH of 7.1. IV fluid was given along with calcium gluconate, 50% dextrose and 10 units of insulin for hyperkalemia. At the end of the procedure patient blood pressure stabilized more than 120/80 with heart rate into the 80s with intermittent pacemaker use. Her past medical history significant for hypertension hyperlipidemia heart failure diabetes mellitus anemia pulmonary embolism and peripheral vascular disease with intervention to lower extremities. Due to anemia anticoagulation apixaban was reduced to 2.5 mg twice daily. Please note that history of the patient is as per medical record since she is intubated and sedated. Meds/Allergies Home Medications and Allergies Home Medications Medication Instructions Recorded Confirmed Last Taken Type donepezil 5 mg PO DAILY@0800 04/25/20 02/23/21 05/03/20 History pravastatin 40 mg PO DAILY@199904/25/20 02/23/21 05/03/20 History acetaminophen 650 mg PO Q6H PRN #0 tab 05/03/20 02/23/21 Unknown Rx tramadol 25 mg PO QID PRN #14 tab 08/09/20 02/23/21 Unknown Rx pantoprazole 40 mg PO BID@0600,199908/16/20 02/23/21 Unknown History furosemide 40 mg tablet 40 mg PO BID@0800,1400 tab 09/20/20 02/23/21 Unknown History metformin 500 mg tablet 1,000 mg PO BID@0800,1999 tab 01/12/21 02/23/21 Unknown History hydrocodone-acetaminophen 1 tab PO Q4H PRN #20 tab 02/22/21 02/23/21 Unknown Rx Eliquis 2.5 mg PO BID@08,199902/23/21 02/23/21 Unknown History Lexapro 20 mg PO DAILY@79902/23/21 02/23/21 Unknown History ascorbic acid (vitamin C) [Vitamin 500 mg PO DAILY@79902/23/21 02/23/21 Unknown History C] atenolol 50 mg PO DAILY@79902/23/21 02/23/21 02/23/21 History cholecalciferol (vitamin D3) 125 mcg PO DAILY@79902/23/21 02/23/21 Unknown History [Vitamin D3] cholecalciferol (vitamin D3) 250 mcg PO Q30D 02/23/21 02/23/21 Unknown History [Vitamin D3] ferrous sulfate 325 mg PO DAILY@00 02/23/21 02/23/21 Unknown History insulin aspart U-100 [Novolog See Rx Instructions .ROUTE .COMPLEX 02/23/21 02/23/21 Unknown History U-100 Insulin aspart] olanzapine [Zyprexa] 5 mg PO DAILY@199902/23/21 02/23/21 Unknown History Allergies Allergy/AdvReac Type Severity Reaction Status Date / Time No Known Allergies Allergy Verified 02/23/21 13:21 Current Medications Current Medications Generic Name Dose Route Start Last Admin Trade Name Freq PRN Reason Stop Dose Admin Dopamine HCl/Dextrose 400 mg in 250 mls @ 11.907 mls/hr 02/23/21 13:30 02/23/21 13:45 Intropin Drip IV 12 mcg/kg/min CONT TANYA 28.6 mls/hr Titration Protocol 5 MCG/KG/MIN PFSH Acute PFSH: Medical History Anemia Critical lower limb ischemia CVA (cerebral vascular accident) 2013, right hemispheric Dementia Diabetes Hiatal hernia Hyperlipidemia Hypertension Peripheral vascular disease Pneumonia Pneumonia Thalassemia trait Surgical History History of angioplasty of peripheral vessel History of back surgery Family History Other Diabetes Social History Smoking and tobacco status: never smoked Alcohol intake: never Housing: [facility] Vitals/I&O/Wt Last Vital Signs Temp 97.7 F 02/23/21 13:02 Pulse 32 L 02/23/21 13:02 Resp 14 02/23/21 13:34 BP 91/36 02/23/21 13:02 Pulse Ox 99 02/23/21 13:02 02/22/21 02/23/21 02/23/21 22:59 06:59 14:59 Intake Total 3.179 / 3.179 Balance 3.179 / 3.179 Weight last 48 hrs Weight 140 lb Physical Exam Narrative: EXAM NARRATIVE: GENERAL: Patient is intubated and sedated, pale looking NECK: No jugular vein distension. [] HEENT: No cyanosis. No icterus. HEART: Regular S1 and S2. No murmur, rub or gallop. [] LUNGS: Clear to auscultate bilaterally. [] ABDOMEN: Cannot assess CENTRAL cannot assess EXTREMITIES: Lower extremities without edema A&P Assessment and plan (1) Complete heart block: Most likely due to hyperkalemic state. Calcium gluconate along with glucose and insulin was given as per protocol. Temporary pacemaker is placed. Patient is on dopamine. She will return to ICU for further medical management of hyperkalemia with primary team. We will tag along with her. Continue to hold all the potassium supplements. Status: Acute (2) Shock: Most likely due to complete heart block, patient has appeared to be volume depleted may will give IV fluid may can add pressor, rule out sepsis. Medicine is on board Status: Acute (3) Hyperkalemia: As defined above patient has been given calcium gluconate, glucose dextrose 50 and IV insulin. Kayexalate pending as per protocol once reached ICU. Status: Acute Consult Attestations Medical Necessity Statement: I am expecting her stay to cross more than 2 midnights Coding Level of Care Code New Pt Acute Android Developer for Chg Fwd Patient Type New History Comprehensive Exam Comprehensive Medical Decision Making High Complexity Diagnoses Complete heart block I44.2 Shock R57.9 Hyperkalemia E87.5
--- NOTE | 2021-02-23 14:47 | ECG_ITS ---
[facility] Test Date: 2021-02-23 Pat Name: Charisma Holly Department: Room: Gender: Female Faculty Dean: : 1940 Requested By: Nnamdi Noland Order Number: [id number] Lucero MD: Kim Neil M.D. Measurements Intervals [place] Rate: 35 P: [place]: QRS: 89 QRSD: 96 T: 30 QT: 496 QTc: 383 Interpretive Statements SUPRAVENTRICULAR BRADYCARDIA ST DEVIATION AND MODERATE T-WAVE ABNORMALITY, CONSIDER ANTEROLATERAL ISCHEMIA [-0.1+ mV T WAVE IN V3-V6] CRITICAL TEST RESULT INTERPRETATION BASED ON A DEFAULT AGE OF 40 YEARS Compared to ECG 02/23/2021 13:19:58 T-wave abnormality now present Possible ischemia now present Sinus bradycardia no longer present Incomplete right bundle-branch block no longer present ST (T wave) deviation no longer present Electronically Signed On 02-23-2021 21:47:49 CDT by Kim Neil M.D. [id number] f
--- NOTE | 2021-02-23 15:49 | XR_ITS ---
WS: [id number] Portable AP supine chest, 02/23/2021, 1756 hours Clinical Data: sob Comparison: Portable chest, 02/23/2021, 1342 hours. Findings: The endotracheal tube has been retreated and is now 1.5 cm above the tosin. The chest find ings remain the same. XR/XR chest 1V portable [id number] Impression: Endotracheal tube positioned above tosin.
--- NOTE | 2021-02-23 15:50 | ECG_ITS ---
[facility] Test Date: 2021-02-23 Pat Name: Charisma Holly Department: Room: [facility]04 Gender: Female Deck Cadet: : 1940 Requested By: Arvind Rodriguez Order Number: [id number] Lucero MD: Kim Neil M.D. Measurements Intervals [place] Rate: 71 P: 81 [place]: 145 QRS: 85 QRSD: 100 T: 30 QT: 438 QTc: 478 Interpretive Statements SINUS RHYTHM NONSPECIFIC ST & T-WAVE ABNORMALITY Compared to ECG 02/23/2021 13:21:36 Possible ischemia no longer present T-wave abnormality still present Electronically Signed On 02-23-2021 21:48:50 CDT by Kim Neil M.D. [email or web address] [email or web address] [facility] [email or web address].Lola Pirindola/store/OM/[id number]
--- NOTE | 2021-02-23 16:15 | P.HP_ITS ---
Providers/Chief Complaint Admitting Physician: Arvind Rodriguez MD Primary Care Provider: Umesh Becerra MD Chief Complaint: UNRESPONSIVE/ FALL YESTERDAY History of Present Illness Charisma Holly is a 80 year old female who has a past medical history of thalassemia trait, type 2 diabetes mellitus, hypertension, microcytic anemia, grade 1 diastolic dysfunction, last EF 65%, pulmonary embolism on modified dose of Eliquis, has a history of dementia, severe peripheral vascular disease status post balloon angioplasty of the left distal tibial peroneal trunk in April 2020, chronic hypoxia 1.5 L, According to the [place] [facility], [facility], she has dementia, she cannot recognize nursing staff at times, is forgetful at times, she can feed herself, she ambulates in a walker, yesterday she fell sustaining a left humeral fracture, currently medically managed, she is also complaining of left hip pain, since coming back from the emergency room, she just was not acting appropriat daniel, was looking more ill, looking short of breath. This morning she woke up she actually had breakfast, still looking ill, complaining of left hip pain. After breakfast, she was sitting at the breakfast table when, she slowly became nonresponsive, agonal breathing, became hypoxic, her oxygen saturations were in the low 60s, her pulse was low, blood pressure was low according to the [place] [facility] staff, she was not responding appropriately so they brought her over to the emergency room. It took roughly 25 minutes for her to get over to [facility], on arrival she was nonresponsive, bradycardic, was in complete heart block, she was found to have cardiogenic shock from bradycardia, was given atropine x2, cutaneous pacing was established, 84 MA, rate of 80, pressures improved, was also given IV dopamine, titrate up to 12, pressures improved to 90 systolics, Dr. Will was consulted, transcutaneous pacer, intubated by RSI, taken to the cardiac catheterization lab, had a pacemaker placed, currently in ICU. She was also found to have hyperkalemia, was given insulin, glucose, calcium gluconate, currently patient is in the ICU, she is on dopamine, she has received several sedating medications in the ER, pupils are fixed dilated, nonresponsive, she does not withdraw from pain, is 100% FiO2, PEEP of 10, good tidal volumes, Review of Systems General: Reports: ROS unobtainable due to medical condition Medications/Allergies Home Medications Medication Instructions Recorded Confirmed Last Taken Type donepezil 5 mg PO DAILY@0800 04/25/20 02/23/21 05/03/20 History pravastatin 40 mg PO DAILY@199904/25/20 02/23/21 05/03/20 History acetaminophen 650 mg PO Q6H PRN #0 tab 05/03/20 02/23/21 Unknown Rx tramadol 25 mg PO QID PRN #14 tab 08/09/20 02/23/21 Unknown Rx pantoprazole 40 mg PO BID@0600,199908/16/20 02/23/21 Unknown History furosemide 40 mg tablet 40 mg PO BID@0800,1399 tab 09/20/20 02/23/21 Unknown History metformin 500 mg tablet 1,000 mg PO BID@0800,1999 tab 01/12/21 02/23/21 Unknown History hydrocodone-acetaminophen 1 tab PO Q4H PRN #20 tab 02/22/21 02/23/21 Unknown Rx Eliquis 2.5 mg PO BID@0800,199902/23/21 02/23/21 Unknown History Lexapro 20 mg PO DAILY@0800 02/23/21 02/23/21 Unknown History ascorbic acid (vitamin C) [Vitamin 500 mg PO DAILY@0800 02/23/21 02/23/21 Unknown History C] atenolol 50 mg PO DAILY@0800 02/23/21 02/23/21 02/23/21 History cholecalciferol (vitamin D3) 125 mcg PO DAILY@0800 02/23/21 02/23/21 Unknown History [Vitamin D3] cholecalciferol (vitamin D3) 250 mcg PO Q30D 02/23/21 02/23/21 Unknown History [Vitamin D3] ferrous sulfate 325 mg PO DAILY@00 02/23/21 02/23/21 Unknown History insulin aspart U-100 [Novolog See Rx Instructions .ROUTE .COMPLEX 02/23/21 02/23/21 Unknown History U-100 Insulin aspart] olanzapine [Zyprexa] 5 mg PO DAILY@199902/23/21 02/23/21 Unknown History Allergies Allergy/AdvReac Type Severity Reaction Status Date / Time No Known Allergies Allergy Verified 02/23/21 13:21 PFSH Acute PFSH: Medical History Anemia Critical lower limb ischemia CVA (cerebral vascular accident) 2013, right hemispheric Dementia Diabetes Hiatal hernia Hyperlipidemia Hypertension Peripheral vascular disease Pneumonia Pneumonia Thalassemia trait Surgical History History of angioplasty of peripheral vessel History of back surgery Family History Other Diabetes Social History Smoking and tobacco status: never smoked Alcohol intake: never Housing: Detention Vitals/I&O/Wt Last Vital Signs Temp 97.7 F 02/23/21 13:02 Pulse 76 02/23/21 15:55 Resp 14 02/23/21 14:44 BP 126/56 02/23/21 15:55 Pulse Ox 100 02/23/21 15:55 02/23/21 02/23/21 02/23/21 06:59 14:59 22:59 Intake Total 3.179 / 3.179 Balance 3.179 / 3.179 Weight last 48 hrs Weight 63.503 kg Physical Exam Const: COMMON NORMALS: no acute distress GENERAL APPEARANCE: frail appearing ORIENTATION/CONSCIOUSNESS: not awake, not oriented to person, not oriented to place and not oriented to time OTHER: Intubated, has received sedating medications HENMT: OTHER: Pupils fixed dilated bilaterally Chest: COMMONS NORMALS: normal inspection of the chest Resp: COMMON NORMALS: normal respiratory effort, No retractions and No use of accessory muscles AUSCULTATION: crackles Cardio: COMMON NORMALS: no JVD, regular rate, regular rhythm, S1 normal heart sound present and S2 normal heart sound present GI: COMMON NORMALS: Normal to inspection, nondistended, normoactive bowel sounds present, Soft to palpation and No hepatosplenomegaly present Extremity: COMMON NORMALS: capillary refill normal and no clubbing, cyanosis or edema NARRATIVE EXTREMITY EXAM: 1+ edema OTHER: Left shoulder bruising, left arm in a sling A&P Assessment and plan (1) Acute respiratory failure with hypoxia: -With bradycardia, cardiogenic shock, aspiration event Plan: -Admit to ICU -Ventilator protocol -Minimize PEEP, minimize FiO2 -Daily chest x-rays -Daily spontaneous breathing trials -Fentanyl and propofol for sedation, Mark score 0 -Zosyn for aspiration pneumonia coverage -Currently on heparin drip, history of pulmonary emboli, on Eliquis, hold Eliquis for now, has anemia, monitor hemoglobin -Transcutaneous pacer in place -Low-dose sliding scale -Taylor catheter -Monitor for fevers, monitor respiratory status -Assess neurologic function daily -Cardiac echo ordered, BNP, troponins, serial EKGs -We will hold off on Lasix until we get blood work -Monitor urine output, monitor creatinine -Full code -Heparin drip for DVT prophylaxis -Protonix for GI prophylaxis Status: Acute (2) Complete heart block: -Status post transcutaneous pacer by Dr. Will -Cardiology on consult Status: Acute (3) Hypertension: Status: Acute (4) Hyperlipidemia: Status: Acute (5) Diabetes: - Status: Acute (6) Acute on chronic anemia: Status: Acute (7) Pulmonary embolism: Status: Acute (8) Congestive heart failure: Status: Acute (9) Peripheral vascular disease: Status: Acute (10) Shock: Status: Acute (11) Hyperkalemia: -Status post calcium gluconate, insulin -Blood sugar 222 -Repeat blood work pending Status: Acute Attestations Medical Necessity Statement*: Patient requires hospitalization, ICU, greater than 2 midnights for cardiogenic shock, bradycardia, acute respiratory failure, aspiration Coding Level of Care Code Acute Strategic Consultant for g Fwd Diagnoses Acute respiratory failure with hypoxia J96.01 Complete heart block I44.2 Hypertension I10 Hyperlipidemia E78.5 Diabetes E11.9 Acute on chronic anemia D64.9 Pulmonary embolism I26.99 Congestive heart failure I50.9 Peripheral vascular disease I73.9 Shock R57.9 Hyperkalemia E87.5
[2021-02-23] MEDS: pantoprazole 40 mg SDV IVP (16:57)
[2021-02-23] MEDS: piperacillin-tazobactam 3.375 GM in sodium chloride 0.9% (plus) 50 ML IV (16:57)
[2021-02-23 17:29] LABS: ABG PCO2 39.5 mmHg (35-45); ABG PH Result 7.33 (7.35-7.45); Arterial Blood Gas Hematocrit 24.4 % (37-47); Base Excess ABG -4.5 mmol/L (-2.0-2.0); Blood Gas Allen Test Pos; Blood Gas Operator Identificat GD; Blood Gas Sample Site Radial, right; Blood Gas Sample Type Arterial; Oxygen Device VENT; PO2 ABG 98.2 mmHg (80.0-100.0)
[2021-02-23 17:49] LABS: Basophils % 0.2 %; Hematocrit 25.9 % (37.0-47.0); Hemoglobin 7.8 g/dL (11.5-15.3); Lymphocytes % 8.1 %; Mean Corpuscular HGB Conc 30.1 g/dL (30.0-36.0); Mean Corpuscular Volume 76.4 fL (81-99); Monocytes # 1.2 10^3/uL (0.2-0.9); Monocytes % 9.6 %; Neutrophils # 10.06 10^3/uL (1.8-7.7); Neutrophils % 80.8 %; Nucleated Red Blood Cells # 0.1 /100WBC; Platelet Count 144 10^3/cmm (130-400); Red Blood Count 3.39 10^6/uL (4.1-5.3); Red Cell Distribution Width 14.9 % (12.1-15.1); White Blood Count 12.4 10^3/uL (4.0-10.0)
--- NOTE | 2021-02-23 17:50 | ECG_ITS ---
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 Measurements Intervals [place] Rate: 79 P: 94 [place]: 124 QRS: 87 QRSD: 87 T: 47 QT: 390 QTc: 449 Interpretive Statements Sinus rhythm with asynchronous V pacing NONSPECIFIC ST & T-WAVE ABNORMALITY ABNORMAL RHYTHM ECG Compared to ECG 02/23/2021 16:41:51 T-wave abnormality still present Electronically Signed On 02-23-2021 21:57:48 CDT by Kim Neil M.D. [id number]
--- NOTE | 2021-02-23 17:52 | PC.NURSE ---
MIDLINE placed RIGHT arm, 20cm total length, 27cm mid arm circumference, 0 cm external length.
[2021-02-23 18:20] LABS: Procalcitonin 0.34 ng/mL (0-0.5)
[2021-02-23 18:25] LABS: Lactate (Lactic Acid level) 7.3 mmol/L (0.5-2.2); Troponin(5th) Baseline 696 ng/L (0-10)
[2021-02-23 18:33] LABS: Albumin Level 3.6 g/dL (3.5-5.2); Alkaline Phosphatase 90 IU/L (35-105); Calcium 8.6 mg/dL (8.5-10.5); Chloride 103 mmol/L (98-107); Globulin 2.9 g/dL (1.3-4.6); Sodium 139 mmol/L (136-145)
[2021-02-23 18:47] LABS: Alanine Aminotransferase 1076 U/L (0-33); Anion Gap 22.9 (5-19); Aspartate Amino Transferase 1726 U/L (0-32); Blood Urea Nitrogen 51 mg/dL (8-23); C Reactive Protein 47.2 mg/L (0.0-4.9); Carbon Dioxide 19 mmol/L (22-29); Glucose 232 mg/dL (65-115); Osmolality Calculated 309 mOsm/kg (285-295); Potassium 5.9 mmol/L (3.5-5.1)
[2021-02-23 18:48] LABS: NT Pro B Type Natriuretic Pept 3181 pg/mL (0-450); Total Protein 6.5 g/dL (6.6-8.7)
[2021-02-23 18:49] LABS: Creatine Phosphokinase 464 U/L (26-192)
[2021-02-23 18:50] LABS: Slide Review Slide Review Perform
[2021-02-23 19:01] LABS: Add Urine Culture? Yes; Add Urine Microscopic? YES; Bacteria Urine 4+ /hpf; Bilirubin Urine Neg (Negative); Blood Urine 3+ (Negative); Glucose Urine UA Norm (Normal); Ketones Urine Negative (Negative); Leukocyte Esterase Urine Negative (Negative); Nitrate Urine Negative (Negative); Protein Urine 1+ (Negative); RBC Urine 0-4 /hpf (0-2); Specific Gravity, Urine 1.015 (1.005-1.030); Squamous Epithelial Cell Urine 0-4 /hpf (0-5); Urine Appearance SL Hazy (CLEAR); Urine Color Yellow (Yellow); Urobilinogen Urine 1 mg/dL (Negative); pH Urine 5 (5-7)
[2021-02-23 19:35] LABS: Partial Thromboplastin Time 22.4 SECONDS (23.9-36.7)
[2021-02-23 20:13] LABS: Troponin 5 2HR 603.3 ng/L (0-10)
[2021-02-23] MEDS: heparin 5,000 unit/mL INJ 1 mL IV (20:47)
[2021-02-23] MEDS: heparin drip 25,000 UNIT/500 ML PREMIX 18 UNIT IV (20:48)
--- NOTE | 2021-02-23 21:50 | ECG_ITS ---
[facility] Test Date: 2021-02-23 Pat Name: Charisma Holly Department: Room: [facility]04 Gender: Female Deputy Chief Sheriff: : 1940 Requested By: Arvind Rodriguez Order Number: [id number] Lucero MD: Kim Neil M.D. Measurements Intervals [place] Rate: 86 P: 83 [place]: 136 QRS: 84 QRSD: 89 T: 32 QT: 386 QTc: 464 Interpretive Statements Sinus rhythm with asynchronous V pacing ELECTRONIC VENTRICULAR PACEMAKER -- CONTOUR ANALYSIS BASED ON INTRINSIC RHYTHM NONSPECIFIC ST & T-WAVE ABNORMALITY ABNORMAL RHYTHM ECG Compared to ECG 02/23/2021 18:42:44 No significant changes Electronically Signed On 02-23-2021 21:58:35 CDT by Kim Neil M.D. [id number]
[2021-02-23 23:17] LABS: Troponin 5 6HR 737.2 ng/L (0-10); Troponin 5 6HR Delta 41.2 ng/L (0-12)
[2021-02-24] VITALS (70 sets, daily range): BP systolic 67–142; BP diastolic 38–88; PULSE 61–104; RESP 14–18; TEMP 37–38.7; O2SAT 91–100; BMI 23.8
--- NOTE | 2021-02-24 | XR_ITS ---
WS: [id number] Right hip, AP and internal rotation, left hip 3 views, 02/24/2021 Clinical Data: left hip fracture Comparison: Bilateral hips, 06/24/2018. Findings: Right hip: No right hip fracture is seen. The joint space is normal. The adjacent right pelvis is unremarkable. There are monitor leads overlying the right hip and proximal right femur. Left hip: There is an intertrochanteric subtrochanteric hip fracture which has healed. It's been repaired with a long intramedullary greg in the left femur and 2 oblique screws in the left femoral neck. No new fra ctures are seen. The adjacent left pelvis is normal. There are vascular calcifications in the roberts o f the arteries. XR/XR hip BI 3-4V wo/w pel [id number] Impression: 1. Negative right hip. 2. Negative for new fracture of the left hip. 3. Stable intertrochanteric subtrochanteric fracture of the left hip.
[2021-02-24] MEDS: piperacillin-tazobactam 3.375 GM in sodium chloride 0.9% (plus) 50 ML IV ×3 (01:40→20:42)
[2021-02-24] MEDS: DOPamine drip 400 MG/250 ML PREMIX 17.9 MG IV (02:03)
[2021-02-24 04:02] LABS: Basophils % 0.3 %; Eosinophils % 0.2 %; Hematocrit 24.5 % (37.0-47.0); Hemoglobin 7.7 g/dL (11.5-15.3); INR 2.39 (0.8-1.2); Lymphocytes % 8.8 %; Mean Corpuscular HGB Conc 31.4 g/dL (30.0-36.0); Mean Corpuscular Hemoglobin 23.2 pg (28.0-34.0); Mean Corpuscular Volume 73.8 fL (81-99); Mean Platelet Volume 12.6 fL (7.4-10.4); Monocytes # 1.1 10^3/uL (0.2-0.9); Monocytes % 9.9 %; Neutrophils # 8.59 10^3/uL (1.8-7.7); Neutrophils % 79.7 %; Nucleated Red Blood Cells # 0.3 /100WBC; Nucleated Red Blood Cells % 2.8 %; Platelet Count 149 10^3/cmm (130-400); Red Blood Count 3.32 10^6/uL (4.1-5.3); Red Cell Distribution Width 14.6 % (12.1-15.1); White Blood Count 10.8 10^3/uL (4.0-10.0)
[2021-02-24 04:04] LABS: Fibrinogen 309 mg/dL (174-498)
[2021-02-24 04:14] LABS: Lactate (Lactic Acid level) 3.8 mmol/L (0.5-2.2)
[2021-02-24 04:15] LABS: D Dimer 4.88 ug/mIFEU (0-0.59)
[2021-02-24 04:17] LABS: Albumin Level 3.2 g/dL (3.5-5.2); Alkaline Phosphatase 81 IU/L (35-105); Anion Gap 18.1 (5-19); Blood Urea Nitrogen 53 mg/dL (8-23); C Reactive Protein 56.6 mg/L (0.0-4.9); Calcium 8.2 mg/dL (8.5-10.5); Carbon Dioxide 24 mmol/L (22-29); Chloride 104 mmol/L (98-107); Globulin 3.3 g/dL (1.3-4.6); Glucose 224 mg/dL (65-115); Magnesium 1.9 mg/dL (1.7-2.3); Osmolality Calculated 311 mOsm/kg (285-295); Phosphorus 3.5 mg/dL (2.5-4.5); Potassium 6.1 mmol/L (3.5-5.1); Sodium 140 mmol/L (136-145); Total Bilirubin 1.1 mg/dL (0.15-1.2); Total Protein 6.5 g/dL (6.6-8.7)
[2021-02-24 04:25] LABS: Thyroid Stimulating Hormone 1.66 uIU/mL (0.27-4.20)
[2021-02-24 04:30] LABS: Partial Thromboplastin Time 127.4 SECONDS (23.9-36.7)
[2021-02-24 04:34] LABS: Alanine Aminotransferase 1242 U/L (0-33)
[2021-02-24 04:36] LABS: Aspartate Amino Transferase 1718 U/L (0-32)
[2021-02-24 04:54] LABS: ABG PCO2 41.8 mmHg (35-45); ABG PH Result 7.39 (7.35-7.45); Arterial Blood Gas Hematocrit 25.5 % (37-47); Base Excess ABG 0.4 mmol/L (-2.0-2.0); Blood Gas Allen Test Pos; Blood Gas Sample Type Arterial; HCO3 ABG 25.4 mmol/L (22-26); PO2 ABG 74.6 mmHg (80.0-100.0)
[2021-02-24] MEDS: pantoprazole 40 mg SDV IVP ×2 (04:54→16:37)
[2021-02-24 04:57] LABS: Blood Gas Operator Identificat JB; Blood Gas Sample Site Radial, right; Oxygen Device VENT
[2021-02-24 05:19] LABS: Estmated Average Glucose 169; Hemoglobin A1C 7.5 % (4.0-6.0)
--- NOTE | 2021-02-24 06:00 | USCV_ITS ---
Charisma Holly Age: 80 Gender: F : 1940 Exam Date: 02/24/2021 05:57 Ordering Phys: Arvind Rodriguez MD Technologist: Deirdre Faith Exam Location: [facility] [place] Indication: SOB BP: 127 / 48 HR: 94 Rhythm: Sinus Technical Quality: Adequate MEASUREMENTS (Male / Female) Normal Values 2D ECHO LV Diastolic Diameter PLAX 3.4 cm 4.2 - 5.9 / 3.9 - 5.3 cm LV Systolic Diameter PLAX 2.2 cm IVS Diastolic Thickness 1.7 cm 0.6 - 1.0 / 0.6 - 0.9 cm IVS Systolic Thickness 1.9 cm LVPW Diastolic Thickness 1.3 cm 0.6 - 1.0 / 0.6 - 0.9 cm LVPW Systolic Thickness 1.6 cm LVOT Diameter 2.0 cm LV Ejection Fraction 2D Teich 64.8 % LV Ejection Fraction MOD 2C 42.2 % LV Ejection Fraction 2C AL 43.7 % LA Diameter 4.9 cm LA Width 4.2 cm LA Height 5.3 cm RA Width 3.7 cm RA Height 4.2 cm Aorta at Sinotubular Diameter 2.7 cm M-MODE LV Diastolic Diameter MM 3.9 cm 4.2 - 5.9 / 3.9 - 5.3 cm LV Systolic Diameter MM 2.3 cm LV Ejection Fraction MM Teich 72.0 % IVS Diastolic Thickness MM 0.8 cm 0.6 - 1.0 / 0.6 - 0.9 cm IVS Systolic Thickness MM 1.7 cm LVPW Diastolic Thickness MM 1.0 cm 0.6 - 1.0 / 0.6 - 0.9 cm LVPW Systolic Thickness MM 1.7 cm RV Diastolic Diameter MM 1.3 cm Aortic Annulus Diameter 3.6 cm LA Ao Ratio MM 1.5 MV E Point Septal Separation 0.5 cm DOPPLER AV Peak Velocity 176.0 cm/s LVOT Peak Velocity 103.0 cm/s AV Area Cont Eq vti 2.0 cm squared AV Area Cont Eq pk 1.9 cm squared MV Peak Velocity 151.0 cm/s MV Area PHT 3.9 cm squared Mitral E to A Ratio 1.6 MV E' Velocity 151.0 cm/s TR Peak Velocity 401.7 cm/s TR Peak Gradient 64.5 mmHg TR Mean Velocity 301.2 cm/s TR Mean Gradient 41.5 mmHg TR Velocity Time Integral 111.1 cm TV Peak E Velocity 65.0 cm/s Right Atrial Pressure 15.0 mmHg Pulmonary Artery Systolic Pressu 79.5 mmHg PV Peak Velocity 109.0 cm/s RV Acceleration Time 0.1 s RV Ejection Time 0.3 s RV AcT/ET 0.5 FINDINGS Left Ventricle Normal left ventricular cavity size. Normal left ventricular systolic function. Left ventricular ejection fraction is estimated at 60 %. Grade I/IV diastolic dysfunction (abnormal relaxation filling pattern), normal to mildly elevated filling pressures. Right Ventricle The right ventricle is normal in size and function. Right Atrium The right atrium is normal in size. Left Atrium Moderately increased left atrial size. Mitral Valve Severely thickened mitral valve. Severe mitral annular calcification. No mitral valve stenosis. Mild-moderate mitral valve regurgitation. Aortic Valve Moderate aortic valve calcification. No aortic valve stenosis. No aortic valve regurgitation. Tricuspid Valve Moderate tricuspid valve regurgitation. Pulmonic Valve Mild pulmonary valve regurgitation. Pericardium Normal pericardium without effusion. Aorta Normal ascending aorta dimension. CONCLUSIONS 1-Normal left ventricular cavity size. Normal left ventricular systolic function. Left ventricular ejection fraction is estimated at 60 %. Grade I/IV diastolic dysfunction (abnormal relaxation filling pattern), normal to mildly elevated filling pressures. 2-Moderately increased left atrial size. 3-Severely thickened mitral valve. Severe mitral annular calcification. No mitral valve stenosis. Mild-moderate mitral valve regurgitation. 4-Moderate aortic valve calcification. No aortic valve stenosis. No aortic valve regurgitation. 5-Moderate tricuspid valve regurgitation. 6-There is no pericardial effusion. 7-Right atrial pressure is around 5 mm of mercury. 8-No significant change since the prior echocardiogram study of 05/05/2020. Luis Fernando Kohli MD (Electronically Signed) Final Date: 24 February 2021 16:12 S
--- NOTE | 2021-02-24 06:00 | ECG_ITS ---
[facility] Test Date: 2021-02-24 Pat Name: Charisma Holly Department: Room: [facility] Gender: Female Bar Back: : 1940 Requested By: Arvind Rodriguez Order Number: [id number] Lucero MD: Sara Braswell M.D. Measurements Intervals [place] Rate: 90 P: 75 [place]: 143 QRS: 88 QRSD: 94 T: 55 QT: 318 QTc: 390 Interpretive Statements SINUS RHYTHM WITH ELECTRONIC VENTRICULAR PACEMAKER NONSPECIFIC ST & T-WAVE ABNORMALITY ABNORMAL RHYTHM ECG WARNING: DATA QUALITY MAY AFFECT INTERPRETATION Compared to ECG 02/23/2021 21:54:20 Sinus rhythm no longer present T-wave abnormality still present Electronically Signed On 02-25-2021 5:26:34 CDT by Sara Braswell M.D. [id number]
--- NOTE | 2021-02-24 07:00 | XR_ITS ---
WS: [id number] Portable AP semiupright chest, 02/24/2021 Clinical Data: sob Comparison: Portable chest, 02/23/2021 Findings: The endotracheal tube is above the tosin. There is a left lower lobe opacity which may rep resent effusion, consolidation and atelectasis. The heart is normal. There is a dextroscoliosis. The aortic arch and descending aorta show tortuosity. There is mitral valve calcification. Monitor leads on the chest wall. XR/XR chest 1V portable [id number] Impression: 1. Endotracheal tube remains above tosin. 2. Left lower lobe opacity unchanged. 3. Atherosclerosis.
[2021-02-24 07:02] LABS: NT Pro B Type Natriuretic Pept 23161 pg/mL (0-450); Procalcitonin 0.87 ng/mL (0-0.5)
[2021-02-24 07:12] LABS: Creatine Phosphokinase 327 U/L (26-192)
[2021-02-24 07:32] LABS: Ferritin 7505 ng/mL (15-150)
[2021-02-24 07:34] LABS: Glucose Point of Care 180 mg/dL (70-110)
[2021-02-24 08:06] LABS: Glucose Point of Care 229 mg/dL (70-110)
--- NOTE | 2021-02-24 08:45 | XR_ITS ---
WS: [id number] Portable AP upright chest, 02/24/2021, 0855 hours Clinical Data: gastric tube placement Comparison: Portable chest, 02/24/2021, 0531 hours. Findings: A nasogastric tube has been inserted and it appears to be within the stomach. The endotrach eal tube remains above the tosin. There is a right PICC line which ends in the right axillary vein. The opacification at the left lung base remains the same. There is a left humeral neck fracture. Irais tor leads remain on the chest wall. XR/XR chest 1V portable [id number] Impression: Insertion of nasogastric tube.
[2021-02-24] MEDS: lactated ringers 1,000 ML 100 ML IV ×2 (09:02→17:47)
[2021-02-24] MEDS: vancomycin 1,000 MG in sodium chloride 0.9% 250 ML 250 MG IV (09:03)
[2021-02-24] MEDS: insulin regular-human 10 UNIT in SYRINGE 1 EACH IVP (09:29)
[2021-02-24] MEDS: sodium polystyrene sulfonate 15 gm/60 mL Btl PO ×3 (09:30→20:42)
[2021-02-24] MEDS: aspirin 81 mg Chew Tablet PO (09:30)
[2021-02-24] MEDS: dextrose 50% syringe 50 mL 25 ML IVP (09:30)
--- NOTE | 2021-02-24 10:54 | PM.PN ---
Subjective Subjective: Interval history: Patient was examined this morning, overnight she had hypotensive episodes, requiring Levophed, currently on dopamine and Levophed, was febrile overnight, remains in a paced rhythm, urine output 900 cc, on fentanyl for sedation, this morning she does withdraw from pain, pupils are equal round reactive to light, Vitals/I&O/Wt Last Vital Signs Temp 99.5 F 02/24/21 09:00 Pulse 81 02/24/21 10:30 Resp 14 02/24/21 10:13 BP 94/45 02/24/21 10:30 Pulse Ox 99 02/24/21 10:30 02/23/21 02/24/21 02/24/21 22:59 06:59 14:59 Intake Total 78.983 / 110.762 232.878 / 343.640 341.688 / 341.688 Output Total 900 / 900 Balance 78.983 / 110.762 -667.122 / -556.360 341.688 / 341.688 Weight last 48 hrs Weight 60.917 kg Weight 60.917 kg Weight 63.503 kg Physical Exam Narrative: EXAM NARRATIVE: Intubated, sedated HENMT: COMMON NORMALS: normocephalic HEAD & SCALP: normocephalic Eye: COMMON NORMALS: Equal, round and reactive pupils present GENERAL EYE: appearance normal, both eyes and all related structures PUPIL: Yes Equal, round and reactive pupils present Neck/C-Spine: COMMON NORMALS: no JVD Chest: COMMONS NORMALS: normal inspection of the chest Cardio: COMMON NORMALS: no JVD, regular rate, regular rhythm, S1 normal heart sound present and S2 normal heart sound present RATE: regular rate RHYTHM: regular rhythm HEART SOUNDS: S1 normal heart sound present and S2 normal heart sound present GI: COMMON NORMALS: Normal to inspection, nondistended, normoactive bowel sounds present, Soft to palpation and non-tender PALPATION: Yes Soft to palpation Extremity: COMMON NORMALS: capillary refill normal, no clubbing, cyanosis or edema and no pedal edema OTHER: Left shoulder bruising, left arm in a sling Urinary Catheter Management^: Taylor: Cath Placed During This Visit: yes Reason for Continuing Indwelling Catheter: Accurate Measurement of Urinary Output in Critically Ill Patients Urinary Catheter Date of Insertion: 02/23/21 Urinary Catheter Time of Insertion: 17:00 Data : 02/24/21 03:08 02/24/21 03:08 Micro: Microbiology 02/23/21 17:15 Blood Culture - Preliminary Blood SPECIMEN COLLECTED 02/23/21 16:50 Blood Culture - Preliminary Blood SPECIMEN COLLECTED A&P Assessment and plan (1) Acute respiratory failure with hypoxia: -With bradycardia -Complete heart block status post temporary pacemaker -With multiorgan failure -Transaminitis -Acute renal failure -Mixed cardiogenic and septic shock -Lactic acidosis -DIC Plan: -Admit to ICU -Ventilator protocol -Minimize PEEP, minimize FiO2 -Daily chest x-rays -Daily spontaneous breathing trials -Fentanyl and propofol for sedation, Mark score 0 -We will expand antibiotic coverage to vancomycin and Zosyn, for aspiration event, fevers -Follow blood cultures, sputum cultures, urine cultures -Currently on heparin drip, for NSTEMI, history of pulmonary emboli, on Eliquis, hold Eliquis for now, has anemia, monitor hemoglobin -Levophed and dopamine, maintain MAP more than 75 to assist with renal perfusion -Temporary pacemaker in place -Low-dose sliding scale -Taylor catheter -Monitor for fevers, monitor respiratory status -Assess neurologic function daily -Cardiac echo ordered -Start gentle IV hydration 100 cc an hour, monitor for fluid overload, if becomes fluid overloaded will give Lasix therapy -Monitor urine output, monitor creatinine -Full code -Cardiology on consult -Heparin drip for DVT prophylaxis -Protonix for GI prophylaxis Status: Acute (2) Complete heart block: -Status post temporary transcutaneous pacer by Dr. York -Cardiology on consult Status: Acute (3) Hypertension: Status: Acute (4) Hyperlipidemia: Status: Acute (5) Diabetes: - Status: Acute (6) Acute on chronic anemia: Monitor hemoglobin as on heparin drip, current hemoglobin 7.7 Status: Acute (7) Pulmonary embolism: Status: Acute (8) Congestive heart failure: Monitor for fluid overload, BNP over 23,000 Status: Acute (9) Peripheral vascular disease: Status: Acute (10) Shock: Status: Acute (11) Hyperkalemia: -Status post calcium gluconate, insulin -Morning potassium 6.0, will give another 10 units insulin, with D50, start Kayexalate, repeat BMP in the afternoon Status: Acute (12) Multiorgan failure: Status: Acute (13) Transaminitis: Status: Acute (14) Acute renal failure: Status: Acute (15) NSTEMI (non-ST elevated myocardial infarction): -6-hour troponin VII 37, positive delta 41.3, EKG initially showing ST depressions, now sinus rhythm,, ventricular pacemaker -Aspirin, statin -Cardiac echocardiogram ordered -Cardiology on consult Status: Acute (16) Lactic acidosis: Status: Acute (17) DIC (disseminated intravascular coagulation): Status: Acute Additional A&P Information Plan for today, gentle IV induration, monitor for fluid overload, monitor hemoglobin, consider Lasix, follow echo monitor, monitor potassium, CT of the head, left upper quadrant ultrasound due to swelling Attestations Medical Necessity Statement*: Patient requires hospitalization for acute respiratory failure with hypoxia, complete heart block, multiorgan failure, acute renal failure, NSTEMI Critical care time spent over 55 minutes Coding Level of Care Code Acute Support Analyst for g Fwd Diagnoses Acute respiratory failure with hypoxia J96.01 Complete heart block I44.2 Hypertension I10 Hyperlipidemia E78.5 Diabetes E11.9 Acute on chronic anemia D64.9 Pulmonary embolism I26.99 Congestive heart failure I50.9 Peripheral vascular disease I73.9 Shock R57.9 Hyperkalemia E87.5 Multiorgan failure Transaminitis R74.01 Acute renal failure N17.9 NSTEMI (non-ST elevated myocardial infarction) I21.4 Lactic acidosis E87.2 DIC (disseminated intravascular coagulation) D65
[2021-02-24 10:58] LABS: Glucose Point of Care 136 mg/dL (70-110)
--- NOTE | 2021-02-24 11:01 | USCV_ITS ---
Charisma Holly Age: 80 Gender: F : 1940 Exam Date: 02/24/2021 14:06 Ordering Phys: Arvind Rodriguez MD Technologist: Geneva Jackson Exam Location: [facility] [place]_ Indication: DVT HISTORY: Upper extremity swelling. PROCEDURES: Venous duplex imaging was performed in only the left upper extremity. The following venous structures were evaluated: internal jugular vein, subclavian vein, axillary vein, and brachial veins. In addition, the basilic vein, cephalic vein, radial vein, and ulnar vein. Serial compression, augmentation maneuvers, and spectral Doppler flow evaluation were performed. FINDINGS: Normal 2-D, color Doppler and phasicity noted in the left upper extremity venous system extending from the left internal jugular vein through the main forearm. No thrombosis or occlusion noted. CONCLUSIONS No evidence of thrombus of the left upper extremity veins. Luis Armando Wheat MD (Electronically Signed) Final Date: 24 February 2021 16:45 S
--- NOTE | 2021-02-24 11:08 | CT_ITS ---
WS: [id number] CT HEAD TECHNIQUE: Noncontrast CT of the head obtained from the skullbase to the vertex. CLINICAL INFORMATION: ams COMPARISON: February 22, 2021 DLP: 976.[address] scans at [facility] use at least one of these dose optimization techniques: automat ed exposure control; mA and/or kV adjustment per patient size (includes targeted exams where dose is matched to clinical indication); or iterative reconstruction. FINDINGS: No evidence of intracranial hemorrhage or mass effect. Ventricular system and basal cisterns are hernandez nt. 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 Chronic infarct in the left parietal lobe. M oderate small vessel changes with moderate parenchymal volume loss. Incidental benign basal ganglia c alcifications. Benign cerebellar calcifications. Incidental cavum septum pellucidum and vergae. Intra cranial vascular calcification. No extra-axial fluid collections. No evidence of mass or mass effect. Mild mucosal thickening in the ethmoid air cells and maxillary sinuses. CT/CT head wo con* [id number] IMPRESSION: 1. No evidence of intracranial hemorrhage or mass effect. 2. Moderate small vessel changes with moderate parenchymal volume loss. 3. No acute intracranial findings and no significant changes compared to February 22, 2021.
[2021-02-24 11:48] LABS: Basophils % 0.3 %; Hematocrit 23.5 % (37.0-47.0); Hemoglobin 7.5 g/dL (11.5-15.3); Lymphocytes # 1.9 10^3/uL (0.8-4.8); Lymphocytes % 16.9 %; Mean Corpuscular HGB Conc 31.9 g/dL (30.0-36.0); Mean Corpuscular Hemoglobin 23.5 pg (28.0-34.0); Mean Corpuscular Volume 73.7 fL (81-99); Mean Platelet Volume 12.5 fL (7.4-10.4); Monocytes # 1.3 10^3/uL (0.2-0.9); Monocytes % 11.9 %; Neutrophils # 7.62 10^3/uL (1.8-7.7); Neutrophils % 69.6 %; Nucleated Red Blood Cells # 0.4 /100WBC; Nucleated Red Blood Cells % 3.3 %; Platelet Count 104 10^3/cmm (130-400); Red Blood Count 3.19 10^6/uL (4.1-5.3); Red Cell Distribution Width 14.5 % (12.1-15.1); White Blood Count 10.9 10^3/uL (4.0-10.0)
--- NOTE | 2021-02-24 11:52 | PC.NURSE ---
Levophed infusing at 4 mcg/min upon shift change. Medication not scanned upon shift change. Medication scanned by this RN.
[2021-02-24 12:07] LABS: Anion Gap 17.9 (5-19); Blood Urea Nitrogen 58 mg/dL (8-23); Calcium 8.1 mg/dL (8.5-10.5); Carbon Dioxide 24 mmol/L (22-29); Chloride 110 mmol/L (98-107); Glucose 109 mg/dL (65-115); Osmolality Calculated 321 mOsm/kg (285-295); Potassium 4.9 mmol/L (3.5-5.1); Sodium 147 mmol/L (136-145)
[2021-02-24 12:10] LABS: Creatinine Clr Calc Pharmacy 16.9004
[2021-02-24 12:12] LABS: Partial Thromboplastin Time 111.7 SECONDS (23.9-36.7)
[2021-02-24 13:35] LABS: Glucose Point of Care 145 mg/dL (70-110)
[2021-02-24] MEDS: propofol 1,000 MG/100 ML INJ 1.8 MG IV (14:13)
--- NOTE | 2021-02-24 15:22 | XR_ITS ---
WS: [id number] Right hip, AP and internal rotation, left hip 3 views, 02/24/2021 Clinical Data: left hip fracture Comparison: Bilateral hips, 06/24/2018. Findings: Right hip: No right hip fracture is seen. The joint space is normal. The adjacent right pelvis is unremarkable. There are monitor leads overlying the right hip and proximal right femur. Left hip: There is an intertrochanteric subtrochanteric hip fracture which has healed. It's been repaired with a long intramedullary greg in the left femur and 2 oblique screws in the left femoral neck. No new fra ctures are seen. The adjacent left pelvis is normal. There are vascular calcifications in the roberts o f the arteries.
[2021-02-24 17:37] LABS: Glucose Point of Care 195 mg/dL (70-110)
--- NOTE | 2021-02-24 17:51 | P.PN_ITS ---
Subjective Subjective: Interval history: Patient remained unresponsive occasionally wakes up on sedation Medications: Reviewed: Yes Vitals/I&O/Wt Last Vital Signs Temp 98.6 F 02/24/21 13:00 Pulse 74 02/24/21 16:30 Resp 14 02/24/21 15:06 BP 106/55 02/24/21 16:30 Pulse Ox 97 02/24/21 16:30 02/24/21 02/24/21 02/24/21 06:59 14:59 22:59 Intake Total 232.878 / 343.640 901.839 / 327.675 9391.062 / 1960.901 Output Total 900 / 900 400 / 400 Balance -667.122 / -556.360 501.839 / 173.677 4583.062 / 1560.901 Weight last 48 hrs Weight 134 lb 4.8 oz Weight 134 lb 4.8 oz Weight 140 lb Physical Exam Narrative: EXAM NARRATIVE: GENERAL: Patient is intubated and sedated, pale looking NECK: No jugular vein distension. HEENT: No cyanosis. No icterus. HEART: Regular S1 and S2. No murmur, rub or gallop. LUNGS: Clear to auscultate bilaterally. ABDOMEN: Cannot assess CENTRAL cannot assess EXTREMITIES: Lower extremities without edema Urinary Catheter Management^: Taylor: Cath Placed During This Visit: yes Reason for Continuing Indwelling Catheter: Accurate Measurement of Urinary Output in Critically Ill Patients Urinary Catheter Date of Insertion: 02/23/21 Urinary Catheter Time of Insertion: 17:00 Data : 02/24/21 11:35 02/24/21 11:35 Micro: Microbiology 02/23/21 17:15 Blood Culture - Preliminary Blood NEGATIVE TO DATE 02/23/21 16:50 Blood Culture - Preliminary Blood NEGATIVE TO DATE 02/24/21 10:55 MRSA Culture - Final Nose 02/23/21 16:30 Gram Stain - Final Sputum - Endotracheal Tube Aspirate A&P Assessment and plan (1) Complete heart block: Status post attempted pacemaker, patient has intermittent heart block she is pacing at different intervals. Once potassium will normalize will assess whether she requires permanent pacemaker Status: Acute (2) Shock: Appear to be volume depleted will advise starting patient on IV fluid. Status: Acute (3) Hyperkalemia: As per medicine Status: Acute (4) Congestive heart failure: Appear to be compensated Status: Acute (5) Acute renal failure: IV fluid advised Status: Acute (6) DIC (disseminated intravascular coagulation): As per medicine. Status: Acute Attestations Medical Necessity Statement*: Patient require continuation hospitalization for above defined care. 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
[2021-02-24 17:57] LABS: Hematocrit 22.4 % (37.0-47.0)
[2021-02-24 18:16] LABS: Partial Thromboplastin Time 81.1 SECONDS (23.9-36.7)
[2021-02-24] MEDS: atorvastatin 40 mg Tablet PO (20:42)
[2021-02-25] VITALS (66 sets, daily range): BP systolic 79–164; BP diastolic 46–72; PULSE 58–75; RESP 12–14; TEMP 36.4–37.1; O2SAT 92–99
[2021-02-25] MEDS: propofol 1,000 MG/100 ML INJ 11 MG IV (01:39)
[2021-02-25] MEDS: DOPamine drip 400 MG/250 ML PREMIX 6 MG IV (01:39)
[2021-02-25] MEDS: sodium polystyrene sulfonate 15 gm/60 mL Btl PO (01:40)
[2021-02-25 01:42] LABS: Hematocrit 21.1 % (37.0-47.0); Hemoglobin 6.8 g/dL (11.5-15.3)
[2021-02-25 01:52] LABS: Partial Thromboplastin Time 56.3 SECONDS (23.9-36.7)
[2021-02-25] MEDS: lactated ringers 1,000 ML 100 ML IV (04:35)
[2021-02-25] MEDS: pantoprazole 40 mg SDV IVP ×2 (04:35→17:09)
[2021-02-25] MEDS: dexmedetomidine 400 MCG in sodium chloride 0.9% (100 ml) 100 ML IV (04:49)
[2021-02-25 05:47] LABS: Basophils % 0.3 %; Eosinophils # 0.3 10^3/uL (0.0-0.8); Eosinophils % 2.6 %; Hematocrit 22.8 % (37.0-47.0); Hemoglobin 7.1 g/dL (11.5-15.3); Lymphocytes # 1.9 10^3/uL (0.8-4.8); Lymphocytes % 18.2 %; Mean Corpuscular HGB Conc 31.1 g/dL (30.0-36.0); Mean Corpuscular Hemoglobin 23.2 pg (28.0-34.0); Mean Corpuscular Volume 74.5 fL (81-99); Mean Platelet Volume 13.4 fL (7.4-10.4); Monocytes # 0.8 10^3/uL (0.2-0.9); Monocytes % 7.4 %; Neutrophils # 7.27 10^3/uL (1.8-7.7); Nucleated Red Blood Cells # 0.3 /100WBC; Nucleated Red Blood Cells % 3.3 %; Platelet Count 157 10^3/cmm (130-400); Red Blood Count 3.06 10^6/uL (4.1-5.3); Red Cell Distribution Width 15.2 % (12.1-15.1); White Blood Count 10.3 10^3/uL (4.0-10.0)
--- NOTE | 2021-02-25 06:00 | ECG_ITS ---
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: : 1940 Requested By: Arvind Rodriguez Order Number: [id number] Reading MD: BARBARA SPARKS Measurements Intervals [place] Rate: 61 P: AK: QRS: 80 QRSD: 90 T: 25 QT: 418 QTc: 424 Interpretive Statements SINUS RYTHM SHORT AK INTERVAL NONSPECIFIC ST & T-WAVE ABNORMALITY ABNORMAL RHYTHM ECG WARNING: DATA QUALITY MAY AFFECT INTERPRETATION Compared to ECG 02/24/2021 05:55:50 Ventricular-paced complex(es) or rhythm no longer present T-wave abnormality still present Electronically Signed On 02-25-2021 19:20:24 CDT by BARBARA SPARKS [id number]
[2021-02-25 06:04] LABS: INR 1.79 (0.8-1.2)
[2021-02-25 06:05] LABS: Fibrinogen 382 mg/dL (174-498)
[2021-02-25 06:07] LABS: D Dimer 2.28 ug/mIFEU (0-0.59)
[2021-02-25 06:17] LABS: NT Pro B Type Natriuretic Pept 7819 pg/mL (0-450)
[2021-02-25 06:31] LABS: Albumin Level 2.6 g/dL (3.5-5.2); Alkaline Phosphatase 62 IU/L (35-105); Anion Gap 17.4 (5-19); Blood Urea Nitrogen 38 mg/dL (8-23); C Reactive Protein 92.4 mg/L (0.0-4.9); Calcium 7.9 mg/dL (8.5-10.5); Carbon Dioxide 23 mmol/L (22-29); Chloride 111 mmol/L (98-107); Creatine Phosphokinase 142 U/L (26-192); Globulin 2.9 g/dL (1.3-4.6); Glucose 132 mg/dL (65-115); Magnesium 1.8 mg/dL (1.7-2.3); Osmolality Calculated 317 mOsm/kg (285-295); Phosphorus 1.7 mg/dL (2.5-4.5); Potassium 3.4 mmol/L (3.5-5.1); Sodium 148 mmol/L (136-145); Total Bilirubin 1.2 mg/dL (0.15-1.2); Total Protein 5.5 g/dL (6.6-8.7)
[2021-02-25 06:43] LABS: Alanine Aminotransferase 992 U/L (0-33)
[2021-02-25 06:48] LABS: Aspartate Amino Transferase 789 U/L (0-32); Ferritin 4681 ng/mL (15-150)
--- NOTE | 2021-02-25 07:00 | XRR_ITS ---
PROCEDURE INFORMATION: Exam: XR Chest Exam date and time: 02/25/2021 4:54 AM Age: 80 years old Clinical indication: Patient HX: Hypoxia. Patient intubated. Known left humeral fracture. ; Additional info: SOB TECHNIQUE: Imaging protocol: XR of the chest. Views: 1 view. COMPARISON: CR XR chest 1V portable [id number] 02/24/2021 8:54 AM FINDINGS: Tubes, catheters and devices: Endotracheal tube is 2.4 cm above the tosin. Nasogastric tube is in good position. Lungs: Hazy interstitial opacities in the right lung are somewhat more prominent than on the previous examination. Pleural spaces: Unremarkable. No pleural effusion. No pneumothorax. Heart/Mediastinum: Severe mitral valve calcifications. Bones/joints: Stable left humeral fracture. XR/XR chest 1V portable [id number] IMPRESSION: 1. Support tubes and lines in good position. 2. Mild increase in hazy right lung interstitial opacities which could be secondary to unilateral edema or atypical pneumonia.
[2021-02-25 08:25] LABS: Glucose Point of Care 172 mg/dL (70-110)
[2021-02-25 08:56] LABS: Hematocrit 23.2 % (37.0-47.0); Hemoglobin 7.1 g/dL (11.5-15.3)
[2021-02-25] MEDS: aspirin 81 mg Chew Tablet PO (08:58)
[2021-02-25] MEDS: piperacillin-tazobactam 3.375 GM in sodium chloride 0.9% (plus) 50 ML IV ×2 (08:59→17:10)
[2021-02-25 09:36] LABS: Partial Thromboplastin Time 53.1 SECONDS (23.9-36.7)
[2021-02-25] MEDS: heparin 5,000 unit/mL INJ 1 mL IV ×2 (10:11→17:45)
[2021-02-25 11:37] LABS: Glucose Point of Care 119 mg/dL (70-110)
--- NOTE | 2021-02-25 12:31 | PC.NUTR ---
NUTR TF RECOMMENDATIONS: Glucerna with goal rate of 40 ml/hr providing 1152 kcal (98%), 58 g PRO (91%), and 773 ml fluid (66%)(%NEEDS). Suggest starting TF at 20 ml/hr and increase by 10 ml Q6H as tolerated till goal rate is met. Suggest H2O flushes of 40 ml Q4H to approach fluid needs or per physician.
[2021-02-25 13:14] LABS: Blood Gas Allen Test Pos; Blood Gas Sample Site Radial, right; Blood Gas Sample Type Arterial; Oxygen Device VENT
--- NOTE | 2021-02-25 13:29 | PM.PN ---
Subjective Subjective: Interval history: Patient was examined this morning, she remains intubated, sedated, no acute events overnight, no fevers, remains normotensive, still on minimal dopamine and Levophed, which is being weaned, has good urine output, does not look fluid overloaded, has diminishing oxygen requirements on the ventilator, Medications: Reviewed: Yes Vitals/I&O/Wt Last Vital Signs Temp 97.6 F 02/25/21 12:53 Pulse 65 02/25/21 13:00 Resp 12 02/25/21 13:01 BP 109/55 02/25/21 13:00 Pulse Ox 95 02/25/21 13:01 02/24/21 02/25/21 02/25/21 22:59 06:59 14:59 Intake Total 1130.839 / 2032.678 1243.852 / 3276.530 1210.3989 / 1210.3989 Output Total 550 / 950 850 / 1800 Balance 580.839 / 1082.678 393.852 / 9272.038 3772.3989 / 1210.3989 Weight last 48 hrs Weight 63.503 kg Weight 60.917 kg Weight 60.917 kg Physical Exam Narrative: EXAM NARRATIVE: Intubated, sedated Const: COMMON NORMALS: no acute distress GENERAL APPEARANCE: frail appearing ORIENTATION/CONSCIOUSNESS: not awake, not oriented to person, not oriented to place and not oriented to time OTHER: Intubated, has received sedating medications HENMT: COMMON NORMALS: normocephalic HEAD & SCALP: normocephalic Eye: COMMON NORMALS: Equal, round and reactive pupils present GENERAL EYE: appearance normal, both eyes and all related structures PUPIL: Yes Equal, round and reactive pupils present Neck/C-Spine: COMMON NORMALS: no JVD Chest: COMMONS NORMALS: normal inspection of the chest Resp: COMMON NORMALS: normal respiratory effort, No retractions and No use of accessory muscles AUSCULTATION: crackles Cardio: COMMON NORMALS: no JVD, regular rate, regular rhythm, S1 normal heart sound present and S2 normal heart sound present RATE: regular rate RHYTHM: regular rhythm HEART SOUNDS: S1 normal heart sound present and S2 normal heart sound present GI: COMMON NORMALS: Normal to inspection, nondistended, normoactive bowel sounds present, Soft to palpation, non-tender and No hepatosplenomegaly present PALPATION: Yes Soft to palpation and Yes No hepatosplenomegaly present Extremity: COMMON NORMALS: capillary refill normal, no clubbing, cyanosis or edema and no pedal edema OTHER: Left shoulder bruising, left arm in a sling Neuro: SENSORIUM/ORIENTATION: No oriented to person, No oriented to place and No oriented to time Urinary Catheter Management^: Taylor: Cath Placed During This Visit: yes Reason for Continuing Indwelling Catheter: Accurate Measurement of Urinary Output in Critically Ill Patients Urinary Catheter Date of Insertion: 02/23/21 Urinary Catheter Time of Insertion: 17:00 Data : 02/25/21 08:10 02/25/21 04:49 Micro: Microbiology 02/23/21 16:30 Gram Stain - Final Sputum - Endotracheal Tube Aspirate Sputum Culture - Preliminary 02/23/21 17:15 Blood Culture - Preliminary Blood NEGATIVE TO DATE 02/23/21 16:50 Blood Culture - Preliminary Blood NEGATIVE TO DATE 02/24/21 10:55 MRSA Culture - Final Nose A&P Assessment and plan (1) Acute respiratory failure with hypoxia: -With bradycardia -Complete heart block status post temporary pacemaker -With multiorgan failure, improving -Transaminitis, AST 79, ALT 992 -Acute renal failure, improving creatinine 1.4, urine output 1400 -Mixed cardiogenic and septic shock -Lactic acidosis -DIC, INR 1.79, FDP positive, D-dimer 2.28 Plan: -Admit to ICU -Ventilator protocol -Minimize PEEP, minimize FiO2 -Daily chest x-rays -Daily spontaneous breathing trials -Fentanyl and Precedex for sedation, Mark score 0 -Continue vancomycin and Zosyn -Follow blood cultures, sputum cultures, urine cultures -MRSA nares positive -Currently on heparin drip, for NSTEMI, history of pulmonary emboli, on Eliquis, hold Eliquis for now, has anemia 6.8, monitor hemoglobin -Transfuse 1 unit PRBC, monitor hemoglobin -Levophed and dopamine, wean as tolerated, maintain MAP more than 75 to assist with renal perfusion -Replace electrolytes -Temporary pacemaker in place -Low-dose sliding scale -Taylor catheter -Monitor for fevers, monitor respiratory status -Assess neurologic function daily -Cardiac echo ordered -Start gentle IV hydration 100 cc an hour, monitor for fluid overload, if becomes fluid overloaded will give Lasix therapy -Monitor urine output, monitor creatinine -Full code -Cardiology on consult -Heparin drip for DVT prophylaxis -Protonix for GI prophylaxis Plan for today, transfuse 1 PRBC, replace electrolytes, spontaneous breathing trial, monitor her neurologic status on minimal sedation, Status: Acute (2) Complete heart block: -Status post temporary transcutaneous pacer by Dr. York -Cardiology on consult Status: Acute (3) Hypertension: Status: Acute (4) Hyperlipidemia: Status: Acute (5) Diabetes: - Status: Acute (6) Acute on chronic anemia: Monitor hemoglobin as on heparin drip, current hemoglobin 7.7 Status: Acute (7) Pulmonary embolism: Status: Acute (8) Congestive heart failure: Monitor for fluid overload, BNP over 23,000 Status: Acute (9) Peripheral vascular disease: Status: Acute (10) Shock: Status: Acute (11) Hyperkalemia: -Status post calcium gluconate, insulin -Morning potassium 6.0, will give another 10 units insulin, with D50, start Kayexalate, repeat BMP in the afternoon Status: Acute (12) Multiorgan failure: Status: Acute (13) Transaminitis: Status: Acute (14) Acute renal failure: Status: Acute (15) NSTEMI (non-ST elevated myocardial infarction): -6-hour troponin VII 37, positive delta 41.3, EKG initially showing ST depressions, now sinus rhythm,, ventricular pacemaker -Aspirin, statin -Cardiac echocardiogram ordered -Cardiology on consult Status: Acute (16) Lactic acidosis: Status: Acute (17) DIC (disseminated intravascular coagulation): Status: Acute (18) Closed left humeral fracture: -Currently being conservative manage with a sling -Manage conservatively, careful turning Status: Acute (19) History of fracture of left hip: -There is an intertrochanteric subtrochanteric hip fracture which has healed. It's been repaired with a long intramedullary greg in the left femur and 2 oblique screws in the left femoral neck. No new fractures are seen Status: Acute Additional A&P Information Plan for today, gentle IV induration, monitor for fluid overload, monitor hemoglobin, consider Lasix, follow echo monitor, monitor potassium, CT of the head, left upper quadrant ultrasound due to swelling Attestations Medical Necessity Statement*: Patient requires hospitalization for acute hypoxic respiratory failure, NSTEMI, complete heart block, aspiration pneumonia, septic shock, cardiogenic shock, Critical care time spent over 55 minutes Coding Level of Care Code Acute Optometric Assistant for Chris Fwd Diagnoses Acute respiratory failure with hypoxia J96.01 Complete heart block I44.2 Hypertension I10 Hyperlipidemia E78.5 Diabetes E11.9 Acute on chronic anemia D64.9 Pulmonary embolism I26.99 Congestive heart failure I50.9 Peripheral vascular disease I73.9 Shock R57.9 Hyperkalemia E87.5 Multiorgan failure Transaminitis R74.01 Acute renal failure N17.9 NSTEMI (non-ST elevated myocardial infarction) I21.4 Lactic acidosis E87.2 DIC (disseminated intravascular coagulation) D65 Closed left humeral fracture S42.302A History of fracture of left hip Z87.81
[2021-02-25] MEDS: sodium chloride 0.9% (100 ml) 100 ML 75 ML (13:45)
[2021-02-25 14:52] LABS: ABG PH Result 7.52 (7.35-7.45); Base Excess ABG 6.1 mmol/L (-2.0-2.0); HCO3 ABG 29.4 mmol/L (22-26); PO2 ABG 65.5 mmHg (80.0-100.0)
[2021-02-25 14:53] LABS: Arterial Blood Gas Hematocrit 27.6 % (37-47)
[2021-02-25] MEDS: heparin drip 25,000 UNIT/500 ML PREMIX 10 UNIT IV (15:12)
--- NOTE | 2021-02-25 15:54 | P.PN_ITS ---
Subjective Subjective: Interval history: Patient remained intubated. She is anemic with hemoglobin 7.4. Potassium has improved. She continues to be on temporary pacemaker using mostly Medications: Reviewed: Yes Vitals/I&O/Wt Last Vital Signs Temp 97.5 F L 02/25/21 15:16 Pulse 67 02/25/21 15:30 Resp 12 02/25/21 15:30 BP 118/63 02/25/21 15:30 Pulse Ox 95 02/25/21 15:30 02/25/21 02/25/21 02/25/21 06:59 14:59 22:59 Intake Total 1243.852 / 3276.530 1210.3989 / 1210.3989 395.969 / 1606.3679 Output Total 850 / 1800 Balance 393.852 / 5423.038 7753.3989 / 1210.3989 395.969 / 1606.3679 Weight last 48 hrs Weight 140 lb Weight 134 lb 4.8 oz Weight 134 lb 4.8 oz Physical Exam Narrative: EXAM NARRATIVE: GENERAL: Patient is intubated and sedated, pale looking NECK: No jugular vein distension. HEENT: No cyanosis. No icterus. HEART: Regular S1 and S2. No murmur, rub or gallop. LUNGS: Clear to auscultate bilaterally. ABDOMEN: Cannot assess CENTRAL cannot assess EXTREMITIES: Lower extremities without edema Urinary Catheter Management^: Taylor: Cath Placed During This Visit: yes Reason for Continuing Indwelling Catheter: Accurate Measurement of Urinary Output in Critically Ill Patients Urinary Catheter Date of Insertion: 02/23/21 Urinary Catheter Time of Insertion: 17:00 Data : 02/25/21 08:10 02/25/21 04:49 Micro: Microbiology 02/23/21 16:30 Gram Stain - Final Sputum - Endotracheal Tube Aspirate Sputum Culture - Preliminary 02/23/21 17:15 Blood Culture - Preliminary Blood NEGATIVE TO DATE 02/23/21 16:50 Blood Culture - Preliminary Blood NEGATIVE TO DATE 02/24/21 10:55 MRSA Culture - Final Nose A&P Assessment and plan (1) Complete heart block: Status post temporary pacemaker, patient has intermittent heart block she is pacing at different intervals. Once potassium will normalize will assess whether she requires permanent pacemaker Continues to be pacemaker dependent Status: Acute (2) Shock: Patient is on pressors, patient will be receiving packed red blood cells. Recommend continuation with IV fluid 100 mL/h Status: Acute (3) Hyperkalemia: Improved. Status: Acute (4) Congestive heart failure: Patient is dehydrated and overcompensated Status: Acute (5) Acute renal failure: Started improving continue IV fluid Status: Acute (6) DIC (disseminated intravascular coagulation): As per medicine. Status: Acute Attestations Medical Necessity Statement*: Patient requires continuation hospitalization for above defined care Coding Level of Care Code Established Pt Acute Department Of Mathematics Chair for g Fwd Patient Type Established History Comprehensive Exam Comprehensive Medical Decision Making High Complexity Diagnoses Complete heart block I44.2 Shock R57.9 Hyperkalemia E87.5 Congestive heart failure I50.9 Acute renal failure N17.9 DIC (disseminated intravascular coagulation) D65
[2021-02-25 17:06] LABS: Glucose Point of Care 183 mg/dL (70-110)
[2021-02-25 17:40] LABS: Partial Thromboplastin Time 38.5 SECONDS (23.9-36.7)
[2021-02-25] MEDS: atorvastatin 40 mg Tablet PO (20:57)
[2021-02-26] VITALS (59 sets, daily range): BP systolic 82–138; BP diastolic 36–71; PULSE 51–73; RESP 9–16; TEMP 36.4–36.8; O2SAT 91–98
[2021-02-26] MEDS: piperacillin-tazobactam 3.375 GM in sodium chloride 0.9% (plus) 50 ML IV ×3 (02:22→17:57)
[2021-02-26 02:24] LABS: Partial Thromboplastin Time 57.8 SECONDS (23.9-36.7)
[2021-02-26 04:22] LABS: ABG PCO2 38.2 mmHg (35-45); ABG PH Result 7.43 (7.35-7.45); Arterial Blood Gas Hematocrit 27.4 % (37-47); Blood Gas Allen Test Pos; Blood Gas Sample Type Arterial; HCO3 ABG 25.3 mmol/L (22-26); PO2 ABG 62.7 mmHg (80.0-100.0)
[2021-02-26 04:23] LABS: Blood Gas Sample Site Radial, right; Oxygen Device VENT
[2021-02-26] MEDS: pantoprazole 40 mg SDV IVP ×2 (04:35→17:54)
--- NOTE | 2021-02-26 06:00 | ECG_ITS ---
[facility] Test Date: 2021-02-26 Pat Name: Charisma Holly Department: Room: 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: : 1940 Requested By: Arvind Rodriguez Order Number: [id number] Reading MD: BARBARA SPARKS Measurements Intervals [place] Rate: 66 P: 60 MN: 141 QRS: 64 QRSD: 85 T: 42 QT: 406 QTc: 428 Interpretive Statements SINUS RHYTHM WITH MARKED SINUS ARRHYTHMIA NONSPECIFIC ST & T-WAVE ABNORMALITY INTERPRETATION BASED ON A DEFAULT AGE OF 40 YEARS Compared to ECG 02/25/2021 05:51:35 Short MN interval no longer present T-wave abnormality still present Electronically Signed On 02-26-2021 21:16:54 CDT by BARBARA SPARKS [id number] f
[2021-02-26 06:21] LABS: Basophils % 0.2 %; Eosinophils % 0.2 %; Hemoglobin 8.3 g/dL (11.5-15.3); Mean Corpuscular HGB Conc 31.9 g/dL (30.0-36.0); Mean Corpuscular Hemoglobin 24.6 pg (28.0-34.0); Mean Corpuscular Volume 76.9 fL (81-99); Mean Platelet Volume 12.5 fL (7.4-10.4); Monocytes # 0.9 10^3/uL (0.2-0.9); Monocytes % 7.7 %; Neutrophils # 9.44 10^3/uL (1.8-7.7); Neutrophils % 81.9 %; Nucleated Red Blood Cells % 8.8 %; Platelet Count 150 10^3/cmm (130-400); Red Blood Count 3.38 10^6/uL (4.1-5.3); White Blood Count 11.5 10^3/uL (4.0-10.0)
[2021-02-26 06:35] LABS: INR 1.31 (0.8-1.2)
[2021-02-26 06:36] LABS: Fibrinogen 427 mg/dL (174-498)
[2021-02-26 06:37] LABS: Partial Thromboplastin Time 60.8 SECONDS (23.9-36.7)
[2021-02-26 06:40] LABS: D Dimer 2.19 ug/mIFEU (0-0.59)
[2021-02-26 06:43] LABS: Lactate (Lactic Acid level) 1.2 mmol/L (0.5-2.2)
[2021-02-26 06:59] LABS: NT Pro B Type Natriuretic Pept 3125 pg/mL (0-450); Procalcitonin 0.48 ng/mL (0-0.5)
--- NOTE | 2021-02-26 07:00 | XRR_ITS ---
PROCEDURE INFORMATION: Exam: XR Chest Exam date and time: 02/26/2021 5:57 AM Age: 80 years old Clinical indication: Shortness of breath; Additional info: SOB TECHNIQUE: Imaging protocol: XR of the chest. Views: 1 view. COMPARISON: CR XR chest 1V portable [id number] 02/25/2021 4:57 AM FINDINGS: Tubes, catheters and devices: Endotracheal tube, feeding tube, right PICC line again demonstrated. The endotracheal tube terminates 3.0 cm above the tosin. Lungs: Interstitial prominence and chronic granulomatous disease. Mild left basilar airspace/pleural disease. Heart/Mediastinum: Mitral annular calcification. Vasculature: Calcification of the thoracic aorta. Bones/joints: Osteopenia , degenerative change, and left humeral fracture again demonstrated. Other findings: Poorly characterized 2.1 cm nodular density overlying the right infrahilar region. When correlating with the previous study, no significant interval changes are present. XR/XR chest 1V portable [id number] IMPRESSION: Stable appearance of the chest, not significantly changed from 02/25/2021 .
[2021-02-26 07:11] LABS: Albumin Level 2.5 g/dL (3.5-5.2); Alkaline Phosphatase 68 IU/L (35-105); Anion Gap 18.7 (5-19); Aspartate Amino Transferase 435 U/L (0-32); Blood Urea Nitrogen 33 mg/dL (8-23); C Reactive Protein 87.2 mg/L (0.0-4.9); Calcium 7.5 mg/dL (8.5-10.5); Carbon Dioxide 22 mmol/L (22-29); Chloride 111 mmol/L (98-107); Creatine Phosphokinase 55 U/L (26-192); Globulin 2.9 g/dL (1.3-4.6); Glucose 148 mg/dL (65-115); Magnesium 1.6 mg/dL (1.7-2.3); Osmolality Calculated 316 mOsm/kg (285-295); Potassium 3.7 mmol/L (3.5-5.1); Sodium 148 mmol/L (136-145); Total Bilirubin 1.4 mg/dL (0.15-1.2); Total Protein 5.4 g/dL (6.6-8.7)
[2021-02-26 07:22] LABS: Alanine Aminotransferase 777 U/L (0-33)
[2021-02-26 07:34] LABS: Ferritin 2621 ng/mL (15-150)
[2021-02-26 07:42] LABS: Glucose Point of Care 183 mg/dL (70-110)
[2021-02-26] MEDS: aspirin 81 mg Chew Tablet PO (08:42)
[2021-02-26] MEDS: magnesium sulfate premix 2 GM/50 ML PIGGYBACK IV ×2 (08:42→08:46)
--- NOTE | 2021-02-26 08:58 | PC.NURSE ---
SCD's not on pt do to wounds on lower extremities and pt is currently on Heparin drip for VTE
--- NOTE | 2021-02-26 09:37 | PC.SOCIAL ---
[facility] Update Pg. 2 of [facility] updated and reviewed with patient's Denise barney who verbalized understanding. Copy provided.
--- NOTE | 2021-02-26 10:35 | PC.CHAP ---
Pastoral Care Encounter/Spiritual Assessment Type of Contact [] Declined professor of voice visit [] Patient/Family/Request visit [] Outpatient visit [] Follow-up visit [] Physician referral [] Code/Alert [XX] Routine visit [] Staff referral [] Actively dying [] Patient sleeping [] Family support [] [] Out of room [] Palliative care [] [] Receiving care in room [] Pre-surgical visit [] Trauma [] Long length of stay [XX] ICU visit [] Other: Relational/Emotional Strength [] Patient feels connected with others/family/visitors/staff [] Distress [] Loneliness/isolation [] Abandonment Spirituality of Patient [] Person of Jyotsna [] Attends Mandaen of their Jyotsna [] Believes in Prayer [] Reads Bible or Orthodox materials [] There are Spiritual issues to be addressed Rolling Mill Operator Interventions [XX] Prayer [] Active listening [] Non-anxious presence [] Spiritual/emotional support [] Crisis/trauma care [] Spiritual counseling [] Bereavement support [] Provided bereavement packet [] Provided Bible/devotional materials [] Provided toy/stuffed animal, coloring book to patient or family member [] Provided Communion [] Anointing/[place] [] Salvation [] Completed spiritual assessment [] Other: Impact on Illness or Injury [] Angry [] Fearful [] Anxious [] Often cries [] Exhaustion [] Unable to work [] Unable to attend amish [] Unable to walk/stand [] Unable to read [] Unable to drive [] Unable to eat/drink [] Unable to sleep [] Unable to be with family [XX] Patient intubated [] Other: Summary: Prayed over patient Time spent with patient: 5 mins
--- NOTE | 2021-02-26 11:18 | P.PN_ITS ---
Subjective Subjective: Interval history: Overnight no acute events, currently she is on Precedex and fentanyl for sedation, she follows commands on sedations, she can squeeze my fingers, wiggles her toes, she squeezes my finger to voiced understanding, afebrile, normotensive, off pressors, diarrhea has improved, continues to have good urine output, normal sinus rhythm, plan on extubation today Vitals/I&O/Wt Last Vital Signs Temp 97.5 F L 02/26/21 10:00 Pulse 62 02/26/21 10:30 Resp 12 02/26/21 10:38 BP 108/47 02/26/21 10:30 Pulse Ox 95 02/26/21 10:38 02/25/21 02/26/21 02/26/21 22:59 06:59 14:59 Intake Total 535.382 / 1745.7809 50 / 1795.7809 3.333 / 3.333 Output Total 1250 / 1250 450 / 1700 75 / 75 Balance -714.618 / 495.7809 -400 / 95.7809 -71.667 / -71.667 Weight last 48 hrs Weight 63.503 kg Weight 63.503 kg Physical Exam Narrative: EXAM NARRATIVE: Intubated, sedated, follows commands on sedation's, wiggles her toes, squeezes my fingers Const: COMMON NORMALS: no acute distress GENERAL APPEARANCE: frail appearing HENMT: COMMON NORMALS: normocephalic HEAD & SCALP: normocephalic Eye: COMMON NORMALS: Equal, round and reactive pupils present GENERAL EYE: appearance normal, both eyes and all related structures PUPIL: Yes Equal, round and reactive pupils present Neck/C-Spine: COMMON NORMALS: no JVD Chest: COMMONS NORMALS: normal inspection of the chest Resp: COMMON NORMALS: normal respiratory effort, No retractions and No use of accessory muscles AUSCULTATION: crackles Cardio: COMMON NORMALS: no JVD, regular rate, regular rhythm, S1 normal heart sound present and S2 normal heart sound present RATE: regular rate RHYTHM: regular rhythm HEART SOUNDS: S1 normal heart sound present and S2 normal heart sound present GI: COMMON NORMALS: Normal to inspection, nondistended, normoactive bowel sounds present, Soft to palpation, non-tender and No hepatosplenomegaly present PALPATION: Yes Soft to palpation and Yes No hepatosplenomegaly present Extremity: COMMON NORMALS: no pedal edema OTHER: Left shoulder bruising, left arm in a sling Urinary Catheter Management^: Taylor: Cath Placed During This Visit: yes Reason for Continuing Indwelling Catheter: Accurate Measurement of Urinary Output in Critically Ill Patients Urinary Catheter Date of Insertion: 02/23/21 Urinary Catheter Time of Insertion: 17:00 Data : 02/26/21 05:36 02/26/21 05:36 Micro: Microbiology 02/23/21 16:30 Gram Stain - Final Sputum - Endotracheal Tube Aspirate Sputum Culture - Final 02/25/21 10:15 C.difficile Toxin B Gene (PCR) - Final Stool - Stool Aspirate A&P Assessment and plan (1) Acute respiratory failure with hypoxia: -With bradycardia -Complete heart block status post temporary pacemaker -With multiorgan failure, improving -Transaminitis, improving -Acute renal failure, improving creatinine 1.1, urine output 1775 -Mixed cardiogenic and septic shock -Lactic acidosis -DIC, INR 1.31, Plan: -Plan on extubation today -Admit to ICU -Ventilator protocol -Minimize PEEP, minimize FiO2 -Daily chest x-rays -Daily spontaneous breathing trials -Fentanyl and Precedex for sedation, [place] score 0 -Continue vancomycin and Zosyn -Follow blood cultures, sputum cultures, urine cultures -MRSA nares positive -Therapeutic Lovenox, for NSTEMI, history of pulmonary emboli, on Eliquis, hold Eliquis for now, has anemia 8.3, monitor hemoglobin -Status post 1 unit PRBC, hemoglobin -Currently off pressors, Levophed and dopamine, wean as tolerated, maintain MAP more than 75 to assist with renal perfusion -Replace electrolytes -Temporary pacemaker in place -Low-dose sliding scale -Taylor catheter -Monitor for fevers, monitor respiratory status -Assess neurologic function daily -Cardiac echo shows EF 60%, grade 1 out of 4 diastolic dysfunction, -Serum sodium 148, BUN 33, hold hydration for now, in preparation for extubation, if she remains intubated will start gentle IV hydration -Monitor urine output, monitor creatinine -Full code -Cardiology on consult -Heparin drip for DVT prophylaxis -Protonix for GI prophylaxis Plan for today, plan on extubation Status: Acute (2) Complete heart block: -Status post temporary transcutaneous pacer by Dr. York -Cardiology on consult Status: Acute (3) Hypertension: Status: Acute (4) Hyperlipidemia: Status: Acute (5) Diabetes: - Status: Acute (6) Acute on chronic anemia: Monitor hemoglobin as on heparin drip, current hemoglobin 7.7 Status: Acute (7) Pulmonary embolism: Status: Acute (8) Congestive heart failure: Monitor for fluid overload, BNP over 23,000 Status: Acute (9) Peripheral vascular disease: Status: Acute (10) Shock: Status: Acute (11) Hyperkalemia: -Status post calcium gluconate, insulin -Morning potassium 6.0, will give another 10 units insulin, with D50 -Resolved Status: Acute (12) Multiorgan failure: Status: Acute (13) Transaminitis: Status: Acute (14) Acute renal failure: Status: Acute (15) NSTEMI (non-ST elevated myocardial infarction): -6-hour troponin VII 37, positive delta 41.3, EKG initially showing ST depressions, now sinus rhythm,, ventricular pacemaker -Aspirin, statin -Cardiac echocardiogram EF within normal limits -Cardiology on consult Status: Acute (16) Lactic acidosis: Status: Acute (17) DIC (disseminated intravascular coagulation): Status: Acute (18) Closed left humeral fracture: -Currently being conservative manage with a sling -Manage conservatively, careful turning Status: Acute (19) History of fracture of left hip: -There is an intertrochanteric subtrochanteric hip fracture which has healed. It's been repaired with a long intramedullary greg in the left femur and 2 oblique screws in the left femoral neck. No new fractures are seen Status: Acute Attestations Medical Necessity Statement*: Patient requires hospitalization, for sinus bradycardia, acute respiratory failure, mixed cardiac and septic shock, critical care time spent over 55 minutes Coding Level of Care Code Acute Stoker Mechanic for [facility] Fwd Diagnoses Acute respiratory failure with hypoxia J96.01 Complete heart block I44.2 Hypertension I10 Hyperlipidemia E78.5 Diabetes E11.9 Acute on chronic anemia D64.9 Pulmonary embolism I26.99 Congestive heart failure I50.9 Peripheral vascular disease I73.9 Shock R57.9 Hyperkalemia E87.5 Multiorgan failure Transaminitis R74.01 Acute renal failure N17.9 NSTEMI (non-ST elevated myocardial infarction) I21.4 Lactic acidosis E87.2 DIC (disseminated intravascular coagulation) D65 Closed left humeral fracture S42.302A History of fracture of left hip Z87.81
[2021-02-26] MEDS: vancomycin 1,000 MG in sodium chloride 0.9% 250 ML 250 MG IV (11:40)
[2021-02-26] MEDS: enoxaparin 60 mg/0.6 mL Syringe SUBCUT ×2 (11:40→22:03)
--- NOTE | 2021-02-26 12:21 | PC.NURSE ---
Pacemaker does not appear to be capturing. Currently on Asynchronous mode at 60. HR currently 53, no pacer spices shown. Pacemaker paused and underlying rhythm is a SR. Dr. Rodriguez notified.
[2021-02-26] MEDS: sodium chloride 0.9% 1,000 ML 100 ML IV ×2 (12:59→22:03)
--- NOTE | 2021-02-26 13:30 | PM.PN ---
Subjective Subjective: Interval history: Steadily improving. Blood pressure remains on the lower side off pressors. She has had transfusion yesterday hemoglobin above 8. I been told that she responds to the commands. Pacemaker is in sync mode. Pacing at 60. Medications: Reviewed: Yes Vitals/I&O/Wt Last Vital Signs Temp 97.5 F L 02/26/21 10:00 Pulse 62 02/26/21 11:30 Resp 13 02/26/21 12:57 BP 115/51 02/26/21 11:30 Pulse Ox 92 02/26/21 12:57 02/25/21 02/26/21 02/26/21 22:59 06:59 14:59 Intake Total 535.382 / 1745.7809 50 / 1795.7809 3.333 / 3.333 Output Total 1250 / 1250 450 / 1700 150 / 150 Balance -714.618 / 495.7809 -400 / 95.7809 -146.667 / -146.667 Weight last 48 hrs Weight 140 lb Weight 140 lb Physical Exam Narrative: EXAM NARRATIVE: GENERAL: Patient is intubated and sedated, NECK: No jugular vein distension. HEENT: No cyanosis. No icterus. HEART: Regular S1 and S2. No murmur, rub or gallop. LUNGS: Clear to auscultate bilaterally. ABDOMEN: Cannot assess CENTRAL cannot assess EXTREMITIES: Lower extremities without edema Urinary Catheter Management^: Taylor: Cath Placed During This Visit: yes Reason for Continuing Indwelling Catheter: Accurate Measurement of Urinary Output in Critically Ill Patients Urinary Catheter Date of Insertion: 02/23/21 Urinary Catheter Time of Insertion: 17:00 Data : 02/26/21 05:36 02/26/21 05:36 Micro: Microbiology 02/23/21 16:30 Gram Stain - Final Sputum - Endotracheal Tube Aspirate Sputum Culture - Final 02/25/21 10:15 C.difficile Toxin B Gene (PCR) - Final Stool - Stool Aspirate A&P Assessment and plan (1) Complete heart block: Status post temporary pacemaker, patient has intermittent heart block she is pacing at different intervals. Once potassium will normalize will assess whether she requires permanent pacemaker Continues to be pacemaker dependent Pacemaker working fine she is in AAI sync mode, pacing fine. Once extubated and more coherent will decide regarding permanent pacemaker depending upon her long-term prognosis Status: Acute (2) Shock: Patient is off pressor recommend IV fluid Status: Acute (3) Hyperkalemia: Improved. Status: Acute (4) Congestive heart failure: She states overcompensated. Recommend IV fluid Status: Acute (5) Acute renal failure: Started improving continue IV fluid Status: Acute (6) DIC (disseminated intravascular coagulation): As per medicine. Status: Acute Attestations Medical Necessity Statement*: Patient require continuation hospitalization for above defined care. Coding Level of Care Code Established Pt Acute Inside Phone Sales for [facility] Patient Type Established History Detailed Exam Detailed Medical Decision Making Moderate Complexity Diagnoses Complete heart block I44.2 Shock R57.9 Hyperkalemia E87.5 Congestive heart failure I50.9 Acute renal failure N17.9 DIC (disseminated intravascular coagulation) D65
[2021-02-26] MEDS: TRAMadol 50 mg Tablet PO (13:50)
--- NOTE | 2021-02-26 13:50 | PC.NURSE ---
Dr. Kohli on unit and discussed pacemaker. States that if pt is not symptomatic to continue with care. Will continue to monitor. Tramadol given for pain.
[2021-02-26 17:48] LABS: Glucose Point of Care 133 mg/dL (70-110)
[2021-02-26] MEDS: atorvastatin 40 mg Tablet PO (20:21)
--- NOTE | 2021-02-26 21:59 | PC.NURSE ---
Called Dr. Kohli for an update on urine output, Kamilla gave orders to continue fluids at 70mL/hr for one more liter. Continue care
[2021-02-27] VITALS (60 sets, daily range): BP systolic 103–161; BP diastolic 47–70; PULSE 0–71; RESP 12–21; TEMP 36.7–37.1; O2SAT 92–100
[2021-02-27] MEDS: piperacillin-tazobactam 3.375 GM in sodium chloride 0.9% (plus) 50 ML IV ×3 (01:26→18:50)
[2021-02-27 05:00] LABS: Lactate (Lactic Acid level) 1.5 mmol/L (0.5-2.2)
[2021-02-27 05:01] LABS: INR 1.39 (0.8-1.2)
[2021-02-27 05:07] LABS: Alanine Aminotransferase 557 U/L (0-33); Albumin Level 2.3 g/dL (3.5-5.2); Alkaline Phosphatase 65 IU/L (35-105); Anion Gap 14.5 (5-19); Aspartate Amino Transferase 244 U/L (0-32); Blood Urea Nitrogen 30 mg/dL (8-23); C Reactive Protein 48.1 mg/L (0.0-4.9); Calcium 7.4 mg/dL (8.5-10.5); Carbon Dioxide 22 mmol/L (22-29); Chloride 113 mmol/L (98-107); Creatine Phosphokinase 35 U/L (26-192); Globulin 3.1 g/dL (1.3-4.6); Glucose 194 mg/dL (65-115); Magnesium 2.1 mg/dL (1.7-2.3); NT Pro B Type Natriuretic Pept 2520 pg/mL (0-450); Osmolality Calculated 313 mOsm/kg (285-295); Phosphorus 2.5 mg/dL (2.5-4.5); Potassium 3.5 mmol/L (3.5-5.1); Procalcitonin 0.29 ng/mL (0-0.5); Sodium 146 mmol/L (136-145); Total Bilirubin 1.2 mg/dL (0.15-1.2); Total Protein 5.4 g/dL (6.6-8.7)
[2021-02-27] MEDS: pantoprazole 40 mg SDV IVP ×2 (05:22→18:50)
[2021-02-27 05:26] LABS: Basophils % 0.2 %; Eosinophils % 0.5 %; Hematocrit 26.1 % (37.0-47.0); Hemoglobin 8.1 g/dL (11.5-15.3); Lymphocytes % 11.4 %; Mean Corpuscular Hemoglobin 24.3 pg (28.0-34.0); Mean Corpuscular Volume 78.4 fL (81-99); Mean Platelet Volume 11.9 fL (7.4-10.4); Monocytes # 0.7 10^3/uL (0.2-0.9); Monocytes % 7.8 %; Neutrophils # 6.76 10^3/uL (1.8-7.7); Neutrophils % 78.7 %; Nucleated Red Blood Cells # 0.8 /100WBC; Nucleated Red Blood Cells % 9.5 %; Platelet Count 137 10^3/cmm (130-400); Red Blood Count 3.33 10^6/uL (4.1-5.3); Red Cell Distribution Width 17.9 % (12.1-15.1); White Blood Count 8.6 10^3/uL (4.0-10.0)
[2021-02-27 05:33] LABS: ABG PH Result 7.31 (7.35-7.45)
[2021-02-27 05:34] LABS: ABG PCO2 51.4 mmHg (35-45); Base Excess ABG -0.9 mmol/L (-2.0-2.0); Blood Gas Allen Test POS; HCO3 ABG 25.7 mmol/L (22-26); Oxygen Device VENT; PO2 ABG 52.9 mmHg (80.0-100.0)
[2021-02-27 05:35] LABS: Blood Gas Sample Type ARTERIAL
[2021-02-27] MEDS: sodium chloride 0.9% 1,000 ML 70 ML IV (05:42)
--- NOTE | 2021-02-27 07:00 | XR_ITS ---
WS: [id number] Exam: XR chest 1V portable [id number] Date/Time of Exam: 02/27/2021 7:00 AM Reason For Exam: sob Comparison 02/26/2021. The lungs remain fully inflated. Chronic interstitial changes in the right perihilar region with prom inent right hilum. Probable chronic atelectasis in the left lower lobe. No pleural effusion. Cardiome diastinal structures are unremarkable for technique. An ET tube is in place ending about 3 cm above t he tosin in good position. An enteric tube extends below the level of the diaphragm. The tip is diff icult to identify. Calcification of mitral valve annulus. Numerous old left-sided rib fractures are n oted. XR/XR chest 1V portable [id number] IMPRESSION: 1. Although radiographic technique is somewhat different there does not appear to be significant change since the previous study. ET tube remains in satisfact ory position. An enteric tube extends below the level of the diaphragm but the tip is not definitely seen.
[2021-02-27 07:42] LABS: Glucose Point of Care 271 mg/dL (70-110)
[2021-02-27] MEDS: aspirin 81 mg Chew Tablet PO (07:46)
--- NOTE | 2021-02-27 08:46 | PM.PN ---
Subjective Subjective: Interval history: This morning wakes up to voice/gentle stimulation. Answers questions and follows commands rather inconsistently. When asked if she is in pain appears to shake her head normal. However, does not really appear to answer additional questions for me. Asking her to look at me does not really elicit a response. Asking her to squeeze her hands, taking her hands, she squeezes both sides, but does not try to take her hands herself. Does not really follow other commands for me. She is still on sedation. We will attempt to wean down Precedex, fentanyl further. Discussing Reza Walters at baseline she is usually 1 person assist. She does not walk, usually rolls around in a wheelchair. Does not dress herself. Apparently recognizes jail staff. Usually is verbal and reported opinionated . Vitals/I&O/Wt Last Vital Signs Temp 98.0 F 02/27/21 07:54 Pulse 54 L 02/27/21 07:54 Resp 14 02/27/21 07:54 BP 131/57 02/27/21 07:54 Pulse Ox 97 02/27/21 07:54 02/26/21 02/27/21 02/27/21 22:59 06:59 14:59 Intake Total 1832.100 / 6845.125 5151 / 2950.433 200 / 200 Output Total 200 / 350 250 / 600 Balance 1632.100 / 1485.433 865 / 2350.433 200 / 200 Weight last 48 hrs Weight 64.977 kg Weight 63.503 kg Physical Exam Const: COMMON NORMALS: no acute distress OTHER: Intubated, waking up from sedation, inconsistent/limited answers to questions, limited cooperation with exam HENMT: COMMON NORMALS: oropharynx normal Resp: COMMON NORMALS: normal respiratory effort and clear to auscultation bilaterally AUSCULTATION: clear to auscultation bilaterally Cardio: COMMON NORMALS: regular rhythm, S1 normal heart sound present, S2 normal heart sound present and No murmurs present (Cardio) RATE: bradycardic RHYTHM: regular rhythm HEART SOUNDS: S1 normal heart sound present and S2 normal heart sound present GI: COMMON NORMALS: Normal to inspection, nondistended, normoactive bowel sounds present, Soft to palpation and non-tender PALPATION: Yes Soft to palpation Extremity: COMMON NORMALS: no joint enlargement and no pedal edema OTHER: Left upper arm bruising Neuro: COMMON NORMALS: moves all extremities Skin: OTHER: Thin, fragile skin. Skin tears on lower extremities and several occasions below knees Urinary Catheter Management^: Taylor: Cath Placed During This Visit: yes Reason for Continuing Indwelling Catheter: Accurate Measurement of Urinary Output in Critically Ill Patients Urinary Catheter Date of Insertion: 02/23/21 Urinary Catheter Time of Insertion: 17:00 Data : 02/27/21 03:58 02/27/21 03:58 Micro: Microbiology 02/23/21 16:30 Gram Stain - Final Sputum - Endotracheal Tube Aspirate Sputum Culture - Final A&P Assessment and plan (1) Acute respiratory failure with hypoxia: Wean sedation to allow better idea of her mental status as she appears to be somewhat inconsistently following commands and answer questions and to allow for weaning trial. Early this morning ABG with respiratory acidosis. Blood pressure now is much better. He is off pressors. Renal function appears to be continuing to improve. For now held additional IV fluid in anticipation of possible extubation sometime today. Heart rates currently maintaining in the mid 50s Continues on empiric antibiotics for now. -Cardiac echo shows EF 60%, grade 1 out of 4 diastolic dysfunction, Status: Acute (2) Complete heart block: Continue monitoring heart rates. Currently in mid 50s. -Status post temporary transcutaneous pacer by Dr. York -Cardiology on consult Status: Acute (3) Hypertension: Status: Acute (4) Hyperlipidemia: Status: Acute (5) Diabetes: Status: Acute (6) Acute on chronic anemia: Fairly stable after transfusion around 8. Monitor. Status: Acute (7) Pulmonary embolism: History of PE. Chronic anticoagulation. Continue Lovenox. Status: Acute (8) Congestive heart failure: Monitor for fluid overload, BNP decreased Status: Acute (9) Peripheral vascular disease: Status: Acute (10) Shock: Status: Acute (11) Hyperkalemia: -Resolved Status: Acute (12) Multiorgan failure: Status: Acute (13) Transaminitis: Status: Acute (14) Acute renal failure: Status: Acute (15) NSTEMI (non-ST elevated myocardial infarction): Suspected demand ischemia. Continue Aspirin, statin -Cardiac echocardiogram EF within normal limits -Cardiology on consult Status: Acute (16) Lactic acidosis: Status: Acute (17) DIC (disseminated intravascular coagulation): If was present has resolved. Status: Acute (18) Closed left humeral fracture: -Currently being conservative manage with a sling -Manage conservatively, careful turning Status: Acute (19) History of fracture of left hip: -There is an intertrochanteric subtrochanteric hip fracture which has healed. It's been repaired with a long intramedullary greg in the left femur and 2 oblique screws in the left femoral neck. No new fractures are seen Status: Acute Attestations Medical Necessity Statement*: Continue admission for weaning of ventilator support, support following multiple organ failure due to shock, pacemaker support and assessment of heart block/bradycardia, requirement for anticoagulation in setting of acute anemia. Coding Level of Care Code Acute Paginator for [facility] Diagnoses Acute respiratory failure with hypoxia J96.01 Complete heart block I44.2 Hypertension I10 Hyperlipidemia E78.5 Diabetes E11.9 Acute on chronic anemia D64.9 Pulmonary embolism I26.99 Congestive heart failure I50.9 Peripheral vascular disease I73.9 Shock R57.9 Hyperkalemia E87.5 Multiorgan failure Transaminitis R74.01 Acute renal failure N17.9 NSTEMI (non-ST elevated myocardial infarction) I21.4 Lactic acidosis E87.2 DIC (disseminated intravascular coagulation) D65 Closed left humeral fracture S42.302A History of fracture of left hip Z87.81
[2021-02-27] MEDS: enoxaparin 60 mg/0.6 mL Syringe SUBCUT ×2 (09:54→21:37)
--- NOTE | 2021-02-27 10:00 | PC.OT ---
OT note: Order received for splint for humeral neck fracture. From review of chart and discussion with nursing pt has sling for LUE that was issued at ER visit. Pt had not been able to follow up with orthopedic doctor yet and no consult from ortho during this visit. From review of protocol from [facility] from [place] a sling is indicated. The sling is still in her room but not on her at this moment because pt is intubated and sedated. No further sling/splint needed at this time.
[2021-02-27 11:31] LABS: Glucose Point of Care 278 mg/dL (70-110)
--- NOTE | 2021-02-27 14:29 | CTR_ITS ---
PROCEDURE INFORMATION: Exam: CT Head Without Contrast Exam date and time: 02/27/2021 6:14 PM Age: 80 years old Clinical indication: Altered mental status/memory loss; Additional info: AMS TECHNIQUE: Imaging protocol: Computed tomography of the head without contrast. Total images: 224 Radiation optimization: All CT scans at this facility use at least one of these dose optimization techniques: automated exposure control; mA and/or kV adjustment per patient size (includes targeted exams where dose is matched to clinical indication); or iterative reconstruction. COMPARISON: CT head wo con* [id number] 02/24/2021 12:56 PM RADIATION DOSE METRICS: Total DLP (mGy-cm): 1058.06 FINDINGS: Brain: No evidence of active or acute intracranial pathologic process, hemorrhage, or trauma. Advanced cerebral and cerebellar atrophy with ventricular dilatation greater than that anticipated for patient's chronological age. 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 Old right frontoparietal focal infarction. No mass effect. No midline shift. Cerebral ventricles: Patent cavum septum pellucidum. Ventriculomegaly slightly greater than that anticipated for the atrophic changes present. Thinning of the corpus callosum. Consideration might be given to normal pressure hydrocephalus. Bones/joints: Unremarkable. No acute fracture. Paranasal sinuses: No evidence of active paranasal sinus disease. Mastoid air cells: Visualized mastoid air cells are well aerated. Soft tissues: Unremarkable. CT/CT head wo con* [id number] IMPRESSION: 1. No evidence of active or acute intracranial pathologic process, hemorrhage, or trauma. 2. Chronic findings as detailed in text above. Radiation Dose CTDIVOL = (mGy): DLP = 1058.06 (mGy-cm)
--- NOTE | 2021-02-27 14:42 | PC.NUTR ---
Nutrition re-assessment. Current TF (Jevity 1.2) providing 1152 kcal, 53 g protein, 163 g CHO. As per previous RD recs, continue to recommend Glucerna 1.2 at 40 ml/hr, with 100 ml H2O flushes q 4 hours to provide same kcal, 58 g protein, 110 g CHO, and 1373 ml H20. Increased protein and decreased CHO is preferred for glucose control.
[2021-02-27] MEDS: dexmedetomidine 400 MCG in sodium chloride 0.9% (100 ml) 100 ML IV (15:39)
[2021-02-27 16:57] LABS: Glucose Point of Care 292 mg/dL (70-110)
--- NOTE | 2021-02-27 20:57 | P.PN_ITS ---
Subjective Subjective: Interval history: Patient opens her eye and try to talk. Stable vital mcknight. Medications: Reviewed: Yes Vitals/I&O/Wt Last Vital Signs Temp 98.3 F 02/27/21 18:00 Pulse 54 L 02/27/21 20:30 Resp 12 02/27/21 20:15 BP 148/66 02/27/21 20:30 Pulse Ox 96 02/27/21 20:30 02/27/21 02/27/21 02/27/21 06:59 14:59 22:59 Intake Total 1115 / 2950.433 288.792 / 288.792 670 / 958.792 Output Total 250 / 600 400 / 400 Balance 865 / 2350.433 288.792 / 288.792 270 / 558.792 Weight last 48 hrs Weight 143 lb 4 oz Weight 140 lb Physical Exam Narrative: EXAM NARRATIVE: GENERAL: Patient is intubated and sedated, opens her eye, coloration pale NECK: No jugular vein distension. HEENT: No cyanosis. No icterus. HEART: Regular S1 and S2. No murmur, rub or gallop. LUNGS: Clear to auscultate bilaterally. ABDOMEN: Cannot assess CENTRAL cannot assess EXTREMITIES: Lower extremities without edema Urinary Catheter Management^: Taylor: Cath Placed During This Visit: yes Reason for Continuing Indwelling Catheter: Accurate Measurement of Urinary Output in Critically Ill Patients Urinary Catheter Date of Insertion: 02/23/21 Urinary Catheter Time of Insertion: 17:00 Data : 02/27/21 03:58 02/27/21 03:58 A&P Assessment and plan (1) Complete heart block: Status post temporary pacemaker, patient has intermittent heart block she is pacing at different intervals. Once potassium will normalize will assess whether she requires permanent pacemaker Continues to be pacemaker dependent Pacemaker working fine she is in AAI sync mode, pacing fine. Once extubated and more coherent will decide regarding permanent pacemaker depending upon her long- term prognosis Pacemaker in good standing continue temporary pacer once more stable will decide regarding long-term prognosis and permanent pacemaker placement Status: Acute (2) Shock: Stable. Status: Acute (3) Hyperkalemia: Improved. Status: Acute (4) Congestive heart failure: She states overcompensated. Recommend IV fluid Status: Acute (5) Acute renal failure: Improving continue IV fluid Status: Acute (6) DIC (disseminated intravascular coagulation): As per medicine. Status: Acute Attestations Medical Necessity Statement*: Patient require continuation hospitalization for above defined care Coding Level of Care Code Established Pt Acute Office Administrative Assistant for [facility] Patient Type Established History Expanded Problem Focused Exam Expanded Problem Focused Medical Decision Making Moderate Complexity Diagnoses Complete heart block I44.2 Shock R57.9 Hyperkalemia E87.5 Congestive heart failure I50.9 Acute renal failure N17.9 DIC (disseminated intravascular coagulation) D65
[2021-02-27] MEDS: atorvastatin 40 mg Tablet PO (21:37)
[2021-02-28] VITALS (59 sets, daily range): BP systolic 115–179; BP diastolic 51–91; PULSE 49–71; RESP 8–16; TEMP 36.8; O2SAT 95–100
[2021-02-28] MEDS: piperacillin-tazobactam 3.375 GM in sodium chloride 0.9% (plus) 50 ML IV ×3 (00:29→17:15)
[2021-02-28 03:43] LABS: Basophils % 0.3 %; Eosinophils # 0.1 10^3/uL (0.0-0.8); Eosinophils % 1.3 %; Hematocrit 26.3 % (37.0-47.0); Hemoglobin 8.2 g/dL (11.5-15.3); Lymphocytes # 0.7 10^3/uL (0.8-4.8); Lymphocytes % 9.3 %; Mean Corpuscular HGB Conc 31.2 g/dL (30.0-36.0); Mean Corpuscular Hemoglobin 24.3 pg (28.0-34.0); Mean Platelet Volume 12.1 fL (7.4-10.4); Monocytes # 0.8 10^3/uL (0.2-0.9); Monocytes % 11.1 %; Neutrophils # 5.71 10^3/uL (1.8-7.7); Neutrophils % 75.6 %; Nucleated Red Blood Cells # 0.6 /100WBC; Nucleated Red Blood Cells % 7.7 %; Platelet Count 142 10^3/cmm (130-400); Red Blood Count 3.37 10^6/uL (4.1-5.3); Red Cell Distribution Width 18.4 % (12.1-15.1); White Blood Count 7.6 10^3/uL (4.0-10.0)
[2021-02-28 04:03] LABS: Lactate (Lactic Acid level) 1.4 mmol/L (0.5-2.2)
[2021-02-28 04:08] LABS: Alanine Aminotransferase 433 U/L (0-33); Albumin Level 2.5 g/dL (3.5-5.2); Alkaline Phosphatase 77 IU/L (35-105); Anion Gap 10.5 (5-19); Aspartate Amino Transferase 143 U/L (0-32); Blood Urea Nitrogen 28 mg/dL (8-23); C Reactive Protein 27.6 mg/L (0.0-4.9); Calcium 7.7 mg/dL (8.5-10.5); Carbon Dioxide 27 mmol/L (22-29); Chloride 114 mmol/L (98-107); Globulin 3.1 g/dL (1.3-4.6); Glucose 283 mg/dL (65-115); Magnesium 2.1 mg/dL (1.7-2.3); Osmolality Calculated 322 mOsm/kg (285-295); Potassium 3.5 mmol/L (3.5-5.1); Sodium 148 mmol/L (136-145); Total Bilirubin 1.1 mg/dL (0.15-1.2); Total Protein 5.6 g/dL (6.6-8.7)
[2021-02-28] MEDS: pantoprazole 40 mg SDV IVP ×2 (04:18→17:15)
[2021-02-28 04:38] LABS: NT Pro B Type Natriuretic Pept 2751 pg/mL (0-450); Procalcitonin 0.18 ng/mL (0-0.5)
[2021-02-28 04:55] LABS: ABG PCO2 41.3 mmHg (35-45); ABG PH Result 7.43 (7.35-7.45); Arterial Blood Gas Hematocrit 26.4 % (37-47); Base Excess ABG 2.7 mmol/L (-2.0-2.0); Blood Gas Allen Test Pos; Blood Gas Operator Identificat JB; Blood Gas Sample Site Radial, right; Blood Gas Sample Type Arterial; HCO3 ABG 27.3 mmol/L (22-26); Oxygen Device VENT; PO2 ABG 83.5 mmHg (80.0-100.0)
[2021-02-28 07:50] LABS: Glucose Point of Care 290 mg/dL (70-110)
[2021-02-28] MEDS: TRAMadol 50 mg Tablet PO (07:56)
[2021-02-28] MEDS: aspirin 81 mg Chew Tablet PO (08:02)
--- NOTE | 2021-02-28 08:40 | P.PN_ITS ---
Subjective Subjective: Interval history: Today she appears to be answering questions all bit better. She reports having pain. When asked if the pain is in her left arm, says no. I asked if it is in her back/bottom, states yes. When asked if has any pain in her left arm at all, states yes. Still does not appear to be able to track very well. Does appear to be able to focus intermittently on my face. Appears to be squeezing her hands, however, does not raise her hands to grab anything. Has been seen moving all extremities, however. Reports breathing currently is comfortable. Vitals/I&O/Wt Last Vital Signs Temp 98.8 F 02/27/21 22:00 Pulse 69 02/28/21 08:00 Resp 8 L 02/28/21 07:33 BP 163/74 02/28/21 08:00 Pulse Ox 96 02/28/21 08:00 02/27/21 02/28/21 02/28/21 22:59 06:59 14:59 Intake Total 670 / 958.792 780 / 1738.792 120 / 120 Output Total 400 / 400 350 / 750 Balance 270 / 558.792 430 / 988.792 120 / 120 Weight last 48 hrs Weight 65.487 kg Weight 64.977 kg Physical Exam Const: COMMON NORMALS: no acute distress OTHER: limited cooperation. Interacting perhaps lifting more than yesterday. HENMT: COMMON NORMALS: oropharynx normal Resp: COMMON NORMALS: normal respiratory effort and clear to auscultation bilaterally AUSCULTATION: clear to auscultation bilaterally Cardio: COMMON NORMALS: regular rhythm, S1 normal heart sound present, S2 normal heart sound present and No murmurs present (Cardio) RATE: bradycardic RHYTHM: regular rhythm HEART SOUNDS: S1 normal heart sound present and S2 normal heart sound present GI: COMMON NORMALS: Normal to inspection, nondistended, normoactive bowel sounds present, Soft to palpation and non-tender PALPATION: Yes Soft to palpation Extremity: COMMON NORMALS: no joint enlargement and no pedal edema OTHER: Left upper arm bruising Neuro: COMMON NORMALS: moves all extremities Skin: OTHER: Thin, fragile skin. Skin tears on lower extremities and several locations below knees Urinary Catheter Management^: Taylor: Cath Placed During This Visit: yes Reason for Continuing Indwelling Catheter: Accurate Measurement of Urinary Output in Critically Ill Patients Urinary Catheter Date of Insertion: 02/23/21 Urinary Catheter Time of Insertion: 17:00 Data : 02/28/21 03:13 02/28/21 03:13 A&P Assessment and plan (1) Acute respiratory failure with hypoxia: Yesterday were having difficult time with limited cooperation, some inconsistent answers, and inconsistently following some of the commands. Discussed with her family concern regarding central etiology, possible CVA, possible hypoperfusion during shock state within the spectrum of multifocal organ injury that was observed. We obtained CT of the head. 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 It appears to show advanced cerebral and cerebellar atrophy greater than anticipated for age. Yesterday we also run into the issue of her not overbreathing the ventilator, mostly breathing it appears for last several days at the set rate of 12. With breathing trial respiratory rate and minute ventilation decreased. She did have some respiratory stenosis yesterday morning, although that did not appear to be necessarily the major factor responsible for this, perhaps more the resolved. It could have contributed. Today ABG is better. 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 Appears to be overbreathing the ventilator a little bit better, but inconsistently, and sometimes with respiratory pauses requiring ventilatory support. We are requesting consultation with pulmonology with regards to difficulty weani ng off the ventilator. Blood pressure now is much better. Off pressors. Renal function appears to be continuing to improve. For now held additional IV fluid in anticipation of possible extubation sometime today. Heart rates currently maintaining in the mid-high 50s Continues on empiric antibiotics for now for possible aspiration pneumonia, although x-rays do not seem to be suggestive, and she is on minimal oxygenation settings. -Cardiac echo shows EF 60%, grade 1 out of 4 diastolic dysfunction, Status: Acute (2) Complete heart block: Cardiology adjusting pacemaker rate. Appreciate recommendations. Continue monitoring heart rates. Currently in mid 50s. -Status post temporary transcutaneous pacer by Dr. York -Cardiology on consult Status: Acute (3) Hypertension: Appreciate cardiology recommendations to start 1 inch Nitropaste. Status: Acute (4) Hyperlipidemia: Status: Acute (5) Diabetes: Status: Acute (6) Acute on chronic anemia: Fairly stable after transfusion around 8. Monitor. Status: Acute (7) Pulmonary embolism: History of PE. Chronic anticoagulation. Continue Lovenox. Status: Acute (8) Congestive heart failure: Monitor for fluid overload, BNP decreased Status: Acute (9) Peripheral vascular disease: Status: Acute (10) Shock: Status: Acute (11) Hyperkalemia: -Resolved Status: Acute (12) Multiorgan failure: Status: Acute (13) Transaminitis: Status: Acute (14) Acute renal failure: Status: Acute (15) NSTEMI (non-ST elevated myocardial infarction): Suspected demand ischemia. Continue Aspirin, statin -Cardiac echocardiogram EF within normal limits -Cardiology on consult Status: Acute (16) Lactic acidosis: Status: Acute (17) DIC (disseminated intravascular coagulation): If was present has resolved. Status: Acute (18) Closed left humeral fracture: -Currently being conservative manage with a sling -Manage conservatively, careful turning Status: Acute (19) History of fracture of left hip: -There is an intertrochanteric subtrochanteric hip fracture which has healed. It's been repaired with a long intramedullary greg in the left femur and 2 oblique screws in the left femoral neck. No new fractures are seen Status: Acute Attestations Medical Necessity Statement*: Continue assessment management of respiratory failure, so far unable to wean off the ventilator, continue attempts at weaning, pulmonology assessment, continued monitoring and optimization of temporary pacemaker support in setting of heart block, following resolved cardiogenic shock, multiorgan failure. Coding Level of Care Code Acute Pediatric Clinical Nurse Specialist for Chris Serra Diagnoses Acute respiratory failure with hypoxia J96.01 Complete heart block I44.2 Hypertension I10 Hyperlipidemia E78.5 Diabetes E11.9 Acute on chronic anemia D64.9 Pulmonary embolism I26.99 Congestive heart failure I50.9 Peripheral vascular disease I73.9 Shock R57.9 Hyperkalemia E87.5 Multiorgan failure Transaminitis R74.01 Acute renal failure N17.9 NSTEMI (non-ST elevated myocardial infarction) I21.4 Lactic acidosis E87.2 DIC (disseminated intravascular coagulation) D65 Closed left humeral fracture S42.302A History of fracture of left hip Z87.81
--- NOTE | 2021-02-28 08:40 | PC.NURSE ---
Dr. Kohli changed setting on pacemaker from 70 to 60 ppm and gave verbal order for 1 inch nitro paste. Tube feedings still running at 40ml/h. No residual noted. PRN pain medication given. Patient was able to shake head yes when asked if she was in pain. Asked patient if the pain was in her back and buttocks and she shook her head yes. Shook head no when she was asked if her left arm hurt.
[2021-02-28] MEDS: enoxaparin 60 mg/0.6 mL Syringe SUBCUT ×2 (09:05→21:24)
[2021-02-28] MEDS: nitroglycerin 1 gm/inch oint Pkt 1 INCH TOPICAL ×2 (09:05→15:14)
[2021-02-28] MEDS: lidocaine 5% Patch 1 PATCH TOPICAL ×2 (09:06→21:24)
[2021-02-28 09:53] LABS: Vancomycin Trough 7.3 ug/mL (10-15)
[2021-02-28] MEDS: vancomycin 1,000 MG in sodium chloride 0.9% 250 ML 250 MG IV (10:27)
--- NOTE | 2021-02-28 11:06 | PC.SOCIAL ---
IMM not give IMM was not updated. Pt is still intubated. Do not anticipate d/c w/n 48hrs.
[2021-02-28 11:33] LABS: Glucose Point of Care 250 mg/dL (70-110)
--- NOTE | 2021-02-28 12:51 | P.CONIM_ITS ---
Providers/Reason For Consult Consulting Physican/Specialty*: Randell Keith MD / Pulmonology Critical Care Reason for Consult*: Difficult extubation Requesting Physcian: Son Beck Attending Physician: Son Beck Primary Care Provider: Umesh Becerra MD History of Present Illness History of Present Illness Charisma Holly is a 80 year old female with PMH thalassemia trait, type 2 diabetes mellitus, hypertension, microcytic anemia, grade 1 diastolic dysfunction, last EF 65%, pulmonary embolism on modified dose of Eliquis, has a history of dementia, severe peripheral vascular disease S/P balloon angioplasty of the left distal tibial peroneal trunk in April 2020, chronic hypoxia 1.5 L, admitted to ICU via ER on 02/23/21, when she was brought to ER for unresponsiveness, complete hear block, found to have cardiogenic shock from bradycardia, was given atropine x2, cutaneous pacing was established, 84 MA, rate of 80, pressures improved, was also given IV dopamine, titrate up to 12, pressures improved to 90 systolics. intubated by RSI, taken to the cardiac catheterization lab, had a pacemaker placed. Patient also found to have hyperkalemia on admission which was treated with insulin, glucose, calcium gluconate. She required pressors to maintain blood pressure and over time pressors were weaned off. Also patient has intertrochanteric subtrochanteric hip fracture which has healed.It's been r epaired with a long intramedullary greg in the left femur and 2 oblique screws in the left femoral neck. Pulmonary consult requested to help with extubation. Patient is on Precedex and fentanyl. She squeezes fingers and responds to few commands. CT head yesterday showed chronic infarcts with no acute changes. Overall she is 4.4 L positive since admission. Bedside ultrasound showed IVC 3.5 cm with no respiratory variation. Labs and imaging reviewed. Review of Systems General: Reports: ROS unobtainable due to endotracheal tube and ROS unobtainable due to medical condition Meds/Allergies Home Medications and Allergies Home Medications Medication Instructions Recorded Confirmed Last Taken Type donepezil 5 mg PO DAILY@0800 04/25/20 02/23/21 05/03/20 History pravastatin 40 mg PO DAILY@199904/25/20 02/23/21 05/03/20 History acetaminophen 650 mg PO Q6H PRN #0 tab 05/03/20 02/23/21 Unknown Rx tramadol 25 mg PO QID PRN #14 tab 08/09/20 02/23/21 Unknown Rx pantoprazole 40 mg PO BID@0600,199908/16/20 02/23/21 Unknown History furosemide 40 mg tablet 40 mg PO BID@0800,1399 tab 09/20/20 02/23/21 Unknown History metformin 500 mg tablet 1,000 mg PO BID@0800,1999 tab 01/12/21 02/23/21 Unknown History hydrocodone-acetaminophen 1 tab PO Q4H PRN #20 tab 02/22/21 02/23/21 Unknown Rx Eliquis 2.5 mg PO BID@0800,199902/23/21 02/23/21 Unknown History Lexapro 20 mg PO DAILY@0802/23/21 02/23/21 Unknown History ascorbic acid (vitamin C) [Vitamin 500 mg PO DAILY@0802/23/21 02/23/21 Unknown History C] atenolol 50 mg PO DAILY@0802/23/21 02/23/21 02/23/21 History cholecalciferol (vitamin D3) 125 mcg PO DAILY@0800 02/23/21 02/23/21 Unknown History [Vitamin D3] cholecalciferol (vitamin D3) 250 mcg PO Q30D 02/23/21 02/23/21 Unknown History [Vitamin D3] ferrous sulfate 325 mg PO DAILY@0800 02/23/21 02/23/21 Unknown History insulin aspart U-100 [Novolog See Rx Instructions .ROUTE .COMPLEX 02/23/21 02/23/21 Unknown History U-100 Insulin aspart] olanzapine [Zyprexa] 5 mg PO DAILY@199902/23/21 02/23/21 Unknown History Allergies Allergy/AdvReac Type Severity Reaction Status Date / Time No Known Allergies Allergy Verified 02/23/21 13:21 Current Medications Current Medications Generic Name Dose Route Start Last Admin Trade Name Freq PRN Reason Stop Dose Admin Aspirin 81 mg 02/24/21 09:00 02/28/21 08:02 Aspirin 81 Mg Chew Tablet PO 81 mg DAILY TANYA Administration Atorvastatin Calcium 40 mg 02/23/21 21:00 02/27/21 21:37 Atorvastatin 40 Mg Tablet PO 40 mg BEDTIME TANYA Administration Enoxaparin Sodium 60 mg 02/26/21 10:00 02/28/21 09:05 Enoxaparin 60 Mg/0.6 Ml Syringe SUBCUT 60 mg Q12H TANYA Administration Dopamine HCl/Dextrose 400 mg in 250 mls @ 11.907 mls/hr 02/23/21 13:30 02/27/21 13:32 Intropin Drip IV Not Given CONT TANYA Protocol 5 MCG/KG/MIN Fentanyl 1,000 mcg/ Sodium 100 mls @ 0 mls/hr 02/23/21 16:00 02/27/21 13:32 Chloride IV 0 mcg/hr .Q0M TANYA 0 mls/hr Titration Protocol Per Protocol Norepinephrine Bitartrate 4 mg 254 mls @ 0 mls/hr 02/23/21 16:45 02/26/21 17:56 / Dextrose IV 0.2 mcg/min .Q0M TANYA 0.8 mls/hr Titration Protocol Per Protocol Lactated Ringer's 1,000 mls @ 100 mls/hr 02/24/21 08:30 02/25/21 08:51 Lactated Ringers IV 0 mls/hr .Q10H TANYA Infusion Vancomycin HCl 1,000 mg/ 250 mls @ 250 mls/hr 02/24/21 10:00 02/28/21 11:38 Sodium Chloride IV Infused Q48H TANYA Infusion Dexmedetomidine HCl 400 mcg/ 104 mls @ 0 mls/hr 02/25/21 04:30 02/27/21 15:39 Sodium Chloride IV 0.3 mcg/kg/hr .Q0M TANYA 4.8 mls/hr Administration Protocol Per Protocol Piperacillin Sod/Tazobactam 50 mls @ 12.5 mls/hr 02/25/21 17:00 02/28/21 08:02 Sod 3.375 gm/ Sodium Chloride IV 12.5 mls/hr Q8H TANYA Administration Sodium Chloride 1,000 mls @ 100 mls/hr 02/26/21 12:45 02/27/21 05:42 Sodium Chloride 0.9% IV 70 mls/hr .Q10H TANYA Administration Insulin Aspart 0 unit 02/23/21 18:00 02/28/21 11:33 Insulin Aspart 100 Unit/1 Ml SUBCUT 6 unit TIDWM TANYA Administration Protocol Lidocaine 1 patch 02/28/21 09:00 02/28/21 09:06 Lidocaine 5% Patch TOPICAL 1 patch [id number] TANYA Administration Nitroglycerin 1 inch 02/28/21 09:00 02/28/21 09:05 Nitroglycerin 1 Gm/Inch Oint Pkt TOPICAL 1 inch Q6H TANYA Administration Pantoprazole Sodium 40 mg 02/23/21 16:45 02/28/21 04:18 Pantoprazole 40 Mg Sdv IVP 40 mg Q12H TANYA Administration Tramadol HCl 50 mg 02/26/21 12:51 02/28/21 07:56 Tramadol 50 Mg Tablet PO 50 mg Q6H PRN Administration MODERATE PAIN PFSH Acute PFSH: Medical History Anemia Critical lower limb ischemia CVA (cerebral vascular accident) 2013, right hemispheric Dementia Diabetes Hiatal hernia Hyperlipidemia Hypertension Peripheral vascular disease Pneumonia Pneumonia Thalassemia trait Surgical History History of angioplasty of peripheral vessel History of back surgery Family History Other Diabetes Social History Smoking and tobacco status: never smoked Alcohol intake: never Housing: Detention Vitals/I&O/Wt Last Vital Signs Temp 98.8 F 02/27/21 22:00 Pulse 52 L 02/28/21 12:00 Resp 14 02/28/21 10:32 BP 137/67 02/28/21 12:00 Pulse Ox 99 02/28/21 12:00 02/27/21 02/28/21 02/28/21 22:59 06:59 14:59 Intake Total 670 / 958.792 780 / 1738.792 530 / 530 Output Total 400 / 400 350 / 750 250 / 250 Balance 270 / 558.792 430 / 988.792 280 / 280 Weight last 48 hrs Weight 144 lb 6 oz Weight 143 lb 4 oz Physical Exam Narrative: EXAM NARRATIVE: PHYSICAL EXAM: General: lying in bed, sedated and intubated. HEENT:NCAT, PERRLA, EOMI Neck: Supple Lungs: Bibasilar crackles Heart: s1/s2, RRR Abd: soft, NT, ND, BS + Normoactive Extremities: No edema; scab on right lower leg [employer]: sedated and limited [employer] exam possible. SKIN: no rash Urinary Catheter Management^: Taylor: Cath Placed During This Visit: yes Reason for Continuing Indwelling Catheter: Accurate Measurement of Urinary Output in Critically Ill Patients Urinary Catheter Date of Insertion: 02/23/21 Urinary Catheter Time of Insertion: 17:00 Data Other Data: Other data: Laboratory Results WBC 7.6 10^3/uL (4.0- 10.0) 02/28/21 03:13 RBC 3.37 10^6/uL (4.1 -5.3) L 02/28/21 03:13 Hgb 8.2 g/dL (11.5-15 .3) L 02/28/21 03:13 Hct 26.3 % (37.0-47.0 ) L 02/28/21 03:13 MCV 78.0 fL (81-99) L 02/28/21 03:13 MCH 24.3 pg (28.0-34. 0) L 02/28/21 03:13 MCHC 31.2 g/dL (30.0-3 6.0) 02/28/21 03:13 RDW 18.4 % (12.1-15.1 ) H 02/28/21 03:13 Plt Count 142 10^3/cmm (130 -400) 02/28/21 03:13 MPV 12.1 fL (7.4-10.4 ) H 02/28/21 03:13 Neut % (Auto) 75.6 % 02/28/21 03:13 Lymph % (Auto) 9.3 % 02/28/21 03:13 [place] % (Auto) 11.1 % 02/28/21 03:13 Eos % (Auto) 1.3 % 02/28/21 03:13 Baso % (Auto) 0.3 % 02/28/21 03:13 Neut # (Auto) 5.71 10^3/uL (1.8 -7.7) 02/28/21 03:13 Lymph # (Auto) 0.7 10^3/uL (0.8- 4.8) L 02/28/21 03:13 [place] # (Auto) 0.8 10^3/uL (0.2- 0.9) 02/28/21 03:13 Eos # (Auto) 0.1 10^3/uL (0.0- 0.8) 02/28/21 03:13 Baso # (Auto) 0.0 10^3/uL (0.0- 0.1) 02/28/21 03:13 Nucleated RBC % (a uto) 7.7 % 02/28/21 03:13 Nucleated RBCs # 0.6 /100WBC 02/28/21 03:13 PT 15.50 SECONDS (12 .1-14.9) H 02/28/21 03:13 INR 1.20 (0.8-1.2) 02/28/21 03:13 APTT 60.8 SECONDS (23. 9-36.7) H 02/26/21 05:36 Fibrinogen 427 mg/dL (174-49 8) 02/26/21 05:36 Fibrin Degrad Prod ucts Neg, <10 ug/mL (N EG) 02/26/21 05:36 D-Dimer 2.19 ug/mIFEU (0- 0.59) H 02/26/21 05:36 Specimen Type Arterial 02/28/21 04:51 Sample Site Radial, right 02/28/21 04:51 ABG pH 7.43 (7.35-7.45) 02/28/21 04:51 ABG pCO2 41.3 mmHg (35-45) 02/28/21 04:51 ABG pO2 83.5 mmHg (80.0-1 00.0) 02/28/21 04:51 ABG HCO3 27.3 mmol/L (22-2 6) H 02/28/21 04:51 ABG O2 Saturation 99.9 02/23/21 13:40 ABG Base Excess 2.7 mmol/L (-2.0- 2.0) H 02/28/21 04:51 Deandre Test Pos 02/28/21 04:51 A-a O2 Gradient 37.4 mmHg (5-10) H 02/23/21 13:40 Hematocrit 26.4 % (37-47) L 02/28/21 04:51 Hgb O2 Saturation 98.2 % (95-100) 02/23/21 13:40 Carboxyhemoglobin 0.5 %THgb (0.4-20 .1) 02/23/21 13:40 Methemoglobin 1.3 % (0.4-1.5) 02/23/21 13:40 Total Hemoglobin 7.3 g/dL (12-16) L 02/23/21 13:40 Sodium 145.0 mmol/L (131 -143) H 02/23/21 13:40 Potassium 6.7 mmol/L (3.5-5 .0) H 02/23/21 13:40 Glucose 237.0 mg/dL (70-1 15) H 02/23/21 13:40 Ionized Calcium 1.1 mmol/L (1.1-1 .4) 02/23/21 13:40 Respiration Rate 12.0 % 02/27/21 04:00 O2 Delivery Device Vent 02/28/21 04:51 Mechanical Rate 14.0 02/25/21 05:25 Spontaneous Rate 12.0 % 02/27/21 04:00 FiO2 28.0 % 02/28/21 04:51 Tidal Volume 0.40 02/28/21 04:51 PEEP 5.0 cmH20 02/28/21 04:51 Specimen Drawn By Michelle 02/27/21 04:00 Tinning Machine Set Up Operator ID Jhon 02/28/21 04:51 Sodium 148 mmol/L (136-1 45) H 02/28/21 03:13 Potassium 3.5 mmol/L (3.5-5 .1) 02/28/21 03:13 Chloride 114 mmol/L (98-10 7) H 02/28/21 03:13 Carbon Dioxide 27 mmol/L (22-29) 02/28/21 03:13 Anion Gap 10.5 (5-19) 02/28/21 03:13 BUN 28 mg/dL (8-23) H 02/28/21 03:13 Creatinine 1.0 mg/dL (0.5-0. 9) H 02/28/21 03:13 GFR Calculation Not Reportable 02/28/21 03:13 Glucose 283 mg/dL (65-115 ) H 02/28/21 03:13 POC Glucose 250 mg/dL (70-110 ) H 02/28/21 11:31 Estimat Average Gl ucose 169 02/24/21 03:08 Hemoglobin A1c 7.5 % (4.0-6.0) H 02/24/21 03:08 Calculated Osmolal ity 322 mOsm/kg (285- 295) H 02/28/21 03:13 Lactate 1.4 mmol/L (0.5-2 .2) 02/28/21 03:13 Calcium 7.7 mg/dL (8.5-10 .5) L 02/28/21 03:13 Phosphorus 2.0 mg/dL (2.5-4. 5) L 02/28/21 03:13 Magnesium 2.1 mg/dL (1.7-2. 3) 02/28/21 03:13 Ferritin 2621 ng/mL (15-15 0) H 02/26/21 05:36 Total Bilirubin 1.1 mg/dL (0.15-1 .2) 02/28/21 03:13 AST 143 U/L (0-32) H 02/28/21 03:13 ALT 433 U/L (0-33) H 02/28/21 03:13 Alkaline Phosphata se 77 IU/L (35-105) 02/28/21 03:13 Creatine Kinase 35 U/L (26-192) 02/27/21 03:58 Troponin T Baselin e 696 ng/L (0-10) H* 02/23/21 16:50 Troponin T 120 Min sitka 603.3 ng/L (0-10) H 02/23/21 19:05 Delta Troponin T -92.7 ABS# (0-10) L 02/23/21 19:05 Troponin T Hi Sens 6Hr 737.2 ng/L (0-10) H 02/23/21 22:45 Troponin T Hi Sens 6Hr Delta 41.2 ng/L (0-12) H* 02/23/21 22:45 C-Reactive Protein 27.6 mg/L (0.0-4. 9) H 02/28/21 03:13 NT-Pro-B Natriuret Pep 2751 pg/mL (0-450 ) H 02/28/21 03:13 Total Protein 5.6 g/dL (6.6-8.7 ) L 02/28/21 03:13 Albumin 2.5 g/dL (3.5-5.2 ) L 02/28/21 03:13 Globulin 3.1 g/dL (1.3-4.6 ) 02/28/21 03:13 Procalcitonin 0.18 ng/mL (0-0.5 ) 02/28/21 03:13 TSH 1.66 uIU/mL (0.27 -4.20) 02/24/21 03:08 Urine Color Yellow (Yellow) 02/23/21 16:36 Urine Appearance Sl hazy (CLEAR) 02/23/21 16:36 Urine pH 5 (5-7) 02/23/21 16:36 Ur Specific Gravit y 1.015 (1.005-1.0 30) 02/23/21 16:36 Urine Protein 1+ (Negative) H 02/23/21 16:36 Urine Glucose (UA) Norm (Normal) 02/23/21 16:36 Urine Ketones Negative (Negati ve) 02/23/21 16:36 Urine Blood 3+ (Negative) H 02/23/21 16:36 Urine Nitrate Negative (Negati ve) 02/23/21 16:36 Urine Bilirubin Neg (Negative) 02/23/21 16:36 Urine Urobilinogen 1 mg/dL (Negative ) H 02/23/21 16:36 Ur Leukocyte Tracey ase Negative (Negati ve) 02/23/21 16:36 Urine RBC 0-4 /hpf (0-2) H 02/23/21 16:36 Urine WBC 5-10 /hpf (0-5) H 02/23/21 16:36 Ur Squamous Epith Cells 0-4 /hpf (0-5) H 02/23/21 16:36 Amorphous Sediment Not Reportable 02/23/21 16:36 Urine Bacteria 4+ /hpf (NONE) H 02/23/21 16:36 Vancomycin Trough 7.3 ug/mL (10-15) L 02/28/21 09:19 Blood Type A Positive 02/25/21 10:20 Rho(D) Type Positive / 4+ 02/25/21 10:20 Antibody Screen Negative 02/25/21 10:20 Crossmatch See Detail 02/25/21 10:20 Impressions Hip/Pelvis X-Ray 02/24/21 00:00 Impression: 1. Negative right hip. 2. Negative for new fracture of the left hip. 3. Stable intertrochanteric subtrochanteric fracture of the left hip. Chest X-Ray 02/27/21 07:00 IMPRESSION: 1. Although radiographic technique is somewhat different there does not appear to be significant change since the previous study. ET tube remains in satisfactory position. An enteric tube extends below the level of the diaphragm but the tip is not definitely seen. Head CT 02/27/21 14:29 IMPRESSION: 1. No evidence of active or acute intracranial pathologic process, hemorrhage, or trauma. 2. Chronic findings as detailed in text above. Radiation Dose CTDIVOL = (mGy): DLP = 1058.06 (mGy-cm) A&P Assessment and plan (1) Difficulty weaning from ventilator: Status: Acute (2) Complete heart block: Status: Acute (3) Congestive heart failure: Status: Acute Qualifiers: Heart failure type: unspecified Heart failure chronicity: acute Qualified Code(s): I50.9 - Heart failure, unspecified (4) Shock: Status: Acute (5) Acute on chronic anemia: Status: Acute (6) ARRON (acute kidney injury): Status: Acute (7) At high risk for pulmonary embolism: Status: Acute Overall: 80-year-old female with past medical history of underlying dementia, thalassemia trait, type 2 diabetes mellitus, hypertension, microcytic anemia, grade 1 diastolic dysfunction, last EF 65%, pulmonary embolism on modified dose of Eliquis, severe peripheral vascular disease S/P balloon angioplasty of the left distal tibial peroneal trunk in April 2020, chronic hypoxia 1.5 L, admitted to ICU for cardiogenic shock secondary to complete heart block s/p temporary pacemaker placed, weaned off pressors and currently still intubated for respiratory failure. #AMS due to sedation and patient with underlying Alzheimer's disease -CT head 02/27/2021-did not show any acute changes, chronic infarcts present -Response to few commands -Currently on fentanyl 50 MCG and Precedex 0.3 -Tomorrow morning will wean off sedation and start awakening trial #Intubated and connected to mechanical ventilator for impending respiratory failure upon arrival to ED #At risk of PE due to recent left hip fracture -Currently saturating 98% on 28% FiO2 -ABG today morning 7.4 3/41/83/20 7/94% saturation on CMV 28% is/400/5/14 -Chest x-ray 02/27/2021-upon review Chronic interstitial changes in the right perihilar region with prominent right hilum. Probable chronic atelectasis in the left lower lobe -Overall net +4.4 L since admission -DC IV fluids and ordered Lasix 40 mg once daily -Tomorrow morning-plan for awakening trial followed by breathing trial and plan to extubate -Currently on Lovenox 60 mg SQ every 12 hours-high risk of PE -Also on vancomycin and Zosyn for possible pneumonia #Cardiogenic shock-due to complete heart block-shock resolved #Grade 1 diastolic dysfunction -Temporary pacemaker placed and current heart rate between 50 to 60 bpm -Off pressors -On aspirin and Lipitor -BNP 23920>> 7800>> 2520> 2751 -Echo 02/24/2021: Normal LV systolic function with ejection fraction 60%. Grade 1/4 diastolic dysfunction normal to mildly elevated filling pressures, moderately increased left atrial size. Severely thickened mitral valve with no stenosis and mild to moderate mitral regurgitation. Moderate aortic valve calcification. Moderate tricuspid valve regurgitation. No pericardial effusion. Right atrial pressure around 5 mmHg. No significant change since prior echo 05/05/2020 -Cardiology to to decide about permanent pacemaker after extubation #Deranged LFTs-due to ischemic insult-improving -Maintain MAP> 65 -Avoid hepatotoxic medications -Monitor LFTs #Diet-currently on tube feeding at 40 mL/h -Hold feeding morning 5 AM prior to weaning trial #GI prophylaxis-Protonix 40 mg every 12 #Acute kidney injury-likely prerenal due to hypotension-improving with hydration #Hypernatremia and hyperchloremia -BUN/creatinine & CK improving with hydration -Net +4.4 L since admission-DC IV fluids -IVC 3.5 cm with no respiratory variation on bedside ultrasound-given Lasix 40 mg 1 dose -Free water 200 cc every 6 hours and monitor sodium -Monitor electrolytes and renal parameters #Diabetes mellitus with uncontrolled sugars -FSBS range greater than 250; requiring 24 units of insulin aspart last 24 hours -I will start Lantus 8 units twice daily -Monitor sugars every 4 hours and scale coverage with insulin aspart #Chronic anemia #DIC-resolved #DVT prophylaxis-on Lovenox -S/p 1 unit PRBC transfused -Monitor H&H and transfuse to keep> 05/24 #Suspected MRSA pneumonia -MRSA nares positive for 02/24/2021 -Currently on vancomycin and Zosyn -vancomycin level subtherapeutic due to improving renal functions-pharmacy to redose and check trough levels in 2 days -all other cultures are negative so far -Remained afebrile since admission, no significant leukocytosis,Negative procalcitonin -Improving inflammatory markers D-dimer and CRP ICU CHECKLIST: Problem list updated Verbal orders reviewed and signed Analgesia: Fentanyl Glycemic Control: Insulin Nutrition: Tube feeding Restraint Renewal (within 24 hrs): Yes Ulcer Prophylaxis: PPI Chemical Thromboprophylaxis: Prophylaxis: Lovenox Mechanical Thromboprophylaxis: Yes Need for Central line: Yes; patient was requiring pressors Need for Taylor catheter: Yes for input output monitoring Critical Care Time (No Overlap): 45 min This patient has a high probability of sudden, clinically significant deterioration, which requires the highest level of physician preparedness to intervene urgently. I managed/supervised life or organ supporting interventions that required frequent physician assessment. I devoted my full attention in the ICU to the direct care of this patient for the period of time indicated above. Time I spent with family or surrogate(s) is included only if the patient was incapable of providing necessary information or participating in decision making. Time devoted to teaching and to any procedures I billed separately is not included. Services Provided: Telemetry review Mechanical Ventilation Hemodynamic interpretation, assessment and management Review and interpretation of CXR Review and interpretation of lab values Review and interpretation of microbiologic data and culture results Review of medications and administration Review and interpretation of Nutrition requirements and management Discussion of management with other consultants and services Clinical update to family members-spoke to granddaughter Consult Attestations Medical Necessity Statement: Cardiogenic shock due to complete heart block s/p temporary pacemaker and patient currently being evaluated for weaning from ventilator. Needs close hemodynamic monitoring and respiratory status until extubated. Time Spent in Patient Care: Greater than 35 minutes (>than 50% of time spent in counselling and/or direct pt care on unit) . Critical Care Time: The high probability of a clinically significant, sudden or life threatening deterioration of the patient's respiratory and cardiac system(s) required my full and direct attention, intervention and personal management. The critical care time is as shown. This time is in addition to time spent performing any reported procedures but includes the following: [x] Data and vital sign review and interpretation [x] Patient assessment, examination and intervention [x] Documentation [x] Medication orders and management Critical Care Time (min): 45 Coding Level of Care Code Acute Acquisition Advisor for Olyg Fwd Diagnoses Difficulty weaning from ventilator Z99.11 Complete heart block I44.2 Congestive heart failure I50.9 Heart failure type: unspecified Heart failure chronicity: acute Shock R57.9 Acute on chronic anemia D64.9 ARRON (acute kidney injury) N17.9 At high risk for pulmonary embolism Z91.89
--- NOTE | 2021-02-28 14:20 | PC.NURSE ---
Dr. Keith gave verbal order to titrate fentanyl up to 75 as needed and give 200 ml free water through OG tube every 8 hours.
[2021-02-28] MEDS: FUROsemide 10 mg/mL SDV 4mL 40 MG IVP (15:13)
[2021-02-28] MEDS: potassium chloride ER 20 mEq Tablet PO (15:14)
[2021-02-28 16:30] LABS: Glucose Point of Care 252 mg/dL (70-110)
[2021-02-28] MEDS: morphine 4 mg/mL SDV 1 mL 2 MG IVP ×2 (19:08→23:07)
[2021-02-28] MEDS: atorvastatin 40 mg Tablet PO (20:19)
[2021-02-28] MEDS: HYDROmorphone 1 mg/mL INJ 1 mL IVP ×2 (20:19→23:57)
--- NOTE | 2021-02-28 21:21 | P.PN_ITS ---
Subjective Subjective: Interval history: Patient is more awake. Not using pacemaker now in elim ira rhythm is there. Pacemaker is AAI and sync mode Medications: Reviewed: Yes Vitals/I&O/Wt Last Vital Signs Temp 98.3 F 02/28/21 14:00 Pulse 59 L 02/28/21 21:00 Resp 12 02/28/21 21:00 BP 128/59 02/28/21 21:00 Pulse Ox 96 02/28/21 21:00 02/28/21 02/28/21 02/28/21 06:59 14:59 22:59 Intake Total 780 / 1738.792 591.208 / 579.151 1959.25 / 1621.458 Output Total 350 / 750 250 / 250 500 / 750 Balance 430 / 988.792 341.208 / 341.208 530.25 / 871.458 Weight last 48 hrs Weight 144 lb 6 oz Weight 143 lb 4 oz Physical Exam Narrative: EXAM NARRATIVE: GENERAL: Patient is intubated and sedated, opens her eye, coloration pale NECK: No jugular vein distension. HEENT: No cyanosis. No icterus. HEART: Regular S1 and S2. No murmur, rub or gallop. LUNGS: Clear to auscultate bilaterally. ABDOMEN: Cannot assess CENTRAL cannot assess EXTREMITIES: Lower extremities without edema Urinary Catheter Management^: Taylor: Cath Placed During This Visit: yes Reason for Continuing Indwelling Catheter: Accurate Measurement of Urinary Output in Critically Ill Patients Urinary Catheter Date of Insertion: 02/23/21 Urinary Catheter Time of Insertion: 17:00 Data : 02/28/21 03:13 02/28/21 03:13 Micro: Microbiology 02/23/21 17:15 Blood Culture - Final Blood NO GROWTH AFTER 5 DAYS 02/23/21 16:50 Blood Culture - Final Blood NO GROWTH AFTER 5 DAYS A&P Assessment and plan (1) Complete heart block: Status post temporary pacemaker, patient has intermittent heart block she is pacing at different intervals. Once potassium will normalize will assess whether she requires permanent pacemaker Continues to be pacemaker dependent Pacemaker working fine she is in AAI sync mode, pacing fine. Once extubated and more coherent will decide regarding permanent pacemaker depending upon her long- term prognosis Pacemaker in good standing continue temporary pacer once more stable will decide regarding long-term prognosis and permanent pacemaker placement Continue to monitor patient is not using pacemaker today. Status: Acute (2) Shock: Improved and resolved Status: Acute (3) Hyperkalemia: Improved. Status: Acute (4) Congestive heart failure: Appear to be slightly decompensated Dr. KRAUS would like to diurese the patient before extubation Status: Acute Qualifiers: Heart failure type: unspecified Heart failure chronicity: acute Qualified Code(s): I50.9 - Heart failure, unspecified (5) Acute renal failure: Improved. Will discontinue IV fluid Status: Acute (6) DIC (disseminated intravascular coagulation): As per medicine. Status: Acute Attestations Medical Necessity Statement*: Patient require continuation hospitalization for above defined care. Coding Level of Care Code Established Pt Acute Electric Power Line Examiner for Olyg Fwd Patient Type Established History Detailed Exam Detailed Medical Decision Making Moderate Complexity Diagnoses Complete heart block I44.2 Shock R57.9 Hyperkalemia E87.5 Congestive heart failure I50.9 Heart failure type: unspecified Heart failure chronicity: acute Acute renal failure N17.9 DIC (disseminated intravascular coagulation) D65
[2021-02-28] MEDS: insulin glargine 100 units/1 mL 15 UNIT SUBCUT (21:24)
[2021-02-28 21:26] LABS: Glucose Point of Care 278 mg/dL (70-110)
[2021-02-28] MEDS: dexmedetomidine 400 MCG in sodium chloride 0.9% (100 ml) 100 ML IV (21:49)
[2021-03-01] VITALS (64 sets, daily range): BP systolic 93–164; BP diastolic 46–77; PULSE 48–86; RESP 9–18; TEMP 36.2–37.3; O2SAT 92–99; BMI 24.7
[2021-03-01] MEDS: piperacillin-tazobactam 3.375 GM in sodium chloride 0.9% (plus) 50 ML IV ×3 (01:03→16:07)
[2021-03-01] MEDS: morphine 4 mg/mL SDV 1 mL 2 MG IVP ×2 (02:57→05:57)
[2021-03-01] MEDS: nitroglycerin 1 gm/inch oint Pkt 1 INCH TOPICAL ×4 (02:58→21:43)
[2021-03-01 03:29] LABS: Basophils % 0.2 %; Eosinophils # 0.1 10^3/uL (0.0-0.8); Eosinophils % 1.5 %; Hematocrit 26.8 % (37.0-47.0); Hemoglobin 8.2 g/dL (11.5-15.3); Lymphocytes % 10.2 %; Mean Corpuscular HGB Conc 30.6 g/dL (30.0-36.0); Mean Corpuscular Hemoglobin 24.4 pg (28.0-34.0); Mean Corpuscular Volume 79.8 fL (81-99); Mean Platelet Volume 12.1 fL (7.4-10.4); Monocytes # 0.9 10^3/uL (0.2-0.9); Monocytes % 9.8 %; Neutrophils % 76.1 %; Nucleated Red Blood Cells # 0.3 /100WBC; Platelet Count 142 10^3/cmm (130-400); Red Blood Count 3.36 10^6/uL (4.1-5.3); Red Cell Distribution Width 19.9 % (12.1-15.1); White Blood Count 9.6 10^3/uL (4.0-10.0)
[2021-03-01] MEDS: HYDROmorphone 1 mg/mL INJ 1 mL IVP ×2 (03:37→09:21)
[2021-03-01] MEDS: pantoprazole 40 mg SDV IVP ×2 (03:48→15:53)
[2021-03-01 03:49] LABS: Alanine Aminotransferase 309 U/L (0-33); Albumin Level 2.4 g/dL (3.5-5.2); Alkaline Phosphatase 67 IU/L (35-105); Anion Gap 7.8 (5-19); Aspartate Amino Transferase 90 U/L (0-32); Blood Urea Nitrogen 23 mg/dL (8-23); C Reactive Protein 16.9 mg/L (0.0-4.9); Calcium 7.8 mg/dL (8.5-10.5); Carbon Dioxide 31 mmol/L (22-29); Chloride 113 mmol/L (98-107); Creatinine Clr Calc Pharmacy 43.9905; Glucose 281 mg/dL (65-115); Magnesium 1.7 mg/dL (1.7-2.3); Osmolality Calculated 320 mOsm/kg (285-295); Phosphorus 1.8 mg/dL (2.5-4.5); Potassium 3.8 mmol/L (3.5-5.1); Sodium 148 mmol/L (136-145); Total Bilirubin 0.9 mg/dL (0.15-1.2); Total Protein 5.4 g/dL (6.6-8.7)
[2021-03-01 03:53] LABS: Lactate (Lactic Acid level) 1.9 mmol/L (0.5-2.2)
[2021-03-01 04:03] LABS: NT Pro B Type Natriuretic Pept 3719 pg/mL (0-450); Procalcitonin 0.14 ng/mL (0-0.5)
[2021-03-01 04:17] LABS: ABG PCO2 40.5 mmHg (35-45); ABG PH Result 7.48 (7.35-7.45); Arterial Blood Gas Hematocrit 27.6 % (37-47); Base Excess ABG 5.9 mmol/L (-2.0-2.0); Blood Gas Allen Test Pos; Blood Gas Operator Identificat JB; Blood Gas Sample Site Radial, right; Blood Gas Sample Type Arterial; Oxygen Device VENT; PO2 ABG 81.8 mmHg (80.0-100.0)
[2021-03-01 07:59] LABS: Glucose Point of Care 233 mg/dL (70-110)
[2021-03-01] MEDS: magnesium sulfate premix 2 GM/50 ML PIGGYBACK IV (08:16)
[2021-03-01] MEDS: aspirin 81 mg Chew Tablet PO (08:17)
[2021-03-01] MEDS: lidocaine 5% Patch 1 PATCH TOPICAL ×2 (08:17→21:55)
--- NOTE | 2021-03-01 08:50 | PM.PN ---
Subjective Subjective: Interval history: -Today morning patient seen at bedside -Just turned off fentanyl and currently on Precedex 0.2 patient still drowsy -Patient received morphine total 8 mg and 3 mg Dilaudid since yesterday afternoon -We will hold off pain medication and turn off sedation-wake her up more, and do spontaneous breathing trial -If successful-plan to extubate to BiPAP -Labs and imaging reviewed Medications: Reviewed: Yes Vitals/I&O/Wt Last Vital Signs Temp 99 F 03/01/21 05:44 Pulse 60 03/01/21 06:00 Resp 9 L 03/01/21 08:21 BP 127/53 03/01/21 06:00 Pulse Ox 92 03/01/21 08:21 02/28/21 03/01/21 03/01/21 22:59 06:59 14:59 Intake Total 1339.25 / 2034.458 430 / 2464.458 Output Total 500 / 750 1075 / 1825 Balance 839.25 / 1284.458 -645 / 639.458 Weight last 48 hrs Weight 140 lb Weight 144 lb 6 oz Physical Exam Narrative: EXAM NARRATIVE: PHYSICAL EXAM: General: lying in bed, sedated and intubated. HEENT:NCAT, PERRLA, EOMI Neck: Supple Lungs: Bibasilar crackles Heart: s1/s2, RRR Abd: soft, NT, ND, BS + Normoactive Extremities: No edema; scab on right lower leg ANALYSIS MANAGER: sedated and limited ANALYSIS MANAGER exam possible. SKIN: no rash Urinary Catheter Management^: Taylor: Cath Placed During This Visit: yes Reason for Continuing Indwelling Catheter: Accurate Measurement of Urinary Output in Critically Ill Patients Urinary Catheter Date of Insertion: 02/23/21 Urinary Catheter Time of Insertion: 17:00 Data : 03/01/21 03:00 03/01/21 03:00 Other Labs: Laboratory Results WBC 9.6 10^3/uL (4.0-10.0) 03/01/21 03:00 RBC 3.36 10^6/uL (4.1-5.3) L 03/01/21 03:00 Hgb 8.2 g/dL (11.5-15.3) L 03/01/21 03:00 Hct 26.8 % (37.0-47.0) L 03/01/21 03:00 MCV 79.8 fL (81-99) L 03/01/21 03:00 MCH 24.4 pg (28.0-34.0) L 03/01/21 03:00 MCHC 30.6 g/dL (30.0-36.0) 03/01/21 03:00 RDW 19.9 % (12.1-15.1) H 03/01/21 03:00 Plt Count 142 10^3/cmm (130-400) 03/01/21 03:00 MPV 12.1 fL (7.4-10.4) H 03/01/21 03:00 Neut % (Auto) 76.1 % 03/01/21 03:00 Lymph % (Auto) 10.2 % 03/01/21 03:00 [place] % (Auto) 9.8 % 03/01/21 03:00 Eos % (Auto) 1.5 % 03/01/21 03:00 Baso % (Auto) 0.2 % 03/01/21 03:00 Neut # (Auto) 7.30 10^3/uL (1.8-7.7) 03/01/21 03:00 Lymph # (Auto) 1.0 10^3/uL (0.8-4.8) 03/01/21 03:00 [place] # (Auto) 0.9 10^3/uL (0.2-0.9) 03/01/21 03:00 Eos # (Auto) 0.1 10^3/uL (0.0-0.8) 03/01/21 03:00 Baso # (Auto) 0.0 10^3/uL (0.0-0.1) 03/01/21 03:00 Nucleated RBC % (auto) 3.0 % 03/01/21 03:00 Nucleated RBCs # 0.3 /100WBC 03/01/21 03:00 PT 16.10 SECONDS (12.1-14.9) H 03/01/21 03:00 INR 1.30 (0.8-1.2) H 03/01/21 03:00 APTT 60.8 SECONDS (23.9-36.7) H 02/26/21 05:36 Fibrinogen 427 mg/dL (174-498) 02/26/21 05:36 Fibrin Degrad Products Neg, <10 ug/mL (NEG) 02/26/21 05:36 D-Dimer 2.19 ug/mIFEU (0-0.59) H 02/26/21 05:36 Specimen Type Arterial 03/01/21 04:04 Sample Site Radial, right 03/01/21 04:04 ABG pH 7.48 (7.35-7.45) H 03/01/21 04:04 ABG pCO2 40.5 mmHg (35-45) 03/01/21 04:04 ABG pO2 81.8 mmHg (80.0-100.0) 03/01/21 04:04 ABG HCO3 30.0 mmol/L (22-26) H 03/01/21 04:04 ABG O2 Saturation 99.9 02/23/21 13:40 ABG Base Excess 5.9 mmol/L (-2.0-2.0) H 03/01/21 04:04 Deandre Test Pos 03/01/21 04:04 A-a O2 Gradient 37.4 mmHg (5-10) H 02/23/21 13:40 Hematocrit 27.6 % (37-47) L 03/01/21 04:04 Hgb O2 Saturation 98.2 % (95-100) 02/23/21 13:40 Carboxyhemoglobin 0.5 %THgb (0.4-20.1) 02/23/21 13:40 Methemoglobin 1.3 % (0.4-1.5) 02/23/21 13:40 Total Hemoglobin 7.3 g/dL (12-16) L 02/23/21 13:40 Sodium 145.0 mmol/L (131-143) H 02/23/21 13:40 Potassium 6.7 mmol/L (3.5-5.0) H 02/23/21 13:40 Glucose 237.0 mg/dL (70-115) H 02/23/21 13:40 Ionized Calcium 1.1 mmol/L (1.1-1.4) 02/23/21 13:40 Respiration Rate 12.0 % 02/27/21 04:00 O2 Delivery Device Vent 03/01/21 04:04 Mechanical Rate 14.0 02/25/21 05:25 Spontaneous Rate 12.0 % 02/27/21 04:00 FiO2 28.0 % 03/01/21 04:04 Tidal Volume 0.40 03/01/21 04:04 PEEP 5.0 cmH20 03/01/21 04:04 Specimen Drawn By Michelle 02/27/21 04:00 Lawn Maintenance Worker ID Jhon 03/01/21 04:04 Sodium 148 mmol/L (136-145) H 03/01/21 03:00 Potassium 3.8 mmol/L (3.5-5.1) 03/01/21 03:00 Chloride 113 mmol/L (98-107) H 03/01/21 03:00 Carbon Dioxide 31 mmol/L (22-29) H 03/01/21 03:00 Anion Gap 7.8 (5-19) 03/01/21 03:00 BUN 23 mg/dL (8-23) 03/01/21 03:00 Creatinine 0.9 mg/dL (0.5-0.9) 03/01/21 03:00 GFR Calculation Not Reportable 03/01/21 03:00 Glucose 281 mg/dL (65-115) H 03/01/21 03:00 POC Glucose 233 mg/dL (70-110) H 03/01/21 07:41 Estimat Average Glucose 169 02/24/21 03:08 Hemoglobin A1c 7.5 % (4.0-6.0) H 02/24/21 03:08 Calculated Osmolality 320 mOsm/kg (285-295) H 03/01/21 03:00 Lactate 1.9 mmol/L (0.5-2.2) 03/01/21 03:00 Calcium 7.8 mg/dL (8.5-10.5) L 03/01/21 03:00 Phosphorus 1.8 mg/dL (2.5-4.5) L 03/01/21 03:00 Magnesium 1.7 mg/dL (1.7-2.3) 03/01/21 03:00 Ferritin 2621 ng/mL (15-150) H 02/26/21 05:36 Total Bilirubin 0.9 mg/dL (0.15-1.2) 03/01/21 03:00 AST 90 U/L (0-32) H 03/01/21 03:00 ALT 309 U/L (0-33) H 03/01/21 03:00 Alkaline Phosphatase 67 IU/L (35-105) 03/01/21 03:00 Creatine Kinase 35 U/L (26-192) 02/27/21 03:58 Troponin T Baseline 696 ng/L (0-10) H* 02/23/21 16:50 Troponin T 120 Minute 603.3 ng/L (0-10) H 02/23/21 19:05 Delta Troponin T -92.7 ABS# (0-10) L 02/23/21 19:05 Troponin T Hi Sens 6Hr 737.2 ng/L (0-10) H 02/23/21 22:45 Troponin T Hi Sens 6Hr Delta 41.2 ng/L (0-12) H* 02/23/21 22:45 C-Reactive Protein 16.9 mg/L (0.0-4.9) H 03/01/21 03:00 NT-Pro-B Natriuret Pep 3719 pg/mL (0-450) H 03/01/21 03:00 Total Protein 5.4 g/dL (6.6-8.7) L 03/01/21 03:00 Albumin 2.4 g/dL (3.5-5.2) L 03/01/21 03:00 Globulin 3.0 g/dL (1.3-4.6) 03/01/21 03:00 Procalcitonin 0.14 ng/mL (0-0.5) 03/01/21 03:00 TSH 1.66 uIU/mL (0.27-4.20) 02/24/21 03:08 Urine Color Yellow (Yellow) 02/23/21 16:36 Urine Appearance Sl hazy (CLEAR) 02/23/21 16:36 Urine pH 5 (5-7) 02/23/21 16:36 Ur Specific [place] 1.015 (1.005-1.030) 02/23/21 16:36 Urine Protein 1+ (Negative) H 02/23/21 16:36 Urine Glucose (UA) Norm (Normal) 02/23/21 16:36 Urine Ketones Negative (Negative) 02/23/21 16:36 Urine Blood 3+ (Negative) H 02/23/21 16:36 Urine Nitrate Negative (Negative) 02/23/21 16:36 Urine Bilirubin Neg (Negative) 02/23/21 16:36 Urine Urobilinogen 1 mg/dL (Negative) H 02/23/21 16:36 Ur Leukocyte Esterase Negative (Negative) 02/23/21 16:36 Urine RBC 0-4 /hpf (0-2) H 02/23/21 16:36 Urine WBC 5-10 /hpf (0-5) H 02/23/21 16:36 Ur Squamous Epith Cells 0-4 /hpf (0-5) H 02/23/21 16:36 Amorphous Sediment Not Reportable 02/23/21 16:36 Urine Bacteria 4+ /hpf (NONE) H 02/23/21 16:36 Vancomycin Trough 7.3 ug/mL (10-15) L 02/28/21 09:19 Blood Type A Positive 02/25/21 10:20 Rho(D) Type Positive / 4+ 02/25/21 10:20 Antibody Screen Negative 02/25/21 10:20 Crossmatch See Detail 02/25/21 10:20 Impressions Hip/Pelvis X-Ray 02/24/21 00:00 Impression: 1. Negative right hip. 2. Negative for new fracture of the left hip. 3. Stable intertrochanteric subtrochanteric fracture of the left hip. Chest X-Ray 02/27/21 07:00 IMPRESSION: 1. Although radiographic technique is somewhat different there does not appear to be significant change since the previous study. ET tube remains in satisfactory position. An enteric tube extends below the level of the diaphragm but the tip is not definitely seen. Head CT 02/27/21 14:29 IMPRESSION: 1. No evidence of active or acute intracranial pathologic process, hemorrhage, or trauma. 2. Chronic findings as detailed in text above. Radiation Dose CTDIVOL = (mGy): DLP = 1058.06 (mGy-cm) Micro: Microbiology 02/23/21 17:15 Blood Culture - Final Blood NO GROWTH AFTER 5 DAYS 02/23/21 16:50 Blood Culture - Final Blood NO GROWTH AFTER 5 DAYS A&P Assessment and plan (1) Difficulty weaning from ventilator: Status: Acute (2) Complete heart block: Status: Acute (3) Congestive heart failure: Status: Acute Qualifiers: Heart failure chronicity: acute Heart failure type: unspecified Qualified Code(s): I50.9 - Heart failure, unspecified (4) Shock: Status: Acute (5) Acute on chronic anemia: Status: Acute (6) ARRON (acute kidney injury): Status: Acute (7) At high risk for pulmonary embolism: Status: Acute Overall: 80-year-old female with past medical history of underlying dementia, thalassemia trait, type 2 diabetes mellitus, hypertension, microcytic anemia, grade 1 diastolic dysfunction, last EF 65%, pulmonary embolism on modified dose of Eliquis, severe peripheral vascular disease S/P balloon angioplasty of the left distal tibial peroneal trunk in April 2020, chronic hypoxia 1.5 L, admitted to ICU for cardiogenic shock secondary to complete heart block s/p temporary pacemaker placed, weaned off pressors and currently still intubated for respiratory failure. #AMS due to sedation and patient with underlying Alzheimer's disease #Sedation and pain control -CT head 02/27/2021-did not show any acute changes, chronic infarcts present -Response to few commands -Held fentanyl and Precedex today morning for awakening trial -Also she received morphine 8 mg and Dilaudid 3 mg in last 24 hours - dc morphine #Intubated and connected to mechanical ventilator for impending respiratory failure upon arrival to ED #At risk of PE due to recent left hip fracture -Currently saturating 98% on 28% FiO2 -ABG today morning 7.4 8/40/81/30/90 5% saturation on CMV 28% is/400/5/14 -Chest x-ray 02/27/2021-upon review Chronic interstitial changes in the right perihilar region with prominent right hilum. Probable chronic atelectasis in the left lower lobe -Yesterday received Lasix 40 mg 1 dose and good urine output but overall still net + 5 L since admission -DC IV fluids and increase Lasix 40 mg to twice daily -plan for awakening trial followed by breathing trial and if passes plan to extubate to BiPAP -Currently on Lovenox 60 mg SQ every 12 hours-high risk of PE -Also on vancomycin and Zosyn for possible pneumonia #Cardiogenic shock-due to complete heart block-shock resolved #Grade 1 diastolic dysfunction -Temporary pacemaker placed and current heart rate between 50 to 60 bpm -Off pressors -On aspirin and Lipitor -BNP 27753>> 7800>> 2520> 2751 - increase Lasix to 40 mg twice daily -Echo 02/24/2021: Normal LV systolic function with ejection fraction 60%. Grade 1/4 diastolic dysfunction normal to mildly elevated filling pressures, moderately increased left atrial size. Severely thickened mitral valve with no stenosis and mild to moderate mitral regurgitation. Moderate aortic valve calcification. Moderate tricuspid valve regurgitation. No pericardial effusion. Right atrial pressure around 5 mmHg. No significant change since prior echo 05/05/2020 -Cardiology to to decide about permanent pacemaker after extubation #Deranged LFTs-due to ischemic insult-improving -Maintain MAP> 65 -Avoid hepatotoxic medications -Monitor LFTs #Diet-currently on tube feeding at 40 mL/h -Held feeding morning 5 AM prior to weaning trial #GI prophylaxis-Protonix 40 mg every 12 #Acute kidney injury-likely prerenal due to hypotension-improving with hydration #Hypernatremia and hyperchloremia -BUN/creatinine & CK improving with hydration -yesterday received lasix 40 mg one dose but still Net +5 L since admission- increase Lasix to 40 mg twice daily -IVC 3.5 cm with no respiratory variation on bedside ultrasound-given Lasix 40 mg 1 dose -Free water 200 cc every 6 hours and monitor sodium -Monitor electrolytes and renal parameters #Diabetes mellitus with uncontrolled sugars -FSBS range greater than 250; requiring 26 units of insulin -started Lantus 15 units yesterday -Monitor sugars every 4 hours and scale coverage with insulin aspart #Chronic anemia #DIC-resolved #DVT prophylaxis-on Lovenox -S/p 1 unit PRBC transfused -Monitor H&H and transfuse to keep> 05/24 #Suspected MRSA pneumonia -MRSA nares positive for 02/24/2021 -Currently on vancomycin and Zosyn -vancomycin level subtherapeutic on 02/28/21 due to improving renal functions-pharmacy to redose and check trough levels in 2 days -all other cultures are negative so far -Remained afebrile since admission, no significant leukocytosis,Negative procalcitonin -Improving inflammatory markers D-dimer and CRP ICU CHECKLIST: Problem list updated Verbal orders reviewed and signed Analgesia: opioids Glycemic Control: Insulin Nutrition: Tube feeding Restraint Renewal (within 24 hrs): Yes Ulcer Prophylaxis: PPI Chemical Thromboprophylaxis: Prophylaxis: Lovenox Mechanical Thromboprophylaxis: Yes Need for Central line:PICC on right arm Need for Taylor catheter: Yes for input output monitoring Critical Care Time (No Overlap): 45 min This patient has a high probability of sudden, clinically significant deterioration, which requires the highest level of physician preparedness to intervene urgently. I managed/supervised life or organ supporting interventions that required frequent physician assessment. I devoted my full attention in the ICU to the direct care of this patient for the period of time indicated above. Time I spent with family or surrogate(s) is included only if the patient was incapable of providing necessary information or participating in decision making. Time devoted to teaching and to any procedures I billed separately is not included. Services Provided: Telemetry review Mechanical Ventilation Hemodynamic interpretation, assessment and management Review and interpretation of CXR Review and interpretation of lab values Review and interpretation of microbiologic data and culture results Review of medications and administration Review and interpretation of Nutrition requirements and management Discussion of management with other consultants and services Clinical update to family members-spoke to granddaughter Attestations Medical Necessity Statement*: Continue assessment management of respiratory failure, so far unable to wean off the ventilator, continue attempts at weaning, pulmonology assessment, continued monitoring and optimization of temporary pacemaker support in setting of heart block, following resolved cardiogenic shock, multiorgan failure. Time Spent in Patient Care: Greater than 35 minutes (>than 50% of time spent in counselling and/or direct pt care on unit). The high probability of a clinically significant, sudden or life threatening deterioration of the patient's cardiac, renal and respiratory system(s) required my full and direct attention, intervention and personal management. The critical care time is as shown. This time is in addition to time spent performing any reported procedures but includes the following: [x] Data and vital sign review and interpretation [x] Patient assessment, examination and intervention [x] Documentation [x] Medication orders and management Critical Care Time: Critical Care Time (min): 45 Coding Level of Care Code Established Pt Acute [facility] [employer] for Chg Fwd Patient Type Established History Comprehensive Exam Comprehensive Medical Decision Making High Complexity Diagnoses Difficulty weaning from ventilator Z99.11 Complete heart block I44.2 Congestive heart failure I50.9 Heart failure chronicity: acute Heart failure type: unspecified Shock R57.9 Acute on chronic anemia D64.9 ARRON (acute kidney injury) N17.9 At high risk for pulmonary embolism Z91.89 Time Spent (min) 45
--- NOTE | 2021-03-01 08:54 | P.PN_ITS ---
Subjective Subjective: Interval history: She wakes up, answers a few questions. Says she is still in pain. Appears to be pain in her left arm. Although she takes a while to answer the subsequent question. Follows commands to move her hands, squeezes left hand, lifts somewhat and takes hand in hand on the right. When asked to take deep breaths, follows commands. Also occasional episodes of crying, anxiety. Discussing with her granddaughter her condition, she states today it is actually usual and normal for her. Vitals/I&O/Wt Last Vital Signs Temp 99 F 03/01/21 05:44 Pulse 60 03/01/21 06:00 Resp 9 L 03/01/21 08:21 BP 127/53 03/01/21 06:00 Pulse Ox 92 03/01/21 08:21 02/28/21 03/01/21 03/01/21 22:59 06:59 14:59 Intake Total 1339.25 / 2034.458 430 / 2464.458 Output Total 500 / 750 1075 / 1825 Balance 839.25 / 1284.458 -645 / 639.458 Weight last 48 hrs Weight 63.503 kg Weight 65.487 kg Physical Exam Const: COMMON NORMALS: no acute distress OTHER: Cooperates to limited extent with answering some question, following a few commands. HENMT: COMMON NORMALS: oropharynx normal Resp: COMMON NORMALS: normal respiratory effort and clear to auscultation bilaterally AUSCULTATION: clear to auscultation bilaterally Cardio: COMMON NORMALS: regular rhythm, S1 normal heart sound present, S2 normal heart sound present and No murmurs present (Cardio) RATE: bradycardic RHYTHM: regular rhythm HEART SOUNDS: S1 normal heart sound present and S2 normal heart sound present GI: COMMON NORMALS: Normal to inspection, nondistended, normoactive bowel sounds present, Soft to palpation and non-tender PALPATION: Yes Soft to palpation Extremity: COMMON NORMALS: no joint enlargement and no pedal edema OTHER: Left upper arm bruising. Edema Neuro: COMMON NORMALS: moves all extremities Skin: OTHER: Thin, fragile skin. Skin tears on lower extremities and several locations below knees Urinary Catheter Management^: Taylor: Cath Placed During This Visit: yes Reason for Continuing Indwelling Catheter: Accurate Measurement of Urinary Output in Critically Ill Patients Urinary Catheter Date of Insertion: 02/23/21 Urinary Catheter Time of Insertion: 17:00 Data : 03/01/21 03:00 03/01/21 03:00 Micro: Microbiology 02/23/21 17:15 Blood Culture - Final Blood NO GROWTH AFTER 5 DAYS 02/23/21 16:50 Blood Culture - Final Blood NO GROWTH AFTER 5 DAYS A&P Assessment and plan (1) Acute respiratory failure with hypoxia: We assessed her today bedside together with pulmonology. We are weaning sedation. Discussed with her granddaughter regarding plans for trial of extubation sometime today. At the same time discussed risks of aspiration. Risks of ventilatory failure. Plan is for at least temporary support with NIV post extubation, close monitoring. In case fails trial, and requires reintubation, further options to allow liberation from ventilator will be considered as discussed. She has had output of about 2 L, but still in positive balance. We will repeat additional Lasix, and for now stay with Lasix 40 mg IV every 12 given she has some persistent edema. Heart rates currently maintaining in the mid-high 50s-low 60s Continues on empiric antibiotics for now for possible aspiration pneumonia, although x-rays do not seem to be suggestive, and she is on minimal oxygenation settings. -Cardiac echo shows EF 60%, grade 1 out of 4 diastolic dysfunction Status: Acute (2) Complete heart block: Cardiology adjusting pacemaker rate. Appreciate recommendations. Continue monitoring heart rates. Currently in mid 50s. -Status post temporary transcutaneous pacer by Dr. York -Cardiology on consult Status: Acute (3) Hypertension: Blood pressure is improved, close to goal. Status: Acute (4) Hyperlipidemia: Status: Acute (5) Diabetes: Lantus was added yesterday. Increase sliding scale to medium dose. Status: Acute (6) Acute on chronic anemia: Fairly stable after transfusion around 8. Monitor. Status: Acute (7) Pulmonary embolism: History of PE. Chronic anticoagulation. Continue Lovenox. Status: Acute (8) Congestive heart failure: Monitor for fluid overload, BNP decreased Status: Acute Qualifiers: Heart failure type: unspecified Heart failure chronicity: acute Qualified Code(s): I50.9 - Heart failure, unspecified (9) Peripheral vascular disease: Status: Acute (10) Shock: Cardiogenic shock on presentation, resolved. Possible septic shock on presentation, resolved. Status: Acute (11) Hyperkalemia: -Resolved Status: Acute (12) Multiorgan failure: Status: Acute (13) Transaminitis: Improving Status: Acute (14) Acute renal failure: Improved Status: Acute (15) NSTEMI (non-ST elevated myocardial infarction): Suspected demand ischemia. Continue Aspirin, statin -Cardiac echocardiogram EF within normal limits -Cardiology on consult Status: Acute (16) Lactic acidosis: Status: Acute (17) DIC (disseminated intravascular coagulation): If was present has resolved. Status: Acute (18) Closed left humeral fracture: -Currently being conservative manage with a sling -Manage conservatively, careful turning Status: Acute (19) History of fracture of left hip: -There is an intertrochanteric subtrochanteric hip fracture which has healed. It's been repaired with a long intramedullary greg in the left femur and 2 oblique screws in the left femoral neck. No new fractures are seen Status: Acute Attestations Medical Necessity Statement*: Continue admission for management of respiratory failure, weaning of mechanical ventilatory support, continued monitoring of heart rates with pacemaker support after heart block, consideration of need for permanent pacing. Coding Level of Care Code Acute Career Services Director for [facility] Fwd Diagnoses Acute respiratory failure with hypoxia J96.01 Complete heart block I44.2 Hypertension I10 Hyperlipidemia E78.5 Diabetes E11.9 Acute on chronic anemia D64.9 Pulmonary embolism I26.99 Congestive heart failure I50.9 Heart failure type: unspecified Heart failure chronicity: acute Peripheral vascular disease I73.9 Shock R57.9 Hyperkalemia E87.5 Multiorgan failure Transaminitis R74.01 Acute renal failure N17.9 NSTEMI (non-ST elevated myocardial infarction) I21.4 Lactic acidosis E87.2 DIC (disseminated intravascular coagulation) D65 Closed left humeral fracture S42.302A History of fracture of left hip Z87.81
[2021-03-01] MEDS: vancomycin 1,000 MG in sodium chloride 0.9% 250 ML 250 MG IV (09:28)
[2021-03-01] MEDS: FUROsemide 10 mg/mL SDV 4mL 40 MG IVP ×2 (09:29→21:44)
[2021-03-01] MEDS: enoxaparin 60 mg/0.6 mL Syringe SUBCUT ×2 (09:29→21:43)
--- NOTE | 2021-03-01 10:39 | PC.NURSE ---
Patient was waving arms, hitting side rails, moving legs and became tachycardic so PRN pain medication was given.
--- NOTE | 2021-03-01 11:37 | PC.OT ---
OT EVALUATION ORDERS RECEIVED. HOLD EVALUATION DUE TO EXTUBATION ATTEMPT TODAY.
[2021-03-01 12:22] LABS: Glucose Point of Care 152 mg/dL (70-110)
--- NOTE | 2021-03-01 13:25 | PC.NUTR ---
Nutrition re-assessment. TF currently held. Current TF order (Jevity 1.2) providing 1152 kcal, 53 g protein, 163 g CHO. As per previous RD recs, continue to recommend Glucerna 1.2 at 40 ml/hr, with 100 ml H2O flushes q 4 hours to provide same kcal, 58 g protein, 110 g CHO, and 1373 ml H20. Increased protein and decreased CHO is preferred for glucose control. Noted RD recommendation provided 3 times. MD stated if TF resumed today, would change per RD recs. If TF not resumed, recommend advance diet as tolerated when appropriate.
--- NOTE | 2021-03-01 15:17 | PC.PT ---
PT note;Patient being weaned from sedation and is alert, encouraged hand and foot movements, but unable to achieve meaningful movements are participation at this time, patient minimally moved right hand, and left foot,, hand excursion approximately 1 inch, ?2, and left foot 1/4 inch ?2, was all we could achieve at this time and patient was returned to care of nursing; discussed case with respiratory therapist, who feels patient to be limited by pain medicine, and intolerant of pain causing need of pain medicine which interferes with respiratory rate; will follow
[2021-03-01 19:33] LABS: Glucose Point of Care 123 mg/dL (70-110)
--- NOTE | 2021-03-01 21:22 | PM.PN ---
Subjective Subjective: Interval history: Stable vital mcknight. Continues to have intermittent sinus rhythm not using pacemaker. Hyperkalemia resolved Medications: Reviewed: Yes Vitals/I&O/Wt Last Vital Signs Temp 98.3 F 03/01/21 20:00 Pulse 55 L 03/01/21 20:00 Resp 12 03/01/21 20:36 BP 109/68 03/01/21 20:00 Pulse Ox 95 03/01/21 20:36 03/01/21 03/01/21 03/01/21 06:59 14:59 22:59 Intake Total 430 / 2464.458 352.8 / 352.8 40 / 392.8 Output Total 1075 / 1825 650 / 650 900 / 1550 Balance -645 / 639.458 -297.2 / -297.2 -860 / -1157.2 Weight last 48 hrs Weight 140 lb Weight 144 lb 6 oz Physical Exam Narrative: EXAM NARRATIVE: GENERAL: Patient is intubated and sedated, opens her eye, coloration pale NECK: No jugular vein distension. HEENT: No cyanosis. No icterus. HEART: Regular S1 and S2. No murmur, rub or gallop. LUNGS: Clear to auscultate bilaterally. ABDOMEN: Cannot assess CENTRAL cannot assess EXTREMITIES: Lower extremities without edema Urinary Catheter Management^: Talyor: Cath Placed During This Visit: yes Reason for Continuing Indwelling Catheter: Accurate Measurement of Urinary Output in Critically Ill Patients Urinary Catheter Date of Insertion: 02/23/21 Urinary Catheter Time of Insertion: 17:00 Data : 03/01/21 03:00 03/01/21 03:00 Micro: Microbiology 02/23/21 17:15 Blood Culture - Final Blood NO GROWTH AFTER 5 DAYS 02/23/21 16:50 Blood Culture - Final Blood NO GROWTH AFTER 5 DAYS A&P Assessment and plan (1) Complete heart block: Status post temporary pacemaker, patient has intermittent heart block she is pacing at different intervals. Once potassium will normalize will assess whether she requires permanent pacemaker Continues to be pacemaker dependent Pacemaker working fine she is in AAI sync mode, pacing fine. Once extubated and more coherent will decide regarding permanent pacemaker depending upon her long-term prognosis Pacemaker in good standing continue temporary pacer once more stable will decide regarding long-term prognosis and permanent pacemaker placement Stable from a cardiovascular perspective. Continue to monitor. Patient is not using pacemaker. Patient has underlying mechoopda sinus rhythm . Status: Acute (2) Shock: Improved and resolved Status: Acute (3) Hyperkalemia: Improved. Status: Acute (4) Congestive heart failure: Well compensated. Will wean off from ventilator Status: Acute Qualifiers: Heart failure type: unspecified Heart failure chronicity: acute Qualified Code(s): I50.9 - Heart failure, unspecified (5) Acute renal failure: Improved Status: Acute (6) DIC (disseminated intravascular coagulation): As per medicine. Status: Acute Attestations Medical Necessity Statement*: Patient require continuation hospitalization for above defined care Coding Level of Care Code Established Pt Acute Rn Acute Dialysis for g Fwd Patient Type Established History Detailed Exam Detailed Medical Decision Making Moderate Complexity Diagnoses Complete heart block I44.2 Shock R57.9 Hyperkalemia E87.5 Congestive heart failure I50.9 Heart failure type: unspecified Heart failure chronicity: acute Acute renal failure N17.9 DIC (disseminated intravascular coagulation) D65
[2021-03-01] MEDS: atorvastatin 40 mg Tablet PO (21:43)
[2021-03-01] MEDS: insulin glargine 100 units/1 mL 15 UNIT SUBCUT (21:44)
[2021-03-01 21:46] LABS: Glucose Point of Care 125 mg/dL (70-110)
[2021-03-02] VITALS (56 sets, daily range): BP systolic 101–151; BP diastolic 41–106; PULSE 50–110; RESP 8–27; TEMP 36.6–36.7; O2SAT 84–100; BMI 24.3
[2021-03-02] MEDS: piperacillin-tazobactam 3.375 GM in sodium chloride 0.9% (plus) 50 ML IV ×3 (00:29→17:45)
[2021-03-02] MEDS: dexmedetomidine 400 MCG in sodium chloride 0.9% (100 ml) 100 ML IV (02:07)
[2021-03-02] MEDS: nitroglycerin 1 gm/inch oint Pkt 1 INCH TOPICAL ×4 (03:50→21:24)
[2021-03-02] MEDS: pantoprazole 40 mg SDV IVP ×2 (03:50→17:45)
[2021-03-02 03:54] LABS: Basophils % 0.2 %; Eosinophils # 0.2 10^3/uL (0.0-0.8); Eosinophils % 1.7 %; Hematocrit 26.6 % (37.0-47.0); Hemoglobin 8.3 g/dL (11.5-15.3); Lymphocytes # 1.4 10^3/uL (0.8-4.8); Lymphocytes % 12.6 %; Mean Corpuscular HGB Conc 31.2 g/dL (30.0-36.0); Mean Corpuscular Hemoglobin 24.6 pg (28.0-34.0); Mean Corpuscular Volume 78.7 fL (81-99); Mean Platelet Volume 12.1 fL (7.4-10.4); Monocytes % 8.7 %; Neutrophils # 8.52 10^3/uL (1.8-7.7); Neutrophils % 75.3 %; Nucleated Red Blood Cells # 0.1 /100WBC; Nucleated Red Blood Cells % 1.2 %; Platelet Count 147 10^3/cmm (130-400); Red Blood Count 3.38 10^6/uL (4.1-5.3); Red Cell Distribution Width 20.4 % (12.1-15.1); White Blood Count 11.3 10^3/uL (4.0-10.0)
[2021-03-02 04:19] LABS: Alanine Aminotransferase 230 U/L (0-33); Albumin Level 2.5 g/dL (3.5-5.2); Alkaline Phosphatase 63 IU/L (35-105); Anion Gap 10.4 (5-19); Aspartate Amino Transferase 77 U/L (0-32); Blood Urea Nitrogen 21 mg/dL (8-23); Carbon Dioxide 31 mmol/L (22-29); Chloride 110 mmol/L (98-107); Creatinine Clr Calc Pharmacy 43.9905; Glucose 100 mg/dL (65-115); Magnesium 1.8 mg/dL (1.7-2.3); Osmolality Calculated 309 mOsm/kg (285-295); Potassium 3.4 mmol/L (3.5-5.1); Sodium 148 mmol/L (136-145); Total Bilirubin 1.2 mg/dL (0.15-1.2); Total Protein 5.5 g/dL (6.6-8.7)
[2021-03-02 05:17] LABS: ABG PCO2 36.9 mmHg (35-45); Arterial Blood Gas Hematocrit 26.1 % (37-47); Base Excess ABG 10.4 mmol/L (-2.0-2.0); Blood Gas Allen Test Pos; Blood Gas Sample Type Arterial; HCO3 ABG 33.4 mmol/L (22-26); PO2 ABG 76.1 mmHg (80.0-100.0)
[2021-03-02 05:19] LABS: Blood Gas Sample Site Radial, right; Oxygen Device VENT
[2021-03-02 05:22] LABS: ABG PH Result 7.57 (7.35-7.45)
--- NOTE | 2021-03-02 06:00 | XR_ITS ---
WS: [id number] Exam: XR chest 1V portable [id number] Date/Time of Exam: 03/02/2021 6:00 AM Reason For Exam: Hypoxia Comparison 02/27/2021. The lungs are fully expanded. No infiltrates are seen on today's exam. An ET tube ends about 3 cm abo ve the tosin in good position. No pleural effusions are seen. An opaque catheter superimposes the ri ght axilla. Significance is unclear but this could be a PICC line. An enteric tube enters the stomach . XR/XR chest 1V portable [id number] IMPRESSION: 1. No acute cardiopulmonary finding. 2. ET tube remains in good position.
--- NOTE | 2021-03-02 06:56 | PC.NURSE ---
Patient was restless and agitated throughout the night so this nurse nitrated the Fentanyl drip per protocol. She will follow commands and nods hed yes and no when asked questions. Patient is positioned supine and HOB is at 30*.
[2021-03-02 08:09] LABS: Glucose Point of Care 81 mg/dL (70-110)
--- NOTE | 2021-03-02 08:24 | PM.PN ---
Subjective Subjective: Interval history: Appears to be answering questions better. She reports she is in pain. Pain appears to be in her back and both arms Vitals/I&O/Wt Last Vital Signs Temp 98.0 F 03/02/21 02:00 Pulse 59 L 03/02/21 06:00 Resp 8 L 03/02/21 07:20 BP 120/50 03/02/21 06:00 Pulse Ox 97 03/02/21 07:20 03/01/21 03/02/21 03/02/21 22:59 06:59 14:59 Intake Total 90 / 542.8 101.533 / 644.333 40.125 / 40.125 Output Total 900 / 1550 1500 / 3050 Balance -810 / -1007.2 -1398.467 / -2405.667 40.125 / 40.125 Weight last 48 hrs Weight 62.227 kg Weight 63.503 kg Physical Exam Const: COMMON NORMALS: no acute distress OTHER: Weeks up/opens eyes to voice. Nods to answer questions. Sometimes tries to mouth words. Moves all extremities. Takes [id number] on the right. On the left somewhat more difficult mobility due to fracture, edema. HENMT: COMMON NORMALS: oropharynx normal Resp: COMMON NORMALS: normal respiratory effort and clear to auscultation bilaterally AUSCULTATION: clear to auscultation bilaterally Cardio: COMMON NORMALS: regular rhythm, S1 normal heart sound present, S2 normal heart sound present and No murmurs present (Cardio) RATE: bradycardic RHYTHM: regular rhythm HEART SOUNDS: S1 normal heart sound present and S2 normal heart sound present GI: COMMON NORMALS: Normal to inspection, nondistended, normoactive bowel sounds present, Soft to palpation and non-tender PALPATION: Yes Soft to palpation Extremity: COMMON NORMALS: no joint enlargement and no pedal edema OTHER: Left upper arm bruising. Edema Neuro: COMMON NORMALS: moves all extremities Skin: OTHER: Thin, fragile skin. Skin tears on lower extremities and several locations below knees Urinary Catheter Management^: Taylor: Cath Placed During This Visit: yes Reason for Continuing Indwelling Catheter: Accurate Measurement of Urinary Output in Critically Ill Patients Urinary Catheter Date of Insertion: 02/23/21 Urinary Catheter Time of Insertion: 17:00 Data : 03/02/21 03:30 03/02/21 03:30 A&P Assessment and plan (1) Acute respiratory failure with hypoxia: She is -2.3 L compared to yesterday. Some metabolic alkalosis noted on ABG this morning. Hold Lasix. She appears to be waking up answering questions little bit better and cooperating better than yesterday. Respirate and minute ventilation appears to vary depending on whether she is alert or sleeping, with decreased respiratory rate and minute ventilation while resting. She is maintaining her heart rates and blood pressure. Morphine, Dilaudid has been discontinued. On fentanyl for pain. Currently decreased from 75-50. Continue to monitor. Discussed also condition with pulmonology. Her ventilator settings are adjusted, and ABG to be repeated with plan for extubation today. She has had output of about 2 L, but still in positive balance. We will repeat additional Lasix, and for now stay with Lasix 40 mg IV every 12 given she has some persistent edema. Heart rates currently maintaining in the mid-high 50s-low 60s Continues on empiric antibiotics for now for possible aspiration pneumonia, although x-rays do not seem to be suggestive, and she is on minimal oxygenation settings. -Cardiac echo shows EF 60%, grade 1 out of 4 diastolic dysfunction Discussed w granddaughter. Status: Acute (2) Complete heart block: Maintaining rate/rhythm spontaneously. Appreciate cardiology recommendations. Continue monitoring heart rates. Currently in high 50s. -Status post temporary transcutaneous pacer Status: Acute (3) Hypertension: Blood pressure is improved, close to goal. Status: Acute (4) Hyperlipidemia: Status: Acute (5) Diabetes: Changed tube feeds to Glucerna. Continue Lantus, sliding scale insulin. Glucose down as low as 80 this morning. Will change Lantus dose down to 10. Decrease sliding scale to low-dose. Status: Acute (6) Acute on chronic anemia: Fairly stable after transfusion around 8. Monitor. Status: Acute (7) Pulmonary embolism: History of PE. Chronic anticoagulation. Continue Lovenox. Status: Acute (8) Congestive heart failure: Monitor for fluid overload, BNP decreased Status: Acute Qualifiers: Heart failure chronicity: acute Heart failure type: unspecified Qualified Code(s): I50.9 - Heart failure, unspecified (9) Peripheral vascular disease: Status: Acute (10) Shock: Cardiogenic shock on presentation, resolved. Possible septic shock on presentation, resolved. Status: Acute (11) Hyperkalemia: -Resolved Status: Acute (12) Multiorgan failure: Status: Acute (13) Transaminitis: Improving Status: Acute (14) Acute renal failure: Improved Status: Acute (15) NSTEMI (non-ST elevated myocardial infarction): Suspected demand ischemia. Continue Aspirin, statin -Cardiac echocardiogram EF within normal limits -Cardiology on consult Status: Acute (16) Lactic acidosis: Status: Acute (17) DIC (disseminated intravascular coagulation): If was present has resolved. Status: Acute (18) Closed left humeral fracture: -Manage conservatively, careful turning -Elevate Status: Acute (19) History of fracture of left hip: -There is an intertrochanteric subtrochanteric hip fracture which has healed. It's been repaired with a long intramedullary greg in the left femur and 2 oblique screws in the left femoral neck. No new fractures are seen Status: Acute Attestations Medical Necessity Statement*: Continue admission for assessment management of respiratory failure, weaning of mechanical ventilation support, possible extubation today. Coding Level of Care Code Acute [employer] [facility] Fwd Exam Detailed Diagnoses Acute respiratory failure with hypoxia J96.01 Complete heart block I44.2 Hypertension I10 Hyperlipidemia E78.5 Diabetes E11.9 Acute on chronic anemia D64.9 Pulmonary embolism I26.99 Congestive heart failure I50.9 Heart failure chronicity: acute Heart failure type: unspecified Peripheral vascular disease I73.9 Shock R57.9 Hyperkalemia E87.5 Multiorgan failure Transaminitis R74.01 Acute renal failure N17.9 NSTEMI (non-ST elevated myocardial infarction) I21.4 Lactic acidosis E87.2 DIC (disseminated intravascular coagulation) D65 Closed left humeral fracture S42.302A History of fracture of left hip Z87.81
[2021-03-02] MEDS: aspirin 81 mg Chew Tablet PO (08:43)
[2021-03-02] MEDS: potassium chloride oral liq 20 mEq/15 mL UDC PO (08:43)
[2021-03-02] MEDS: lidocaine 5% Patch 1 PATCH TOPICAL ×2 (08:43→21:24)
[2021-03-02] MEDS: vancomycin 1,000 MG in sodium chloride 0.9% 250 ML 250 MG IV (09:08)
[2021-03-02] MEDS: enoxaparin 60 mg/0.6 mL Syringe SUBCUT ×2 (09:10→21:24)
[2021-03-02 10:04] LABS: ABG PCO2 45.8 mmHg (35-45); ABG PH Result 7.46 (7.35-7.45); Arterial Blood Gas Hematocrit 25.3 % (37-47); Base Excess ABG 7.8 mmol/L (-2.0-2.0); Blood Gas Allen Test Pos; Blood Gas Operator Identificat CAK; Blood Gas Sample Site Radial, right; Blood Gas Sample Type Arterial; Carboxyhemoglobin 1.3 %THgb (0.4-20.1); HCO3 ABG 32.4 mmol/L (22-26); HGB O2 Sat 93.4 % (95-100); Ionized Calcium Level - ABG 1.2 mmol/L (1.1-1.4); Methemoglobin 1.2 % (0.4-1.5); Oxygen Device VENT; Oxygen Saturation ABG 95.8; PO2 ABG 80.9 mmHg (80.0-100.0); Total Hemoglobin 8.2 g/dL (12-16)
[2021-03-02 12:16] LABS: Glucose Point of Care 85 mg/dL (70-110)
--- NOTE | 2021-03-02 13:34 | PC.SOCIAL ---
IMM Update Pg.2 of IMM updated with patient's DPOA over the phone. Verbalized understanding.
--- NOTE | 2021-03-02 14:05 | P.PN_ITS ---
Subjective Subjective: Interval history: -Patient successfully extubated to BiPAP -Can take off BiPAP put her on 2 L nasal cannula -Patient is at risk for aspiration due to underlying dementia and post extubation -Continue tube feeding for 1 to 2 days and and perform swallow evaluation -Heart rate is well controlled and patient hemodynamically stable -Labs and imaging reviewed Medications: Reviewed: Yes Vitals/I&O/Wt Last Vital Signs Temp 97.9 F 03/02/21 08:00 Pulse 87 03/02/21 11:29 Resp 13 03/02/21 08:52 BP 117/55 03/02/21 10:00 Pulse Ox 97 03/02/21 11:29 03/01/21 03/02/21 03/02/21 22:59 06:59 14:59 Intake Total 90 / 542.8 101.533 / 644.333 440.125 / 440.125 Output Total 900 / 1550 1500 / 3050 Balance -810 / -1007.2 -1398.467 / -2405.667 440.125 / 440.125 Weight last 48 hrs Weight 137 lb 3 oz Weight 140 lb Physical Exam Narrative: EXAM NARRATIVE: EXAM NARRATIVE: PHYSICAL EXAM: General: Sitting in bed, extubated on BiPAP HEENT:NCAT, PERRLA, EOMI, moist mucous membranes Neck: Supple Lungs: Improving bibasilar crackles Heart: s1/s2, RRR Abd: soft, NT, ND, BS + Normoactive Extremities: No edema; scab on right lower leg LEAD HANDLER: Alert, awake and following commands. No gross FND SKIN: no rash Urinary Catheter Management^ Taylor: Cath Placed During This Visit: yes Reason for Continuing Indwelling Catheter: Accurate Measurement of Urinary Output in Critically Ill Patients Urinary Catheter Date of Insertion: 02/23/21 Urinary Catheter Time of Insertion: 17:00 Urinary Catheter Management^: Taylor: Cath Placed During This Visit: yes Reason for Continuing Indwelling Catheter: Accurate Measurement of Urinary Output in Critically Ill Patients Urinary Catheter Date of Insertion: 02/23/21 Urinary Catheter Time of Insertion: 17:00 Data : 03/02/21 03:30 03/02/21 03:30 Other Labs: Laboratory Results WBC 11.3 10^3/uL (4.0-10.0) H 03/02/21 03:30 RBC 3.38 10^6/uL (4.1-5.3) L 03/02/21 03:30 Hgb 8.3 g/dL (11.5-15.3) L 03/02/21 03:30 Hct 26.6 % (37.0-47.0) L 03/02/21 03:30 MCV 78.7 fL (81-99) L 03/02/21 03:30 MCH 24.6 pg (28.0-34.0) L 03/02/21 03:30 MCHC 31.2 g/dL (30.0-36.0) 03/02/21 03:30 RDW 20.4 % (12.1-15.1) H 03/02/21 03:30 Plt Count 147 10^3/cmm (130-400) 03/02/21 03:30 MPV 12.1 fL (7.4-10.4) H 03/02/21 03:30 Neut % (Auto) 75.3 % 03/02/21 03:30 Lymph % (Auto) 12.6 % 03/02/21 03:30 [place] % (Auto) 8.7 % 03/02/21 03:30 Eos % (Auto) 1.7 % 03/02/21 03:30 Baso % (Auto) 0.2 % 03/02/21 03:30 Neut # (Auto) 8.52 10^3/uL (1.8-7.7) H 03/02/21 03:30 Lymph # (Auto) 1.4 10^3/uL (0.8-4.8) 03/02/21 03:30 [place] # (Auto) 1.0 10^3/uL (0.2-0.9) H 03/02/21 03:30 Eos # (Auto) 0.2 10^3/uL (0.0-0.8) 03/02/21 03:30 Baso # (Auto) 0.0 10^3/uL (0.0-0.1) 03/02/21 03:30 Nucleated RBC % (auto) 1.2 % 03/02/21 03:30 Nucleated RBCs # 0.1 /100WBC 03/02/21 03:30 PT 16.10 SECONDS (12.1-14.9) H 03/01/21 03:00 INR 1.30 (0.8-1.2) H 03/01/21 03:00 APTT 60.8 SECONDS (23.9-36.7) H 02/26/21 05:36 Fibrinogen 427 mg/dL (174-498) 02/26/21 05:36 Fibrin Degrad Products Neg, <10 ug/mL (NEG) 02/26/21 05:36 D-Dimer 2.19 ug/mIFEU (0-0.59) H 02/26/21 05:36 Specimen Type Arterial 03/02/21 09:52 Sample Site Radial, right 03/02/21 09:52 ABG pH 7.46 (7.35-7.45) H 03/02/21 09:52 ABG pCO2 45.8 mmHg (35-45) H 03/02/21 09:52 ABG pO2 80.9 mmHg (80.0-100.0) 03/02/21 09:52 ABG HCO3 32.4 mmol/L (22-26) H 03/02/21 09:52 ABG O2 Saturation 95.8 03/02/21 09:52 ABG Base Excess 7.8 mmol/L (-2.0-2.0) H 03/02/21 09:52 Deandre Test Pos 03/02/21 09:52 A-a O2 Gradient 8.0 mmHg (5-10) 03/02/21 09:52 Hematocrit 25.3 % (37-47) L 03/02/21 09:52 Hgb O2 Saturation 93.4 % (95-100) L 03/02/21 09:52 Carboxyhemoglobin 1.3 %THgb (0.4-20.1) 03/02/21 09:52 Methemoglobin 1.2 % (0.4-1.5) 03/02/21 09:52 Total Hemoglobin 8.2 g/dL (12-16) L 03/02/21 09:52 Sodium 151.0 mmol/L (131-143) H 03/02/21 09:52 Potassium 4.0 mmol/L (3.5-5.0) 03/02/21 09:52 Glucose 92.0 mg/dL (70-115) 03/02/21 09:52 Ionized Calcium 1.2 mmol/L (1.1-1.4) 03/02/21 09:52 Respiration Rate 12.0 % 02/27/21 04:00 O2 Delivery Device Vent 03/02/21 09:52 Mechanical Rate 10.0 03/02/21 09:52 Spontaneous Rate 12.0 % 02/27/21 04:00 FiO2 28.0 % 03/02/21 09:52 Tidal Volume 0.40 03/02/21 05:10 PEEP 5.0 cmH20 03/02/21 05:10 Specimen Drawn By Michelle 02/27/21 04:00 Enamel Shader ID Cak 03/02/21 09:52 Sodium 148 mmol/L (136-145) H 03/02/21 03:30 Potassium 3.4 mmol/L (3.5-5.1) L 03/02/21 03:30 Chloride 110 mmol/L (98-107) H 03/02/21 03:30 Carbon Dioxide 31 mmol/L (22-29) H 03/02/21 03:30 Anion Gap 10.4 (5-19) 03/02/21 03:30 BUN 21 mg/dL (8-23) 03/02/21 03:30 Creatinine 0.9 mg/dL (0.5-0.9) 03/02/21 03:30 GFR Calculation Not Reportable 03/02/21 03:30 Glucose 100 mg/dL (65-115) 03/02/21 03:30 POC Glucose 85 mg/dL (70-110) 03/02/21 12:03 Estimat Average Glucose 169 02/24/21 03:08 Hemoglobin A1c 7.5 % (4.0-6.0) H 02/24/21 03:08 Calculated Osmolality 309 mOsm/kg (285-295) H 03/02/21 03:30 Lactate 1.9 mmol/L (0.5-2.2) 03/01/21 03:00 Calcium 8.0 mg/dL (8.5-10.5) L 03/02/21 03:30 Phosphorus 1.8 mg/dL (2.5-4.5) L 03/01/21 03:00 Magnesium 1.8 mg/dL (1.7-2.3) 03/02/21 03:30 Ferritin 2621 ng/mL (15-150) H 02/26/21 05:36 Total Bilirubin 1.2 mg/dL (0.15-1.2) 03/02/21 03:30 AST 77 U/L (0-32) H 03/02/21 03:30 ALT 230 U/L (0-33) H 03/02/21 03:30 Alkaline Phosphatase 63 IU/L (35-105) 03/02/21 03:30 Creatine Kinase 35 U/L (26-192) 02/27/21 03:58 Troponin T Baseline 696 ng/L (0-10) H* 02/23/21 16:50 Troponin T 120 Minute 603.3 ng/L (0-10) H 02/23/21 19:05 Delta Troponin T -92.7 ABS# (0-10) L 02/23/21 19:05 Troponin T Hi Sens 6Hr 737.2 ng/L (0-10) H 02/23/21 22:45 Troponin T Hi Sens 6Hr Delta 41.2 ng/L (0-12) H* 02/23/21 22:45 C-Reactive Protein 16.9 mg/L (0.0-4.9) H 03/01/21 03:00 NT-Pro-B Natriuret Pep 3719 pg/mL (0-450) H 03/01/21 03:00 Total Protein 5.5 g/dL (6.6-8.7) L 03/02/21 03:30 Albumin 2.5 g/dL (3.5-5.2) L 03/02/21 03:30 Globulin 3.0 g/dL (1.3-4.6) 03/02/21 03:30 Procalcitonin 0.14 ng/mL (0-0.5) 03/01/21 03:00 TSH 1.66 uIU/mL (0.27-4.20) 02/24/21 03:08 Urine Color Yellow (Yellow) 02/23/21 16:36 Urine Appearance Sl hazy (CLEAR) 02/23/21 16:36 Urine pH 5 (5-7) 02/23/21 16:36 Ur Specific [place] 1.015 (1.005-1.030) 02/23/21 16:36 Urine Protein 1+ (Negative) H 02/23/21 16:36 Urine Glucose (UA) Norm (Normal) 02/23/21 16:36 Urine Ketones Negative (Negative) 02/23/21 16:36 Urine Blood 3+ (Negative) H 02/23/21 16:36 Urine Nitrate Negative (Negative) 02/23/21 16:36 Urine Bilirubin Neg (Negative) 02/23/21 16:36 Urine Urobilinogen 1 mg/dL (Negative) H 02/23/21 16:36 Ur Leukocyte Esterase Negative (Negative) 02/23/21 16:36 Urine RBC 0-4 /hpf (0-2) H 02/23/21 16:36 Urine WBC 5-10 /hpf (0-5) H 02/23/21 16:36 Ur Squamous Epith Cells 0-4 /hpf (0-5) H 02/23/21 16:36 Amorphous Sediment Not Reportable 02/23/21 16:36 Urine Bacteria 4+ /hpf (NONE) H 02/23/21 16:36 Vancomycin Trough 7.3 ug/mL (10-15) L 02/28/21 09:19 Blood Type A Positive 02/25/21 10:20 Rho(D) Type Positive / 4+ 02/25/21 10:20 Antibody Screen Negative 02/25/21 10:20 Crossmatch See Detail 02/25/21 10:20 Impressions Hip/Pelvis X-Ray 02/24/21 00:00 Impression: 1. Negative right hip. 2. Negative for new fracture of the left hip. 3. Stable intertrochanteric subtrochanteric fracture of the left hip. Head CT 02/27/21 14:29 IMPRESSION: 1. No evidence of active or acute intracranial pathologic process, hemorrhage, or trauma. 2. Chronic findings as detailed in text above. Radiation Dose CTDIVOL = (mGy): DLP = 1058.06 (mGy-cm) Chest X-Ray 03/02/21 06:00 IMPRESSION: 1. No acute cardiopulmonary finding. 2. ET tube remains in good position. A&P Assessment and plan (1) Difficulty weaning from ventilator: Status: Acute (2) Complete heart block: Status: Acute (3) Congestive heart failure: Status: Acute Qualifiers: Heart failure type: unspecified Heart failure chronicity: acute Qualified Code(s): I50.9 - Heart failure, unspecified (4) Shock: Status: Acute (5) Acute on chronic anemia: Status: Acute (6) ARRON (acute kidney injury): Status: Acute (7) At high risk for pulmonary embolism: Status: Acute Overall: 80-year-old female with past medical history of underlying demen tia, thalassemia trait, type 2 diabetes mellitus, hypertension, microcytic anemia, grade 1 diastolic dysfunction, last EF 65%, pulmonary embolism on modified dose of Eliquis, severe peripheral vascular disease S/P balloon angioplasty of the left distal tibial peroneal trunk in April 2020, chronic hyp oxia 1.5 L, admitted to ICU for cardiogenic shock secondary to complete heart block s/p temporary pacemaker placed, weaned off pressors and currently still intubated for respiratory failure. #AMS due to sedation and patient with underlying Alzheimer's disease-improved #Off sedation -CT head 02/27/2021-did not show any acute changes, chronic infarcts present -Response to few commands #Intubated and connected to mechanical ventilator for impending respiratory failure upon arrival to ED #At risk of PE due to recent left hip fracture -Currently saturating 98% on 28% FiO2 -ABG today morning 7.4 6/45/80/30 2/95% saturation on spontaneous mode -Successfully extubated to BiPAP and can wean down to 2 L nasal cannula today a fternoon -Chest x-ray 03/02/2021: No acute cardiopulmonary finding -Yesterday received Lasix 40 mg twice daily and good urine output -Currently on Lovenox 60 mg SQ every 12 hours-high risk of PE -Also on vancomycin and Zosyn for possible pneumonia #Cardiogenic shock-due to complete heart block-shock resolved #Grade 1 diastolic dysfunction -Temporary pacemaker placed and current heart rate between 50 to 60 bpm -Off pressors -On aspirin and Lipitor -BNP 62705>> 7800>> 2520> 2751 -Hold Lasix to 40 mg twice daily and I will give Diamox 500 mg 1 dose today evening -Echo 02/24/2021: Normal LV systolic function with ejection fraction 60%. Grade 1/4 diastolic dysfunction normal to mildly elevated filling pressures, moderately increased left atrial size. Severely thickened mitral valve with no stenosis and mild to moderate mitral regurgitation. Moderate aortic valve calcification. Moderate tricuspid valve regurgitation. No pericardial effus ion. Right atrial pressure around 5 mmHg. No significant change since prior echo 05/05/2020 -Cardiology to to decide about permanent pacemaker after extubation #Deranged LFTs-due to ischemic insult-improving -Maintain MAP> 65 -Avoid hepatotoxic medications -Monitor LFTs #Diet-currently on tube feeding at 40 mL/h -Continue Jevity through NG tube post extubation -At high risk for aspiration -Swallow evaluation in couple of days #GI prophylaxis-Protonix 40 mg every 12 #Acute kidney injury-likely prerenal due to hypotension-improving with hydration #Hypernatremia and hyperchloremia -BUN/creatinine & CK improving with hydration -yesterday received lasix 40 mg twice daily; -2.4 L over last 24 hours and still Net + 3 L since admission- -DC Lasix and given 1 dose of Diamox 500 mg -pH slightly alkalotic -Free water 200 cc every 6 hours and monitor sodium -Monitor electrolytes and renal parameters #Diabetes mellitus with uncontrolled sugars -On Lantus 10 units yesterday -Monitor sugars every 4 hours and scale coverage with insulin aspart #Chronic anemia #DIC-resolved #DVT prophylaxis-on Lovenox -S/p 1 unit PRBC transfused -Monitor H&H and transfuse to keep> 05/24 #Suspected MRSA pneumonia -MRSA nares positive for 02/24/2021 -Currently on vancomycin and Zosyn ; DC antibiotics after 7 days -vancomycin level subtherapeutic on 02/28/21 due to improving renal functions- pharmacy to redose and check trough levels in 2 days -all other cultures are negative so far -Remained afebrile since admission, no significant leukocytosis,Negative procalcitonin -Improving inflammatory markers D-dimer and CRP ICU CHECKLIST: Problem list updated Verbal orders reviewed and signed Analgesia: opioids Glycemic Control: Insulin Nutrition: Tube feeding Restraint Renewal (within 24 hrs): Yes Ulcer Prophylaxis: PPI Chemical Thromboprophylaxis: Prophylaxis: Lovenox Mechanical Thromboprophylaxis: Yes Need for Central line:PICC no; recommended to remove PICC line Need for Taylor catheter: Yes for input output monitoring Critical Care Time (No Overlap): 45 min This patient has a high probability of sudden, clinically significant deterioration, which requires the highest level of physician preparedness to intervene urgently. I managed/supervised life or organ supporting interventions that required frequent physician assessment. I devoted my full attention in the ICU to the direct care of this patient for the period of time indicated above. Time I spent with family or surrogate(s) is included only if the patient was incapable of providing necessary information or participating in decision making. Time devoted to teaching and to any procedures I billed separately is not included. Services Provided: Telemetry review Mechanical Ventilation Hemodynamic interpretation, assessment and management Review and interpretation of CXR Review and interpretation of lab values Review and interpretation of microbiologic data and culture results Review of medications and administration Review and interpretation of Nutrition requirements and management Discussion of management with other consultants and services Clinical update to family members-spoke to granddaughter Attestations Medical Necessity Statement*: Continue admission for assessment management of respiratory failure, weaning of mechanical ventilation support, post extubation today. Time Spent in Patient Care: Greater than 35 minutes (>than 50% of time spent in counselling and/or direct pt care on unit) . The high probability of a clinically significant, sudden or life threatening deterioration of the patient's cardiac, renal and respiratory system(s) required my full and direct attention, intervention and personal management. The critical care time is as shown. This time is in addition to time spent performing any reported procedures but includes the following: [x] Data and vital sign review and interpretation [x] Patient assessment, examination and intervention [x] Documentation [x] Medication orders and management Critical Care Time: Critical Care Time (min): 45 Coding Level of Care Code Established Pt Acute Flatcar Whacker for Chg Fwd Patient Type Established History Comprehensive Exam Comprehensive Medical Decision Making High Complexity Diagnoses Difficulty weaning from ventilator Z99.11 Complete heart block I44.2 Congestive heart failure I50.9 Heart failure type: unspecified Heart failure chronicity: acute Shock R57.9 Acute on chronic anemia D64.9 ARRON (acute kidney injury) N17.9 At high risk for pulmonary embolism Z91.89 Time Spent (min) 45
[2021-03-02] MEDS: morphine 4 mg/mL SDV 1 mL 2 MG IVP (14:59)
--- NOTE | 2021-03-02 16:27 | XRR_ITS ---
PROCEDURE INFORMATION: Exam: XR Abdomen Exam date and time: 03/02/2021 4:33 PM Age: 80 years old Clinical indication: Device placement; Gi device; Nasogastric tube; Additional info: Ng tube placement TECHNIQUE: Imaging protocol: XR of the abdomen. Views: Frontal supine view of the abdomen. 1 View. COMPARISON: CT Chest/Abdomen/Pelvis w IV* 03/05/2017 8:58 PM FINDINGS: Gastrointestinal tract: Normal. No bowel dilation. Bones/joints: Unremarkable. There is a NG tube in place extending into the stomach. There is calcification of the mitral annulus within the heart. The abdominal aorta is calcified and ectatic without aneurysm. XR/XR KUB portable 81101 IMPRESSION: No acute findings. NG tube is in the stomach. Otherwise negative for acute abnormality.
[2021-03-02] MEDS: acetaZOLAMIDE 250 mg Tablet 500 MG PO (17:45)
[2021-03-02 17:51] LABS: Glucose Point of Care 77 mg/dL (70-110)
--- NOTE | 2021-03-02 20:05 | P.PN_ITS ---
Subjective Subjective: Interval history: S/p extubation opens her eye but still sleepy lethargic and 50 Medications: Reviewed: Yes Vitals/I&O/Wt Last Vital Signs Temp 97.9 F 03/02/21 08:00 Pulse 100 03/02/21 20:00 Resp 23 H 03/02/21 20:00 BP 125/56 03/02/21 20:00 Pulse Ox 98 03/02/21 20:00 03/02/21 03/02/21 03/02/21 06:59 14:59 22:59 Intake Total 101.533 / 644.333 447.334 / 447.334 100 / 547.334 Output Total 1500 / 3050 300 / 300 Balance -1398.467 / -2405.667 447.334 / 447.334 -200 / 247.334 Weight last 48 hrs Weight 137 lb 3 oz Weight 140 lb Physical Exam Narrative: EXAM NARRATIVE: GENERAL: Patient is lethargic NECK: No jugular vein distension. HEENT: No cyanosis. No icterus. HEART: Regular S1 and S2. No murmur, rub or gallop. LUNGS: Clear to auscultate bilaterally. ABDOMEN: Cannot assess CENTRAL cannot assess EXTREMITIES: Lower extremities without edema Urinary Catheter Management^: Taylor: Cath Placed During This Visit: yes Reason for Continuing Indwelling Catheter: Accurate Measurement of Urinary Output in Critically Ill Patients Urinary Catheter Date of Insertion: 02/23/21 Urinary Catheter Time of Insertion: 17:00 Data : 03/02/21 03:30 03/02/21 03:30 A&P Assessment and plan (1) Complete heart block: Status post temporary pacemaker, patient has intermittent heart block she is pacing at different intervals. Once potassium will normalize will assess whether she requires permanent pacemaker Continues to be pacemaker dependent Pacemaker working fine she is in AAI sync mode, pacing fine. Once extubated and more coherent will decide regarding permanent pacemaker depending upon her long- term prognosis Pacemaker in good standing continue temporary pacer once more stable will decide regarding long-term prognosis and permanent pacemaker placement Stable from a cardiovascular perspective. Continue to monitor. Patient is not using pacemaker. Patient has underlying tolowa dee-ni' sinus rhythm . Patient is not pacemaker dependent will never turn it off tomorrow. Status: Acute (2) Shock: Improved and resolved Status: Acute (3) Hyperkalemia: Improved. Status: Acute (4) Congestive heart failure: Well compensated. Will wean off from ventilator Status: Acute Qualifiers: Heart failure type: unspecified Heart failure chronicity: acute Qualified Code(s): I50.9 - Heart failure, unspecified (5) Acute renal failure: Improved Status: Acute (6) DIC (disseminated intravascular coagulation): As per medicine. Status: Acute Attestations Medical Necessity Statement*: Require continuation hospitalization for above defined care Coding Level of Care Code Established Pt Acute Journe[employer] for g Fwd Patient Type Established History Detailed Exam Detailed Medical Decision Making Moderate Complexity Diagnoses Complete heart block I44.2 Shock R57.9 Hyperkalemia E87.5 Congestive heart failure I50.9 Heart failure type: unspecified Heart failure chronicity: acute Acute renal failure N17.9 DIC (disseminated intravascular coagulation) D65
[2021-03-02] MEDS: atorvastatin 40 mg Tablet PO (21:23)
[2021-03-02 21:24] LABS: Glucose Point of Care 92 mg/dL (70-110)
[2021-03-02] MEDS: insulin glargine 100 units/1 mL 10 UNIT SUBCUT (21:27)
[2021-03-03] VITALS (51 sets, daily range): BP systolic 97–140; BP diastolic 43–94; PULSE 80–107; RESP 15–35; TEMP 37–37.5; O2SAT 68–100
[2021-03-03] MEDS: piperacillin-tazobactam 3.375 GM in sodium chloride 0.9% (plus) 50 ML IV ×3 (00:43→16:57)
[2021-03-03] MEDS: nitroglycerin 1 gm/inch oint Pkt 1 INCH TOPICAL ×4 (03:59→20:23)
[2021-03-03] MEDS: pantoprazole 40 mg SDV IVP ×2 (04:02→16:56)
[2021-03-03 04:05] LABS: Basophils % 0.3 %; Eosinophils # 0.4 10^3/uL (0.0-0.8); Eosinophils % 3.7 %; Hematocrit 27.1 % (37.0-47.0); Lymphocytes # 1.6 10^3/uL (0.8-4.8); Lymphocytes % 13.9 %; Mean Corpuscular HGB Conc 29.5 g/dL (30.0-36.0); Mean Corpuscular Hemoglobin 24.4 pg (28.0-34.0); Mean Corpuscular Volume 82.6 fL (81-99); Mean Platelet Volume 12.3 fL (7.4-10.4); Monocytes # 1.5 10^3/uL (0.2-0.9); Neutrophils # 7.81 10^3/uL (1.8-7.7); Neutrophils % 67.5 %; Nucleated Red Blood Cells # 0.1 /100WBC; Nucleated Red Blood Cells % 1.1 %; Platelet Count 163 10^3/cmm (130-400); Red Blood Count 3.28 10^6/uL (4.1-5.3); Red Cell Distribution Width 21.7 % (12.1-15.1); White Blood Count 11.6 10^3/uL (4.0-10.0)
[2021-03-03 04:35] LABS: Alanine Aminotransferase 187 U/L (0-33); Albumin Level 2.8 g/dL (3.5-5.2); Alkaline Phosphatase 82 IU/L (35-105); Aspartate Amino Transferase 73 U/L (0-32); Blood Urea Nitrogen 27 mg/dL (8-23); Calcium 8.3 mg/dL (8.5-10.5); Carbon Dioxide 31 mmol/L (22-29); Chloride 113 mmol/L (98-107); Glucose 108 mg/dL (65-115); Osmolality Calculated 320 mOsm/kg (285-295); Sodium 152 mmol/L (136-145); Total Protein 5.8 g/dL (6.6-8.7)
--- NOTE | 2021-03-03 05:33 | PC.NURSE ---
AO to person, slight labored RR with sat of 89, placed on bipap per RT, O2 sat 98 at this time with improved RR and effort. tolerating NG feeding well, supine 45 degrees call light within reach, rather uneventful night
[2021-03-03 06:18] LABS: Glucose Point of Care 120 mg/dL (70-110)
[2021-03-03 07:43] LABS: Glucose Point of Care 127 mg/dL (70-110)
[2021-03-03] MEDS: dextrose 5% 1,000 ML 100 ML IV (09:04)
[2021-03-03] MEDS: aspirin 81 mg Chew Tablet PO (09:06)
[2021-03-03] MEDS: lidocaine 5% Patch 1 PATCH TOPICAL (09:14)
[2021-03-03 09:41] LABS: Vancomycin Trough 25.1 ug/mL (10-15)
--- NOTE | 2021-03-03 09:55 | PC.NURSE ---
1000 Received vanc trough of 25.1. Notified Jus in pharmacy. ORders to hold dose and will change the order. Held this dose.
[2021-03-03] MEDS: enoxaparin 60 mg/0.6 mL Syringe SUBCUT ×2 (10:03→21:41)
--- NOTE | 2021-03-03 10:47 | P.PN_ITS ---
Subjective Subjective: Interval history: Wakes up, answers questions, cooperates with examination. Denies pain or discomfort. Says breathing is comfortable. Not oriented, however, thinks she is at [facility]. Does not remember the year. Vitals/I&O/Wt Last Vital Signs Temp 99.1 F 03/03/21 08:00 Pulse 94 03/03/21 10:00 Resp 20 H 03/03/21 10:00 BP 129/62 03/03/21 10:00 Pulse Ox 99 03/03/21 10:00 03/02/21 03/03/21 03/03/21 22:59 06:59 14:59 Intake Total 150 / 597.334 50 / 647.334 0 / 0 Output Total 300 / 300 350 / 650 Balance -150 / 297.334 -300 / -2.666 0 / 0 Weight last 48 hrs Weight 62.505 kg Weight 62.227 kg Physical Exam Const: COMMON NORMALS: no acute distress GENERAL APPEARANCE: cooperative and frail appearing HENMT: COMMON NORMALS: oropharynx normal Resp: COMMON NORMALS: normal respiratory effort and clear to auscultation bilaterally AUSCULTATION: clear to auscultation bilaterally Cardio: COMMON NORMALS: regular rhythm, S1 normal heart sound present, S2 normal heart sound present and No murmurs present (Cardio) RATE: bradycardic RHYTHM: regular rhythm HEART SOUNDS: S1 normal heart sound present and S2 normal heart sound present GI: COMMON NORMALS: Normal to inspection, nondistended, normoactive bowel sounds present, Soft to palpation and non-tender PALPATION: Yes Soft to palpation Extremity: COMMON NORMALS: no joint enlargement and no pedal edema OTHER: Left upper arm bruising. Edema Neuro: COMMON NORMALS: moves all extremities Skin: OTHER: Thin, fragile skin. Skin tears on lower extremities and several locations below knees Urinary Catheter Management^: Taylor: Cath Placed During This Visit: yes Reason for Continuing Indwelling Catheter: Accurate Measurement of Urinary Output in Critically Ill Patients Urinary Catheter Date of Insertion: 02/23/21 Urinary Catheter Time of Insertion: 17:00 Data : 03/03/21 03:35 03/03/21 03:35 A&P Assessment and plan (1) Acute respiratory failure with hypoxia: Extubated, on NC overnight, BiPAP early this morning. Currently doing well on nasal cannula. Respiratory rate around 20. Discussed with pulmonology. We will cautiously obtain speech therapy assessment. Will request for FEES. Maintain aspiration precautions. BiPAP support as needed. For now continues with NGT, tube feeds. D5W KVO due to worsening hypernatremia. She is maintaining her heart rates and blood pressure. Pain is controlled. Continue antibiotics for possible aspiration pneumonia. Is at elevated risk of aspiration. -Cardiac echo shows EF 60%, grade 1 out of 4 diastolic dysfunction Attempted to reach her granddaughter for update. Status: Acute (2) Complete heart block: Maintaining rate/rhythm spontaneously. Appreciate cardiology recommendations. Continue monitoring heart rates. Currently in high 90s. -Status post temporary transcutaneous pacer Status: Acute (3) Hypertension: Blood pressure is improved, close to goal. Status: Acute (4) Hyperlipidemia: Status: Acute (5) Diabetes: Glucerna TF. Continue Lantus, sliding scale insulin. Glucose down as low as 80 this morning. Will change Lantus dose down to 10. Decreased sliding scale to low-dose. Status: Acute (6) Acute on chronic anemia: Stable after transfusion around 8. Monitor. Status: Acute (7) Pulmonary embolism: History of PE. Chronic anticoagulation. Continue Lovenox. Status: Acute (8) Congestive heart failure: Monitor for fluid overload, BNP decreased Status: Acute Qualifiers: Heart failure type: unspecified Heart failure chronicity: acute Qualified Code(s): I50.9 - Heart failure, unspecified (9) Peripheral vascular disease: Status: Acute (10) Shock: Cardiogenic shock on presentation, resolved. Possible septic shock on presentation, resolved. Status: Acute (11) Hyperkalemia: -Resolved Status: Acute (12) Multiorgan failure: Resolving Status: Acute (13) Transaminitis: Improving Status: Acute (14) Acute renal failure: Improved Status: Acute (15) NSTEMI (non-ST elevated myocardial infarction): Suspected demand ischemia. Continue Aspirin, statin -Cardiac echocardiogram EF within normal limits -Cardiology on consult Status: Acute (16) Lactic acidosis: Status: Acute (17) DIC (disseminated intravascular coagulation): If was present has resolved. Status: Acute (18) Closed left humeral fracture: -Manage conservatively, careful turning -Elevate -Reviewed images with orthopedics, appears there is some callus formation, and likely this fracture has been there for some time, at this point at high risk for surgical repair, maintain sling, once she is doing better from other conditions, he is invited to follow-up with orthopedics in office. Status: Acute (19) History of fracture of left hip: -There is an intertrochanteric subtrochanteric hip fracture which has healed. It's been repaired with a long intramedullary greg in the left femur and 2 oblique screws in the left femoral neck. No new fractures are seen Status: Acute (20) Hypernatremia: D5W KVO. Water NGT flushes. Status: Acute Attestations Medical Necessity Statement*: Continue admission for assessment of management of improving respiratory failure, with currently elevated risk of aspiration, assessment by speech therapy, consideration of trial of oral diet, continued monitoring of heart rate, additional cardiology follow-up with regards to temporary pacemaker, consideration whether there is still need for permanent pacemaker, assessment and management of worsening hypernatremia. Coding Level of Care Code Acute [employer]or [employer] for Chris Serra Diagnoses Acute respiratory failure with hypoxia J96.01 Complete heart block I44.2 Hypertension I10 Hyperlipidemia E78.5 Diabetes E11.9 Acute on chronic anemia D64.9 Pulmonary embolism I26.99 Congestive heart failure I50.9 Heart failure type: unspecified Heart failure chronicity: acute Peripheral vascular disease I73.9 Shock R57.9 Hyperkalemia E87.5 Multiorgan failure Transaminitis R74.01 Acute renal failure N17.9 NSTEMI (non-ST elevated myocardial infarction) I21.4 Lactic acidosis E87.2 DIC (disseminated intravascular coagulation) D65 Closed left humeral fracture S42.302A History of fracture of left hip Z87.81 Hypernatremia E87.0
[2021-03-03 11:18] LABS: Glucose Point of Care 166 mg/dL (70-110)
--- NOTE | 2021-03-03 13:34 | P.PN_ITS ---
Subjective Subjective: Interval history: Clinically stable on 4 L nasal cannula Answers questions and follows commands Appeared weak and deconditioned -Labs and imaging reviewed Vitals/I&O/Wt Last Vital Signs Temp 98.7 F 03/03/21 12:00 Pulse 93 03/03/21 12:00 Resp 19 H 03/03/21 12:00 BP 132/62 03/03/21 12:00 Pulse Ox 100 03/03/21 12:00 03/02/21 03/03/21 03/03/21 22:59 06:59 14:59 Intake Total 150 / 597.334 50 / 647.334 0 / 0 Output Total 300 / 300 350 / 650 Balance -150 / 297.334 -300 / -2.666 0 / 0 Weight last 48 hrs Weight 137 lb 12.8 oz Weight 137 lb 3 oz Physical Exam Narrative: EXAM NARRATIVE: EXAM NARRATIVE: PHYSICAL EXAM: General: Sitting in bed, currently on 4 L nasal cannula not in acute cardiorespiratory distress HEENT:NCAT, PERRLA, EOMI, moist mucous membranes Neck: Supple Lungs: Improving bibasilar crackles Heart: s1/s2, RRR Abd: soft, NT, ND, BS + Normoactive Extremities: No edema; scab on right lower leg SHOE SALESMAN: Alert, awake and following commands. No gross FND SKIN: no rash Urinary Catheter Management^: Taylor: Cath Placed During This Visit: yes Reason for Continuing Indwelling Catheter: Accurate Measurement of Urinary Output in Critically Ill Patients Urinary Catheter Date of Insertion: 02/23/21 Urinary Catheter Time of Insertion: 17:00 Data : 03/03/21 03:35 03/03/21 03:35 Other Labs: Laboratory Results WBC 11.6 10^3/uL (4.0-10.0) H 03/03/21 03:35 RBC 3.28 10^6/uL (4.1-5.3) L 03/03/21 03:35 Hgb 8.0 g/dL (11.5-15.3) L 03/03/21 03:35 Hct 27.1 % (37.0-47.0) L 03/03/21 03:35 MCV 82.6 fL (81-99) 03/03/21 03:35 MCH 24.4 pg (28.0-34.0) L 03/03/21 03:35 MCHC 29.5 g/dL (30.0-36.0) L 03/03/21 03:35 RDW 21.7 % (12.1-15.1) H 03/03/21 03:35 Plt Count 163 10^3/cmm (130-400) 03/03/21 03:35 MPV 12.3 fL (7.4-10.4) H 03/03/21 03:35 Neut % (Auto) 67.5 % 03/03/21 03:35 Lymph % (Auto) 13.9 % 03/03/21 03:35 Cochran % (Auto) 13.0 % 03/03/21 03:35 Eos % (Auto) 3.7 % 03/03/21 03:35 Baso % (Auto) 0.3 % 03/03/21 03:35 Neut # (Auto) 7.81 10^3/uL (1.8-7.7) H 03/03/21 03:35 Lymph # (Auto) 1.6 10^3/uL (0.8-4.8) 03/03/21 03:35 Cochran # (Auto) 1.5 10^3/uL (0.2-0.9) H 03/03/21 03:35 Eos # (Auto) 0.4 10^3/uL (0.0-0.8) 03/03/21 03:35 Baso # (Auto) 0.0 10^3/uL (0.0-0.1) 03/03/21 03:35 Nucleated RBC % (auto) 1.1 % 03/03/21 03:35 Nucleated RBCs # 0.1 /100WBC 03/03/21 03:35 PT 16.10 SECONDS (12.1-14.9) H 03/01/21 03:00 INR 1.30 (0.8-1.2) H 03/01/21 03:00 APTT 60.8 SECONDS (23.9-36.7) H 02/26/21 05:36 Fibrinogen 427 mg/dL (174-498) 02/26/21 05:36 Fibrin Degrad Products Neg, <10 ug/mL (NEG) 02/26/21 05:36 D-Dimer 2.19 ug/mIFEU (0-0.59) H 02/26/21 05:36 Specimen Type Arterial 03/02/21 09:52 Sample Site Radial, right 03/02/21 09:52 ABG pH 7.46 (7.35-7.45) H 03/02/21 09:52 ABG pCO2 45.8 mmHg (35-45) H 03/02/21 09:52 ABG pO2 80.9 mmHg (80.0-100.0) 03/02/21 09:52 ABG HCO3 32.4 mmol/L (22-26) H 03/02/21 09:52 ABG O2 Saturation 95.8 03/02/21 09:52 ABG Base Excess 7.8 mmol/L (-2.0-2.0) H 03/02/21 09:52 Deandre Test Pos 03/02/21 09:52 A-a O2 Gradient 8.0 mmHg (5-10) 03/02/21 09:52 Hematocrit 25.3 % (37-47) L 03/02/21 09:52 Hgb O2 Saturation 93.4 % (95-100) L 03/02/21 09:52 Carboxyhemoglobin 1.3 %THgb (0.4-20.1) 03/02/21 09:52 Methemoglobin 1.2 % (0.4-1.5) 03/02/21 09:52 Total Hemoglobin 8.2 g/dL (12-16) L 03/02/21 09:52 Sodium 151.0 mmol/L (131-143) H 03/02/21 09:52 Potassium 4.0 mmol/L (3.5-5.0) 03/02/21 09:52 Glucose 92.0 mg/dL (70-115) 03/02/21 09:52 Ionized Calcium 1.2 mmol/L (1.1-1.4) 03/02/21 09:52 Respiration Rate 12.0 % 02/27/21 04:00 O2 Delivery Device Vent 03/02/21 09:52 Mechanical Rate 10.0 03/02/21 09:52 Spontaneous Rate 12.0 % 02/27/21 04:00 FiO2 28.0 % 03/02/21 09:52 Tidal Volume 0.40 03/02/21 05:10 PEEP 5.0 cmH20 03/02/21 05:10 Specimen Drawn By Michelle 02/27/21 04:00 Head Neck Surgeon ID Cak 03/02/21 09:52 Sodium 152 mmol/L (136-145) H 03/03/21 03:35 Potassium 4.0 mmol/L (3.5-5.1) 03/03/21 03:35 Chloride 113 mmol/L (98-107) H 03/03/21 03:35 Carbon Dioxide 31 mmol/L (22-29) H 03/03/21 03:35 Anion Gap 12.0 (5-19) 03/03/21 03:35 BUN 27 mg/dL (8-23) H 03/03/21 03:35 Creatinine 1.1 mg/dL (0.5-0.9) H 03/03/21 03:35 GFR Calculation Not Reportable 03/03/21 03:35 Glucose 108 mg/dL (65-115) 03/03/21 03:35 POC Glucose 166 mg/dL (70-110) H 03/03/21 11:14 Estimat Average Glucose 169 02/24/21 03:08 Hemoglobin A1c 7.5 % (4.0-6.0) H 02/24/21 03:08 Calculated Osmolality 320 mOsm/kg (285-295) H 03/03/21 03:35 Lactate 1.9 mmol/L (0.5-2.2) 03/01/21 03:00 Calcium 8.3 mg/dL (8.5-10.5) L 03/03/21 03:35 Phosphorus 1.8 mg/dL (2.5-4.5) L 03/01/21 03:00 Magnesium 1.8 mg/dL (1.7-2.3) 03/02/21 03:30 Ferritin 2621 ng/mL (15-150) H 02/26/21 05:36 Total Bilirubin 1.0 mg/dL (0.15-1.2) 03/03/21 03:35 AST 73 U/L (0-32) H 03/03/21 03:35 ALT 187 U/L (0-33) H 03/03/21 03:35 Alkaline Phosphatase 82 IU/L (35-105) 03/03/21 03:35 Creatine Kinase 35 U/L (26-192) 02/27/21 03:58 Troponin T Baseline 696 ng/L (0-10) H* 02/23/21 16:50 Troponin T 120 Minute 603.3 ng/L (0-10) H 02/23/21 19:05 Delta Troponin T -92.7 ABS# (0-10) L 02/23/21 19:05 Troponin T Hi Sens 6Hr 737.2 ng/L (0-10) H 02/23/21 22:45 Troponin T Hi Sens 6Hr Delta 41.2 ng/L (0-12) H* 02/23/21 22:45 C-Reactive Protein 16.9 mg/L (0.0-4.9) H 03/01/21 03:00 NT-Pro-B Natriuret Pep 3719 pg/mL (0-450) H 03/01/21 03:00 Total Protein 5.8 g/dL (6.6-8.7) L 03/03/21 03:35 Albumin 2.8 g/dL (3.5-5.2) L 03/03/21 03:35 Globulin 3.0 g/dL (1.3-4.6) 03/03/21 03:35 Procalcitonin 0.14 ng/mL (0-0.5) 03/01/21 03:00 TSH 1.66 uIU/mL (0.27-4.20) 02/24/21 03:08 Urine Color Yellow (Yellow) 02/23/21 16:36 Urine Appearance Sl hazy (CLEAR) 02/23/21 16:36 Urine pH 5 (5-7) 02/23/21 16:36 Ur Specific [place] 1.015 (1.005-1.030) 02/23/21 16:36 Urine Protein 1+ (Negative) H 02/23/21 16:36 Urine Glucose (UA) Norm (Normal) 02/23/21 16:36 Urine Ketones Negative (Negative) 02/23/21 16:36 Urine Blood 3+ (Negative) H 02/23/21 16:36 Urine Nitrate Negative (Negative) 02/23/21 16:36 Urine Bilirubin Neg (Negative) 02/23/21 16:36 Urine Urobilinogen 1 mg/dL (Negative) H 02/23/21 16:36 Ur Leukocyte Esterase Negative (Negative) 02/23/21 16:36 Urine RBC 0-4 /hpf (0-2) H 02/23/21 16:36 Urine WBC 5-10 /hpf (0-5) H 02/23/21 16:36 Ur Squamous Epith Cells 0-4 /hpf (0-5) H 02/23/21 16:36 Amorphous Sediment Not Reportable 02/23/21 16:36 Urine Bacteria 4+ /hpf (NONE) H 02/23/21 16:36 Vancomycin Trough 25.1 ug/mL (10-15) H 03/03/21 08:45 Blood Type A Positive 02/25/21 10:20 Rho(D) Type Positive / 4+ 02/25/21 10:20 Antibody Screen Negative 02/25/21 10:20 Crossmatch See Detail 02/25/21 10:20 Impressions Hip/Pelvis X-Ray 02/24/21 00:00 Impression: 1. Negative right hip. 2. Negative for new fracture of the left hip. 3. Stable intertrochanteric subtrochanteric fracture of the left hip. Head CT 02/27/21 14:29 IMPRESSION: 1. No evidence of active or acute intracranial pathologic process, hemorrhage, or trauma. 2. Chronic findings as detailed in text above. Radiation Dose CTDIVOL = (mGy): DLP = 1058.06 (mGy-cm) Chest X-Ray 03/02/21 06:00 IMPRESSION: 1. No acute cardiopulmonary finding. 2. ET tube remains in good position. KUB X-Ray 03/02/21 16:27 IMPRESSION: No acute findings. NG tube is in the stomach. Otherwise negative for acute abnormality. A&P Assessment and plan (1) Difficulty weaning from ventilator: Status: Acute (2) Complete heart block: Status: Acute (3) Congestive heart failure: Status: Acute Qualifiers: Heart failure type: unspecified Heart failure chronicity: acute Qualified Code(s): I50.9 - Heart failure, unspecified (4) Shock: Status: Acute (5) Acute on chronic anemia: Status: Acute (6) ARRON (acute kidney injury): Status: Acute (7) At high risk for pulmonary embolism: Status: Acute Overall: 80-year-old female with past medical history of underlying dementia, thalassemia trait, type 2 diabetes mellitus, hypertension, microcytic anemia, grade 1 diastolic dysfunction, last EF 65%, pulmonary embolism on modified dose of Eliquis, severe peripheral vascular disease S/P balloon angioplasty of the left distal tibial peroneal trunk in April 2020, chronic hypoxia 1.5 L, admitted to ICU for cardiogenic shock secondary to complete heart block s/p temporary pacemaker placed, weaned off pressors and currently still intubated for respiratory failure. #AMS due to sedation and patient with underlying Alzheimer's disease-improved -CT head 02/27/2021-did not show any acute changes, chronic infarcts present -Response to few commands and seems like she is at baseline -Aggressive bedside physical therapy #Intubated and connected to mechanical ventilator for impending respiratory failure upon arrival to ED #At risk of PE due to recent left hip fracture -Currently saturating 98% on 4 L nasal cannula -Successfully extubated on 03/03/2021 -Chest x-ray 03/02/2021: No acute cardiopulmonary finding -Currently on Lovenox 60 mg SQ every 12 hours-high risk of PE -can switch to heparin subcu -MRSA nares positive blood cultures negative so far -On vancomycin and Zosyn for possible pneumonia-DC after 10 days; trough 25- pharmacy to redose vancomycin -Incentive spirometry #Cardiogenic shock-due to complete heart block-shock resolved #Grade 1 diastolic dysfunction -Temporary pacemaker placed and current heart rate between 80 to 90 bpm-probably in sinus -Off pressors -On aspirin and Lipitor -BNP 42824>> 7800>> 2520> 2751 -Hold Lasix to 40 mg twice daily and I will give Diamox 500 mg 1 dose today evening -Echo 02/24/2021: Normal LV systolic function with ejection fraction 60%. Grade 1/4 diastolic dysfunction normal to mildly elevated filling pressures, m oderately increased left atrial size. Severely thickened mitral valve with no stenosis and mild to moderate mitral regurgitation. Moderate aortic valve calcification. Moderate tricuspid valve regurgitation. No pericardial effusion. Right atrial pressure around 5 mmHg. No significant change since prior echo 05/05/2020 -Cardiology to to decide about whether to proceed for permanent pacemaker #Deranged LFTs-due to ischemic insult-improving -Maintain MAP> 65 -Avoid hepatotoxic medications -Monitor LFTs #Diet-currently on tube feeding at 40 mL/h -Continue Jevity through NG tube post extubation -At high risk for aspiration -Swallow evaluation by speech therapy today-if failed patient needs PEG tube -Aspiration precautions #GI prophylaxis-Protonix 40 mg every 12 #Acute kidney injury-likely prerenal due to hypotension-improving with hydration #Hypernatremia and hyperchloremia -BUN/creatinine & CK improving with hydration -yesterday received Diamox 500 mg 1 dose ; decreased urine output but even fluid balance in last 24 hours -Monitor urine output today and if suboptimal- can give 1 dose Lasix 40 mg -Hyponatremia sodium 152-started on D5 and repeat BMP in the evening -Monitor electrolytes and renal parameters #Diabetes [id number] -On Lantus 10 units yesterday -Monitor sugars every 6 hours and scale coverage with insulin aspart #Chronic anemia #DIC-resolved #DVT prophylaxis-on Lovenox-can switch to heparin subcu prophylactic dose -S/p 1 unit PRBC transfused -Monitor H&H and transfuse to keep> 05/24 #Suspected MRSA pneumonia -MRSA nares positive for 02/24/2021 -Currently on vancomycin and Zosyn ; DC antibiotics after total 10 days -vancomycin level 25-pharmacy to redose and check trough levels in 2 days -all other cultures are negative so far -Remained afebrile since admission, no significant leukocytosis,Negative procalcitonin -Improving inflammatory markers D-dimer and CRP ICU CHECKLIST: Problem list updated Verbal orders reviewed and signed Analgesia: opioids Glycemic Control: Insulin Nutrition: Tube feeding Restraint Renewal (within 24 hrs): Yes Ulcer Prophylaxis: PPI Chemical Thromboprophylaxis: Prophylaxis: Lovenox Mechanical Thromboprophylaxis: Yes Need for Central line:PICC no; recommended to remove PICC line Need for Taylor catheter: Yes for input output monitoring Critical Care Time (No Overlap): 45 min This patient has a high probability of sudden, clinically significant deterioration, which requires the highest level of physician preparedness to intervene urgently. I managed/supervised life or organ supporting interventions that required frequent physician assessment. I devoted my full attention in the ICU to the direct care of this patient for the period of time indicated above. Time I spent with family or surrogate(s) is included only if the patient was incapable of providing necessary information or participating in decision making. Time devoted to teaching and to any procedures I billed separately is not included. Services Provided: Telemetry review Mechanical Ventilation Hemodynamic interpretation, assessment and management Review and interpretation of CXR Review and interpretation of lab values Review and interpretation of microbiologic data and culture results Review of medications and administration Review and interpretation of Nutrition requirements and management Discussion of management with other consultants and services Clinical update to family members-spoke to granddaughter Attestations Medical Necessity Statement*: Continue admission for assessment management of respiratory failure and complete heart block on temporary pacemaker, hyponatremia, MRSA nares positive-extubated and hemodynamically stable, needs swallow evaluation for oral feeding Time Spent in Patient Care: Greater than 35 minutes (>than 50% of time spent in counselling and/or direct pt care on unit) . The high probability of a clinically significant, sudden or life threatening deterioration of the patient's cardiac, renal and respiratory system(s) required my full and direct attention, intervention and personal management. The critical care time is as shown. This time is in addition to time spent performing any reported procedures but includes the following: [x] Data and vital sign review and interpretation [x] Patient assessment, examination and intervention [x] Documentation [x] Medication orders and management Critical Care Time: Critical Care Time (min): 45 Coding Level of Care Code Established Pt Acute Director Of Sustainability Programs for Chg Fwd Patient Type Established History Comprehensive Exam Comprehensive Medical Decision Making High Complexity Diagnoses Difficulty weaning from ventilator Z99.11 Complete heart block I44.2 Congestive heart failure I50.9 Heart failure type: unspecified Heart failure chronicity: acute Shock R57.9 Acute on chronic anemia D64.9 ARRON (acute kidney injury) N17.9 At high risk for pulmonary embolism Z91.89 Time Spent (min) 45
--- NOTE | 2021-03-03 14:31 | PC.NURSE ---
1400 RT has switched patient back from 4l N/C to Bipap when patient tires out and Sat drops into 89%. Pt tolerates it well. This is the second time in my shift patient has been on Bipap.
[2021-03-03 17:14] LABS: Glucose Point of Care 165 mg/dL (70-110)
--- NOTE | 2021-03-03 18:16 | PC.NURSE ---
1800 Called urine output of 900ml to Dr. Olea. Sodium level pending. Ask us to call that result to Dr. Beck. Restart Glucerna tube feeding at same rate with at 40ml/hr with same water [id number] q 4 hours. Notified that speech was concerned about doing a swallow study, with only being able to raise HOB to 30 degrees due to temp pacer in place. Ordered Aspriation Precautions. He stated that a clam type brace may be used on patient.
[2021-03-03 19:13] LABS: Blood Urea Nitrogen 20 mg/dL (8-23); Calcium 8.1 mg/dL (8.5-10.5); Carbon Dioxide 26 mmol/L (22-29); Chloride 110 mmol/L (98-107); Glucose 163 mg/dL (65-115); Osmolality Calculated 302 mOsm/kg (285-295); Sodium 143 mmol/L (136-145)
--- NOTE | 2021-03-03 19:22 | PC.NURSE ---
Dr Matos called and notified about normal sodium level of 143. Order given to decrease fluids from 100 ml/hr to 30 ml/hr.
[2021-03-03] MEDS: dextrose 5% 1,000 ML 30 ML IV (20:01)
[2021-03-03 20:13] LABS: Glucose Point of Care 145 mg/dL (70-110)
[2021-03-03] MEDS: atorvastatin 40 mg Tablet PO (20:23)
[2021-03-03] MEDS: insulin glargine 100 units/1 mL 10 UNIT SUBCUT (20:24)
[2021-03-03] MEDS: vancomycin 1,000 MG in sodium chloride 0.9% 250 ML 250 MG IV (21:41)
[2021-03-04] VITALS (40 sets, daily range): BP systolic 103–158; BP diastolic 52–72; PULSE 85–108; RESP 14–36; TEMP 36.7–37.6; O2SAT 95–100
[2021-03-04] MEDS: piperacillin-tazobactam 3.375 GM in sodium chloride 0.9% (plus) 50 ML IV ×3 (00:34→16:18)
[2021-03-04] MEDS: nitroglycerin 1 gm/inch oint Pkt 1 INCH TOPICAL ×4 (04:03→20:19)
[2021-03-04] MEDS: pantoprazole 40 mg SDV IVP ×2 (04:04→16:17)
[2021-03-04 05:38] LABS: Basophils % 0.2 %; Eosinophils # 0.4 10^3/uL (0.0-0.8); Eosinophils % 3.5 %; Hematocrit 25.6 % (37.0-47.0); Hemoglobin 7.8 g/dL (11.5-15.3); Lymphocytes # 1.1 10^3/uL (0.8-4.8); Lymphocytes % 10.1 %; Mean Corpuscular HGB Conc 30.5 g/dL (30.0-36.0); Mean Corpuscular Hemoglobin 24.3 pg (28.0-34.0); Mean Corpuscular Volume 79.8 fL (81-99); Mean Platelet Volume 12.2 fL (7.4-10.4); Monocytes # 1.4 10^3/uL (0.2-0.9); Monocytes % 12.4 %; Neutrophils # 8.18 10^3/uL (1.8-7.7); Neutrophils % 72.3 %; Nucleated Red Blood Cells # 0.1 /100WBC; Nucleated Red Blood Cells % 1.2 %; Platelet Count 157 10^3/cmm (130-400); Red Blood Count 3.21 10^6/uL (4.1-5.3); Red Cell Distribution Width 21.1 % (12.1-15.1); White Blood Count 11.3 10^3/uL (4.0-10.0)
[2021-03-04 06:08] LABS: Alanine Aminotransferase 129 U/L (0-33); Albumin Level 2.7 g/dL (3.5-5.2); Alkaline Phosphatase 74 IU/L (35-105); Anion Gap 9.9 (5-19); Aspartate Amino Transferase 39 U/L (0-32); Blood Urea Nitrogen 21 mg/dL (8-23); Carbon Dioxide 26 mmol/L (22-29); Chloride 111 mmol/L (98-107); Globulin 3.1 g/dL (1.3-4.6); Glucose 194 mg/dL (65-115); Osmolality Calculated 304 mOsm/kg (285-295); Potassium 3.9 mmol/L (3.5-5.1); Sodium 143 mmol/L (136-145); Total Bilirubin 1.3 mg/dL (0.15-1.2); Total Protein 5.8 g/dL (6.6-8.7)
--- NOTE | 2021-03-04 07:06 | PC.NURSE ---
Right fem temp pacer DC'd by Jaylen at bedside, Venous sheath pulled and bleeding controlled. Dressing applied.
[2021-03-04 07:27] LABS: Glucose Point of Care 203 mg/dL (70-110)
[2021-03-04] MEDS: aspirin 81 mg Chew Tablet PO (08:17)
[2021-03-04] MEDS: lidocaine 5% Patch 1 PATCH TOPICAL (08:31)
[2021-03-04] MEDS: enoxaparin 60 mg/0.6 mL Syringe SUBCUT ×2 (09:32→22:14)
--- NOTE | 2021-03-04 10:26 | P.PN_ITS ---
Subjective Subjective: Interval history: Somewhat sleepy this morning, wakes up to voice. Reports she is having pain with cough. Arm is not bothering her too much. No abdominal pain. Vitals/I&O/Wt Last Vital Signs Temp 98.7 F 03/04/21 07:30 Pulse 91 03/04/21 08:30 Resp 20 H 03/04/21 08:30 BP 158/67 03/04/21 08:30 Pulse Ox 98 03/04/21 08:30 03/03/21 03/04/21 03/04/21 22:59 06:59 14:59 Intake Total 1135 / 1185 1180 / 2365 Output Total 1025 / 1025 750 / 1775 Balance 110 / 160 430 / 590 Weight last 48 hrs Weight 62.868 kg Weight 62.505 kg Physical Exam Const: COMMON NORMALS: no acute distress GENERAL APPEARANCE: cooperative and frail appearing OTHER: Weeks up/opens eyes to voice. Sleepier than yesterday. Moves all extremities. Generally weak. Takes [id number] on the right. On the left somewhat more difficult mobility due to fracture, edema. HENMT: COMMON NORMALS: oropharynx normal Resp: COMMON NORMALS: normal respiratory effort and clear to auscultation bilaterally AUSCULTATION: clear to auscultation bilaterally Cardio: COMMON NORMALS: regular rhythm, S1 normal heart sound present, S2 normal heart sound present and No murmurs present (Cardio) RATE: bradycardic RHYTHM: regular rhythm HEART SOUNDS: S1 normal heart sound present and S2 normal heart sound present GI: COMMON NORMALS: Normal to inspection, nondistended, normoactive bowel sounds present, Soft to palpation and non-tender PALPATION: Yes Soft to palpation Extremity: COMMON NORMALS: no joint enlargement and no pedal edema OTHER: Left upper arm bruising. Edema Neuro: COMMON NORMALS: moves all extremities Skin: OTHER: Thin, fragile skin. Skin tears on lower extremities and several locations below knees Urinary Catheter Management^: Taylor: Cath Placed During This Visit: yes Reason for Continuing Indwelling Catheter: Acute Urinary Retention or Obstruction Urinary Catheter Date of Insertion: 02/23/21 Urinary Catheter Time of Insertion: 17:00 Data : 03/04/21 04:53 03/04/21 04:53 A&P Assessment and plan (1) Acute respiratory failure with hypoxia: Continue nasal cannula, intermittent BiPAP support as needed. Pacemaker was removed today. Speech therapy had to hold evaluation due to head of bed restriction. This should be resolved after 10 AM this morning. Pending assessment. Elevated risk of aspiration. Continue Zosyn, vancomycin for possible aspiration pneumonia. Mobilization as tolerated with PT, OT. For now continues with NGT, tube feeds. DC D5W KVO due to improved hypernatremia. She is maintaining her heart rates and blood pressure. Pain under reasonable control. -Cardiac echo shows EF 60%, grade 1 out of 4 diastolic dysfunction Attempted to reach her granddaughter for update. Status: Acute (2) Complete heart block: Temp ppm DC'd this morning. Maintaining rate/rhythm spontaneously. Continue cardiac monitoring. Status: Acute (3) Hypertension: Blood pressure little bit worse today. 150s. DC the small right fluid infusion. If continues to rise, may need to consider treatment. Status: Acute (4) Hyperlipidemia: Status: Acute (5) Diabetes: Glucerna TF. Continue Lantus, sliding scale insulin. Glucose down as low as 80 this morning. Will change Lantus dose down to 10. Decreased sliding scale to low-dose. Status: Acute (6) Acute on chronic anemia: Stable after transfusion around 8. Monitor. Status: Acute (7) Pulmonary embolism: History of PE. Chronic anticoagulation. Continue Lovenox. Status: Acute (8) Congestive heart failure: Monitor for fluid overload, BNP decreased Status: Acute Qualifiers: Heart failure type: unspecified Heart failure chronicity: acute Qualified Code(s): I50.9 - Heart failure, unspecified (9) Peripheral vascular disease: Status: Acute (10) Shock: Cardiogenic shock on presentation, resolved. Possible septic shock on presentation, resolved. Status: Acute (11) Hyperkalemia: -Resolved Status: Acute (12) Multiorgan failure: Resolving Status: Acute (13) Transaminitis: Improving Status: Acute (14) Acute renal failure: Improved Status: Acute (15) NSTEMI (non-ST elevated myocardial infarction): Suspected demand ischemia. Continue Aspirin, statin -Cardiac echocardiogram EF within normal limits -Cardiology on consult Status: Acute (16) Lactic acidosis: Status: Acute (17) DIC (disseminated intravascular coagulation): If was present has resolved. Status: Acute (18) Closed left humeral fracture: -Manage conservatively, careful turning -Elevate -follow-up with orthopedics in office. Status: Acute (19) History of fracture of left hip: -There is an intertrochanteric subtrochanteric hip fracture which has healed. It's been repaired with a long intramedullary greg in the left femur and 2 oblique screws in the left femoral neck. No new fractures are seen Status: Acute (20) Hypernatremia: Improved. DC D5W KVO. Status: Acute (21) Diarrhea: Check C. difficile. Stool culture. Granddaughter reports she has chronic issues with on and off diarrhea and constipation. Discussed with her diarrhea is not watery, but stool is runny, she states that probably about normal for her. Status: Acute Attestations Medical Necessity Statement*: Continue admission for assessment of management of improving respiratory failure, weaning of BiPAP support, speech therapy assessment after discontinuation of temporary pacemaker, trial of oral intake in setting of elevated risk of aspiration. Coding Level of Care Code Acute Director Of Recruitment for [facility] Diagnoses Acute respiratory failure with hypoxia J96.01 Complete heart block I44.2 Hypertension I10 Hyperlipidemia E78.5 Diabetes E11.9 Acute on chronic anemia D64.9 Pulmonary embolism I26.99 Congestive heart failure I50.9 Heart failure type: unspecified Heart failure chronicity: acute Peripheral vascular disease I73.9 Shock R57.9 Hyperkalemia E87.5 Multiorgan failure Transaminitis R74.01 Acute renal failure N17.9 NSTEMI (non-ST elevated myocardial infarction) I21.4 Lactic acidosis E87.2 DIC (disseminated intravascular coagulation) D65 Closed left humeral fracture S42.302A History of fracture of left hip Z87.81 Hypernatremia E87.0 Diarrhea R19.7
--- NOTE | 2021-03-04 10:35 | PC.SOCIAL ---
IMM Updated Updated pt's granddaughter,Alejandra on Pg 2 IMM. No questions voiced. Provided pt a copy. Initialed, dated, & timed copy in chart.
[2021-03-04] MEDS: TRAMadol 50 mg Tablet PO (12:27)
[2021-03-04 12:48] LABS: Glucose Point of Care 210 mg/dL (70-110)
--- NOTE | 2021-03-04 14:37 | PC.NURSE ---
Transferred patient to [facility] room 277 bed 2. Report given to Chelsea DOWLING. Pt received by chelsea DOWLING. Pt belongings sent included ramsey. Medications sent included lantus. Transfer was uneventful. Shit summary: Uneventful shift. Pt had the pacemaker line removed. No complications. VItals remained within normal limits all day. Physical therapy worked with patient and pt was able to sit on the side of the bed. Swallow study done. Pt failed test. Will try again tommorow.
--- NOTE | 2021-03-04 15:31 | P.PN_ITS ---
Subjective Subjective: Interval history: Stable. Temporary pacemaker was removed today. Patient has own [place] sinus rhythm Medications: Reviewed: Yes Vitals/I&O/Wt Last Vital Signs Temp 99.6 F 03/04/21 14:35 Pulse 86 03/04/21 14:35 Resp 16 03/04/21 14:35 BP 103/61 03/04/21 14:35 Pulse Ox 95 03/04/21 14:35 03/04/21 03/04/21 03/04/21 06:59 14:59 22:59 Intake Total 1180 / 2365 50 / 50 Output Total 750 / 1775 1150 / 1150 Balance 430 / 590 -1100 / -1100 Weight last 48 hrs Weight 138 lb 9.6 oz Weight 137 lb 12.8 oz Physical Exam Urinary Catheter Management^: Taylor: Cath Placed During This Visit: yes Reason for Continuing Indwelling Catheter: Acute Urinary Retention or Obstruction Urinary Catheter Date of Insertion: 02/23/21 Urinary Catheter Time of Insertion: 17:00 Data : 03/04/21 04:53 03/04/21 04:53 Micro: Microbiology 03/04/21 11:45 Enteric Pathogens (PCR) - Final Stool C.difficile Toxin B Gene (PCR) - Final A&P Assessment and plan (1) Complete heart block: Status post temporary pacemaker, patient has intermittent heart block she is pacing at different intervals. Once potassium will normalize will assess whether she requires permanent pacemaker Continues to be pacemaker dependent Pacemaker working fine she is in AAI sync mode, pacing fine. Once extubated and more coherent will decide regarding permanent pacemaker depending upon her long- term prognosis Pacemaker in good standing continue temporary pacer once more stable will decide regarding long-term prognosis and permanent pacemaker placement Stable from a cardiovascular perspective. Continue to monitor. Patient is not using pacemaker. Patient has underlying [place] sinus rhythm . Patient is not pacemaker dependent will never turn it off tomorrow. S/p temporary pacemaker extraction. Doing fine from a cardiac perspective Status: Acute (2) Shock: There is resolved. Status: Acute (3) Hyperkalemia: Improved. Status: Acute (4) Congestive heart failure: Well compensated. Will wean off from ventilator Status: Acute Qualifiers: Heart failure type: unspecified Heart failure chronicity: acute Qualified Code(s): I50.9 - Heart failure, unspecified (5) Acute renal failure: Improved Status: Acute (6) DIC (disseminated intravascular coagulation): As per medicine. Status: Acute Attestations 2 Medical Necessity Statement*: As per medicine Coding Level of Care Code Acute Billing Coordinator for [facility] Diagnoses Complete heart block I44.2 Shock R57.9 Hyperkalemia E87.5 Congestive heart failure I50.9 Heart failure type: unspecified Heart failure chronicity: acute Acute renal failure N17.9 DIC (disseminated intravascular coagulation) D65
[2021-03-04 17:43] LABS: Glucose Point of Care 219 mg/dL (70-110)
[2021-03-04 19:10] LABS: Glucose Point of Care 195 mg/dL (70-110)
[2021-03-04] MEDS: atorvastatin 40 mg Tablet PO (20:19)
[2021-03-04] MEDS: insulin glargine 100 units/1 mL 10 UNIT SUBCUT (20:20)
[2021-03-05] VITALS (11 sets, daily range): BP systolic 96–150; BP diastolic 55–74; PULSE 84–107; RESP 16–27; TEMP 36.6–37.4; O2SAT 94–99
[2021-03-05] MEDS: piperacillin-tazobactam 3.375 GM in sodium chloride 0.9% (plus) 50 ML IV ×2 (01:49→07:55)
[2021-03-05] MEDS: pantoprazole 40 mg SDV IVP ×2 (03:51→17:24)
[2021-03-05] MEDS: nitroglycerin 1 gm/inch oint Pkt 1 INCH TOPICAL ×4 (03:51→20:58)
[2021-03-05 06:16] LABS: Basophils % 0.2 %; Eosinophils # 0.3 10^3/uL (0.0-0.8); Eosinophils % 2.3 %; Hematocrit 24.7 % (37.0-47.0); Hemoglobin 7.6 g/dL (11.5-15.3); Lymphocytes # 1.2 10^3/uL (0.8-4.8); Lymphocytes % 9.4 %; Mean Corpuscular HGB Conc 30.8 g/dL (30.0-36.0); Mean Corpuscular Hemoglobin 24.7 pg (28.0-34.0); Mean Corpuscular Volume 80.2 fL (81-99); Mean Platelet Volume 12.8 fL (7.4-10.4); Monocytes # 1.5 10^3/uL (0.2-0.9); Monocytes % 11.8 %; Neutrophils # 9.76 10^3/uL (1.8-7.7); Neutrophils % 75.4 %; Nucleated Red Blood Cells # 0.1 /100WBC; Nucleated Red Blood Cells % 0.7 %; Platelet Count 180 10^3/cmm (130-400); Red Blood Count 3.08 10^6/uL (4.1-5.3); Red Cell Distribution Width 21.3 % (12.1-15.1); White Blood Count 12.9 10^3/uL (4.0-10.0)
[2021-03-05 07:29] LABS: Alanine Aminotransferase 92 U/L (0-33); Albumin Level 2.8 g/dL (3.5-5.2); Alkaline Phosphatase 81 IU/L (35-105); Anion Gap 10.2 (5-19); Aspartate Amino Transferase 33 U/L (0-32); Blood Urea Nitrogen 21 mg/dL (8-23); Calcium 8.2 mg/dL (8.5-10.5); Carbon Dioxide 25 mmol/L (22-29); Chloride 115 mmol/L (98-107); Glucose 173 mg/dL (65-115); Osmolality Calculated 309 mOsm/kg (285-295); Potassium 4.2 mmol/L (3.5-5.1); Sodium 146 mmol/L (136-145); Total Bilirubin 1.3 mg/dL (0.15-1.2); Total Protein 5.8 g/dL (6.6-8.7)
[2021-03-05 07:51] LABS: Glucose Point of Care 196 mg/dL (70-110)
[2021-03-05] MEDS: TRAMadol 50 mg Tablet PO (07:54)
[2021-03-05] MEDS: aspirin 81 mg Chew Tablet PO (07:55)
[2021-03-05] MEDS: lidocaine 5% Patch 1 PATCH TOPICAL ×2 (08:04→20:58)
--- NOTE | 2021-03-05 09:31 | P.PN_ITS ---
Subjective Subjective: Interval history: She is generally weak, laying back on the pillow, denies partially open, appears to be resting, responds to loud voice. Denies pain in her arm. Denies pain in her back. Vitals/I&O/Wt Last Vital Signs Temp 99.3 F 03/05/21 07:41 Pulse 107 H 03/05/21 07:41 Resp 20 H 03/05/21 07:41 BP 137/74 03/05/21 07:41 Pulse Ox 99 03/05/21 07:41 03/04/21 03/05/21 03/05/21 22:59 06:59 14:59 Intake Total 1768 / 1818 50 / 1868 Output Total 450 / 1600 250 / 1850 Balance 1318 / 218 -200 / 18 Weight last 48 hrs Weight 62.641 kg Weight 62.868 kg Physical Exam 2 Const: COMMON NORMALS: no acute distress GENERAL APPEARANCE: cooperative and frail appearing OTHER: Weeks up/opens eyes to voice. Sleepier than yesterday. Moves all extremities. Generally weak. Takes [id number] on the right. On the left somewhat more difficult mobility due to fracture, edema. HENMT: COMMON NORMALS: oropharynx normal Resp: COMMON NORMALS: normal respiratory effort and clear to auscultation bilaterally AUSCULTATION: clear to auscultation bilaterally Cardio: COMMON NORMALS: regular rhythm, S1 normal heart sound present, S2 normal heart sound present and No murmurs present (Cardio) RATE: bradycardic RHYTHM: regular rhythm HEART SOUNDS: S1 normal heart sound present and S2 normal heart sound present GI: COMMON NORMALS: Normal to inspection, nondistended, normoactive bowel sounds present, Soft to palpation and non-tender PALPATION: Yes Soft to palpation Extremity: COMMON NORMALS: no joint enlargement and no pedal edema OTHER: Left upper arm bruising. Edema Neuro: COMMON NORMALS: moves all extremities Skin: OTHER: Thin, fragile skin. Skin tears on lower extremities and several locations below knees. Some of these appear to have old eschar, appear to like could be also arterial insufficiency ulcerations. Urinary Catheter Management^: Taylor: Cath Placed During This Visit: yes Reason for Continuing Indwelling Catheter: Acute Urinary Retention or Obstruction Urinary Catheter Date of Insertion: 02/23/21 Urinary Catheter Time of Insertion: 17:00 Data : 03/05/21 05:59 03/05/21 05:59 Micro: Microbiology 03/04/21 11:45 Enteric Pathogens (PCR) - Final Stool C.difficile Toxin B Gene (PCR) - Final A&P Assessment and plan (1) Acute respiratory failure with hypoxia: Overall oxygenation remained stable on 3 L. Mouth is dry. Requested addition of O2 humidification, mouth swabs. She is generally very weak. Will repeat chest x-ray. Cautious assessment by speech therapy. Elevated risk of aspiration. If unable to resume oral diet consideration may need to be given to whether feeding tube may be something family would be interested in based on patient's prior wishes if stated. Continue nasal cannula, intermittent BiPAP support as needed. Maintaining heart rates since removal of temporary pacemaker. Hypotension resolved. Continue Zosyn, vancomycin for possible aspiration pneumonia. Mobilization as tolerated with PT, OT. For now continues with NGT, tube feeds. Pain under reasonable control. -Cardiac echo shows EF 60%, grade 1 out of 4 diastolic dysfunction Discussed with her granddaughter yesterday, encouraged her to come visit patient and get an idea of her condition which may be helpful with consideration of further goals of care. Status: Acute (2) Hypernatremia: Again with some worsening of sodium, up to 146. Continues with free water flushes of NGT. Discussed with pharmacy will switch base fluids of antibiotic infusions to D5. Status: Acute (3) Complete heart block: Maintaining heart rate since DC of temporary pacemaker. Continue cardiac monitoring while in the hospital. Status: Acute (4) Hypertension: Blood pressure little bit worse today. 150s. DC the small right fluid infusion. If continues to rise, may need to consider treatment. Status: Acute (5) Hyperlipidemia: Status: Acute (6) Diabetes: Glucerna TF. Increase Lantus dose to 12 units. Continue sliding scale insulin. Status: Acute (7) Acute on chronic anemia: Slight decline today to 7.6. No outward bleeding noted. Monitor. Status: Acute (8) Pulmonary embolism: History of PE. Chronic anticoagulation. Change to Eliquis 5 mg. Status: Acute (9) Congestive heart failure: Monitor for fluid overload, BNP decreased Status: Acute Qualifiers: Heart failure type: unspecified Heart failure chronicity: acute Qualified Code(s): I50.9 - Heart failure, unspecified (10) Peripheral vascular disease: Status: Acute (11) Shock: Cardiogenic shock on presentation, resolved. Possible septic shock on presentation, resolved. Status: Acute (12) Hyperkalemia: -Resolved Status: Acute (13) Multiorgan failure: Resolving Status: Acute (14) Transaminitis: Improving Status: Acute (15) Acute renal failure: Improved Status: Acute (16) NSTEMI (non-ST elevated myocardial infarction): Suspected demand ischemia. Continue Aspirin, statin -Cardiac echocardiogram EF within normal limits -Cardiology on consult Status: Acute (17) Lactic acidosis: Status: Acute (18) DIC (disseminated intravascular coagulation): If was present has resolved. Status: Acute (19) Closed left humeral fracture: -Manage conservatively, careful turning -Elevate -follow-up with orthopedics in office. Status: Acute (20) History of fracture of left hip: -There is an intertrochanteric subtrochanteric hip fracture which has healed. It's been repaired with a long intramedullary greg in the left femur and 2 oblique screws in the left femoral neck. No new fractures are seen Status: Acute (21) Diarrhea: Negative C. difficile, stool culture. Granddaughter reports she has chronic issues with on and off diarrhea and constipation. Discussed with her diarrhea is not watery, but stool is runny, she states that probably about normal for her. Status: Acute Attestations Medical Necessity Statement*: Continue admission for assessment management of slow to improve respiratory failure after aspiration pneumonia, elevated risk of recurrence of aspiration, speech therapy assessment for possibility of oral intake, need for continued tube feeding at this time, consideration of further treatment options and goals of care in case unable to resume oral intake. Disposition planning. Coding Level of Care Code Acute Cattle Rancher for [facility] Diagnoses Acute respiratory failure with hypoxia J96.01 Hypernatremia E87.0 Complete heart block I44.2 Hypertension I10 Hyperlipidemia E78.5 Diabetes E11.9 Acute on chronic anemia D64.9 Pulmonary embolism I26.99 Congestive heart failure I50.9 Heart failure type: unspecified Heart failure chronicity: acute Peripheral vascular disease I73.9 Shock R57.9 Hyperkalemia E87.5 Multiorgan failure Transaminitis R74.01 Acute renal failure N17.9 NSTEMI (non-ST elevated myocardial infarction) I21.4 Lactic acidosis E87.2 DIC (disseminated intravascular coagulation) D65 Closed left humeral fracture S42.302A History of fracture of left hip Z87.81 Diarrhea R19.7
--- NOTE | 2021-03-05 09:34 | XRR_ITS ---
PROCEDURE INFORMATION: Exam: XR Chest Exam date and time: 03/05/2021 1:14 PM Age: 80 years old Clinical indication: Pain; Other: Tachypnea TECHNIQUE: Imaging protocol: XR of the chest. Views: 1 view. COMPARISON: CR XR chest 1V portable [id number] 03/02/2021 5:32 AM FINDINGS: Tubes, catheters and devices: ET tube is been removed. Enteric catheter is in the stomach, side port below the diaphragm. Right upper extremity catheter with tip projecting over the axilla, unchanged. Lungs: The central pulmonary vascular congestion. No alveolar infiltrate. Pleural spaces: No pleural effusion. No pneumothorax detected. Heart/Mediastinum: Unremarkable. No cardiomegaly. Vasculature: Atherosclerotic vascular disease is noted. Bones/joints: Left proximal humeral diaphyseal fracture is again noted. XR/XR chest 1V portable [id number] IMPRESSION: 1. Central pulmonary vascular congestion. 2. No alveolar infiltrate or pleural effusion.
[2021-03-05] MEDS: apixaban 5 mg Tablet PO ×2 (10:34→20:56)
[2021-03-05 11:29] LABS: Glucose Point of Care 180 mg/dL (70-110)
[2021-03-05] MEDS: acetaminophen 325 mg Tablet 650 MG PO (15:22)
[2021-03-05 17:10] LABS: Glucose Point of Care 188 mg/dL (70-110)
[2021-03-05] MEDS: atorvastatin 40 mg Tablet PO (20:56)
[2021-03-05] MEDS: insulin glargine 100 units/1 mL 12 UNIT SUBCUT (21:19)
[2021-03-06] VITALS (15 sets, daily range): BP systolic 117–149; BP diastolic 57–73; PULSE 83–128; RESP 20–30; TEMP 36.9–37.5; O2SAT 94–98
[2021-03-06] MEDS: nitroglycerin 1 gm/inch oint Pkt 1 INCH TOPICAL ×3 (03:03→22:32)
[2021-03-06] MEDS: pantoprazole 40 mg SDV IVP ×2 (04:22→18:32)
[2021-03-06 05:01] LABS: Basophils % 0.2 %; Eosinophils # 0.1 10^3/uL (0.0-0.8); Eosinophils % 0.4 %; Hematocrit 21.4 % (37.0-47.0); Lymphocytes # 0.9 10^3/uL (0.8-4.8); Lymphocytes % 6.9 %; Mean Corpuscular HGB Conc 30.4 g/dL (30.0-36.0); Mean Corpuscular Hemoglobin 24.7 pg (28.0-34.0); Mean Corpuscular Volume 81.4 fL (81-99); Mean Platelet Volume 13.1 fL (7.4-10.4); Monocytes % 8.3 %; Neutrophils # 10.22 10^3/uL (1.8-7.7); Neutrophils % 82.7 %; Nucleated Red Blood Cells # 0.2 /100WBC; Nucleated Red Blood Cells % 1.5 %; Platelet Count 197 10^3/cmm (130-400); Red Blood Count 2.63 10^6/uL (4.1-5.3); Red Cell Distribution Width 21.5 % (12.1-15.1); White Blood Count 12.4 10^3/uL (4.0-10.0)
[2021-03-06 05:12] LABS: Hemoglobin 6.5 g/dL (11.5-15.3)
[2021-03-06 05:16] LABS: Alanine Aminotransferase 86 U/L (0-33); Albumin Level 2.4 g/dL (3.5-5.2); Alkaline Phosphatase 81 IU/L (35-105); Anion Gap 12.9 (5-19); Aspartate Amino Transferase 42 U/L (0-32); Blood Urea Nitrogen 22 mg/dL (8-23); Calcium 8.1 mg/dL (8.5-10.5); Carbon Dioxide 23 mmol/L (22-29); Chloride 110 mmol/L (98-107); Globulin 3.2 g/dL (1.3-4.6); Glucose 248 mg/dL (65-115); Osmolality Calculated 304 mOsm/kg (285-295); Potassium 4.9 mmol/L (3.5-5.1); Sodium 141 mmol/L (136-145); Total Bilirubin 1.1 mg/dL (0.15-1.2); Total Protein 5.6 g/dL (6.6-8.7)
[2021-03-06 07:06] LABS: Glucose Point of Care 254 mg/dL (70-110)
--- NOTE | 2021-03-06 09:20 | PC.SOCIAL ---
IMM Updated Updated pt's granddaughter Alejandra, on Pg 2 IMM. No questions voiced. Provided a copy & left it on pt's bedside table. Initialed, dated, & timed copy in chart.
[2021-03-06] MEDS: sodium chloride 0.9% (100 ml) 100 ML (09:43)
[2021-03-06] MEDS: lidocaine 5% Patch 1 PATCH TOPICAL ×2 (10:59→22:55)
[2021-03-06 11:24] LABS: Glucose Point of Care 239 mg/dL (70-110)
--- NOTE | 2021-03-06 11:29 | PC.OT ---
OT treatment withheld today. RN states that pt is wearing Bipap at this time, and has been increasingly agitated today. Will check on pt status tomorrow. ARNULFO Haynes/Crow GALLARDO/Ludin
--- NOTE | 2021-03-06 15:30 | PC.SLP ---
Patient was unable to participate in speech therapy intervention on 03/06/2021. Will continue to monitor patient and provide intervention when patient is able to participate.
--- NOTE | 2021-03-06 16:06 | PM.PN ---
Subjective Subjective: Interval history: Hospital course, labs reviewed. On examination patient is laying in bed, not responsive which seems to be her baseline but be very sluggishly reactive on 4 L nasal cannula saturating 94%. She has an NG tube in place but not getting feeds. She has a rectal tube in place around 80 cc of stool in 11 hours and over 500 cc of urine in the same. Patient has remained hemodynamically stable and afebrile. Patient's care was discussed in detail with her [id number] Ms. Roberts/appointed DPOA. All the questions were answered. As per the family member they are discussing regarding hospice care, with himself and most likely tomorrow when the final family member arrives they will switch her over to hospice care/comfort care measures but will then make a decision they would want her to be full code. Medications: Reviewed: Yes Vitals/I&O/Wt Last Vital Signs Temp 98.7 F 03/06/21 11:31 Pulse 123 H 03/06/21 11:31 Resp 30 H 03/06/21 11:31 BP 134/70 03/06/21 11:31 Pulse Ox 96 03/06/21 11:31 03/06/21 03/06/21 03/06/21 06:59 14:59 22:59 Intake Total 200 / 1186 450 / 450 Output Total 0 / 400 Balance 200 / 786 450 / 450 Weight last 48 hrs Weight 64.274 kg Weight 62.641 kg Physical Exam Const: COMMON NORMALS: no acute distress GENERAL APPEARANCE: cooperative and frail appearing ORIENTATION/CONSCIOUSNESS: not awake, not oriented to person, not oriented to place and not oriented to time OTHER: Weeks up/opens eyes to voice. Sleepier than yesterday. Moves all extremities. Generally weak. Takes [id number] on the right. On the left somewhat more difficult mobility due to fracture, edema. HENMT: COMMON NORMALS: normocephalic and oropharynx normal HEAD & SCALP: normocephalic OTHER: Pupils fixed dilated bilaterally Eye: COMMON NORMALS: Equal, round and reactive pupils present GENERAL EYE: appearance normal, both eyes and all related structures PUPIL: Yes Equal, round and reactive pupils present Chest: COMMONS NORMALS: normal inspection of the chest Resp: COMMON NORMALS: normal respiratory effort, No retractions, No use of accessory muscles and clear to auscultation bilaterally AUSCULTATION: clear to auscultation bilaterally and crackles Cardio: COMMON NORMALS: regular rate, regular rhythm, S1 normal heart sound present, S2 normal heart sound present and No murmurs present (Cardio) RATE: regular rate and bradycardic RHYTHM: regular rhythm HEART SOUNDS: S1 normal heart sound present and S2 normal heart sound present GI: COMMON NORMALS: Normal to inspection, nondistended, normoactive bowel sounds present, Soft to palpation, non-tender and No hepatosplenomegaly present PALPATION: Yes Soft to palpation and Yes No hepatosplenomegaly present Extremity: COMMON NORMALS: capillary refill normal, no joint enlargement, no clubbing, cyanosis or edema and no pedal edema NARRATIVE EXTREMITY EXAM: 1+ edema OTHER: Left upper arm bruising. Edema Neuro: COMMON NORMALS: moves all extremities SENSORIUM/ORIENTATION: No oriented to person, No oriented to place and No oriented to time Skin: OTHER: Thin, fragile skin. Skin tears on lower extremities and several locations below knees. Some of these appear to have old eschar, appear to like could be also arterial insufficiency ulcerations. Urinary Catheter Management^: Taylor: Cath Placed During This Visit: yes Reason for Continuing Indwelling Catheter: Accurate Measurement of Urinary Output in Critically Ill Patients Urinary Catheter Date of Insertion: 02/23/21 Urinary Catheter Time of Insertion: 17:00 Data : 03/06/21 16:30 03/06/21 04:50 A&P Assessment and plan (1) Acute respiratory failure with hypoxia: Overall oxygenation remained stable on 3 L. Mouth is dry. She is generally very weak. Cautious assessment by speech therapy. Elevated risk of aspiration. If unable to resume oral diet consideration may need to be given to whether feeding tube may be something family would be interested in based on patient's prior wishes if stated. For now patient family would want to wait till they make further goals of care discussions. Continue nasal cannula, intermittent BiPAP support as needed. Maintaining heart rates since removal of temporary pacemaker. Hypotension resolved. Continue Zosyn, vancomycin for possible aspiration pneumonia. Mobilization as tolerated with PT, OT. For now continues with NGT, but hold off on tube feeds for now. Continue free water flushes. Pain under reasonable control. -Cardiac echo shows EF 60%, grade 1 out of 4 diastolic dysfunction Status: Acute (2) Hypernatremia: Resolving. Most likely because of poor oral intake. Continues with free water flushes of NGT. Discussed with pharmacy will switch base fluids of antibiotic infusions to D5. Status: Acute (3) Complete heart block: Maintaining heart rate since DC of temporary pacemaker. Continue cardiac monitoring while in the hospital. Status: Acute (4) Hypertension: Goal blood pressure less than 140/90 mmHg. Stable for now. If continues to rise, may need to consider treatment. Most likely will low-dose amlodipine. Status: Acute (5) Hyperlipidemia: Status: Acute (6) Diabetes: Glucerna TF. Increase Lantus dose to 12 units. Continue sliding scale insulin. Status: Acute (7) Acute on chronic anemia: Slight decline today to 7.6. No outward bleeding noted. Monitor. Status: Acute (8) Pulmonary embolism: History of PE. Chronic anticoagulation. Change to Eliquis 5 mg. Status: Acute (9) Congestive heart failure: Monitor for fluid overload, BNP decreased Status: Acute Qualifiers: Heart failure chronicity: acute Heart failure type: unspecified Qualified Code(s): I50.9 - Heart failure, unspecified (10) Peripheral vascular disease: Status: Acute (11) Shock: Cardiogenic shock on presentation, resolved. Possible septic shock on presentation, resolved. Status: Acute (12) Hyperkalemia: -Resolved Status: Acute (13) Multiorgan failure: Resolving Status: Acute (14) Transaminitis: Improving Status: Acute (15) Acute renal failure: Improved Status: Acute (16) NSTEMI (non-ST elevated myocardial infarction): Suspected demand ischemia. Continue Aspirin, statin -Cardiac echocardiogram EF within normal limits -Cardiology on consult Status: Acute (17) Lactic acidosis: Status: Acute (18) DIC (disseminated intravascular coagulation): If was present has resolved. Status: Acute (19) Closed left humeral fracture: -Manage conservatively, careful turning -Elevate -follow-up with orthopedics in office. Status: Acute (20) History of fracture of left hip: -There is an intertrochanteric subtrochanteric hip fracture which has healed. It's been repaired with a long intramedullary greg in the left femur and 2 oblique screws in the left femoral neck. No new fractures are seen Status: Acute (21) Diarrhea: Negative C. difficile, stool culture. Granddaughter reports she has chronic issues with on and off diarrhea and constipation. Discussed with her diarrhea is not watery, but stool is runny, she states that probably about normal for her. Status: Acute Additional A&P Information Plan for today would be to discontinue the rectal tube. Continue to monitor hemodynamics while family discussed amongst them self regarding further goals of care. Continue with antibiotics, weaning off oxygen Dirk Black to maintain sodium levels. Continue with bedside sitter. Attestations Medical Necessity Statement*: Patient requires further hospitalization due to prolonged hospitalization because of multiorgan failure, respiratory failure requiring BiPAP ventilation, complete heart block while further goals of care and safe discharge planning is sought. Time Spent in Patient Care: Greater than 35 minutes (>than 50% of time spent in counselling and/or direct pt care on unit). Coding Level of Care Code Acute Social Services Coordinator for Chris Serra Diagnoses Acute respiratory failure with hypoxia J96.01 Hypernatremia E87.0 Complete heart block I44.2 Hypertension I10 Hyperlipidemia E78.5 Diabetes E11.9 Acute on chronic anemia D64.9 Pulmonary embolism I26.99 Congestive heart failure I50.9 Heart failure chronicity: acute Heart failure type: unspecified Peripheral vascular disease I73.9 Shock R57.9 Hyperkalemia E87.5 Multiorgan failure Transaminitis R74.01 Acute renal failure N17.9 NSTEMI (non-ST elevated myocardial infarction) I21.4 Lactic acidosis E87.2 DIC (disseminated intravascular coagulation) D65 Closed left humeral fracture S42.302A History of fracture of left hip Z87.81 Diarrhea R19.7
[2021-03-06 16:37] LABS: Hematocrit 21.9 % (37.0-47.0); Hemoglobin 7.2 g/dL (11.5-15.3)
[2021-03-06 17:43] LABS: Glucose Point of Care 130 mg/dL (70-110)
[2021-03-06] MEDS: metoprolol tartrate 25 mg Tablet PO ×2 (18:33→22:32)
[2021-03-06] MEDS: acetaminophen 325 mg Tablet 650 MG PO (18:39)
[2021-03-06 20:32] LABS: Glucose Point of Care 160 mg/dL (70-110)
[2021-03-06] MEDS: insulin glargine 100 units/1 mL 12 UNIT SUBCUT (22:30)
[2021-03-06] MEDS: atorvastatin 40 mg Tablet PO (22:30)
[2021-03-07] VITALS (17 sets, daily range): BP systolic 118–127; BP diastolic 61–70; PULSE 68–99; RESP 16–31; TEMP 36.6–37.4; O2SAT 94–100
[2021-03-07] MEDS: pantoprazole 40 mg SDV IVP ×2 (04:17→17:54)
[2021-03-07] MEDS: nitroglycerin 1 gm/inch oint Pkt 1 INCH TOPICAL ×4 (04:30→20:59)
[2021-03-07 05:33] LABS: Alanine Aminotransferase 63 U/L (0-33); Albumin Level 2.4 g/dL (3.5-5.2); Alkaline Phosphatase 79 IU/L (35-105); Blood Urea Nitrogen 22 mg/dL (8-23); Calcium 7.9 mg/dL (8.5-10.5); Carbon Dioxide 22 mmol/L (22-29); Chloride 107 mmol/L (98-107); Globulin 2.9 g/dL (1.3-4.6); Glucose 157 mg/dL (65-115); Osmolality Calculated 291 mOsm/kg (285-295); Sodium 137 mmol/L (136-145); Total Bilirubin 1.1 mg/dL (0.15-1.2); Total Protein 5.3 g/dL (6.6-8.7)
[2021-03-07 05:40] LABS: Anion Gap 12.9 (5-19); Aspartate Amino Transferase 41 U/L (0-32); Potassium 4.9 mmol/L (3.5-5.1)
[2021-03-07 06:14] LABS: Basophils % 0.2 %; Eosinophils % 0.1 %; Lymphocytes # 1.1 10^3/uL (0.8-4.8); Lymphocytes % 5.9 %; Mean Corpuscular HGB Conc 31.5 g/dL (30.0-36.0); Mean Corpuscular Hemoglobin 26.4 pg (28.0-34.0); Mean Corpuscular Volume 83.7 fL (81-99); Mean Platelet Volume 12.5 fL (7.4-10.4); Monocytes # 1.3 10^3/uL (0.2-0.9); Monocytes % 7.1 %; Neutrophils # 15.95 10^3/uL (1.8-7.7); Neutrophils % 85.6 %; Nucleated Red Blood Cells # 0.2 /100WBC; Nucleated Red Blood Cells % 0.9 %; Platelet Count 177 10^3/cmm (130-400); Red Blood Count 2.39 10^6/uL (4.1-5.3); Red Cell Distribution Width 21.2 % (12.1-15.1); White Blood Count 18.6 10^3/uL (4.0-10.0)
[2021-03-07 06:21] LABS: Hemoglobin 6.3 g/dL (11.5-15.3)
[2021-03-07 06:45] LABS: Glucose Point of Care 158 mg/dL (70-110)
[2021-03-07] MEDS: lidocaine 5% Patch 1 PATCH TOPICAL (10:02)
--- NOTE | 2021-03-07 10:07 | PC.OT ---
OT TREATMENT WITHHELD TODAY DUE TO PATIENT IN PROCESS OF TRANSITIONING TO COMFORT CARE.
[2021-03-07 11:13] LABS: Glucose Point of Care 172 mg/dL (70-110)
[2021-03-07] MEDS: metoprolol tartrate 25 mg Tablet PO ×2 (11:36→20:57)
--- NOTE | 2021-03-07 12:32 | PM.PN ---
Subjective Subjective: Interval history: Events overnight. On examination patient seems comfortable. Has remained hemodynamically stable overnight. Heart rate better managed today. Hemoglobin again down to 6.3 today. Had goals of care discussion again with Alejandra over the phone today. She states she and her will be coming in by 3 or 5 PM in the afternoon today. She states she spoke with her family and they have decided regarding her going hospice and comfort care back to [facility]. She is requesting less pain medications till family sees her so that she is awake enough to talk to the family. Medications: Reviewed: Yes Vitals/I&O/Wt Last Vital Signs Temp 99.2 F 03/07/21 08:00 Pulse 99 03/07/21 08:00 Resp 18 03/07/21 08:00 BP 124/63 03/07/21 08:00 Pulse Ox 98 03/07/21 11:03 03/06/21 03/07/21 03/07/21 22:59 06:59 14:59 Intake Total 100 / 550 580 / 1130 Output Total 500 / 500 1000 / 1500 Balance -400 / 50 -420 / -370 Weight last 48 hrs Weight 64.954 kg Weight 64.274 kg Physical Exam Const: COMMON NORMALS: no acute distress GENERAL APPEARANCE: cooperative and frail appearing ORIENTATION/CONSCIOUSNESS: not awake, not oriented to person, not oriented to place and not oriented to time OTHER: Wakes up/opens eyes to voice. Sleepier than yesterday. Moves all extremities. Generally weak. Takes [id number] on the right. On the left somewhat more difficult mobility due to fracture, edema. HENMT: COMMON NORMALS: normocephalic and oropharynx normal HEAD & SCALP: normocephalic OTHER: Pupils fixed dilated bilaterally Eye: COMMON NORMALS: Equal, round and reactive pupils present GENERAL EYE: appearance normal, both eyes and all related structures PUPIL: Yes Equal, round and reactive pupils present Chest: COMMONS NORMALS: normal inspection of the chest Resp: COMMON NORMALS: normal respiratory effort, No retractions, No use of accessory muscles and clear to auscultation bilaterally AUSCULTATION: clear to auscultation bilaterally and crackles Cardio: COMMON NORMALS: regular rate, regular rhythm, S1 normal heart sound present, S2 normal heart sound present and No murmurs present (Cardio) RATE: regular rate and bradycardic RHYTHM: regular rhythm HEART SOUNDS: S1 normal heart sound present and S2 normal heart sound present GI: COMMON NORMALS: Normal to inspection, nondistended, normoactive bowel sounds present, Soft to palpation, non-tender and No hepatosplenomegaly present PALPATION: Yes Soft to palpation and Yes No hepatosplenomegaly present Extremity: COMMON NORMALS: capillary refill normal, no joint enlargement, no clubbing, cyanosis or edema and no pedal edema NARRATIVE EXTREMITY EXAM: 1+ edema OTHER: Left upper arm bruising. Edema Neuro: COMMON NORMALS: moves all extremities SENSORIUM/ORIENTATION: No oriented to person, No oriented to place and No oriented to time Skin: OTHER: Thin, fragile skin. Skin tears on lower extremities and several locations below knees. Some of these appear to have old eschar, appear to like could be also arterial insufficiency ulcerations. Urinary Catheter Management^: Taylor: Cath Placed During This Visit: yes Reason for Continuing Indwelling Catheter: Assist Healing of Perineal & Sacral Wounds- Incontinent Patients Urinary Catheter Date of Insertion: 02/23/21 Urinary Catheter Time of Insertion: 17:00 Data : 03/07/21 04:48 03/07/21 04:48 A&P Assessment and plan (1) Acute respiratory failure with hypoxia: Overall oxygenation remained stable on 3 L. Mouth is dry. She is generally very weak. Cautious assessment by speech therapy. Elevated risk of aspiration. If unable to resume oral diet consideration may need to be given to whether feeding tube may be something family would be interested in based on patient's prior wishes if stated. For now patient family would want to wait till they make further goals of care discussions. Continue nasal cannula, intermittent BiPAP support as needed. Maintaining heart rates since removal of temporary pacemaker. Hypotension resolved. Continue Zosyn, vancomycin for possible aspiration pneumonia. Mobilization as tolerated with PT, OT. For now continues with NGT, but hold off on tube feeds for now. Continue free water flushes. Pain under reasonable control. -Cardiac echo shows EF 60%, grade 1 out of 4 diastolic dysfunction Status: Acute (2) Hypernatremia: Resolving. Most likely because of poor oral intake. Continues with free water flushes of NGT. Discussed with pharmacy will switch base fluids of antibiotic infusions to D5. Status: Acute (3) Complete heart block: Maintaining heart rate since DC of temporary pacemaker. Continue cardiac monitoring while in the hospital. Status: Acute (4) Hypertension: Goal blood pressure less than 140/90 mmHg. Stable for now. If continues to rise, may need to consider treatment. Most likely will low-dose amlodipine. Status: Acute (5) Hyperlipidemia: Status: Acute (6) Diabetes: Glucerna TF. Increase Lantus dose to 12 units. Continue sliding scale insulin. Status: Acute (7) Acute on chronic anemia: Slight decline today to 7.6. No outward bleeding noted. Monitor. Status: Acute (8) Pulmonary embolism: History of PE. Chronic anticoagulation. Change to Eliquis 5 mg. Status: Acute (9) Congestive heart failure: Monitor for fluid overload, BNP decreased Status: Acute Qualifiers: Heart failure type: unspecified Heart failure chronicity: acute Qualified Code(s): I50.9 - Heart failure, unspecified (10) Peripheral vascular disease: Status: Acute (11) Shock: Cardiogenic shock on presentation, resolved. Possible septic shock on presentation, resolved. Status: Acute (12) Hyperkalemia: -Resolved Status: Acute (13) Multiorgan failure: Resolving Status: Acute (14) Transaminitis: Improving Status: Acute (15) Acute renal failure: Improved Status: Acute (16) NSTEMI (non-ST elevated myocardial infarction): Suspected demand ischemia. Continue Aspirin, statin -Cardiac echocardiogram EF within normal limits -Cardiology on consult Status: Acute (17) Lactic acidosis: Status: Acute (18) DIC (disseminated intravascular coagulation): If was present has resolved. Status: Acute (19) Closed left humeral fracture: -Manage conservatively, careful turning -Elevate -follow-up with orthopedics in office. Status: Acute (20) History of fracture of left hip: -There is an intertrochanteric subtrochanteric hip fracture which has healed. It's been repaired with a long intramedullary greg in the left femur and 2 oblique screws in the left femoral neck. No new fractures are seen Status: Acute (21) Diarrhea: Negative C. difficile, stool culture. Granddaughter reports she has chronic issues with on and off diarrhea and constipation. Discussed with her diarrhea is not watery, but stool is runny, she states that probably about normal for her. Status: Acute Additional A&P Information Plan for today: After further discussions of goals of care with the family members and Alejandra who ordered designated DPOA family has decided regarding hospice/comfort care back to [facility]. CODE STATUS has been changed and orders have been placed. Morphine 1 mg IV as needed for pain and air hunger. Scopolamine, glycopyrrolate for secretions. Stop antibiotics. Attestations Medical Necessity Statement*: Patient for hospice/comfort care while safe and comfortable discharge planning is sought. Time Spent in Patient Care: Greater than 35 minutes (>than 50% of time spent in counselling and/or direct pt care on unit). Coding Level of Care Code Acute Medical Customer Service Representative for Olyg Fwd Diagnoses Acute respiratory failure with hypoxia J96.01 Hypernatremia E87.0 Complete heart block I44.2 Hypertension I10 Hyperlipidemia E78.5 Diabetes E11.9 Acute on chronic anemia D64.9 Pulmonary embolism I26.99 Congestive heart failure I50.9 Heart failure type: unspecified Heart failure chronicity: acute Peripheral vascular disease I73.9 Shock R57.9 Hyperkalemia E87.5 Multiorgan failure Transaminitis R74.01 Acute renal failure N17.9 NSTEMI (non-ST elevated myocardial infarction) I21.4 Lactic acidosis E87.2 DIC (disseminated intravascular coagulation) D65 Closed left humeral fracture S42.302A History of fracture of left hip Z87.81 Diarrhea R19.7
[2021-03-07] MEDS: sodium chloride 0.9% (100 ml) 100 ML 50 ML (12:44)
--- NOTE | 2021-03-07 13:33 | PC.OT ---
DISCHARGE SKILLED OT PATIENT IS BEING PLACED ON HOSPICE CARE.
[2021-03-07] MEDS: sennosides-docusate Tablet 1 TAB PO (17:54)
[2021-03-07 20:31] LABS: Glucose Point of Care 115 mg/dL (70-110)
[2021-03-07] MEDS: atorvastatin 40 mg Tablet PO (20:57)
[2021-03-08] VITALS (12 sets, daily range): BP systolic 104–136; BP diastolic 62–68; PULSE 88–105; RESP 17–24; TEMP 37.1; O2SAT 93–99
[2021-03-08] MEDS: nitroglycerin 1 gm/inch oint Pkt 1 INCH TOPICAL ×2 (04:36→10:16)
[2021-03-08] MEDS: pantoprazole 40 mg SDV IVP (05:59)
[2021-03-08 06:25] LABS: Glucose Point of Care 174 mg/dL (70-110)
[2021-03-08] MEDS: metoprolol tartrate 25 mg Tablet PO (10:16)
[2021-03-08] MEDS: sennosides-docusate Tablet 1 TAB PO (10:16)
[2021-03-08] MEDS: lidocaine 5% Patch 1 PATCH TOPICAL (10:16)
--- NOTE | 2021-03-08 11:49 | PC.SOCIAL ---
IMM Updated Updated pt's granddaughter Alejandra, on Pg 2 IMM via telephone. No questions voiced. Initialed, dated, & timed copy in chart.
--- NOTE | 2021-03-08 12:14 | P.DS_ITS ---
Discharge Providers Date of Admission: 02/23/21 15:26 Date of Discharge: March 08, 2021 Attending Provider at Admission: Arvind Rodriguez MD Attending Provider at Discharge: Karlo Daigle MD Primary Care Provider: Umesh Becerra MD Diagnoses at Discharge Discharge Diagnosis (1) Acute respiratory failure with hypoxia: Status: Acute (2) Hypernatremia: Status: Acute (3) Complete heart block: Status: Acute (4) Hypertension: Status: Acute (5) Hyperlipidemia: Status: Acute (6) Diabetes: Status: Acute (7) Acute on chronic anemia: Status: Acute (8) Pulmonary embolism: Status: Acute (9) Congestive heart failure: Status: Acute Permanent problem details: Compensated Qualifiers: Heart failure type: unspecified Heart failure chronicity: acute Qualified Code(s): I50.9 - Heart failure, unspecified (10) Peripheral vascular disease: Status: Acute (11) Shock: Status: Acute (12) Hyperkalemia: Status: Acute (13) Multiorgan failure: Status: Acute (14) Transaminitis: Status: Acute (15) Acute renal failure: Status: Acute (16) NSTEMI (non-ST elevated myocardial infarction): Status: Acute (17) Lactic acidosis: Status: Acute (18) DIC (disseminated intravascular coagulation): Status: Acute (19) Closed left humeral fracture: Status: Acute (20) History of fracture of left hip: Status: Acute (21) Diarrhea: Status: Acute Reason for Visit Reason for Visit: UNRESPONSIVE/ FALL YESTERDAY Hospital Course Hospital Course Charisma Holly is a 80 year old female who has a past medical history of thalassemia trait, type 2 diabetes mellitus, hypertension, microcytic anemia, grade 1 diastolic dysfunction, last EF 65%, pulmonary embolism on modified dose of Eliquis, has a history of dementia, severe peripheral vascular disease status post balloon angioplasty of the left distal tibial peroneal trunk in April 2020, chronic hypoxia 1.5 L, According to the long term, Reza Wickes, she has dementia, she cannot recognize nursing staff at times, is forgetful at times, she can feed herself, she ambulates in a walker, yesterday she fell sustaining a left humeral fracture, currently medically managed, she is also complaining of left hip pain, since coming back from the emergency room, she just was not acting appropri ately, was looking more ill, looking short of breath. This morning she woke up she actually had breakfast, still looking ill, complaining of left hip pain. After breakfast, she was sitting at the breakfast table when, she slowly became nonresponsive, agonal breathing, became hypoxic, her oxygen saturations were in the low 60s, her pulse was low, blood pressure was low according to the long term staff, she was not responding appropriately so they brought her over to the emergency room. It took roughly 25 minutes for her to get over to [facility], on arrival she was nonresponsive, bradycardic, was in complete heart block, she was found to have cardiogenic shock from bradycardia, was given atropine x2, cutaneous pacing was established, 84 MA, rate of 80, pressures improved, was also given IV dopamine, titrate up to 12, pressures improved to 90 systolics, Dr. Will was consulted, transcutaneous pacer, intubated by RSI, taken to the cardiac catheterization lab, had a pacemaker placed, currently in ICU. She was also found to have hyperkalemia, was given insulin, glucose, calcium gluconate, currently patient is in the ICU, she is on dopamine, she has received several sedating medications in the ER, pupils are fixed dilated, nonresponsive, she does not withdraw from pain, is 100% FiO2, PEEP of 10, good tidal volumes. Patient was also found to have a left humeral fracture which was decided to be treated conservatively. She was admitted to ICU via ER on 02/23/21, when she was brought to ER for unresponsiveness, complete hear block, found to have cardiogenic shock from bradycardia, was given atropine x2, cutaneous pacing was established, 84 MA, rate of 80, pressures improved, was also given IV dopamine, titrate up to 12, pressures improved to 90 systolics. intubated by RSI, taken to the cardiac catheterization lab, had a pacemaker placed. Patient also found to have hyperkalemia on admission which was treated with insulin, glucose, calcium gluconate. She required pressors to maintain blood pressure and over time pressors were weaned off. Patient had a long complicated hospital stay because of complete heart block requiring temporary pacemaker, acute hypoxic respiratory failure requiring intubation along with acute kidney injury and acute on chronic anemia requiring multiple blood transfusions. Once stabilized she was transferred to medical surgical floor for further management. During hospitalization patient also required nutrition supplement through NG tube feedings. Because of complicated prolonged hospitalization and baseline poor vent and functional capacity further goals of care were discussed with patient's DPOA Ms. Roberts. Restlessly after discussing with further family members decided about hospice/comfort care management going further without any placement of NG tube with PEG feeds. She is being discharged in hemodynamically stable and comfortable state back to [facility] on hospice care. Physical Exam Const: COMMON NORMALS: no acute distress GENERAL APPEARANCE: cooperative and frail appearing ORIENTATION/CONSCIOUSNESS: not awake, not oriented to person, not oriented to place and not oriented to time OTHER: Wakes up/opens eyes to voice. Sleepier than yesterday. Moves all extremities. Generally weak. Takes [id number] on the right. On the left somewhat more difficult mobility due to fracture, edema. HENMT: COMMON NORMALS: normocephalic and oropharynx normal HEAD & SCALP: normocephalic OTHER: Pupils fixed dilated bilaterally Eye: COMMON NORMALS: Equal, round and reactive pupils present GENERAL EYE: appearance normal, both eyes and all related structures PUPIL: Yes Equal, round and reactive pupils present Chest: COMMONS NORMALS: normal inspection of the chest Resp: COMMON NORMALS: normal respiratory effort, No retractions, No use of accessory muscles and clear to auscultation bilaterally AUSCULTATION: clear to auscultation bilaterally and crackles Cardio: COMMON NORMALS: regular rate, regular rhythm, S1 normal heart sound present, S2 normal heart sound present and No murmurs present (Cardio) RATE: regular rate and bradycardic RHYTHM: regular rhythm HEART SOUNDS: S1 normal heart sound present and S2 normal heart sound present GI: COMMON NORMALS: Normal to inspection, nondistended, normoactive bowel sounds present, Soft to palpation, non-tender and No hepatosplenomegaly present PALPATION: Yes Soft to palpation and Yes No hepatosplenomegaly present Extremity: COMMON NORMALS: capillary refill normal, no joint enlargement, no clubbing, cyanosis or edema and no pedal edema NARRATIVE EXTREMITY EXAM: 1+ edema OTHER: Left upper arm bruising. Edema Neuro: COMMON NORMALS: moves all extremities SENSORIUM/ORIENTATION: No oriented to person, No oriented to place and No oriented to time Skin: OTHER: Thin, fragile skin. Skin tears on lower extremities and several locations below knees. Some of these appear to have old eschar, appear to like could be also arterial insufficiency ulcerations. 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 Stat Exams 02/23/21 13:49 Completed XR KUB portable 7 4018 Urgent Exams 03/02/21 16:27 Completed XR chest 1V mere ble [id number] Routine Exams 02/23/21 15:49 Completed XR chest 1V mere ble [id number] Routine Exams 02/24/21 07:00 Completed XR chest 1V mere ble [id number] Routine Exams 02/25/21 07:00 Completed XR chest 1V mere ble [id number] Routine Exams 02/26/21 07:00 Completed XR chest 1V mere ble [id number] Routine Exams 02/27/21 07:00 Completed XR chest 1V mere ble [id number] Routine Exams 03/02/21 06:00 Completed XR chest 1V mere ble [id number] Routine Exams 03/05/21 09:34 Completed XR chest 1V mere ble [id number] Stat Exams 02/23/21 13:29 Completed XR chest 1V mere ble [id number] Urgent Exams 02/24/21 08:45 Completed XR hip BI 3-4V wo /w pel [id number] Routi ne Exams 02/24/21 Completed CV echo complete* [id number] Routine Ultrasound 02/24/21 06:00 [place] [id number] Routin e Ultrasound 02/24/21 11:01 Completed Pending at discharge Category Date Time Status Leukocyte Reduced RBC Routine Lab 03/06/21 05:45 Results Miscellaneous Jasmine t Routine Lab 03/06/21 05:30 Received Type and Screen R outine Lab 03/06/21 05:45 Results Labs from last 24 hours 03/08/21 03/07/21 03/06/21 06:19 20:01 05:45 POC Glucose 174 H 115 H Blood Type A Positive Rho(D) Type Positive / 4+ Antibody Screen Negative Crossmatch See Detail Vitals: Last Vital Signs Temp 98.7 F 03/08/21 11:03 Pulse 88 03/08/21 11:03 Resp 20 H 03/08/21 11:03 BP 104/62 03/08/21 11:03 Pulse Ox 95 03/08/21 11:03 Discharge Plan Discharge Patient Disposition: Hospice - Medical Facility Condition: Stable Prescriptions: Continued Lasix 40 mg tablet 40 mg PO BID@0800,1400 RF: 0 metformin 500 mg tablet 1,000 mg PO BID@08,1999 RF: 0 tramadol 50 mg tablet 25 mg PO QID PRN (Reason: pain) Qty: 14 RF: 0 pantoprazole 40 mg Tablet,Delayed Release (Dr/Ec) 40 mg PO BID@599,1999 RF: 0 hydrocodone-acetaminophen 5-325 mg tablet 1 tab PO Q4H PRN (Reason: pain) Qty: 20 RF: 0 donepezil 5 mg Tablet 5 mg PO DAILY@0800 RF: 0 pravastatin 40 mg Tablet 40 mg PO DAILY@1999 RF: 0 acetaminophen 325 mg Tablet 650 mg PO Q6H PRN (Reason: Mild/Mod Pain Or Temp >/= 101) Qty: 0 RF: 0 Novolog U-100 Insulin aspart 100 unit/mL Solution See Rx Instructions .ROUTE .COMPLEX RF: 0 ferrous sulfate 325 mg (65 mg iron) Tablet 325 mg PO DAILY@0800 RF: 0 Vitamin C 500 mg tablet 500 mg PO DAILY@0800 RF: 0 atenolol 50 mg tablet 50 mg PO DAILY@0800 RF: 0 Lexapro 20 mg tablet 20 mg PO DAILY@0800 RF: 0 Zyprexa 5 mg Tablet 5 mg PO DAILY@1999 RF: 0 Vitamin D3 125 mcg (5,000 unit) Tablet 250 mcg PO Q30D RF: 0 Vitamin D3 125 mcg (5,000 unit) Tablet 125 mcg PO DAILY@0800 RF: 0 Eliquis 2.5 mg tablet 2.5 mg PO BID@799,1999 RF: 0 Discharge Orders: Discharge Order (Routine); Ordered 03/08/21 Ordered By: Karlo Daigle Referrals: Umesh Becerra MD [Primary Care Provider] - [facility], [Occupational Therapist] - ([facility] will be coming to [facility] to admit you to their services. Their phone number is [phone] if you have any questions or concers please call them. ) Discharge Diet: Advance as tolerated Discharge Activity: Resume usual activity Patient Instructions: Opioid Safety Activity Restrictions/Additional Instructions: Hopsice care Discharge Attestations Time Spent in Discharge Care*: greater than 30 min Specific Discharge Activities: educating and/or supporting family/caregiver, discussing with counter caser/social workers/dc planners, documenting/other paperwork and evaluating patient/reviewing data Status at Discharge: Cognitive status at discharge: moderately impaired cognition , Behavioral status at discharge: cooperative , Functional status at discharge: bed bound Overall status at discharge: patient has a new baseline Quality Metrics Clinical Quality Measures During this hospital stay, did patient experience: None Coding Level of Care Code Acute Chg DC note Diagnoses Acute respiratory failure with hypoxia J96.01 Hypernatremia E87.0 Complete heart block I44.2 Hypertension I10 Hyperlipidemia E78.5 Diabetes E11.9 Acute on chronic anemia D64.9 Pulmonary embolism I26.99 Congestive heart failure I50.9 Heart failure type: unspecified Heart failure chronicity: acute Peripheral vascular disease I73.9 Shock R57.9 Hyperkalemia E87.5 Multiorgan failure Transaminitis R74.01 Acute renal failure N17.9 NSTEMI (non-ST elevated myocardial infarction) I21.4 Lactic acidosis E87.2 DIC (disseminated intravascular coagulation) D65 Closed left humeral fracture S42.302A History of fracture of left hip Z87.81 Diarrhea R19.7
--- NOTE | 2021-03-08 16:12 | PC.NURSE ---
PT HAS DONE DECENT FOR ME TODAY. THIS NURSE ALONG WITH SOME STUDENT AIDS HAVE BATHED AND CHANGED THE PT MULTIPLE TIMES TODAY. PT TOLERATED WELL. PTS MOUTH HAS BEEN SWABBED MULTIPLE TIMES WITH MOUTH SWABS. FAMILY WAS IN TO SEE PT TODAY. PT WILL DISCHARGE TODAY BACK TO [facility] ON HOSPICE PER MD. PT HAS APPEARED TO BE COMFORTABLE THROUGHOUT THE DAY. PT FAVORS LAYING ON R SIDE. A NEW OPTIFOAM WAS PLACED ON PTS SACRAL AREA THIS AFTERNOON. REPORT WAS CALLED TO KIEL MALDONADO RN AT [facility]. PICC LINE WAS REMOVED. CATHETER IN PLACE. PT TOLERATED WELL. NG TUBE REMOVED. PT TOLERATED WELL. NATION CATHETER WAS LEFT IN PER DOCTOR'S ORDER. NATION WAS EMPTIED BY THIS NURSE. A TOTAL OF 250ML OF URINE WAS DUMPED. THIS NURSE ASSISTED THE AMBULANCE CREW IN TRANSFERRING PT TO [facility]. PT TOLERATED WELL. PT WAS HOOKED UP ON 1L NC. BELONGINGS WERE SENT WITH PT. PT SAFELY TRANSPORTED FROM HOSPITAL.
== END 2021-03-08 16:33 | disposition hospice, inpatient (51) | DRG 207 ==
LOC: ER 13:39 → ICU 15:28 → MEDSURG 03-04 14:09
PROVIDERS: Internal Medicine; Internal Medicine Cardiovascular Disease; Internal Medicine Pulmonary Disease; Admitting Provider Family Medicine; Emergency Provider Family Medicine; PCP Internal Medicine; Visit Provider Student in an Organized Health Care Education/Training Program
PROC: 5A1223Z Performance of Cardiac Pacing, Continuous (ICD-10-PCS; principal; 2021-02-23 14:00)
DX: J96.01 Acute respiratory failure with hypoxia (principal); I21.A1 Myocardial infarction type 2; D65 Disseminated intravascular coagulation [defibrination syndrome]; J69.0 Pneumonitis due to inhalation of food and vomit; R57.0 Cardiogenic shock; I44.2 Atrioventricular block, complete; S42.202A Unspecified fracture of upper end of left humerus, initial encounter for closed fracture; N17.9 Acute kidney failure, unspecified; E87.2 Acidosis; E87.0 Hyperosmolality and hypernatremia; E83.52 Hypercalcemia; I50.9 Heart failure, unspecified; I11.0 Hypertensive heart disease with heart failure; E78.5 Hyperlipidemia, unspecified; E11.51 Type 2 diabetes mellitus with diabetic peripheral angiopathy without gangrene; Z98.62 Peripheral vascular angioplasty status; D50.9 Iron deficiency anemia, unspecified; Z86.711 Personal history of pulmonary embolism; Z86.73 Personal history of transient ischemic attack (TIA), and cerebral infarction without residual deficits; F03.90 Unspecified dementia, unspecified severity, without behavioral disturbance, psychotic disturbance, mood disturbance, and anxiety; K44.9 Diaphragmatic hernia without obstruction or gangrene; Z87.01 Personal history of pneumonia (recurrent); D56.9 Thalassemia, unspecified; W19.XXXA Unspecified fall, initial encounter; M25.552 Pain in left hip; I95.9 Hypotension, unspecified; Z79.01 Long term (current) use of anticoagulants; Z79.4 Long term (current) use of insulin; Z79.891 Long term (current) use of opiate analgesic; R19.7 Diarrhea, unspecified; S72.002S Fracture of unspecified part of neck of left femur, sequela; W19.XXXS Unspecified fall, sequela; B95.62 Methicillin resistant Staphylococcus aureus infection as the cause of diseases classified elsewhere
CPT/HCPCS: 31500; 33210; 36415; 36416; 36430; 36569; 36592; 36600; 70450; 71045; 71101; 73030; 73521; 73522; 74018; 80048; 80051; 80053; 80202; 81001; 82330; 82550; 82728; 82803; 82805; 82962; 83036; 83605; 83735; 83880; 84100; 84145; 84311; 84443; 84484; 85014; 85018; 85025; 85362; 85378; 85384; 85610; 85730; 86140; 86850; 86900; 86920; 87040; 87070; 87205; 87493; 87506; 87641; 92526; 92610; 93005; 93306; 93971; 94002; 94003; 94660; 94664; 94799; 96365; 96372; 96374; 96375; 97110; 97161; 97167; 97530; 97535; 99283; 99291; C1769; C1779; C1894; C9113; J0330; J0461; J0610; J1170; J1265; J1644; J1650; J1815 ×2; J1940; J2270; J2405; J2543; J2704; J3010; J3370; J3475; J3490; J7030; J7050; P9016; P9040